=== PATIENT | female | born 1970 | race Caucasian/White ===

== ENCOUNTER → 2019-01-16 09:13 | Outpatient (CLI) | payer OTHER, SELFPAY ==
[2019-01-16 09:54] LABS: Add Manual Diff / Slide Review NO; Basophils Absolute Auto 0 /uL (0-100); Basophils Percent Auto 0.8 % (0-2); Eosinophils Absolute Auto 100 /uL (0-450); Eosinophils Percent Auto 1.8 % (2-4); Hematocrit 38.7 % (36-46); Hemoglobin 13.1 g/dL (12.0-16.0); Lymphocytes Absolute Auto 1200 /uL (1100-4500); Lymphocytes Percent Auto 26.3 % (25-40); Mean Corpuscular HGB Conc 33.8 % (30-36); Mean Corpuscular Hemoglobin 30.9 PG (26-34); Mean Corpuscular Volume 91.3 fL (80-100); Monocytes Absolute Auto 400 /uL (0-900); Monocytes Percent Auto 9.1 % (3-14); Neutrophils Absolute Auto 2800 /uL (1500-7000); Platelet Count 284 X10^3/uL (150-400); Red Blood Cell Count 4.24 X10^6/uL (4.0-5.2); Red Cell Distribution Width 12.2 % (11.6-14.8); White Blood Cell Count 4.5 X10^3/uL (4.5-11.0)
[2019-01-16 10:44] LABS: Alanine Aminotransferase 29 IU/L (9-52); Albumin 4.4 g/dL (3.5-5.0); Albumin Globulin Ratio 1.6 (1.0-2.8); Alkaline Phosphatase 53 U/L (38-126); Aspartate Aminotransferase 21 IU/L (14-36); BUN Creatinine Ratio 21.4 (6-22); Bilirubin Total 0.6 mg/dL (0.2-1.3); Blood Urea Nitrogen 15 mg/dL (7-17); Calcium 9.1 mg/dL (8.4-10.2); Carbon Dioxide 28 mmol/L (22-32); Chloride 101 mmol/L (98-107); Cholesterol 180 mg/dL (140-199); Estimated Glomerular Filt Rate > 60.0 mL/min (>60); Globulin 2.7 g/dL (1.7-4.1); Glucose 85 mg/dL (70-100); HDL Cholesterol 58 mg/dL (40-60); HEMOLYSIS < 15 (0-50); LDL Cholesterol Calculated 110 mg/dL (<100); Potassium 4.1 mmol/L (3.4-5.1); Sodium 136 mmol/L (137-145); Total Protein 7.1 g/dL (6.3-8.2); Triglycerides 59 mg/dL (35-150)
[2019-01-16 10:47] LABS: Vitamin D 25 Hydroxy (D3) 37.4 ng/mL (30.0-100.0)
== END ==
PROVIDERS: PCP Internal Medicine; Visit Provider Student in an Organized Health Care Education/Training Program
DX: Z13.228 Encounter for screening for other metabolic disorders (principal); R53.83 Other fatigue
CPT/HCPCS: 36415; 80053; 80061; 82306; 84443; 85025

== ENCOUNTER → 2019-02-01 11:24 | Outpatient (CLI) | payer OTHER, SELFPAY ==
--- NOTE | 2019-02-01 | DI.MG.S_ITS ---
BILATERAL DIGITAL SCREENING MAMMOGRAM 3D/2D WITH CAD: 02/01/2019 CLINICAL: Routine screening. Comparison is made to exams dated: 12/08/2017 mammogram, 01/12/2017 mammogram, and 01/03/2016 mammogram - [facility]. The tissue of both breasts is extremely dense, which lowers the sensitivity of mammography. Current study was also evaluated with a Computer Aided Detection (CAD) system. There is an asymmetry in the right breast middle depth central to the nipple seen on the mediolateral oblique view only. There is an oval asymmetry in the left breast posterior depth outer region seen on the craniocaudal view only. Finding is best noted on tomographic CC slice 15. There is a mole marker overlying the right breast. There is a biopsy marker in the left breast. IMPRESSION: INCOMPLETE: NEEDS ADDITIONAL IMAGING EVALUATION 1) The asymmetry in the right breast middle depth central to the nipple seen on the mediolateral oblique view only is indeterminate. Additional views with possible ultrasound are recommended. 2) The oval asymmetry in the left breast posterior depth outer region seen on the craniocaudal view only is indeterminate. Additional views with possible ultrasound are recommended. This exam was interpreted at Station ID: [id number]. NOTE: For mammograms, a report in lay terms will be sent to the patient. Approximately 15% of breast malignancies will not be visualized mammographically. In the management of a palpable breast mass, a negative mammogram must not discourage biopsy of a clinically suspicious lesion. Electronically Signed By: Anil Luna M.D. ecl/:02/03/2019 18:32:20 letter sent: Additional Imaging Needed ACR BI-RADS Category 0: Incomplete 3340F
== END ==
PROVIDERS: PCP Internal Medicine; Visit Provider Internal Medicine
DX: Z12.31 Encounter for screening mammogram for malignant neoplasm of breast (principal)
CPT/HCPCS: 77063; 77067

== ENCOUNTER → 2019-03-01 13:12 | Outpatient (CLI) | payer OTHER, SELFPAY ==
--- NOTE | 2019-03-01 | DI.US.S_ITS ---
ULTRASOUND OF RIGHT BREAST: 03/01/2019 CLINICAL: Patient returns today to evaluate a density in the right breast. Comparison is made to exams dated: 03/01/2019 mammogram, 02/01/2019 mammogram, 12/08/2017 mammogram, 01/12/2017 mammogram, 01/03/2016 mammogram, and 01/01/2015 mammogram - [facility]. Color flow and real-time ultrasound of the right breast were performed. Harding scale images of the real-time examination were reviewed. There is a benign 1.2 cm x 1 cm x 1.3 cm oval cyst in the right breast at 10 o'clock middle depth 5 cm from the nipple. This oval cyst is anechoic with a well-defined boundary and posterior acoustic enhancement. Color flow imaging demonstrates that there is no vascularity present. There are also numerous adjacent and scattered simple cysts noted in the right breast. These correlate with the sonographic finidng. No abnormalities were seen sonographically in the right breast. IMPRESSION: BENIGN There is no sonographic evidence of malignancy. The 1.2 cm x 1 cm x 1.3 cm oval cyst in the right breast is consistent with a simple cyst and is benign. A 1 year screening mammogram is recommended. Of note, please see recommendations from left breast ultrasound findings for a 6 month follow up left breast ultrasound. This exam was interpreted at Station ID: [id number]. Electronically Signed By: Elier Farooq M.D. aty/:03/01/2019 16:42:41 letter sent: Normal Exam Ultrasound BI-RADS: 2 Benign
--- NOTE | 2019-03-01 | DI.US.S_ITS ---
ULTRASOUND OF LEFT BREAST: 03/01/2019 CLINICAL: Patient returns today to evaluate a density in the left breast. Comparison is made to exams dated: 03/01/2019 mammogram, 02/01/2019 mammogram, 12/08/2017 mammogram, 01/12/2017 mammogram, 01/03/2016 mammogram, and 01/01/2015 mammogram - [facility]. Color flow and real-time ultrasound of the left breast were performed. Harding scale images of the real-time examination were reviewed. There is 0.9 cm x 0.6 cm x 0.8 cm oval cyst with a septated internal wall in the left breast at 5 o'clock 2 cm from the nipple. This oval cyst is hypoechoic with a well-defined boundary and posterior acoustic enhancement. This correlates with mammography findings. Color flow imaging demonstrates that there is no vascularity present. Additionally, there are numerous simple cysts scattered throughout the left breast. IMPRESSION: PROBABLY BENIGN The 0.9 cm x 0.6 cm x 0.8 cm oval cyst in the left breast at the 5:00 axis, 2cm from the nipple most likely is a complicated cyst and is probably benign. A follow-up left ultrasound in 6 months is recommended to demonstrate stability. This exam was interpreted at Station ID: [id number]. Electronically Signed By: Elier Farooq M.D. aty/:03/01/2019 16:54:15 letter sent: Followup Recommended Ultrasound BI-RADS: 3 Probably benign
--- NOTE | 2019-03-01 | DI.MG.S_ITS ---
BILATERAL DIGITAL DIAGNOSTIC MAMMOGRAM 3D/2D WITH ADDITIONAL VIEWS: 03/01/2019 CLINICAL: Additional evaluation requested from prior study. Comparison is made to exams dated: 02/01/2019 mammogram, 12/08/2017 mammogram, and 01/12/2017 mammogram - [facility]. The tissue of both breasts is extremely dense, which lowers the sensitivity of mammography. There is 0.9 cm oval equal density focal asymmetry in the right breast at 11 o'clock anterior depth which persists on additional views. There is 0.6 cm oval equal density focal asymmetry in the left breast at 5 o'clock posterior depth which persists on additional views. No other significant masses or calcifications are seen in either breast. IMPRESSION: INCOMPLETE: NEEDS ADDITIONAL IMAGING EVALUATION The 0.9 cm oval equal density focal asymmetry in the right breast at 11 o'clock anterior depth is indeterminate. An ultrasound is recommended. The 0.6 cm oval equal density focal asymmetry in the left breast at 5 o'clock posterior depth is indeterminate. An ultrasound is recommended. This exam was interpreted at Station ID: [id number]. NOTE: For mammograms, a report in lay terms will be sent to the patient. Approximately 15% of breast malignancies will not be visualized mammographically. In the management of a palpable breast mass, a negative mammogram must not discourage biopsy of a clinically suspicious lesion. SUMMARY: The recommended ultrasound is scheduled to immediately follow this examination. Electronically Signed By: Elier Farooq M.D. aty/:03/01/2019 14:17:33 ACR BI-RADS Category 0: Incomplete 3340F
== END ==
PROVIDERS: PCP Internal Medicine; Visit Provider Internal Medicine
DX: R92.8 Other abnormal and inconclusive findings on diagnostic imaging of breast (principal); N60.01 Solitary cyst of right breast; N60.02 Solitary cyst of left breast
CPT/HCPCS: 76642; 77066; G0279

== ENCOUNTER → 2019-08-25 08:35 | Outpatient (CLI) | payer OTHER, SELFPAY ==
--- NOTE | 2019-08-25 | DI.US.S_ITS ---
LIMITED ULTRASOUND OF LEFT BREAST: 08/25/2019 CLINICAL: 6 month follow-up of cyst. Comparison is made to exams dated: 03/01/2019 ultrasound, 03/01/2019 mammogram, 02/01/2019 mammogram, 12/08/2017 ultrasound, and 12/08/2017 mammogram - [facility]. Color flow and real-time ultrasound of the left breast 5 o'clock region were performed. Harding scale images of the real-time examination were reviewed. There is a 1.1 cm x 0.9 cm x 0.9 cm (previously 0.9 cm x 0.8 cm x 0.6 cm on comparison ultrasound of 03/01/19) oval cyst with a septated internal wall in the left breast at 5 o'clock 2 cm from the nipple. This oval cyst is hypoechoic with a well-defined boundary and posterior acoustic enhancement. Minimal echogenic debris is stable to prior exam. Color flow imaging demonstrates that there is no vascularity present. IMPRESSION: PROBABLY BENIGN Previously identified probable complicated cyst of the left breast at 5 o'clock position 2 cm from the nipple measures minimally larger than on comparison exam of 03/01/19 but within the limits of measurement error/differences in technique. The probable complicated cyst is not significantly enlarged compared to prior exam of 03/01/19, demonstrates unchanged morphology, and there remains no concerning vascularity to the region. A follow-up ultrasound in 6 months is recommended for futher evaluation/demonstrate stability; bilateral mammography will be due at that time as well. The patient is advised to monitor her breasts and to return sooner for re-evaluation should she feel anything grow or change. This exam was interpreted at Station ID: [id number]. Electronically Signed By: Anil Luna M.D. ecl/:08/25/2019 09:08:56 letter sent: Followup Recommended Ultrasound BI-RADS: 3 Probably benign
== END ==
PROVIDERS: PCP Internal Medicine; Visit Provider Internal Medicine
DX: R92.8 Other abnormal and inconclusive findings on diagnostic imaging of breast (principal); N60.02 Solitary cyst of left breast
CPT/HCPCS: 76642

== ENCOUNTER → 2019-09-20 12:22 | Outpatient (CLI) | payer OTHER, SELFPAY ==
[2019-09-22 17:14] LABS: Urea Breath Test >18YRS NOT DETECTED
== END ==
PROVIDERS: PCP Internal Medicine; Visit Provider Internal Medicine
DX: R10.13 Epigastric pain (principal)
CPT/HCPCS: 83013

== ENCOUNTER → 2019-09-22 12:52 | Outpatient (ROUT) | payer OTHER, SELFPAY ==
[2019-09-22 13:17] LABS: Blood Urea Nitrogen 27 mg/dL (7-17); Calcium 9.4 mg/dL (8.4-10.2); Carbon Dioxide 28 mmol/L (22-32); Chloride 102 mmol/L (98-107); Cholesterol 204 mg/dL (140-199); Estimated Glomerular Filt Rate > 60.0 mL/min (>60); Glucose 81 mg/dL (70-100); HDL Cholesterol 64 mg/dL (40-60); HEMOLYSIS < 15 (0-50); LDL Cholesterol Calculated 128 mg/dL (<100); Potassium 4.2 mmol/L (3.4-5.1); Sodium 139 mmol/L (137-145); Triglycerides 60 mg/dL (35-150)
== END ==
PROVIDERS: PCP Family Medicine; Visit Provider Internal Medicine
DX: Z00.00 Encounter for general adult medical examination without abnormal findings (principal)
CPT/HCPCS: 80048; 80061

== ENCOUNTER → 2020-02-07 13:16 | Outpatient (CLI) | payer OTHER, SELFPAY ==
--- NOTE | 2020-02-07 13:18 | DI.MG.S_ITS ---
BILATERAL DIGITAL DIAGNOSTIC MAMMOGRAM 3D/2D SHORT-TERM FOLLOW-UP: 02/07/2020 CLINICAL: Patient returns for a 6 month follow up of the left breast, due for bilateral imaging. Comparison is made to exams dated: 08/25/2019 ultrasound, 03/01/2019 mammogram, 02/01/2019 mammogram, and 12/08/2017 mammogram - [facility]. The tissue of both breasts is extremely dense, which lowers the sensitivity of mammography. There is an oval equal density focal asymmetry in the left breast at 5 o'clock posterior depth. This is less prominent on additional views. No other significant masses, calcifications, or other findings are seen in either breast. IMPRESSION: INCOMPLETE: NEEDS ADDITIONAL IMAGING EVALUATION The oval equal density focal asymmetry in the left breast is indeterminate. A targeted ultrasound of the left breast is recommended and will be performed immediately following this exam. This exam was interpreted at Station ID: [id number]. NOTE: For mammograms, a report in lay terms will be sent to the patient. Approximately 15% of breast malignancies will not be visualized mammographically. In the management of a palpable breast mass, a negative mammogram must not discourage biopsy of a clinically suspicious lesion. Electronically Signed By: Sally Linton M.D. lk/:02/07/2020 13:58:09 ACR BI-RADS Category 0: Incomplete 3340F
--- NOTE | 2020-02-07 13:19 | DI.US.S_ITS ---
ULTRASOUND OF LEFT BREAST: 02/07/2020 CLINICAL: Followup on left breast cyst. Comparison is made to exams dated: 08/25/2019 ultrasound, 03/01/2019 ultrasound, and 12/08/2017 [facility]. Real-time ultrasound of the left breast was performed on the areas of interest. Harding scale images of the real-time examination were reviewed. There is an oval cyst with a septated internal wall in the left breast at 5 o'clock posterior depth. This oval cyst is hypoechoic with a well-defined boundary and posterior acoustic enhancement. This correlates with mammography findings. Color flow imaging demonstrates that there is no vascularity present. Minimal echogenic debris is stable to prior exam. IMPRESSION: PROBABLY BENIGN The oval cyst in the left breast most likely is a complicated cyst and is probably benign. A follow-up left mammogram and an ultrasound in 6 months is recommended to demonstrate stability. This exam was interpreted at Station ID: [id number]. Electronically Signed By: Sally charles/:02/07/2020 15:20:05 letter sent: Followup Recommended Ultrasound BI-RADS: 3 Probably benign
== END ==
PROVIDERS: PCP Family Medicine; Referring Provider Family Medicine; Visit Provider Family Medicine
DX: R92.8 Other abnormal and inconclusive findings on diagnostic imaging of breast (principal); N60.02 Solitary cyst of left breast
CPT/HCPCS: 76642; 77066; G0279

== ENCOUNTER 2020-08-19 14:30 | Outpatient (RCR) | payer OTHER, SELFPAY ==
--- NOTE | 2020-07-04 17:33 | PT.OIE ---
Current Diagnoses Benign paroxysmal vertigo, unspecified ear (07/04/20) Stiffness of unspecified joint, not elsewhere classified (07/04/20) Cervicalgia (07/04/20) Strain of muscle, fascia and tendon of lower back, initial encounter (07/04/20) Strain of muscle, fascia and tendon of lower back, subsequent encounter (07/04/20) Past Medical History (Last Updated 10/11/19 @ 09:45 by Leatha Pierre MD) Depression (Acute) Past Surgical History History of carpal tunnel repair Status post delivery Status post dilation and curettage Status post endometrial ablation Visit Care Team Role Provider Type Leatha Pierre MD Attending Provider Physician Primary Care Provider Referring Provider Specialty: [facility] Address: [address] [place] [address], [facility] Email: [email or web address] Physical Therapy Initial Evaluation PT-OP-A Visit Information Start: 07/04/20 16:55 Freq: Status: Active Protocol: Document 07/04/20 11:15 DCW (Rec: 07/04/20 17:33 [facility] [id number]) Out-Patient Physical Therapy Visit Information Visit Information Visit Type Initial Evaluation Visit Start Time 11:15 Visit Stop Time 12:00 Total Visit Minutes 45 Visit Number 1 Number of TEST ENGINEER Visits 0 Evaluation Information Evaluation Date 07/04/20 PT-OP-B Current Condition Start: 07/04/20 16:55 Freq: Status: Active Protocol: Document 07/04/20 11:15 DCW (Rec: 07/04/20 17:33 DC [id number]) Current Condition History of Current Condition Onset Date one year Current Complaints Neck pain and stiffness, low back tightness History of Current Condition Pt is a 50 year old female presenting today with multiple complaints. Pt's referral states cervical and low back pain, as well as unspecified BPPV. Pt reports that she has not been having any ongoing issues with vertigo, and would prefer to focus mainly on the neck, as this is her biggest problem area, and then some on the low back as well, time permitting. Pt reports she has had neck pain off and on for the past year. She is unsure when it began, but she thinks it may have happened when she tilted her head back to wash her hair, and heard a popping in her neck. Pt reports the pain is generally more of a tightness or soreness, but can occasionally become worse and begin radiating down her arm. Pt does note her neck doesn't really hurt today, but it seems to come and go. Pt reports she has the most difficulty checking her blind spots while driving, or looking up if she sees a bird or plne overhead. Pt reports that over the winter, she began getting mild low back pain after shoveling snow. Overall, it will feel fine, but then she'll get an occasionally pain randomly with her positioning, but it normally feels better by the end of the day. Treatment Goals Patient/Caregiver Goals I want to move my neck without pain. PT-OP-C Subjective Start: 07/04/20 16:55 Freq: Status: Active Protocol: Document 07/04/20 11:15 DCW (Rec: 07/04/20 17:33 DCW [id number]) OP-PT Subjective Patient Comments Patient Comments Of course it doesn't hurt today, that always happens when you try to get something looked at. Patient Questionnaires Neck Disability Index NDI Score 13/50 = 26% Neck Disability Index Impairment 20 to 39% Impaired (Score 10- 19) Quick Dash- Upper Extremity Quick Dash UE Score 17.5% Quick Dash UE Impairment 1 to 19% Impaired (Score 1-19) OP-PT Pain Assessment Pain Assessment Grid Paper Pain Assessment Grid Completed Yes Location Left Lower Back Intensity 4 Scale Used Numeric (0 - 10) Right Posterior Neck Intensity 6 Scale Used Numeric (0 - 10) PT-OP-F Manual Assessment Start: 07/04/20 16:55 Freq: Status: Active Protocol: Document 07/04/20 11:15 DCW (Rec: 07/04/20 17:33 DCW [id number]) Manual Assessments Soft Tissue Assessment Soft Tissue Mobility Assessment Moderate tone and tenderness to palpation 2/4 - pain with wincing: right upper trap, right scalenes, left QL Joint Mobility Assessment Joint Mobility Assessment Joint mobility in cervical spine WNL PT-OP-K Range of Motion Start: 07/04/20 16:55 Freq: Status: Active Protocol: Document 07/04/20 11:15 DCW (Rec: 07/04/20 17:33 DCW [id number]) Cervical Spine Range of Motion Cervical Spine Active Degrees Testing Position Sitting Flexion 45 Extension 50 Rotation Left 50 Rotation Right 50 Lateral Flexion Left 25 Lateral Flexion Right 30 ROM Limitations Soft Tissue Tightness,Muscle Tone PT-OP-L Special Tests Start: 07/04/20 16:55 Freq: Status: Active Protocol: Document 07/04/20 11:15 DCW (Rec: 07/04/20 17:33 [facility] [id number]) Special Tests Cervical Spine Special Tests Traction Test Results Negative Spurling's Test Test Results Negative Slump Test Results Negative Passive Neck Flexion Test Results Negative Foraminal Compression Test Results Negative Lumbar Spine Special Tests Slump Test Results Negative PT-OP-Q Treatments Start: 07/04/20 16:55 Freq: Status: Active Protocol: Document 07/04/20 11:15 DCW (Rec: 07/04/20 17:33 [facility] [id number]) Therapeutic Exercises Sitting Exercises 3 Sitting Exercise Name Seated trunk flexion 2 Sitting Exercise Name [place] 1 Sitting Exercise Name Upper trap, Scalene stretches Side right PT-OP-T Assessment and Plan Start: 07/04/20 16:55 Freq: Status: Active Protocol: Document 07/04/20 11:15 DCW (Rec: 07/04/20 17:33 [facility] [id number]) Physical Therapy Assessment Rehab Potential Rehabilitation Potential Excellent Evaluation Complexity Number of Personal Factors/Comorbidities 0 Number of Body Systems Impaired 3 Clinical Presentation at Evaluation Stable Impairments Impairments Functional Activities, Functional Mobility,Pain,ROM, Soft Tissue Mobility,Tone Goals Three Impairment Pt has difficulty lifting items due to low back pain Usp Goal (LTG) Pt to demonstrate good body mechanics and ability to lift 20# off the floor without increased low back pain LTG Duration 09/03/20 Two Impairment Pt cervical rotation limited to 50? bilaterally Construction Secretary Goal (LTG) Pt to demonstrate increased cervical ROM to 70? rotation bilaterally to improve ability to look for traffic while driving LTG Duration 09/03/20 One Impairment Pt does not have an appropriate home exercise program Short Term Goal (STG) Pt to be independent and compliant with an appropriate HEP STG Duration 08/04/20 Assessment Summary Assessment Pt presents with signs and symptoms consistent with a soft tissue injury to her right neck. Pt did not show any symptoms of damage or injury to the vertebrae, and there were no positive special tests today. Pt did admit that she was doing better today than what she had been overall, so this may change if her symptoms worsen. Pt's low back was not as fully assessed due to time constraints, but also appears to be mainly soft tissue injury. Both of these injuries appear to be causing mild discomfort and stiffness. Pt should benefit from skilled therapy focusing on STM, flexibility, body mechanics, strengthening, and modalities as indicated. Physical Therapy Plan Frequency and Duration Frequency of Treatment 2x/Week Duration of Treatment 2 months Plan of Care Start Date 07/04/20 Plan of Care End Date 09/03/20 Therapeutic Interventions Therapeutic Interventions Home Exercise Program,Joint Mobilizations,Manual Therapy, Patient/Caregiver Education, Self-Care/Home Management,Soft Tissue Mobilization, Therapeutic Activities, Therapeutic Exercises Modalities Cold Pack/Ice Massage,Electric Stimulation,Hot Packs, Ultrasound Next Visit Focus/Plan Next Note Type Treatment Note Next Visit Plan STM to R upper trap, scalenes, suboccipitals, L QL. Cervical ROM, Flexibility training
--- NOTE | 2020-07-04 17:34 | PT.OPPOC ---
Physical, Occupational & Speech Therapy At [facility] Current Diagnoses Benign paroxysmal vertigo, unspecified ear (07/04/20) Stiffness of unspecified joint, not elsewhere classified (07/04/20) Cervicalgia (07/04/20) Strain of muscle, fascia and tendon of lower back, initial encounter (07/04/20) Strain of muscle, fascia and tendon of lower back, subsequent encounter (07/04/20) Visit Care Team Role Provider Type Leatha Pierre MD Attending Provider Physician Primary Care Provider Referring Provider Specialty: Family Practice Address: [address] [place] [address], [place], [address] Email: [email or web address] Plan Of Care PT-OP-T Assessment and Plan Start: 07/04/20 16:55 Freq: Status: Active Protocol: Document 07/04/20 11:15 DCW (Rec: 07/04/20 17:33 DCW [id number]) Physical Therapy Assessment Rehab Potential Rehabilitation Potential Excellent Evaluation Complexity Number of Personal Factors/Comorbidities 0 Number of Body Systems Impaired 3 Clinical Presentation at Evaluation Stable Impairments Impairments Functional Activities, Functional Mobility,Pain,ROM, Soft Tissue Mobility,Tone Goals Three Impairment Pt has difficulty lifting items due to low back pain Value Engineer Goal (LTG) Pt to demonstrate good body mechanics and ability to lift 20# off the floor without increased low back pain LTG Duration 09/03/20 Two Impairment Pt cervical rotation limited to 50? bilaterally Value Engineer Goal (LTG) Pt to demonstrate increased cervical ROM to 70? rotation bilaterally to improve ability to look for traffic while driving LTG Duration 09/03/20 One Impairment Pt does not have an appropriate home exercise program Short Term Goal (STG) Pt to be independent and compliant with an appropriate HEP STG Duration 08/04/20 Assessment Summary Assessment Pt presents with signs and symptoms consistent with a soft tissue injury to her right neck. Pt did not show any symptoms of damage or injury to the vertebrae, and there were no positive special tests today. Pt did admit that she was doing better today than what she had been overall, so this may change if her symptoms worsen. Pt's low back was not as fully assessed due to time constraints, but also appears to be mainly soft tissue injury. Both of these injuries appear to be causing mild discomfort and stiffness. Pt should benefit from skilled therapy focusing on STM, flexibility, body mechanics, strengthening, and modalities as indicated. Physical Therapy Plan Frequency and Duration Frequency of Treatment 2x/Week Duration of Treatment 2 months Plan of Care Start Date 07/04/20 Plan of Care End Date 09/03/20 Therapeutic Interventions Therapeutic Interventions Home Exercise Program,Joint Mobilizations,Manual Therapy, Patient/Caregiver Education, Self-Care/Home Management,Soft Tissue Mobilization, Therapeutic Activities, Therapeutic Exercises Modalities Cold Pack/Ice Massage,Electric Stimulation,Hot Packs, Ultrasound Next Visit Focus/Plan Next Note Type Treatment Note Next Visit Plan STM to R upper trap, scalenes, suboccipitals, L QL. Cervical ROM, Flexibility training Plan of Care Dates Plan of Care Start Date 07/04/20 Plan of Care End Date 09/03/20 Electronically Signed by: David Blackwood, PT 07/04/20 [id number] Please Sign and Return: I have reviewed this Plan of Care and certify that the skilled therapy services above are required to meet the patient?s needs. Physician Signature Date Printed Name and Credentials Clinical Instructor Signature Printed Name and Credentials
--- NOTE | 2020-07-09 13:05 | PT.OTN ---
Current Diagnoses Benign paroxysmal vertigo, unspecified ear (07/09/20) Stiffness of unspecified joint, not elsewhere classified (07/09/20) Cervicalgia (07/09/20) Strain of muscle, fascia and tendon of lower back, initial encounter (07/09/20) Strain of muscle, fascia and tendon of lower back, subsequent encounter (07/09/20) Physical Therapy Treatment Note PT-OP-A Visit Information Start: 07/04/20 16:55 Freq: Status: Active Protocol: Document 07/09/20 12:16 SP (Rec: 07/09/20 15:07 SP [id number]) Out-Patient Physical Therapy Visit Information Visit Information Visit Type Treatment Note Visit Start Time 12:16 Visit Stop Time 13:05 Total Visit Minutes 49 Visit Number 2 Number of STUCCO PLASTERER Visits 1 PT-OP-B Current Condition Start: 07/04/20 16:55 Freq: Status: Active Protocol: Document 07/04/20 11:15 DCW (Rec: 07/04/20 17:33 DCW [id number]) Current Condition History of Current Condition Onset Date one year Current Complaints Neck pain and stiffness, low back tightness History of Current Condition Pt is a 50 year old female presenting today with multiple complaints. Pt's referral states cervical and low back pain, as well as unspecified BPPV. Pt reports that she has not been having any ongoing issues with vertigo, and would prefer to focus mainly on the neck, as this is her biggest problem area, and then some on the low back as well, time permitting. Pt reports she has had neck pain off and on for the past year. She is unsure when it began, but she thinks it may have happened when she tilted her head back to wash her hair, and heard a popping in her neck. Pt reports the pain is generally more of a tightness or soreness, but can occasionally become worse and begin radiating down her arm. Pt does note her neck doesn't really hurt today, but it seems to come and go. Pt reports she has the most difficulty checking her blind spots while driving, or looking up if she sees a bird or plne overhead. Pt reports that over the winter, she began getting mild low back pain after shoveling snow. Overall, it will feel fine, but then she'll get an occasionally pain randomly with her positioning, but it normally feels better by the end of the day. Treatment Goals Patient/Caregiver Goals I want to move my neck without pain. PT-OP-C Subjective Start: 07/04/20 16:55 Freq: Status: Active Protocol: Document 07/09/20 12:16 SP (Rec: 07/09/20 15:07 SP [id number]) OP-PT Subjective Patient Comments Patient Comments Has pain 3/10 over R lateral side of neck when turns head to R and more when also looks up toward ceiling so avoids motions like this for the past yr. PT-OP-F Manual Assessment Start: 07/04/20 16:55 Freq: Status: Active Protocol: Document 07/04/20 11:15 DCW (Rec: 07/04/20 17:33 DCW [id number]) Manual Assessments Soft Tissue Assessment Soft Tissue Mobility Assessment Moderate tone and tenderness to palpation 2/4 - pain with wincing: right upper trap, right scalenes, left QL Joint Mobility Assessment Joint Mobility Assessment Joint mobility in cervical spine WNL PT-OP-K Range of Motion Start: 07/04/20 16:55 Freq: Status: Active Protocol: Document 07/04/20 11:15 DCW (Rec: 07/04/20 17:33 DCW [id number]) Cervical Spine Range of Motion Cervical Spine Active Degrees Testing Position Sitting Flexion 45 Extension 50 Rotation Left 50 Rotation Right 50 Lateral Flexion Left 25 Lateral Flexion Right 30 ROM Limitations Soft Tissue Tightness,Muscle Tone PT-OP-L Special Tests Start: 07/04/20 16:55 Freq: Status: Active Protocol: Document 07/04/20 11:15 DCW (Rec: 07/04/20 17:33 DCW [id number]) Special Tests Cervical Spine Special Tests Traction Test Results Negative Spurling's Test Test Results Negative Slump Test Results Negative Passive Neck Flexion Test Results Negative Foraminal Compression Test Results Negative Lumbar Spine Special Tests Slump Test Results Negative PT-OP-Q Treatments Start: 07/04/20 16:55 Freq: Status: Active Protocol: Document 07/09/20 12:16 SP (Rec: 07/09/20 15:07 SP [id number]) Therapeutic Exercises Sitting Exercises QL stretch Sitting Exercise Name R side bend Side left Reps/Minutes 30 x2 Comments add HEP 3 Sitting Exercise Name Seated trunk flexion Reps/Minutes 30 Comments HEP 2 Sitting Exercise Name [place] Reps/Minutes 30 Comments HEP 1 Sitting Exercise Name Upper trap, Scalene stretches Side right Comments HEP Manual Therapy Treatment Soft Tissue Mobilization SCM, Scalenes, suboccipitals, UT Mobilization Type Cross-Friction,Myofascial Release,Sustained Pressure Intensity/Depth Moderate Body Position Supine Comments elevated supine on wedge due to dizziness with good feedback manual and Instructed w/ racquetball in sock UT, rhomboids at wall and theracane posterior neck MWM PT-OP-T Assessment and Plan Start: 07/04/20 16:55 Freq: Status: Active Protocol: Document 07/09/20 12:16 SP (Rec: 07/09/20 15:07 SP [id number]) Physical Therapy Assessment Goals Three Impairment Pt has difficulty lifting items due to low back pain Low Pressure Kettle Operator Goal (LTG) Pt to demonstrate good body mechanics and ability to lift 20# off the floor without increased low back pain LTG Duration 09/03/20 Two Impairment Pt cervical rotation limited to 50? bilaterally [facility] Goal (LTG) Pt to demonstrate increased cervical ROM to 70? rotation bilaterally to improve ability to look for traffic while driving LTG Duration 09/03/20 One Impairment Pt does not have an appropriate home exercise program Short Term Goal (STG) Pt to be independent and compliant with an appropriate HEP STG Duration 08/04/20 Assessment Summary Assessment Pt initially did not tolerate supine positioning, improved with black wedge. Pt stated has gotten a couple vertigo instance since last tx but improves with youtube video talking her through self corrections. Pt tolerated manual and instruction on self STMs to posterior and lateral R side of neck and scap area with good response this does help loosen up my neck. See hand outs provided in chart. Physical Therapy Plan Frequency and Duration Frequency of Treatment 2x/Week Duration of Treatment 2 months Plan of Care Start Date 07/04/20 Plan of Care End Date 09/03/20 Therapeutic Interventions Therapeutic Interventions Home Exercise Program,Joint Mobilizations,Manual Therapy, Patient/Caregiver Education, Self-Care/Home Management,Soft Tissue Mobilization, Therapeutic Activities, Therapeutic Exercises Modalities Cold Pack/Ice Massage,Electric Stimulation,Hot Packs, Ultrasound Next Visit Focus/Plan Next Note Type Treatment Note Next Visit Plan Assess response to last tx: manual and self instruction STMs and stretching to R upper trap, scalenes, suboccipitals , L QL. Continue to focus on Cervical ROM, Flexibility training.
--- NOTE | 2020-07-16 11:24 | PT.OTN ---
Current Diagnoses Benign paroxysmal vertigo, unspecified ear (07/16/20) Stiffness of unspecified joint, not elsewhere classified (07/16/20) Cervicalgia (07/16/20) Strain of muscle, fascia and tendon of lower back, initial encounter (07/16/20) Strain of muscle, fascia and tendon of lower back, subsequent encounter (07/16/20) Physical Therapy Treatment Note PT-OP-A Visit Information Start: 07/04/20 16:55 Freq: Status: Active Protocol: Document 07/16/20 10:30 DCW (Rec: 07/16/20 11:23 DCW [id number]) Out-Patient Physical Therapy Visit Information Visit Information Visit Type Treatment Note Visit Start Time 10:30 Visit Stop Time 11:15 Total Visit Minutes 45 Visit Number 3 Number of PATIENT CARE TECHNICIAN INSTRUCTOR Visits 0 Evaluation Information Evaluation Date 07/04/20 PT-OP-B Current Condition Start: 07/04/20 16:55 Freq: Status: Active Protocol: Document 07/04/20 11:15 DCW (Rec: 07/04/20 17:33 DCW [id number]) Current Condition History of Current Condition Onset Date one year Current Complaints Neck pain and stiffness, low back tightness History of Current Condition Pt is a 50 year old female presenting today with multiple complaints. Pt's referral states cervical and low back pain, as well as unspecified BPPV. Pt reports that she has not been having any ongoing issues with vertigo, and would prefer to focus mainly on the neck, as this is her biggest problem area, and then some on the low back as well, time permitting. Pt reports she has had neck pain off and on for the past year. She is unsure when it began, but she thinks it may have happened when she tilted her head back to wash her hair, and heard a popping in her neck. Pt reports the pain is generally more of a tightness or soreness, but can occasionally become worse and begin radiating down her arm. Pt does note her neck doesn't really hurt today, but it seems to come and go. Pt reports she has the most difficulty checking her blind spots while driving, or looking up if she sees a bird or plne overhead. Pt reports that over the winter, she began getting mild low back pain after shoveling snow. Overall, it will feel fine, but then she'll get an occasionally pain randomly with her positioning, but it normally feels better by the end of the day. Treatment Goals Patient/Caregiver Goals I want to move my neck without pain. PT-OP-C Subjective Start: 07/04/20 16:55 Freq: Status: Active Protocol: Document 07/16/20 10:30 DCW (Rec: 07/16/20 11:23 DCW [id number]) OP-PT Subjective Patient Comments Patient Comments Since I was last in here, I' ve had some vertigo problems. Pt notes she has done the half-sommersault maneuver, which seems to have helped. PT-OP-F Manual Assessment Start: 07/04/20 16:55 Freq: Status: Active Protocol: Document 07/04/20 11:15 DCW (Rec: 07/04/20 17:33 DCW [id number]) Manual Assessments Soft Tissue Assessment Soft Tissue Mobility Assessment Moderate tone and tenderness to palpation 2/4 - pain with wincing: right upper trap, right scalenes, left QL Joint Mobility Assessment Joint Mobility Assessment Joint mobility in cervical spine WNL PT-OP-K Range of Motion Start: 07/04/20 16:55 Freq: Status: Active Protocol: Document 07/04/20 11:15 DCW (Rec: 07/04/20 17:33 DCW [id number]) Cervical Spine Range of Motion Cervical Spine Active Degrees Testing Position Sitting Flexion 45 Extension 50 Rotation Left 50 Rotation Right 50 Lateral Flexion Left 25 Lateral Flexion Right 30 ROM Limitations Soft Tissue Tightness,Muscle Tone PT-OP-L Special Tests Start: 07/04/20 16:55 Freq: Status: Active Protocol: Document 07/04/20 11:15 DCW (Rec: 07/04/20 17:33 DCW [id number]) Special Tests Cervical Spine Special Tests Traction Test Results Negative Spurling's Test Test Results Negative Slump Test Results Negative Passive Neck Flexion Test Results Negative Foraminal Compression Test Results Negative Lumbar Spine Special Tests Slump Test Results Negative PT-OP-Q Treatments Start: 07/04/20 16:55 Freq: Status: Active Protocol: Document 07/16/20 10:30 DCW (Rec: 07/16/20 11:23 DCW [id number]) Therapeutic Exercises Supine Exercises 1 Supine Exercise Name Psoas Stretch Sitting Exercises 3 Sitting Exercise Name Seated trunk flexion Standing Exercises 1 Standing Exercise Name / kneel Psoas stretch Side left Manual Therapy Treatment Soft Tissue Mobilization Psoas Body Location L Mobilization Type Cross-Friction,Myofascial Release,Sustained Pressure Intensity/Depth Deep QL, Lumbar Paraspinals Body Location L Mobilization Type Cross-Friction,Myofascial Release,Sustained Pressure, Trigger Point Release Intensity/Depth Moderate SCM, Scalenes, suboccipitals, UT Mobilization Type Cross-Friction,Myofascial Release,Sustained Pressure Intensity/Depth Moderate Body Position Supine Neuro Re-Education Treatment Other Activities Positional Testing Details Sonam-Hallpike, Roll Test PT-OP-T Assessment and Plan Start: 07/04/20 16:55 Freq: Status: Active Protocol: Document 07/16/20 10:30 DCW (Rec: 07/16/20 11:23 DCW [id number]) Physical Therapy Assessment Impairments Impairments Functional Activities, Functional Mobility,Pain,ROM, Soft Tissue Mobility,Tone Goals Three Impairment Pt has difficulty lifting items due to low back pain Care Home Goal (LTG) Pt to demonstrate good body mechanics and ability to lift 20# off the floor without increased low back pain LTG Duration 09/03/20 Two Impairment Pt cervical rotation limited to 50? bilaterally Head Pastry Chef Goal (LTG) Pt to demonstrate increased cervical ROM to 70? rotation bilaterally to improve ability to look for traffic while driving LTG Duration 09/03/20 One Impairment Pt does not have an appropriate home exercise program Short Term Goal (STG) Pt to be independent and compliant with an appropriate HEP STG Duration 08/04/20 Assessment Summary Assessment Pt underwent positional testing due to complaints of vertigo, however pt asymptomatic today. Pt tone much improved today vs last week, HEP going very well. Physical Therapy Plan Frequency and Duration Frequency of Treatment 2x/Week Duration of Treatment 2 months Plan of Care Start Date 07/04/20 Plan of Care End Date 09/03/20 Therapeutic Interventions Therapeutic Interventions Home Exercise Program,Joint Mobilizations,Manual Therapy, Patient/Caregiver Education, Self-Care/Home Management,Soft Tissue Mobilization, Therapeutic Activities, Therapeutic Exercises Modalities Cold Pack/Ice Massage,Electric Stimulation,Hot Packs, Ultrasound Next Visit Focus/Plan Next Note Type Treatment Note Next Visit Plan Assess response to last tx: Psoas stretching and HEP. Continue to focus on Cervical ROM, Flexibility training.
--- NOTE | 2020-08-19 15:15 | PT.OTN ---
Current Diagnoses Benign paroxysmal vertigo, unspecified ear (08/19/20) Stiffness of unspecified joint, not elsewhere classified (08/19/20) Cervicalgia (08/19/20) Strain of muscle, fascia and tendon of lower back, initial encounter (08/19/20) Strain of muscle, fascia and tendon of lower back, subsequent encounter (08/19/20) Physical Therapy Treatment Note PT-OP-A Visit Information Start: 07/04/20 16:55 Freq: Status: Active Protocol: Document 08/19/20 14:30 DCW (Rec: 08/19/20 15:15 DCW [id number]) Out-Patient Physical Therapy Visit Information Visit Information Visit Type Treatment Note Visit Start Time 14:30 Visit Stop Time 15:15 Total Visit Minutes 45 Visit Number 4 Number of BINDER FIXER Visits 0 Evaluation Information Evaluation Date 07/04/20 PT-OP-B Current Condition Start: 07/04/20 16:55 Freq: Status: Active Protocol: Document 07/04/20 11:15 DCW (Rec: 07/04/20 17:33 DCW [id number]) Current Condition History of Current Condition Onset Date one year Current Complaints Neck pain and stiffness, low back tightness History of Current Condition Pt is a 50 year old female presenting today with multiple complaints. Pt's referral states cervical and low back pain, as well as unspecified BPPV. Pt reports that she has not been having any ongoing issues with vertigo, and would prefer to focus mainly on the neck, as this is her biggest problem area, and then some on the low back as well, time permitting. Pt reports she has had neck pain off and on for the past year. She is unsure when it began, but she thinks it may have happened when she tilted her head back to wash her hair, and heard a popping in her neck. Pt reports the pain is generally more of a tightness or soreness, but can occasionally become worse and begin radiating down her arm. Pt does note her neck doesn't really hurt today, but it seems to come and go. Pt reports she has the most difficulty checking her blind spots while driving, or looking up if she sees a bird or plne overhead. Pt reports that over the winter, she began getting mild low back pain after shoveling snow. Overall, it will feel fine, but then she'll get an occasionally pain randomly with her positioning, but it normally feels better by the end of the day. Treatment Goals Patient/Caregiver Goals I want to move my neck without pain. PT-OP-C Subjective Start: 07/04/20 16:55 Freq: Status: Active Protocol: Document 08/19/20 14:30 DCW (Rec: 08/19/20 15:15 DCW [id number]) OP-PT Subjective Patient Comments Patient Comments Pt reports overall she's doing pretty good, her neck comes and goes, but generally feels better, but she's still having some back pain. PT-OP-F Manual Assessment Start: 07/04/20 16:55 Freq: Status: Active Protocol: Document 07/04/20 11:15 DCW (Rec: 07/04/20 17:33 DCW [id number]) Manual Assessments Soft Tissue Assessment Soft Tissue Mobility Assessment Moderate tone and tenderness to palpation 2/4 - pain with wincing: right upper trap, right scalenes, left QL Joint Mobility Assessment Joint Mobility Assessment Joint mobility in cervical spine WNL PT-OP-K Range of Motion Start: 07/04/20 16:55 Freq: Status: Active Protocol: Document 07/04/20 11:15 DCW (Rec: 07/04/20 17:33 DCW [id number]) Cervical Spine Range of Motion Cervical Spine Active Degrees Testing Position Sitting Flexion 45 Extension 50 Rotation Left 50 Rotation Right 50 Lateral Flexion Left 25 Lateral Flexion Right 30 ROM Limitations Soft Tissue Tightness,Muscle Tone PT-OP-L Special Tests Start: 07/04/20 16:55 Freq: Status: Active Protocol: Document 07/04/20 11:15 DCW (Rec: 07/04/20 17:33 DCW [id number]) Special Tests Cervical Spine Special Tests Traction Test Results Negative Spurling's Test Test Results Negative Slump Test Results Negative Passive Neck Flexion Test Results Negative Foraminal Compression Test Results Negative Lumbar Spine Special Tests Slump Test Results Negative PT-OP-Q Treatments Start: 07/04/20 16:55 Freq: Status: Active Protocol: Document 08/19/20 14:30 DCW (Rec: 08/19/20 15:15 DCW [id number]) Therapeutic Exercises Supine Exercises 2 Supine Exercise Name Chin tuck/head lift 1 Supine Exercise Name Psoas Stretch Manual Therapy Treatment Soft Tissue Mobilization Psoas Body Location L Mobilization Type Cross-Friction,Myofascial Release,Sustained Pressure Intensity/Depth Deep QL, Lumbar Paraspinals Body Location L Mobilization Type Cross-Friction,Myofascial Release,Sustained Pressure, Trigger Point Release Intensity/Depth Moderate SCM, Scalenes, suboccipitals, UT Mobilization Type Cross-Friction,Myofascial Release,Sustained Pressure Intensity/Depth Moderate Body Position Supine PT-OP-T Assessment and Plan Start: 07/04/20 16:55 Freq: Status: Active Protocol: Document 08/19/20 14:30 DCW (Rec: 08/19/20 15:15 DCW [id number]) Physical Therapy Assessment Impairments Impairments Functional Activities, Functional Mobility,Pain,ROM, Soft Tissue Mobility,Tone Goals Three Impairment Pt has difficulty lifting items due to low back pain Call Box Wirer Goal (LTG) Pt to demonstrate good body mechanics and ability to lift 20# off the floor without increased low back pain LTG Duration 09/03/20 Two Impairment Pt cervical rotation limited to 50? bilaterally Call Box Wirer Goal (LTG) Pt to demonstrate increased cervical ROM to 70? rotation bilaterally to improve ability to look for traffic while driving LTG Duration 09/03/20 One Impairment Pt does not have an appropriate home exercise program Short Term Goal (STG) Pt to be independent and compliant with an appropriate HEP STG Duration 08/04/20 Assessment Summary Assessment Pt feeling significant improvement, still notes some tightness, mainly in low back. Pt feels comfortable with her current level of function and knowledge of HEP, however not quite ready to discharge, would like to keep chart open for ~1 month in case she has any changes in symptoms. Physical Therapy Plan Frequency and Duration Frequency of Treatment 2x/Week Duration of Treatment 2 months Plan of Care Start Date 07/04/20 Plan of Care End Date 09/03/20 Therapeutic Interventions Therapeutic Interventions Home Exercise Program,Joint Mobilizations,Manual Therapy, Patient/Caregiver Education, Self-Care/Home Management,Soft Tissue Mobilization, Therapeutic Activities, Therapeutic Exercises Modalities Cold Pack/Ice Massage,Electric Stimulation,Hot Packs, Ultrasound Next Visit Focus/Plan Next Note Type Treatment Note Next Visit Plan Assess response to last tx: Psoas stretching and HEP. Continue to focus on Cervical ROM, Flexibility training.
--- NOTE | 2020-12-26 15:02 | PT.OPDS ---
Current Diagnoses Benign paroxysmal vertigo, unspecified ear (08/19/20) Stiffness of unspecified joint, not elsewhere classified (08/19/20) Cervicalgia (08/19/20) Strain of muscle, fascia and tendon of lower back, initial encounter (08/19/20) Strain of muscle, fascia and tendon of lower back, subsequent encounter (08/19/20) Visit Care Team Role Provider Type Leatha Pierre MD Attending Provider Physician Primary Care Provider Referring Provider Specialty: Family Practice Address: [address] [place] [address], [facility] Email: [email or web address] Visit Number Visit Number 4 Discharge Summary PT-OP-B Current Condition Start: 07/04/20 16:55 Freq: Status: Active Protocol: Document 07/04/20 11:15 DCW (Rec: 07/04/20 17:33 DCW [id number]) Current Condition History of Current Condition Onset Date one year Current Complaints Neck pain and stiffness, low back tightness History of Current Condition Pt is a 50 year old female presenting today with multiple complaints. Pt's referral states cervical and low back pain, as well as unspecified BPPV. Pt reports that she has not been having any ongoing issues with vertigo, and would prefer to focus mainly on the neck, as this is her biggest problem area, and then some on the low back as well, time permitting. Pt reports she has had neck pain off and on for the past year. She is unsure when it began, but she thinks it may have happened when she tilted her head back to wash her hair, and heard a popping in her neck. Pt reports the pain is generally more of a tightness or soreness, but can occasionally become worse and begin radiating down her arm. Pt does note her neck doesn't really hurt today, but it seems to come and go. Pt reports she has the most difficulty checking her blind spots while driving, or looking up if she sees a bird or plne overhead. Pt reports that over the winter, she began getting mild low back pain after shoveling snow. Overall, it will feel fine, but then she'll get an occasionally pain randomly with her positioning, but it normally feels better by the end of the day. Treatment Goals Patient/Caregiver Goals I want to move my neck without pain. PT-OP-C Subjective Start: 07/04/20 16:55 Freq: Status: Active Protocol: Document 08/19/20 14:30 DCW (Rec: 08/19/20 15:15 DCW [id number]) OP-PT Subjective Patient Comments Patient Comments Pt reports overall she's doing pretty good, her neck comes and goes, but generally feels better, but she's still having some back pain. PT-OP-F Manual Assessment Start: 07/04/20 16:55 Freq: Status: Active Protocol: Document 07/04/20 11:15 DCW (Rec: 07/04/20 17:33 DCW [id number]) Manual Assessments Soft Tissue Assessment Soft Tissue Mobility Assessment Moderate tone and tenderness to palpation 2/4 - pain with wincing: right upper trap, right scalenes, left QL Joint Mobility Assessment Joint Mobility Assessment Joint mobility in cervical spine WNL PT-OP-K Range of Motion Start: 07/04/20 16:55 Freq: Status: Active Protocol: Document 07/04/20 11:15 DCW (Rec: 07/04/20 17:33 DCW [id number]) Cervical Spine Range of Motion Cervical Spine Active Degrees Testing Position Sitting Flexion 45 Extension 50 Rotation Left 50 Rotation Right 50 Lateral Flexion Left 25 Lateral Flexion Right 30 ROM Limitations Soft Tissue Tightness,Muscle Tone PT-OP-L Special Tests Start: 07/04/20 16:55 Freq: Status: Active Protocol: Document 07/04/20 11:15 DCW (Rec: 07/04/20 17:33 DCW [id number]) Special Tests Cervical Spine Special Tests Traction Test Results Negative Spurling's Test Test Results Negative Slump Test Results Negative Passive Neck Flexion Test Results Negative Foraminal Compression Test Results Negative Lumbar Spine Special Tests Slump Test Results Negative PT-OP-T Assessment and Plan Start: 07/04/20 16:55 Freq: Status: Active Protocol: Document 12/26/20 15:01 DCW (Rec: 12/26/20 15:02 DCW [id number]) Physical Therapy Assessment Assessment Summary Assessment Last visit, pt requested her chart stay open ~1 month just in case she had a decline in function, and required a follow-up visit. Pt has not made any further follow-up appointments, and has now not been seen in more than four months. Pt will be discharged from PT at this time, and will require a new referral in order to return to skilled therapy. Physical Therapy Plan Discharge Physical Therapy Discharge Reasons No Longer Attending PT
== END 2021-01-10 10:02 ==
LOC: PHYS 14:30
PROVIDERS: PCP Family Medicine; Referring Provider Family Medicine; Visit Provider Family Medicine
DX: M54.2 Cervicalgia (principal); S39.012D Strain of muscle, fascia and tendon of lower back, subsequent encounter; H81.10 Benign paroxysmal vertigo, unspecified ear; S39.012A Strain of muscle, fascia and tendon of lower back, initial encounter; M25.60 Stiffness of unspecified joint, not elsewhere classified
CPT/HCPCS: 97110; 97140; 97161

== ENCOUNTER → 2020-09-05 14:14 | Outpatient (CLI) | payer OTHER, SELFPAY ==
--- NOTE | 2020-09-05 14:16 | DI.MG.S_ITS ---
UNILATERAL LEFT DIGITAL DIAGNOSTIC MAMMOGRAM 3D/2D SHORT-TERM FOLLOW-UP: 09/05/2020 CLINICAL: Patient returns for a 6 month follow up of the left breast. Comparison is made to exams dated: 02/07/2020 mammogram, 03/01/2019 mammogram, 02/01/2019 mammogram, and 12/08/2017 mammogram - [facility]. The tissue of left breast is extremely dense, which lowers the sensitivity of mammography. There is an oval focal asymmetry in the left breast at 5 o'clock posterior depth. This is not significantly changed. No other significant masses or calcifications are seen in the breast. IMPRESSION: INCOMPLETE: NEEDS ADDITIONAL IMAGING EVALUATION The oval focal asymmetry in the left breast is indeterminate. An ultrasound is recommended. This exam was interpreted at Station ID: [id number]. NOTE: For mammograms, a report in lay terms will be sent to the patient. Approximately 15% of breast malignancies will not be visualized mammographically. In the management of a palpable breast mass, a negative mammogram must not discourage biopsy of a clinically suspicious lesion. SUMMARY: Targeted ultrasound is recommended for further evaluation and will be scheduled immediately following this exam. Electronically Signed By: Rocco Hi M.D. ar/:09/05/2020 16:14:27 ACR BI-RADS Category 0: Incomplete [id number]
--- NOTE | 2020-09-05 14:16 | DI.US.S_ITS ---
LIMITED ULTRASOUND OF LEFT BREAST AND AXILLA: 09/05/2020 CLINICAL: 6 month follow-up of cyst. Comparison is made to exams dated: 09/05/2020 mammogram, 02/07/2020 ultrasound, 02/07/2020 mammogram, 08/25/2019 ultrasound, 03/01/2019 ultrasound, and 03/01/2019 mammogram - [facility]. Color flow ultrasound of the left breast axilla was performed. Harding scale images of the real-time examination were reviewed. There is an oval cyst with a septated internal wall in the left breast at 5 o'clock posterior depth 2 cm from the nipple. This oval cyst is hypoechoic with a well-defined boundary and posterior acoustic enhancement. This correlates with mammography findings. Color flow imaging demonstrates that there is no vascularity present. No significant abnormalities were seen sonographically in the left axilla. IMPRESSION: PROBABLY BENIGN The oval cyst in the left breast most likely is a complicated cyst and is probably benign. A follow-up mammogram and an ultrasound in 6 months is recommended to demonstrate stability. This exam was interpreted at Station ID: [id number]. Electronically Signed By: Rocco clayton/severino:09/05/2020 16:18:49 letter sent: Followup Recommended Ultrasound BI-RADS: 3 Probably benign
== END ==
PROVIDERS: PCP Family Medicine; Referring Provider Family Medicine; Visit Provider Family Medicine
DX: R92.8 Other abnormal and inconclusive findings on diagnostic imaging of breast (principal); N60.02 Solitary cyst of left breast
CPT/HCPCS: 76642; 77065; G0279

== ENCOUNTER → 2020-12-18 16:18 | Outpatient (CLI) | payer OTHER, SELFPAY ==
[2020-12-18 16:38] LABS: COVID19 -Nasal RAPID Negative (Negative)
== END ==
PROVIDERS: PCP Family Medicine; Visit Provider Family Medicine
DX: Z20.822 Contact with and (suspected) exposure to COVID-19 (principal)
CPT/HCPCS: 87635

== ENCOUNTER → 2021-01-27 13:23 | Outpatient (CLI) | payer OTHER, SELFPAY ==
--- NOTE | 2021-01-27 | DI.US.S_ITS ---
LIMITED ULTRASOUND OF LEFT BREAST: 01/27/2021 CLINICAL: Palpable left breast lump. No prior exams were available for comparison. Color flow and real-time ultrasound of the left breast 2 o'clock and 5 o'clock regions were performed. Harding scale images of the real-time examination were reviewed. There is a 1.7 cm x 1.3 cm x 1.1 cm cyst with a septated internal wall and solid dependent component in the left breast at 5 o'clock anterior depth 2 cm from the nipple. This cyst is mostly hypoechoic but of mixed echogenicity. This abnormality has increased in size, previously measuring 1.2 cm in maximal dimention Color flow imaging demonstrates that there is no vascularity present. There also is a benign 1.2 cm x 1.2 cm x 0.9 cm oval cyst in the left breast at 2 o'clock middle depth 5 cm from the nipple. This oval cyst displays posterior acoustic enhancement. This correlates as palpated. IMPRESSION: SUSPICIOUS OF MALIGNANCY Follow up demonstrates the 1.7 cm x 1.3 cm x 1.1 cm cyst in the left breast at 5 o'clock anterior depth to have increased in size, and resembles a minimally complex cyst. Suspicion for malignancy is low, however a diagnostic aspiration and an ultrasound guided biopsy are recommended. The 1.2 cm x 1.2 cm x 0.9 cm oval cyst in the left breast at 2 o'clock middle depth corresponds to the palpable abnormality is consistent with a simple cyst and is benign. No further follow up needed for this structure. Patient is also due for a right breast ultrasound follow up from today's mammogram. This will be scheduled as soon as possible. Findings and recommendations were discussed with the patient by Dr. Shant Souza at time of exam. This exam was interpreted at Station ID: [id number]. Electronically Signed By: Samina garrett/:01/27/2021 16:19:23 letter sent: Biopsy Required Ultrasound BI-RADS: 4a Low suspicion for malignancy
--- NOTE | 2021-01-27 | DI.MG.S_ITS ---
BILATERAL DIGITAL DIAGNOSTIC MAMMOGRAM 3D/2D SHORT-TERM FOLLOW-UP: 01/27/2021 CLINICAL: Short term follow up of the left breast, due for bilateral imaging. Comparison is made to exams dated: 09/05/2020 mammogram, 02/07/2020 mammogram, and 03/01/2019 mammogram - [facility]. The tissue of both breasts is extremely dense, which lowers the sensitivity of mammography. There are several stable partially obscured oval areas in both breasts. The oval asymmetry in the left breast at 5 o'clock middle depth has not significantly changed. No other significant masses, calcifications, or other findings are seen in either breast. Specifically, no finding to correspond to the patient's palpable abnormalities in the right breast 10:00 or left breast 2:00 regions. IMPRESSION: INCOMPLETE: NEEDS ADDITIONAL IMAGING EVALUATION The oval asymmetry in the left breast is stable but remains indeterminate. An ultrasound is recommended. This was performed immediately following this exam. There is no abnormality seen in the left breast to correspond with the palpable abnormality at 2 o'clock. Ultrasound is recommended for full evaluation of this area. This was performed immediately following this exam. There is no abnormality seen in the right breast to correspond with the palpable abnormality at 10 o'clock. Ultrasound is recommended for full evaluation of this area. This was not able to be performed at the same visit and will be scheduled as soon as possible. This exam was interpreted at Station ID: [id number]. NOTE: For mammograms, a report in lay terms will be sent to the patient. Approximately 15% of breast malignancies will not be visualized mammographically. In the management of a palpable breast mass, a negative mammogram must not discourage biopsy of a clinically suspicious lesion. Electronically Signed By: Samina garrett/:01/27/2021 16:05:17 ACR BI-RADS Category 0: Incomplete [id number]
== END ==
PROVIDERS: PCP Family Medicine; Referring Provider Family Medicine; Visit Provider Family Medicine
DX: R92.8 Other abnormal and inconclusive findings on diagnostic imaging of breast (principal); N60.02 Solitary cyst of left breast
CPT/HCPCS: 76642; 77066; G0279

== ENCOUNTER → 2021-02-13 09:15 | Outpatient (CLI) | payer OTHER, SELFPAY ==
--- NOTE | 2021-02-13 | DI.US.S_ITS ---
FINE NEEDLE ASPIRATION LEFT BREAST: 02/13/2021 CLINICAL: Patient scheduled for core biopsy of left breast mass. 25g needle used to aspirate .5cc brown fluid. Fluid discarded. Correlation is made to exams dated: 01/27/2021 ultrasound, 01/27/2021 mammogram, 09/05/2020 ultrasound, 09/05/2020 mammogram, and 02/07/[address] ultrasound - [facility]. A fine needle aspiration was performed for the circumscribed round complicated cyst located in the left breast at 5 o'clock middle depth. The skin was prepped in the usual manner. The abnormality was approached from the lateral aspect. A 25 gauge needle was percutaneously placed into the abnormality under guidance. Once the needle was documented to be in the correct location, approximately 0.5 cc of brown colored fluid was aspirated resulting in complete collapse of the complicated cyst. IMPRESSION: FINE NEEDLE ASPIRATION Fine needle aspiration of the complicated cyst in the left breast middle depth was performed. Aspiration of 0.5 cc of brown fluid resultanted in complete resolution/collapse of the complicated cyst. Findings consistent with benign lesion. Bi-Rads: 2 This exam was interpreted at Station ID: [id number]. [facility] M[facility]/:02/13/2021 12:03:13
== END ==
PROVIDERS: PCP Family Medicine; Referring Provider Family Medicine; Visit Provider Family Medicine
DX: R92.8 Other abnormal and inconclusive findings on diagnostic imaging of breast (principal); Z98.890 Other specified postprocedural states; N60.02 Solitary cyst of left breast
CPT/HCPCS: 10005

== ENCOUNTER → 2021-02-26 10:43 | Outpatient (CLI) | payer OTHER, SELFPAY ==
--- NOTE | 2021-02-26 10:44 | DI.US.S_ITS ---
LIMITED ULTRASOUND OF RIGHT BREAST: 02/26/2021 CLINICAL: Patient returns today to evaluate a focal asymmetry in the right breast. Comparison is made to exams dated: 01/27/2021 mammogram, 02/07/2020 mammogram, 03/01/2019 ultrasound, 03/01/2019 mammogram, 02/01/2019 mammogram, and 12/08/2017 mammogram - [facility]. Color flow and real-time ultrasound of the right breast 8-10 o'clock region were performed. Harding scale images of the real-time examination were reviewed. There is a benign 1.1 cm x 1 cm x 1 cm simple cyst in the right breast at 8 o'clock middle depth 2 cm from the nipple. Color flow imaging demonstrates that there is no vascularity present. There also is a benign 0.7 cm x 0.7 cm x 0.6 cm cyst in the right breast at 9 o'clock middle depth 3 cm from the nipple. This cyst is anechoic. Color flow imaging demonstrates that there is no vascularity present. Additionally, there is a benign 0.7 cm x 0.7 cm x 0.6 cm round cyst with debris in the right breast at 10 o'clock middle depth 6 cm from the nipple. Color flow imaging demonstrates that there is no vascularity present. This correlates as palpated. IMPRESSION: BENIGN The 1.1 cm simple cyst in the right breast at 8 o'clock middle depth is benign. The 0.7 cm cyst in the right breast at 9 o'clock middle depth is also consistent with a simple cyst and is benign. The 0.7 cm x 0.7 cm x 0.6 cm round cyst with debris in the right breast at 10 o'clock middle depth accounts for the palpable abnormality and is benign. The left breast complicated cyst was recent aspirated, but no pathology or cytology was sent. Therefore a follow-up left ultrasound in 6 months is recommended to demonstrate stability of the area previously aspirated. Findings and recommendations were conveyed to the patient at time of exam. This exam was interpreted at Station ID: [id number]. Electronically Signed By: Samina garrett/:02/26/2021 12:54:41 letter sent: Followup Recommended Ultrasound BI-RADS: 2 Benign
== END ==
PROVIDERS: PCP Family Medicine; Referring Provider Family Medicine; Visit Provider Family Medicine
DX: R92.8 Other abnormal and inconclusive findings on diagnostic imaging of breast (principal); N60.01 Solitary cyst of right breast; N60.02 Solitary cyst of left breast
CPT/HCPCS: 76642

== ENCOUNTER → 2021-05-30 14:33 | Outpatient (CLI) | payer OTHER, SELFPAY ==
--- NOTE | 2021-05-30 | DI.RAD.S_ITS ---
PROCEDURE: XR WRIST RT MIN 3V INDICATIONS: RT WRIST PAIN TECHNIQUE: 5 views of the wrist were acquired. COMPARISON: None. FINDINGS: Bones: No fractures or dislocations. No suspicious bony lesions. Scaphoid view: No fracture Soft tissues: No suspicious soft tissue calcifications. IMPRESSION: Normal right wrist Dictated by: Harshal Daley M.D. on 05/30/2021 at 16:30 Approved by: Harshal Daley M.D. on 05/30/2021 at 16:32
== END ==
PROVIDERS: PCP Family Medicine; Referring Provider Registered Nurse; Visit Provider Registered Nurse
DX: M25.531 Pain in right wrist (principal)
CPT/HCPCS: 73110

== ENCOUNTER → 2021-07-03 11:09 | Outpatient (CLI) | payer OTHER, SELFPAY | PROVIDERS: PCP Family Medicine; Referring Provider Family Medicine; Visit Provider Family Medicine | DX: M25.531 Pain in right wrist (principal); Z98.890 Other specified postprocedural states | CPT/HCPCS: 95886; 95909 ==

== ENCOUNTER → 2021-08-21 09:52 | Outpatient (CLI) | payer OTHER, SELFPAY ==
--- NOTE | 2021-08-21 09:54 | DI.US.S_ITS ---
LIMITED ULTRASOUND OF LEFT BREAST AND AXILLA: 08/21/2021 CLINICAL: 6 month follow-up cyst aspiration. Comparison is made to exams dated: 02/13/2021 fine needle aspiration, 01/27/2021 ultrasound, 09/05/2020 ultrasound, 02/07/2020 ultrasound, 08[facility]25[facility]2019 [facility] flow ultrasound of the left breast 1 o'clock, 5 o'clock, and axilla regions was performed. Harding scale images of the real-time examination were reviewed. There is a 0.8 cm x 1 cm x 0.7 cm cyst with an irregular internal wall in the left breast at 5 o'clock anterior depth 2 cm from the nipple. This cyst is hypoechoic. This abnormality is decreased in size and correlates with the aspiration. Color flow imaging demonstrates that there is no vascularity present. There also is a benign 1.7 cm x 1.6 cm x 0.8 cm oval cyst with a smooth internal wall in the left breast at 1 o'clock middle depth 8 cm from the nipple. This oval cyst is anechoic with posterior acoustic enhancement. This correlates as palpated. Additionally, there is a benign 2.6 cm x 1.6 cm x 1.4 cm oval cyst with a smooth internal wall in the left breast at 1 o'clock posterior depth 1 cm from the nipple. This oval cyst is anechoic with posterior acoustic enhancement. This correlates as palpated. No significant abnormalities were seen sonographically in the left axilla. IMPRESSION: PROBABLY BENIGN The 0.8 cm x 1 cm x 0.7 cm cyst in the left breast at 5 o'clock anterior depth resembles a complicated cyst and is probably benign. This finding most likely represents a recurrent complicated cyst after aspiration, but follow up is recommended to exclude an underlying enlarging solid component. The 1.7 cm x 1.6 cm x 0.8 cm oval cyst in the left breast at 1 o'clock middle depth is consistent with a simple cyst and is benign. The 2.6 cm x 1.6 cm x 1.4 cm oval cyst in the left breast at 1 o'clock posterior depth is consistent with a simple cyst and is benign. A follow-up mammogram and an ultrasound in 6 months is recommended to demonstrate stability. This exam was interpreted at Station ID: [id number]. Electronically Signed By: Rocco clayton/severino:08/21/2021 12:23:04 letter sent: Followup Recommended Ultrasound BI-RADS: 3 Probably benign
== END ==
PROVIDERS: PCP Family Medicine; Referring Provider Family Medicine; Visit Provider Family Medicine
DX: R92.8 Other abnormal and inconclusive findings on diagnostic imaging of breast (principal); N63.20 Unspecified lump in the left breast, unspecified quadrant; Z12.39 Encounter for other screening for malignant neoplasm of breast; N60.02 Solitary cyst of left breast
CPT/HCPCS: 76642

== ENCOUNTER → 2021-09-01 10:33 | Outpatient (CLI) | payer OTHER, SELFPAY ==
[2021-09-01 14:34] LABS: COVID19 -Nasal RAPID Negative (Negative)
== END ==
PROVIDERS: PCP Family Medicine; Visit Provider Physician Assistant
DX: Z20.822 Contact with and (suspected) exposure to COVID-19 (principal); J02.9 Acute pharyngitis, unspecified
CPT/HCPCS: 87635

== ENCOUNTER → 2021-09-29 15:31 | Outpatient (CLI) | payer OTHER, SELFPAY ==
--- NOTE | 2021-09-29 15:32 | DI.RAD.S_ITS ---
PROCEDURE: XR SHOULDER LT MIN 2V INDICATIONS: left shoulder pain TECHNIQUE: 3 views of the shoulder were acquired. COMPARISON: None. FINDINGS: Bones: No fractures or dislocations. No suspicious bony lesions. Visualized ribs appear intact. Soft tissues: No suspicious soft tissue calcifications. IMPRESSION: No significant osseous abnormality. Shoulder MRI could be considered to evaluate the rotator cuff. Dictated by: Steve Shaver M.D. on 09/29/2021 at 16:00 Approved by: Steve Shaver M.D. on 09/29/2021 at 16:01
== END ==
PROVIDERS: PCP Family Medicine; Referring Provider Family Medicine; Visit Provider Family Medicine
DX: M25.512 Pain in left shoulder (principal)
CPT/HCPCS: 73030

== ENCOUNTER → 2021-10-14 16:01 | Outpatient (CLI) | payer OTHER, SELFPAY ==
--- NOTE | 2021-10-14 16:03 | DI.MRI.S_ITS ---
PROCEDURE: MR SHOULDER LT WO CON INDICATIONS: left shoulder pain with decreased range of motion TECHNIQUE: Noncontrast oblique coronal T2 fast spin echo with fat saturation, oblique sagittal T1 spin echo and T2 fast spin echo with fat saturation, axial T1 spin echo and T2 fast spin echo with fat saturation through the shoulder. COMPARISON: [facility], CR, XR SHOULDER LT MIN 2V, 09/29/2021, 15:25. FINDINGS: Image quality: Excellent. Rotator cuff: The supraspinatus, infraspinatus, and subscapularis tendons appear intact throughout. Sagittal images demonstrate no muscle atrophy. Bones and bursae: No bone marrow contusions or fractures. No acromioclavicular joint degeneration. The acromion demonstrates conventional anatomy, without an os acromiale. Fluid noted in the subacromial/subdeltoid bursa compatible with mild bursitis. Capsule and soft tissues: Large glenohumeral joint effusion is noted. Synovial thickening noted in the axillary pouch compatible with synovitis. There is a curvilinear intra-articular loose body and measures 0.7 x 0.2 centimeters (series 8, image 11). Intra-articular loose body likely related to articular cartilage defect identified along the superior-medial margin of the humeral head (series 6, image 9; series 8, image 9). There is a tear of the anterior-superior labrum (series 6, image 8). The long head of the biceps tendon demonstrates normal location and morphology. The rotator interval appears normal, without fibrosis. The coracohumeral ligament is normal in thickness. IMPRESSION: 1. Small tear of the anterior-superior labrum. 2. 0.7 x 0.2 centimeter intra-articular loose body likely related to articular cartilage defect involving the superior-medial humeral head. 3. Glenohumeral joint synovitis. 4. Large glenohumeral joint effusion. 5. Mild subacromial/subdeltoid bursitis. Dictated by: Brea Norris MD, PhD on 10/14/2021 at 16:50 Approved by: Brea Norris MD, PhD on 10/15/2021 at 9:33
== END ==
PROVIDERS: PCP Family Medicine; Referring Provider Family Medicine; Visit Provider Family Medicine
DX: S43.432A Superior glenoid labrum lesion of left shoulder, initial encounter (principal); M65.812 Other synovitis and tenosynovitis, left shoulder; M25.412 Effusion, left shoulder; M75.52 Bursitis of left shoulder; M25.512 Pain in left shoulder
CPT/HCPCS: 73221

== ENCOUNTER 2021-12-09 09:00 | Outpatient (RCR) | payer OTHER, SELFPAY ==
--- NOTE | 2021-11-19 08:13 | PT.OIE ---
Current Diagnoses Effusion, left shoulder (11/19/21) Bursitis of left shoulder (11/19/21) Superior glenoid labrum lesion of left shoulder, initial encounter (11/19/21) Past Medical History (Last Reviewed 05/30/21 @ 18:25 by VIC Porter) Depression Right wrist pain Past Surgical History History of carpal tunnel repair Status post delivery Status post dilation and curettage Status post endometrial ablation Visit Care Team Role Provider Type Nelson Wadsworth MD Primary Care Provider Physician Specialty: Orthopedic Surgery Address: [address] [place] [address], [id number] Email: [email or web address] Provider Physician Family Provider Referring Provider Specialty: Family Practice Address: [address] [place] [address], [id number] Email: [email or web address] Physical Therapy Initial Evaluation PT-OP-A Visit Information Start: 11/19/21 08:13 Freq: Status: Active Protocol: Document 11/19/21 08:13 SAK (Rec: 11/19/21 09:01 [facility] [id number]) Out-Patient Physical Therapy Visit Information Visit Information Visit Type Initial Evaluation Visit Start Time 08:15 Visit Stop Time 09:13 Total Visit Minutes 58 Visit Number 1 Evaluation Information Evaluation Date 11/19/21 PT-OP-B Current Condition Start: 11/19/21 08:13 Freq: Status: Active Protocol: Document 11/19/21 08:13 SAK (Rec: 11/19/21 09:01 [facility] [id number]) Current Condition History of Current Condition Onset Date september 2021 Current Complaints left shoulder pain History of Current Condition a few days after playing [place] the beach ( extensive pulling) had onset of left shoulder pain which has persisted and limits the use of her left UE. Pain 6-7/ 10 constant. States she can't wash hair, put on bra or coat , or reach overhead. x-ray negative. Had MRI showed anterior labral tear. Injection from Dr. Wadsworth imroved pain some but it persists. Has a lot of clicking, popping; tolerance for activity variable. Can't sleep on left side. Takes Ibuprofen and Tylenol; doesn't do much. Using heat more than ice. Wants to try PT prior to any more invasive treatment. Occasional numbness or tingling. Prior Treatments and Tests MRI 10/04/21: Small tear of the anterior-superior labrum. 2. 0.7 x 0.2 centimeter intra- articular loose body likely related to articular cartilage defect involving the superior- medial humeral head. 3. Glenohumeral joint synovitis. 4. Large glenohumeral joint effusion. 5. Mild subacromial/subdeltoid bursitis. Treatment Goals Patient/Caregiver Goals regain full active use of left UE Prior Functional Status Baseline Function- ADL's Independent Baseline Function- Mobility Independent Baseline Function- Work/School no limitations Baseline Function- Recreation/Hobbies no limitations Current Functional Impairments (Reported) Functional Limitations- ADL's moderate to severe limitations , can't reach overhead or behind her back. Functional Limitations- Recreation/ moderate to severe Hobbies limitations PT-OP-C Subjective Start: 11/19/21 08:13 Freq: Status: Active Protocol: Document 11/19/21 08:13 [facility] (Rec: 11/19/21 17:36 [facility] [id number]) Patient Questionnaires Quick Dash- Upper Extremity Quick Dash UE Score 56 OP-PT Pain Assessment Pain Assessment Grid Paper Pain Assessment Grid Completed Yes Location left shoulder Pain Location Details entire shoulder girdle Intensity 7 Scale Used Numeric (0 - 10) Description Aching,Burning,Sharp,Tender Frequency Frequent Pain Aggravating Factors Position,ADL's,Activity, Walking Pain Alleviating Factors None PT-OP-E Functional Tests Start: 11/19/21 08:13 Freq: Status: Active Protocol: Document 11/19/21 08:13 [facility] (Rec: 11/23/21 10:36 [facility] [id number]) Functional Tests Apley's Scratch Test Action 1- Left front of chest Action 1- Right behind shoulder Action 2- Left lateral neck Action 2- Right T3 Action 3- Left lateral hip Action 3- Right T4 PT-OP-J Posture/Palpation/Skin Start: 11/19/21 08:13 Freq: Status: Active Protocol: Document 11/19/21 08:13 [facility] (Rec: 11/23/21 10:36 [facility] [id number]) Posture Evaluation Position Sitting Head/C-Spine Posture Forward Head Shoulder Posture (L) Rounded Scapula Posture (R) Neutral,(L) Protracted Arm Posture (R) Neutral,(L) Internally Rotated Palpation Assessment Location Two Palpation Location ant GH joint line Palpation Findings Tenderness One Palpation Location left UT Palpation Findings Soft Tissue Tightness,Muscle Guarding PT-OP-K Range of Motion Start: 11/19/21 08:13 Freq: Status: Active Protocol: Document 11/19/21 08:13 [facility] (Rec: 11/23/21 10:36 [facility] [id number]) Cervical Spine Range of Motion Cervical Spine Active Testing Position Sitting Flexion 60 Extension 20 Rotation Left 60 Rotation Right 60 Lateral Flexion Left 45 Lateral Flexion Right 30 ROM Limitations Soft Tissue Tightness,Pain Shoulder Goniometric Range of Motion Shoulder Left Shoulder ROM WFL No Testing Position Sitting Flexion 85 Extension 5 Abduction 60 External Rotation at 0 degrees Abduction 35 Right Shoulder ROM WFL Yes Shoulder ROM Limitations Shoulder ROM Limitations Pain PT-OP-M Strength Start: 11/19/21 08:13 Freq: Status: Active Protocol: Document 11/19/21 08:13 [facility] (Rec: 11/23/21 10:36 [facility] [id number]) Shoulder Strength Shoulder Manual Muscle Testing Left Flexion 3- Fair- Extension 3- Fair- Abduction (C5) 3- Fair- External Rotation 4- Good- Internal Rotation 3+ Fair+ Comments no resistance to elevation due to pain, mod pain with resisted shoulder IR, min with ER Right Flexion 5 Normal Extension 5 Normal Abduction (C5) 5 Normal External Rotation 4+ Good+ Internal Rotation 4+ Good+ PT-OP-Q Treatments Start: 11/19/21 08:13 Freq: Status: Active Protocol: Document 11/19/21 08:13 [facility] (Rec: 11/23/21 10:36 [facility] [id number]) Manual Therapy Treatment Taping 1 Body Location left shoulder Treatment Focus pain relief Type of Tape Kinesio Tape Skin Inspection intact Comments 1 Y strip base at deltoid insertion, 50% tension ant and post shoulder 1 I strip post to ant over GH joint line 50% tension Self-Care/Home Management Treatment Education Patient Education Body Mechanics,Home Exercise Program,Joint Protection,Pain Management,Posture Other Education written HEP instruction, education regarding using mirror for checking overactivation of UT. Deep breathing to break into overactivation of sympathetic nervous system. Patient demonstrated good understanding PT-OP-R Modalities Start: 11/19/21 08:13 Freq: Status: Active Protocol: Document 11/19/21 08:13 [facility] (Rec: 11/23/21 10:36 [facility] [id number]) Electric Stimulation Electric Stimulation left shoulder Body Location left shoulder Duration (Minutes) 15 Intensity 8 Target/Sweep Sweep Patient Position Hooklying Combined With Heat/Cold Hot Pack Comments left shoulder supported by pillow PT-OP-T Assessment and Plan Start: 11/19/21 08:13 Freq: Status: Active Protocol: Document 11/19/21 08:13 [facility] (Rec: 11/23/21 10:36 [facility] [id number]) Physical Therapy Assessment Rehab Potential Rehabilitation Potential Good Evaluation Complexity Number of Personal Factors/Comorbidities 1-2 Number of Body Systems Impaired 3 Clinical Presentation at Evaluation Evolving Impairments Impairments Activity Tolerance,Functional Activities,Pain,ROM,Strength Goals Three Impairment constant pain left shoulder 7/ 10, increases with UE use Short Term Goal (STG) Decrease pain level to no greater than 4/10 STG Duration 12/20/21 Agricultural Education Professor Goal (LTG) Decrease pain to no greater than 2/10 with all usual activities Two Impairment ROM and strength impairment left UE Short Term Goal (STG) Patient will be able to tolerate HEP for purposes of improving ROM and strength left UE STG Duration 12/20/21 Agricultural Education Professor Goal (LTG) Patient will be independent and compliant with HEP and demonstrate left UE ROM WNL and strength at least 4+/5 to allow her to easily reach overhead, behind her back, and resume other usual activities and ADL's without difficulty. LTG Duration 01/17/22 One Impairment Quickdash UE disability questionnaire 59% left UE Impairment decreased functional use of left UE Short Term Goal (STG) Improve Quickdash score to no greater than 40% as measure of functional improvement and activity tolerance left UE STG Duration 12/20/21 Longterm Goal (LTG) Improve Quickdash score to no greater than 15% as mreasure of functional improvement and activity tolerance left UE LTG Duration 01/17/22 Assessment Summary Assessment Patient presents to PT with function-limiting pain left UE with signs and symptoms consistent with labral tear and impingment as shown on MRI . At this time she is able to tolerate minimal use of her left UE, demonstrating moderate guarding of her left UE with resulting postural compensation, and overactivation of UT musculature. She is unable to reach overhead or behind her back for purposes of ADL's and other usual actities and would benefit highly from skilled physical therapy to help her decrease her pain, improve her ROM and strength and ability to perform her usual activities and ADL's. PT today consisted of evaluation, instruction in HEP , kinesiotape left shoulder, and IFES with MH to left shoulder. Patient demonstrated good understanding of HEP and agreed with POC. Physical Therapy Plan Frequency and Duration Frequency of Treatment 2x/Week Duration of Treatment 8 weeks Plan of Care Start Date 11/19/21 Plan of Care End Date 01/17/22 Therapeutic Interventions Therapeutic Interventions Aquatic Therapy,Home Exercise Program,Joint Mobilizations, Manual Therapy,Neuromuscular Re-education,Patient/Caregiver Education,Self-Care/Home Management,Soft Tissue Mobilization,Taping, Therapeutic Activities, Therapeutic Exercises Modalities Cold Pack/Ice Massage,Electric Stimulation,Hot Packs, Iontophoresis,Ultrasound Next Visit Focus/Plan Next Note Type Treatment Note Next Visit Plan REview HEP, gentle ther ex for ROM left shoulder, postural correction and deep breathing exercises. Progress ex as able. Modalities and manual therapy as needed for pain.
--- NOTE | 2021-11-19 08:13 | PT.OPPOC ---
Physical, Occupational & Speech Therapy At [facility] Current Diagnoses Effusion, left shoulder (11/19/21) Bursitis of left shoulder (11/19/21) Superior glenoid labrum lesion of left shoulder, initial encounter (11/19/21) Visit Care Team Role Provider Type Nelson Wadsworth MD Primary Care Provider Physician Specialty: Orthopedic Surgery Address: [address] [place] [address], [place], [address] Email: [email or web address] Attending Provider Physician Family Provider Referring Provider Specialty: Family Practice Address: [facility], [facility] [place], [address] Email: [email or web address] Plan Of Care PT-OP-T Assessment and Plan Start: 11/19/21 08:13 Freq: Status: Active Protocol: Document 11/19/21 08:13 [facility] (Rec: 11/23/21 10:36 [facility] [id number]) Physical Therapy Assessment Rehab Potential Rehabilitation Potential Good Evaluation Complexity Number of Personal Factors/Comorbidities 1-2 Number of Body Systems Impaired 3 Clinical Presentation at Evaluation Evolving Impairments Impairments Activity Tolerance,Functional Activities,Pain,ROM,Strength Goals Three Impairment constant pain left shoulder 7/ 10, increases with UE use Short Term Goal (STG) Decrease pain level to no greater than 4/10 STG Duration 12/20/21 Skiver Counter Goal (LTG) Decrease pain to no greater than 2/10 with all usual activities Two Impairment ROM and strength impairment left UE Short Term Goal (STG) Patient will be able to tolerate HEP for purposes of improving ROM and strength left UE STG Duration 12/20/21 Shelter Goal (LTG) Patient will be independent and compliant with HEP and demonstrate left UE ROM WNL and strength at least 4+/5 to allow her to easily reach overhead, behind her back, and resume other usual activities and ADL's without difficulty. LTG Duration 01/17/22 One Impairment Quickdash UE disability questionnaire 59% left UE Impairment decreased functional use of left UE Short Term Goal (STG) Improve Quickdash score to no greater than 40% as measure of functional improvement and activity tolerance left UE STG Duration 12/20/21 Shelter Goal (LTG) Improve Quickdash score to no greater than 15% as mreasure of functional improvement and activity tolerance left UE LTG Duration 01/17/22 Assessment Summary Assessment Patient presents to PT with function-limiting pain left UE with signs and symptoms consistent with labral tear and impingment as shown on MRI . At this time she is able to tolerate minimal use of her left UE, demonstrating moderate guarding of her left UE with resulting postural compensation, and overactivation of UT musculature. She is unable to reach overhead or behind her back for purposes of ADL's and other usual actities and would benefit highly from skilled physical therapy to help her decrease her pain, improve her ROM and strength and ability to perform her usual activities and ADL's. PT today consisted of evaluation, instruction in HEP , kinesiotape left shoulder, and IFES with MH to left shoulder. Patient demonstrated good understanding of HEP and agreed with POC. Physical Therapy Plan Frequency and Duration Frequency of Treatment 2x/Week Duration of Treatment 8 weeks Plan of Care Start Date 11/19/21 Plan of Care End Date 01/17/22 Therapeutic Interventions Therapeutic Interventions Aquatic Therapy,Home Exercise Program,Joint Mobilizations, Manual Therapy,Neuromuscular Re-education,Patient/Caregiver Education,Self-Care/Home Management,Soft Tissue Mobilization,Taping, Therapeutic Activities, Therapeutic Exercises Modalities Cold Pack/Ice Massage,Electric Stimulation,Hot Packs, Iontophoresis,Ultrasound Next Visit Focus/Plan Next Note Type Treatment Note Next Visit Plan REview HEP, gentle ther ex for ROM left shoulder, postural correction and deep breathing exercises. Progress ex as able. Modalities and manual therapy as needed for pain. Plan of Care Dates Plan of Care Start Date 11/19/21 Plan of Care End Date 01/17/22 Electronically Signed by: Abbi Zhang, PT 11/23/21 [id number] Please Sign and Return: I have reviewed this Plan of Care and certify that the skilled therapy services above are required to meet the patient?s needs. Physician Signature Date Printed Name and Credentials Clinical Instructor Signature Printed Name and Credentials
--- NOTE | 2021-11-25 10:33 | PT.OTN ---
Current Diagnoses Effusion, left shoulder (11/25/21) Bursitis of left shoulder (11/25/21) Superior glenoid labrum lesion of left shoulder, initial encounter (11/25/21) Physical Therapy Treatment Note PT-OP-A Visit Information Start: 11/19/21 08:13 Freq: Status: Active Protocol: Document 11/25/21 09:49 SP (Rec: 11/25/21 11:57 SP [id number]) Out-Patient Physical Therapy Visit Information Visit Information Visit Type Treatment Note Visit Start Time 09:49 Visit Stop Time 10:33 Total Visit Minutes 44 Visit Number 2 Number of OPEN END SPINNING OPERATOR Visits 1 Evaluation Information Evaluation Date 11/19/21 PT-OP-B Current Condition Start: 11/19/21 08:13 Freq: Status: Active Protocol: Document 11/19/21 08:13 SAK (Rec: 11/19/21 09:01 SAK [id number]) Current Condition History of Current Condition Onset Date september 2021 Current Complaints left shoulder pain History of Current Condition a few days after playing with bull kelp [place] the beach ( extensive pulling) had onset of left shoulder pain which has persisted and limits the use of her left UE. Pain 6-7/ 10 constant. States she can't wash hair, put on bra or coat , or reach overhead. x-ray negative. Had MRI showed anterior labral tear. Injection from Dr. Wadsworth imroved pain some but it persists. Has a lot of clicking, popping; tolerance for activity variable. Can't sleep on left side. Takes Ibuprofen and Tylenol; doesn't do much. Using heat more than ice. Wants to try PT prior to any more invasive treatment. Occasional numbness or tingling. Prior Treatments and Tests MRI 10/04/21: Small tear of the anterior-superior labrum. 2. 0.7 x 0.2 centimeter intra- articular loose body likely related to articular cartilage defect involving the superior- medial humeral head. 3. Glenohumeral joint synovitis. 4. Large glenohumeral joint effusion. 5. Mild subacromial/subdeltoid bursitis. Treatment Goals Patient/Caregiver Goals regain full active use of left UE Prior Functional Status Baseline Function- ADL's Independent Baseline Function- Mobility Independent Baseline Function- Work/School no limitations Baseline Function- Recreation/Hobbies no limitations Current Functional Impairments (Reported) Functional Limitations- ADL's moderate to severe limitations , can't reach overhead or behind her back. Functional Limitations- Recreation/ moderate to severe Hobbies limitations PT-OP-C Subjective Start: 11/19/21 08:13 Freq: Status: Active Protocol: Document 11/25/21 09:49 SP (Rec: 11/25/21 11:57 SP [id number]) OP-PT Subjective Patient Comments Patient Comments Pt reports usually dull ache L UE, pain with any activity. Pt reports pain alot with out front activities, carrying laundry, etc. She stated the K taping was helpful, held pretty good, had little itching but no redness, took off on Nov 20, next day skin was normal. PT-OP-E Functional Tests Start: 11/19/21 08:13 Freq: Status: Active Protocol: Document 11/19/21 08:13 SAK (Rec: 11/23/21 10:36 [facility] [id number]) Functional Tests Apley's Scratch Test Action 1- Left front of chest Action 1- Right behind shoulder Action 2- Left lateral neck Action 2- Right T3 Action 3- Left lateral hip Action 3- Right T4 PT-OP-J Posture/Palpation/Skin Start: 11/19/21 08:13 Freq: Status: Active Protocol: Document 11/19/21 08:13 SAK (Rec: 11/23/21 10:36 [facility] [id number]) Posture Evaluation Position Sitting Head/C-Spine Posture Forward Head Shoulder Posture (L) Rounded Scapula Posture (R) Neutral,(L) Protracted Arm Posture (R) Neutral,(L) Internally Rotated Palpation Assessment Location Two Palpation Location ant GH joint line Palpation Findings Tenderness One Palpation Location left UT Palpation Findings Soft Tissue Tightness,Muscle Guarding PT-OP-K Range of Motion Start: 11/19/21 08:13 Freq: Status: Active Protocol: Document 11/19/21 08:13 SAK (Rec: 11/23/21 10:36 [facility] [id number]) Cervical Spine Range of Motion Cervical Spine Active Testing Position Sitting Flexion 60 Extension 20 Rotation Left 60 Rotation Right 60 Lateral Flexion Left 45 Lateral Flexion Right 30 ROM Limitations Soft Tissue Tightness,Pain Shoulder Goniometric Range of Motion Shoulder Left Shoulder ROM WFL No Testing Position Sitting Flexion 85 Extension 5 Abduction 60 External Rotation at 0 degrees Abduction 35 Right Shoulder ROM WFL Yes Shoulder ROM Limitations Shoulder ROM Limitations Pain PT-OP-M Strength Start: 11/19/21 08:13 Freq: Status: Active Protocol: Document 11/19/21 08:13 SAK (Rec: 11/23/21 10:36 SAK [id number]) Shoulder Strength Shoulder Manual Muscle Testing Left Flexion 3- Fair- Extension 3- Fair- Abduction (C5) 3- Fair- External Rotation 4- Good- Internal Rotation 3+ Fair+ Comments no resistance to elevation due to pain, mod pain with resisted shoulder IR, min with ER Right Flexion 5 Normal Extension 5 Normal Abduction (C5) 5 Normal External Rotation 4+ Good+ Internal Rotation 4+ Good+ PT-OP-Q Treatments Start: 11/19/21 08:13 Freq: Status: Active Protocol: Document 11/25/21 09:49 SP (Rec: 11/25/21 11:57 SP [id number]) Therapeutic Exercises Sidelying Exercises shld ER Sidelying Exercise Name added to HEP Side left Resistance AROM Equipment Used towel under arm Reps/Minutes 2x5 reps Comments painfree, AROM to neutral Sitting Exercises scap retraction Sitting Exercise Name added to HEP Side bilateral Equipment Used pillow under L UE prox support Reps/Minutes 3 sec hold x5 Comments cued slow engagement, pain free range UT, lev scap stretch Sitting Exercise Name reviewed HEP Side left Reps/Minutes 30 x2 Standing Exercises self STMs Standing Exercise Name L UT, interscap, infrasp w/ rac.ball, theracane post neck mus head nod/turn Side left Resistance reviewed add as HEP for muscle relaxation relief Equipment Used racquetball on wall, theracane for post scap vs neck musculature Comments MWM decrease muscle tension- little less tension in neck Manual Therapy Treatment Soft Tissue Mobilization scap Body Location L rhomboid, infrasp, suprasp Mobilization Type Myofascial Release,Strumming, Sustained Pressure Intensity/Depth Moderate Body Position Sidelying SCM, Scalenes, suboccipitals, UT Body Location suboccipitals, UT, lev scap Mobilization Type Cross-Friction,Myofascial Release,Sustained Pressure Intensity/Depth Moderate Body Position Supine Joint Mobilizations scapulothoracic Joint L Direction inf/ retraction Grade II Body Position Sidelying Reps/Duration 2x5 Comments manual then instruction on self scap retract/ inf glide prep seated HEP Taping 1 Body Location left shoulder Treatment Focus pain relief Type of Tape Kinesio Tape Skin Inspection intact Comments 1 Y strip base at deltoid insertion, 50% tension ant and post shoulder 1 I strip post to ant over GH joint line 50% tension PT-OP-R Modalities Start: 11/19/21 08:13 Freq: Status: Active Protocol: Document 11/19/21 08:13 SAK (Rec: 11/23/21 10:36 SAK [id number]) Electric Stimulation Electric Stimulation left shoulder Body Location left shoulder Duration (Minutes) 15 Intensity 8 Target/Sweep Sweep Patient Position Hooklying Combined With Heat/Cold Hot Pack Comments left shoulder supported by pillow PT-OP-T Assessment and Plan Start: 11/19/21 08:13 Freq: Status: Active Protocol: Document 11/25/21 09:49 SP (Rec: 11/25/21 11:57 SP [id number]) Physical Therapy Assessment Goals Three Impairment constant pain left shoulder 7/ 10, increases with UE use Short Term Goal (STG) Decrease pain level to no greater than 4/10 STG Duration 12/20/21 Hand Tacker Goal (LTG) Decrease pain to no greater than 2/10 with all usual activities Two Impairment ROM and strength impairment left UE Short Term Goal (STG) Patient will be able to tolerate HEP for purposes of improving ROM and strength left UE STG Duration 12/20/21 Hand Tacker Goal (LTG) Patient will be independent and compliant with HEP and demonstrate left UE ROM WNL and strength at least 4+/5 to allow her to easily reach overhead, behind her back, and resume other usual activities and ADL's without difficulty. LTG Duration 01/17/22 One Impairment Quickdash UE disability questionnaire 59% left UE Impairment decreased functional use of left UE Short Term Goal (STG) Improve Quickdash score to no greater than 40% as measure of functional improvement and activity tolerance left UE STG Duration 12/20/21 Hand Tacker Goal (LTG) Improve Quickdash score to no greater than 15% as mreasure of functional improvement and activity tolerance left UE LTG Duration 01/17/22 Assessment Summary Assessment Pt LUE guarded in close chain arm at side/front no pain rest supported, pain increases away from body. She states uses her vest to support arm when needed during day. Pt tolerated manual, issued self STMs. Reviewed HEP: UT/ Lev scap stretching, Initiated seated scap retraction w/ LUE supported on pillow, self STMs as needed, sidelying L shld ER neutral Pain free successful range. OPEN END SPINNING OPERATOR reapplied K taping for proximal support with pt understanding remove if adverse affects. Pt reported still L shld pain but HEP today helpful to continue at home with HOs. She stated will use HP modality at home later if needed due to ran out of time. Physical Therapy Plan Frequency and Duration Frequency of Treatment 2x/Week Duration of Treatment 8 weeks Plan of Care Start Date 11/19/21 Plan of Care End Date 01/17/22 Therapeutic Interventions Therapeutic Interventions Aquatic Therapy,Home Exercise Program,Joint Mobilizations, Manual Therapy,Neuromuscular Re-education,Patient/Caregiver Education,Self-Care/Home Management,Soft Tissue Mobilization,Taping, Therapeutic Activities, Therapeutic Exercises Modalities Cold Pack/Ice Massage,Electric Stimulation,Hot Packs, Iontophoresis,Ultrasound Next Visit Focus/Plan Next Note Type Treatment Note Next Visit Plan REview HEP, gentle ther ex for ROM left shoulder, postural correction and deep breathing exercises. Progress ex as able. Modalities and manual therapy as needed for pain.
--- NOTE | 2021-12-02 14:59 | PT.OTN ---
Current Diagnoses Effusion, left shoulder (12/02/21) Bursitis of left shoulder (12/02/21) Superior glenoid labrum lesion of left shoulder, initial encounter (12/02/21) Physical Therapy Treatment Note PT-OP-A Visit Information Start: 11/19/21 08:13 Freq: Status: Active Protocol: Document 12/02/21 09:00 SAK (Rec: 12/02/21 09:51 [facility] [id number]) Out-Patient Physical Therapy Visit Information Visit Information Visit Type Treatment Note Visit Start Time 09:00 Visit Stop Time 09:45 Total Visit Minutes 45 Visit Number 3 Number of CLOSING MANAGER Visits 0 Evaluation Information Evaluation Date 11/19/21 PT-OP-B Current Condition Start: 11/19/21 08:13 Freq: Status: Active Protocol: Document 11/19/21 08:13 SAK (Rec: 11/19/21 09:01 [facility] [id number]) Current Condition History of Current Condition Onset Date september 2021 Current Complaints left shoulder pain History of Current Condition a few days after playing with bull kelp on the beach ( extensive pulling) had onset of left shoulder pain which has persisted and limits the use of her left UE. Pain 6-7/ 10 constant. States she can't wash hair, put on bra or coat , or reach overhead. x-ray negative. Had MRI showed anterior labral tear. Injection from Dr. Wadsworth imroved pain some but it persists. Has a lot of clicking, popping; tolerance for activity variable. Can't sleep on left side. Takes Ibuprofen and Tylenol; doesn't do much. Using heat more than ice. Wants to try PT prior to any more invasive treatment. Occasional numbness or tingling. Prior Treatments and Tests MRI 10/04/21: Small tear of the anterior-superior labrum. 2. 0.7 x 0.2 centimeter intra- articular loose body likely related to articular cartilage defect involving the superior- medial humeral head. 3. Glenohumeral joint synovitis. 4. Large glenohumeral joint effusion. 5. Mild subacromial/subdeltoid bursitis. Treatment Goals Patient/Caregiver Goals regain full active use of left UE Prior Functional Status Baseline Function- ADL's Independent Baseline Function- Mobility Independent Baseline Function- Work/School no limitations Baseline Function- Recreation/Hobbies no limitations Current Functional Impairments (Reported) Functional Limitations- ADL's moderate to severe limitations , can't reach overhead or behind her back. Functional Limitations- Recreation/ moderate to severe Hobbies limitations PT-OP-C Subjective Start: 11/19/21 08:13 Freq: Status: Active Protocol: Document 12/02/21 09:00 SAK (Rec: 12/02/21 09:51 [facility] [id number]) OP-PT Subjective Patient Comments Patient Comments Pain persists, hard time relaxing muscles and not supporting her arm in pocket, has to fasten her bra. Painful to drive; can't lift arm high enough to be on the steering wheel. PT-OP-E Functional Tests Start: 11/19/21 08:13 Freq: Status: Active Protocol: Document 11/19/21 08:13 [facility] (Rec: 11/23/21 10:36 [facility] [id number]) Functional Tests Apley's Scratch Test Action 1- Left front of chest Action 1- Right behind shoulder Action 2- Left lateral neck Action 2- Right T3 Action 3- Left lateral hip Action 3- Right T4 PT-OP-J Posture/Palpation/Skin Start: 11/19/21 08:13 Freq: Status: Active Protocol: Document 11/19/21 08:13 [facility] (Rec: 11/23/21 10:36 [facility] [id number]) Posture Evaluation Position Sitting Head/C-Spine Posture Forward Head Shoulder Posture (L) Rounded Scapula Posture (R) Neutral,(L) Protracted Arm Posture (R) Neutral,(L) Internally Rotated Palpation Assessment Location Two Palpation Location ant GH joint line Palpation Findings Tenderness One Palpation Location left UT Palpation Findings Soft Tissue Tightness,Muscle Guarding PT-OP-K Range of Motion Start: 11/19/21 08:13 Freq: Status: Active Protocol: Document 11/19/21 08:13 [facility] (Rec: 11/23/21 10:36 [facility] [id number]) Cervical Spine Range of Motion Cervical Spine Active Testing Position Sitting Flexion 60 Extension 20 Rotation Left 60 Rotation Right 60 Lateral Flexion Left 45 Lateral Flexion Right 30 ROM Limitations Soft Tissue Tightness,Pain Shoulder Goniometric Range of Motion Shoulder Left Shoulder ROM WFL No Testing Position Sitting Flexion 85 Extension 5 Abduction 60 External Rotation at 0 degrees Abduction 35 Right Shoulder ROM WFL Yes Shoulder ROM Limitations Shoulder ROM Limitations Pain PT-OP-M Strength Start: 11/19/21 08:13 Freq: Status: Active Protocol: Document 11/19/21 08:13 [facility] (Rec: 11/23/21 10:36 [facility] [id number]) Shoulder Strength Shoulder Manual Muscle Testing Left Flexion 3- Fair- Extension 3- Fair- Abduction (C5) 3- Fair- External Rotation 4- Good- Internal Rotation 3+ Fair+ Comments no resistance to elevation due to pain, mod pain with resisted shoulder IR, min with ER Right Flexion 5 Normal Extension 5 Normal Abduction (C5) 5 Normal External Rotation 4+ Good+ Internal Rotation 4+ Good+ PT-OP-Q Treatments Start: 11/19/21 08:13 Freq: Status: Active Protocol: Document 12/02/21 09:00 [facility] (Rec: 12/03/21 14:57 [facility] [id number]) Therapeutic Exercises Supine Exercises shoulder ext nora Reps/Minutes 10x shoulder ER/IR Supine Exercise Name at 0 deg abd Reps/Minutes 10x Comments pain-free ROM, UE supported on towel roll Sidelying Exercises scapular retraction Sidelying Exercise Name straight and diagonal Reps/Minutes 10x Comments verbal and manual cues shld ER Side left Resistance AROM Equipment Used towel under arm Reps/Minutes 2x5 reps Comments painfree, AROM to neutral Sitting Exercises pulleys Sitting Exercise Name elevation, bent elbow Reps/Minutes 10x Comments small movement, mirror for visual feedback scap retraction Side bilateral Equipment Used pillow under L UE prox support Reps/Minutes 3 sec hold x5 Comments cued slow engagement, pain free range Standing Exercises table ball roll Standing Exercise Name 90 deg elbow bend Equipment Used 55 cm ball Comments cues for pain-free ROM, relax UT Manual Therapy Treatment Soft Tissue Mobilization scap Body Location L rhomboid, infrasp, suprasp, Mobilization Type Myofascial Release,Strumming, Sustained Pressure Intensity/Depth Moderate Body Position Sidelying Comments supine PT-OP-R Modalities Start: 11/19/21 08:13 Freq: Status: Active Protocol: Document 12/02/21 09:00 [facility] (Rec: 12/03/21 14:58 [facility] [id number]) Ultrasound Therapy Treatment Left Shoulder Patient Position Supine Coupling Medium Ultrasound Gel Frequency Setting (mHz) 1 Mode Setting Pulsed Duty Cycle 50% Intensity Setting (w/cm2) 1.2 PT-OP-T Assessment and Plan Start: 11/19/21 08:13 Freq: Status: Active Protocol: Document 12/02/21 09:00 [facility] (Rec: 12/02/21 09:51 [facility] [id number]) Physical Therapy Assessment Goals Three Impairment constant pain left shoulder 7/ 10, increases with UE use Short Term Goal (STG) Decrease pain level to no greater than 4/10 STG Duration 12/20/21 Mcc Goal (LTG) Decrease pain to no greater than 2/10 with all usual activities Two Impairment ROM and strength impairment left UE Short Term Goal (STG) Patient will be able to tolerate HEP for purposes of improving ROM and strength left UE STG Duration 12/20/21 Cotton Opener Goal (LTG) Patient will be independent and compliant with HEP and demonstrate left UE ROM WNL and strength at least 4+/5 to allow her to easily reach overhead, behind her back, and resume other usual activities and ADL's without difficulty. LTG Duration 01/17/22 One Impairment Quickdash UE disability questionnaire 59% left UE Impairment decreased functional use of left UE Short Term Goal (STG) Improve Quickdash score to no greater than 40% as measure of functional improvement and activity tolerance left UE STG Duration 12/20/21 Mcc Goal (LTG) Improve Quickdash score to no greater than 15% as mreasure of functional improvement and activity tolerance left UE LTG Duration 01/17/22 Assessment Summary Assessment Patient reports no benefit from PT yet, minimal tolerance for any exercise or activity with her arm and is very guarded with movement. Needs moderate verbal and visual cues to inhibit excess shoulder shrug at rest and with movement left UE; demonstrates good understanding but difficulty following through. Kinesiotape helpful, able to tolerate supine bent elbow shoulder ext isometric and sidelying shoulder ER. Improved scapular control with verbal and manual cues sidelying. Trial ultrasound for pain management and promotion of healing. Physical Therapy Plan Frequency and Duration Frequency of Treatment 2x/Week Duration of Treatment 8 weeks Plan of Care Start Date 11/19/21 Plan of Care End Date 01/17/22 Therapeutic Interventions Therapeutic Interventions Aquatic Therapy,Home Exercise Program,Joint Mobilizations, Manual Therapy,Neuromuscular Re-education,Patient/Caregiver Education,Self-Care/Home Management,Soft Tissue Mobilization,Taping, Therapeutic Activities, Therapeutic Exercises Modalities Cold Pack/Ice Massage,Electric Stimulation,Hot Packs, Iontophoresis,Ultrasound Next Visit Focus/Plan Next Note Type Treatment Note Next Visit Plan Continue gentle ther ex for ROM left shoulder, postural correction and deep breathing exercises. Manual therapy for soft tissue mobilization UT and periscapular.
--- NOTE | 2021-12-04 14:35 | PT.OTN ---
Current Diagnoses Effusion, left shoulder (12/04/21) Bursitis of left shoulder (12/04/21) Superior glenoid labrum lesion of left shoulder, initial encounter (12/04/21) Physical Therapy Treatment Note PT-OP-A Visit Information Start: 11/19/21 08:13 Freq: Status: Active Protocol: Document 12/04/21 13:50 SP (Rec: 12/04/21 14:36 SP [id number]) Out-Patient Physical Therapy Visit Information Visit Information Visit Type Treatment Note Visit Start Time 13:50 Visit Stop Time 14:35 Total Visit Minutes 45 Visit Number 4 Number of EYEGLASS LENS GRINDER Visits 1 Evaluation Information Evaluation Date 11/19/21 PT-OP-B Current Condition Start: 11/19/21 08:13 Freq: Status: Active Protocol: Document 11/19/21 08:13 SAK (Rec: 11/19/21 09:01 SAK [id number]) Current Condition History of Current Condition Onset Date september 2021 Current Complaints left shoulder pain History of Current Condition a few days after playing with bull kelp on the beach ( extensive pulling) had onset of left shoulder pain which has persisted and limits the use of her left UE. Pain 6-7/ 10 constant. States she can't wash hair, put on bra or coat , or reach overhead. x-ray negative. Had MRI showed anterior labral tear. Injection from Dr. Wadsworth imroved pain some but it persists. Has a lot of clicking, popping; tolerance for activity variable. Can't sleep on left side. Takes Ibuprofen and Tylenol; doesn't do much. Using heat more than ice. Wants to try PT prior to any more invasive treatment. Occasional numbness or tingling. Prior Treatments and Tests MRI 10/04/21: Small tear of the anterior-superior labrum. 2. 0.7 x 0.2 centimeter intra- articular loose body likely related to articular cartilage defect involving the superior- medial humeral head. 3. Glenohumeral joint synovitis. 4. Large glenohumeral joint effusion. 5. Mild subacromial/subdeltoid bursitis. Treatment Goals Patient/Caregiver Goals regain full active use of left UE Prior Functional Status Baseline Function- ADL's Independent Baseline Function- Mobility Independent Baseline Function- Work/School no limitations Baseline Function- Recreation/Hobbies no limitations Current Functional Impairments (Reported) Functional Limitations- ADL's moderate to severe limitations , can't reach overhead or behind her back. Functional Limitations- Recreation/ moderate to severe Hobbies limitations PT-OP-C Subjective Start: 11/19/21 08:13 Freq: Status: Active Protocol: Document 12/04/21 13:50 SP (Rec: 12/04/21 14:36 SP [id number]) OP-PT Subjective Patient Comments Patient Comments Pt reports is able to lift L UE little higher and shave some under arm. L shld feels best doing ex in shower and hot tub after leave PT when warm applied to shld. PT-OP-E Functional Tests Start: 11/19/21 08:13 Freq: Status: Active Protocol: Document 11/19/21 08:13 SAK (Rec: 11/23/21 10:36 SAK [id number]) Functional Tests Apley's Scratch Test Action 1- Left front of chest Action 1- Right behind shoulder Action 2- Left lateral neck Action 2- Right T3 Action 3- Left lateral hip Action 3- Right T4 PT-OP-J Posture/Palpation/Skin Start: 11/19/21 08:13 Freq: Status: Active Protocol: Document 11/19/21 08:13 SAK (Rec: 11/23/21 10:36 SAK [id number]) Posture Evaluation Position Sitting Head/C-Spine Posture Forward Head Shoulder Posture (L) Rounded Scapula Posture (R) Neutral,(L) Protracted Arm Posture (R) Neutral,(L) Internally Rotated Palpation Assessment Location Two Palpation Location ant GH joint line Palpation Findings Tenderness One Palpation Location left UT Palpation Findings Soft Tissue Tightness,Muscle Guarding PT-OP-K Range of Motion Start: 11/19/21 08:13 Freq: Status: Active Protocol: Document 11/19/21 08:13 SAK (Rec: 11/23/21 10:36 SAK [id number]) Cervical Spine Range of Motion Cervical Spine Active Testing Position Sitting Flexion 60 Extension 20 Rotation Left 60 Rotation Right 60 Lateral Flexion Left 45 Lateral Flexion Right 30 ROM Limitations Soft Tissue Tightness,Pain Shoulder Goniometric Range of Motion Shoulder Left Shoulder ROM WFL No Testing Position Sitting Flexion 85 Extension 5 Abduction 60 External Rotation at 0 degrees Abduction 35 Right Shoulder ROM WFL Yes Shoulder ROM Limitations Shoulder ROM Limitations Pain PT-OP-M Strength Start: 11/19/21 08:13 Freq: Status: Active Protocol: Document 11/19/21 08:13 SAK (Rec: 11/23/21 10:36 SAK [id number]) Shoulder Strength Shoulder Manual Muscle Testing Left Flexion 3- Fair- Extension 3- Fair- Abduction (C5) 3- Fair- External Rotation 4- Good- Internal Rotation 3+ Fair+ Comments no resistance to elevation due to pain, mod pain with resisted shoulder IR, min with ER Right Flexion 5 Normal Extension 5 Normal Abduction (C5) 5 Normal External Rotation 4+ Good+ Internal Rotation 4+ Good+ PT-OP-Q Treatments Start: 11/19/21 08:13 Freq: Status: Active Protocol: Document 12/04/21 13:50 SP (Rec: 12/04/21 14:36 SP [id number]) Therapeutic Exercises Supine Exercises forward press Supine Exercise Name (recheck tolerance for HEP and give hand out next tx) Resistance AAROM Equipment Used dowel Reps/Minutes x8 Comments first couple discomfort anterior L shld then able get to 80 deg flex, press shoulder ext nora Supine Exercise Name arms straight at side Reps/Minutes 5s hold x5 Comments tension stretch over distal subclavicle, good stretch feel shoulder ER/IR Supine Exercise Name at 0 deg abd Equipment Used pillow under L shld Reps/Minutes 10x Comments pain-free ROM Sidelying Exercises shld ER Side left Resistance AROM Equipment Used towel under arm Reps/Minutes 2x8 reps Comments painfree range, AROM slight beyond neutral Sitting Exercises ER w/ wand Side left Resistance AAROM Equipment Used towel under arm, wand, mirror Reps/Minutes x5 Comments cued alignment scap retraction Side bilateral Equipment Used towel roll under L UE prox support Reps/Minutes 3 sec hold (1 breath)x5 Comments cued slow engagement, pain free range UT, lev scap stretch Sitting Exercise Name reviewed HEP Side left Reps/Minutes 30 x2 Standing Exercises self STMs Standing Exercise Name L UT, interscap, infrasp w/ rac.ball Side left Resistance reviewed for HEP tightness needed Equipment Used racquetball on wall Comments MWM decrease muscle tension- less tension in neck PT-OP-R Modalities Start: 11/19/21 08:13 Freq: Status: Active Protocol: Document 12/02/21 09:00 SAK (Rec: 12/03/21 14:58 SAK [id number]) Ultrasound Therapy Treatment Left Shoulder Patient Position Supine Coupling Medium Ultrasound Gel Frequency Setting (mHz) 1 Mode Setting Pulsed Duty Cycle 50% Intensity Setting (w/cm2) 1.2 PT-OP-T Assessment and Plan Start: 11/19/21 08:13 Freq: Status: Active Protocol: Document 12/04/21 13:50 SP (Rec: 12/04/21 14:36 SP [id number]) Physical Therapy Assessment Goals Three Impairment constant pain left shoulder 7/ 10, increases with UE use Short Term Goal (STG) Decrease pain level to no greater than 4/10 STG Duration 12/20/21 Nursing Home Goal (LTG) Decrease pain to no greater than 2/10 with all usual activities Two Impairment ROM and strength impairment left UE Short Term Goal (STG) Patient will be able to tolerate HEP for purposes of improving ROM and strength left UE STG Duration 12/20/21 Synthetic Plasterer Goal (LTG) Patient will be independent and compliant with HEP and demonstrate left UE ROM WNL and strength at least 4+/5 to allow her to easily reach overhead, behind her back, and resume other usual activities and ADL's without difficulty. LTG Duration 01/17/22 One Impairment Quickdash UE disability questionnaire 59% left UE Impairment decreased functional use of left UE Short Term Goal (STG) Improve Quickdash score to no greater than 40% as measure of functional improvement and activity tolerance left UE STG Duration 12/20/21 Nursing Home Goal (LTG) Improve Quickdash score to no greater than 15% as mreasure of functional improvement and activity tolerance left UE LTG Duration 01/17/22 Assessment Summary Assessment Pt responded well to focus on positional scap retraction stabilization and IR/ER with improvement and least amout pain supine shld ext isometric and side ER with better understanding of alignment. Able to progress supine forward press up to 8 reps before irritation. Pt states uses hot tub and shower modalities at home when needed and finds ROM benefits able move UE away from body more. Improved postural corrections during ther ex seated w/ mirror. Physical Therapy Plan Frequency and Duration Frequency of Treatment 2x/Week Duration of Treatment 8 weeks Plan of Care Start Date 11/19/21 Plan of Care End Date 01/17/22 Therapeutic Interventions Therapeutic Interventions Aquatic Therapy,Home Exercise Program,Joint Mobilizations, Manual Therapy,Neuromuscular Re-education,Patient/Caregiver Education,Self-Care/Home Management,Soft Tissue Mobilization,Taping, Therapeutic Activities, Therapeutic Exercises Modalities Cold Pack/Ice Massage,Electric Stimulation,Hot Packs, Iontophoresis,Ultrasound Next Visit Focus/Plan Next Note Type Treatment Note Next Visit Plan Review/ check deep breathing ex. Check forward press supine . POC: Continue gentle ther ex for ROM left shoulder, postural correction and deep breathing exercises. Manual therapy for soft tissue mobilization UT and periscapular.
--- NOTE | 2021-12-09 15:51 | PT.OTN ---
Current Diagnoses Effusion, left shoulder (12/09/21) Bursitis of left shoulder (12/09/21) Superior glenoid labrum lesion of left shoulder, initial encounter (12/09/21) Physical Therapy Treatment Note PT-OP-A Visit Information Start: 11/19/21 08:13 Freq: Status: Active Protocol: Document 12/09/21 08:58 SAK (Rec: 12/09/21 09:39 [facility] [id number]) Out-Patient Physical Therapy Visit Information Visit Information Visit Type Treatment Note Visit Start Time 09:00 Visit Stop Time 09:45 Total Visit Minutes 45 Visit Number 5 Number of GLOBAL COMPENSATION ANALYST Visits 0 Evaluation Information Evaluation Date 11/19/21 PT-OP-B Current Condition Start: 11/19/21 08:13 Freq: Status: Active Protocol: Document 11/19/21 08:13 SAK (Rec: 11/19/21 09:01 [facility] [id number]) Current Condition History of Current Condition Onset Date september 2021 Current Complaints left shoulder pain History of Current Condition a few days after playing with bull kelp on the beach ( extensive pulling) had onset of left shoulder pain which has persisted and limits the use of her left UE. Pain 6-7/ 10 constant. States she can't wash hair, put on bra or coat , or reach overhead. x-ray negative. Had MRI showed anterior labral tear. Injection from Dr. Wadsworth imroved pain some but it persists. Has a lot of clicking, popping; tolerance for activity variable. Can't sleep on left side. Takes Ibuprofen and Tylenol; doesn't do much. Using heat more than ice. Wants to try PT prior to any more invasive treatment. Occasional numbness or tingling. Prior Treatments and Tests MRI 10/04/21: Small tear of the anterior-superior labrum. 2. 0.7 x 0.2 centimeter intra- articular loose body likely related to articular cartilage defect involving the superior- medial humeral head. 3. Glenohumeral joint synovitis. 4. Large glenohumeral joint effusion. 5. Mild subacromial/subdeltoid bursitis. Treatment Goals Patient/Caregiver Goals regain full active use of left UE Prior Functional Status Baseline Function- ADL's Independent Baseline Function- Mobility Independent Baseline Function- Work/School no limitations Baseline Function- Recreation/Hobbies no limitations Current Functional Impairments (Reported) Functional Limitations- ADL's moderate to severe limitations , can't reach overhead or behind her back. Functional Limitations- Recreation/ moderate to severe Hobbies limitations PT-OP-C Subjective Start: 11/19/21 08:13 Freq: Status: Active Protocol: Document 12/09/21 08:58 SAK (Rec: 12/09/21 09:39 [facility] [id number]) OP-PT Subjective Patient Comments Patient Comments Met with surgeon, going ahead with surgery to clean it up a bit. REcommendation for PT 2x/wk x 6 weeks after surgery. Patient advised to call to get on schedule as soon as finds out surgery date. Needs updated HEP to do until surgery. PT-OP-E Functional Tests Start: 11/19/21 08:13 Freq: Status: Active Protocol: Document 11/19/21 08:13 [facility] (Rec: 11/23/21 10:36 [facility] [id number]) Functional Tests Apley's Scratch Test Action 1- Left front of chest Action 1- Right behind shoulder Action 2- Left lateral neck Action 2- Right T3 Action 3- Left lateral hip Action 3- Right T4 PT-OP-J Posture/Palpation/Skin Start: 11/19/21 08:13 Freq: Status: Active Protocol: Document 11/19/21 08:13 [facility] (Rec: 11/23/21 10:36 [facility] [id number]) Posture Evaluation Position Sitting Head/C-Spine Posture Forward Head Shoulder Posture (L) Rounded Scapula Posture (R) Neutral,(L) Protracted Arm Posture (R) Neutral,(L) Internally Rotated Palpation Assessment Location Two Palpation Location ant GH joint line Palpation Findings Tenderness One Palpation Location left UT Palpation Findings Soft Tissue Tightness,Muscle Guarding PT-OP-K Range of Motion Start: 11/19/21 08:13 Freq: Status: Active Protocol: Document 11/19/21 08:13 [facility] (Rec: 11/23/21 10:36 [facility] [id number]) Cervical Spine Range of Motion Cervical Spine Active Testing Position Sitting Flexion 60 Extension 20 Rotation Left 60 Rotation Right 60 Lateral Flexion Left 45 Lateral Flexion Right 30 ROM Limitations Soft Tissue Tightness,Pain Shoulder Goniometric Range of Motion Shoulder Left Shoulder ROM WFL No Testing Position Sitting Flexion 85 Extension 5 Abduction 60 External Rotation at 0 degrees Abduction 35 Right Shoulder ROM WFL Yes Shoulder ROM Limitations Shoulder ROM Limitations Pain PT-OP-M Strength Start: 11/19/21 08:13 Freq: Status: Active Protocol: Document 11/19/21 08:13 [facility] (Rec: 11/23/21 10:36 [facility] [id number]) Shoulder Strength Shoulder Manual Muscle Testing Left Flexion 3- Fair- Extension 3- Fair- Abduction (C5) 3- Fair- External Rotation 4- Good- Internal Rotation 3+ Fair+ Comments no resistance to elevation due to pain, mod pain with resisted shoulder IR, min with ER Right Flexion 5 Normal Extension 5 Normal Abduction (C5) 5 Normal External Rotation 4+ Good+ Internal Rotation 4+ Good+ PT-OP-Q Treatments Start: 11/19/21 08:13 Freq: Status: Active Protocol: Document 12/09/21 08:58 [facility] (Rec: 12/09/21 09:39 [facility] [id number]) Therapeutic Exercises Supine Exercises forward press Supine Exercise Name (recheck tolerance for HEP and give hand out next tx) Resistance AAROM Equipment Used dowel Reps/Minutes x8 Comments first couple discomfort anterior L shld then able get to 80 deg flex, press shoulder ext nora Supine Exercise Name arms straight at side Reps/Minutes 5s hold x5 Comments tension stretch over distal subclavicle, good stretch feel shoulder ER/IR Supine Exercise Name at 0 deg abd Equipment Used pillow under L shld Reps/Minutes 10x Comments pain-free ROM Sidelying Exercises shld ER Side left Resistance AROM Equipment Used towel under arm Reps/Minutes 2x8 reps Comments painfree range, AROM slight beyond neutral Sitting Exercises ER w/ wand Side left Resistance AAROM Equipment Used towel under arm, wand, mirror Reps/Minutes x5 Comments cued alignment scap retraction Side bilateral Equipment Used towel roll under L UE prox support Reps/Minutes 3 sec hold (1 breath)x5 Comments cued slow engagement, pain free range UT, lev scap stretch Sitting Exercise Name reviewed HEP Side left Reps/Minutes 30 x2 Comments mirror for visual feedback Standing Exercises self STMs Standing Exercise Name verbal review; patient doing at [facility] independently PT-OP-R Modalities Start: 11/19/21 08:13 Freq: Status: Active Protocol: Document 12/02/21 09:00 [facility] (Rec: 12/03/21 14:58 [facility] [id number]) Ultrasound Therapy Treatment Left Shoulder Patient Position Supine Coupling Medium Ultrasound Gel Frequency Setting (mHz) 1 Mode Setting Pulsed Duty Cycle 50% Intensity Setting (w/cm2) 1.2 PT-OP-T Assessment and Plan Start: 11/19/21 08:13 Freq: Status: Active Protocol: Document 12/09/21 08:58 [facility] (Rec: 12/09/21 09:39 [facility] [id number]) Physical Therapy Assessment Goals Three Impairment constant pain left shoulder 7/ 10, increases with UE use Short Term Goal (STG) Decrease pain level to no greater than 4/10 STG Duration 12/20/21 Java Software Engineer Goal (LTG) Decrease pain to no greater than 2/10 with all usual activities Two Impairment ROM and strength impairment left UE Short Term Goal (STG) Patient will be able to tolerate HEP for purposes of improving ROM and strength left UE STG Duration 12/20/21 Longterm Goal (LTG) Patient will be independent and compliant with HEP and demonstrate left UE ROM WNL and strength at least 4+/5 to allow her to easily reach overhead, behind her back, and resume other usual activities and ADL's without difficulty. LTG Duration 01/17/22 One Impairment Quickdash UE disability questionnaire 59% left UE Impairment decreased functional use of left UE Short Term Goal (STG) Improve Quickdash score to no greater than 40% as measure of functional improvement and activity tolerance left UE STG Duration 12/20/21 Java Software Engineer Goal (LTG) Improve Quickdash score to no greater than 15% as mreasure of functional improvement and activity tolerance left UE LTG Duration 01/17/22 Assessment Summary Assessment goals not achieved due to persistant pain and dysfunction. Surgery being scheduled. Patient plans to return after surgery for further PT. Physical Therapy Plan Discharge Physical Therapy Discharge Comments Patient to have shoulder surgery
== END 2021-12-09 17:00 ==
LOC: PHYS 09:00
PROVIDERS: Family Provider Family Medicine; PCP Orthopaedic Surgery; Referring Provider Family Medicine; Visit Provider Family Medicine
DX: M25.412 Effusion, left shoulder (principal); M75.52 Bursitis of left shoulder; S43.432A Superior glenoid labrum lesion of left shoulder, initial encounter
CPT/HCPCS: 97032; 97110; 97140; 97162; 97535

== ENCOUNTER → 2021-12-22 09:35 | Outpatient (CLI) | payer OTHER, SELFPAY ==
--- NOTE | 2021-12-22 | DI.MG.S_ITS ---
BILATERAL DIGITAL DIAGNOSTIC MAMMOGRAM 3D/2D SHORT-TERM FOLLOW-UP: 12/22/2021 CLINICAL: Short term follow up of the left breast, due for bilateral imaging. Left nipple discharge and pain. Comparison is made to exams dated: 01/27/2021 mammogram, 02/07/2020 mammogram, and 03/01/2019 mammogram - [facility]. The tissue of both breasts is extremely dense, which lowers the sensitivity of mammography. There is a benign oval asymmetry in the left breast at 5 o'clock middle depth. This is not significantly changed. No other significant masses, calcifications, or other findings are seen in either breast. IMPRESSION: INCOMPLETE: NEEDS ADDITIONAL IMAGING EVALUATION No suspicious mammographic finding. An ultrasound of the left breast has neem previously recommended to follow-up a probable complicated cyst at the 5:00 position, and that ultrasound will be performed after this exam. This exam was interpreted at Station ID: [id number]. NOTE: For mammograms, a report in lay terms will be sent to the patient. Approximately 15% of breast malignancies will not be visualized mammographically. In the management of a palpable breast mass, a negative mammogram must not discourage biopsy of a clinically suspicious lesion. Electronically Signed By: Geoff Sarabia M.D. jr/:12/22/2021 10:59:38 ACR BI-RADS Category 0: Incomplete [id number]
--- NOTE | 2021-12-22 | DI.US.S_ITS ---
LIMITED ULTRASOUND OF LEFT BREAST: 12/22/2021 CLINICAL: 6 month follow-up of cysts. Comparison is made to exams dated: 12/22/2021 mammogram, 08/21/2021 ultrasound, 01/27/2021 ultrasound, 01/27/2021 mammogram, and 09/05/2020 ultrasound - [facility]. Color flow and real-time ultrasound of the left breast 5 o'clock region were performed. Harding scale images of the real-time examination were reviewed. There is a stable benign 0.8 cm x 1 cm x 0.7 cm cyst with an irregular internal wall in the left breast at 5 o'clock anterior depth 2 cm from the nipple. This cyst is hypoechoic. This correlates with the aspiration. Color flow imaging demonstrates that there is no vascularity present. IMPRESSION: BENIGN There is no sonographic evidence of malignancy. Stable complicated cyst in the left breast at the 5:00 position. A 1 year screening mammogram is recommended. This exam was interpreted at Station ID: [id number]. Electronically Signed By: Geoff Sarabia M.D. jr/:12/22/2021 11:00:43 letter sent: Normal Exam Ultrasound BI-RADS: 2 Benign
== END ==
PROVIDERS: Family Provider Family Medicine; PCP Family Medicine; Referring Provider Family Medicine; Visit Provider Family Medicine
DX: N64.52 Nipple discharge; R92.8 Other abnormal and inconclusive findings on diagnostic imaging of breast; N60.02 Solitary cyst of left breast
CPT/HCPCS: 76642; 77066; G0279

== ENCOUNTER → 2021-12-24 16:05 | Outpatient (CLI) | payer OTHER, SELFPAY ==
[2021-12-24 17:10] LABS: Alanine Aminotransferase 15 IU/L (<35); Albumin 4.8 g/dL (3.5-5.0); Albumin Globulin Ratio 1.7 (1.0-2.8); Alkaline Phosphatase 65 U/L (38-126); Aspartate Aminotransferase 25 IU/L (14-36); BUN Creatinine Ratio 26.1 (6-22); Bilirubin Total 0.4 mg/dL (0.2-1.3); Blood Urea Nitrogen 18 mg/dL (7-17); Calcium 9.8 mg/dL (8.4-10.2); Carbon Dioxide 32 mmol/L (22-32); Chloride 100 mmol/L (98-107); Estimated Glomerular Filt Rate > 60.0 mL/min (>60); Globulin 2.8 g/dL (1.7-4.1); Glucose 91 mg/dL (70-100); HEMOLYSIS < 15 (0-50); Sodium 137 mmol/L (137-145); Total Protein 7.6 g/dL (6.3-8.2)
[2021-12-24 17:27] LABS: Prolactin 12.6 ng/mL (3.0-18.6)
== END ==
PROVIDERS: Family Provider Family Medicine; PCP Family Medicine; Referring Provider Family Medicine; Visit Provider Family Medicine
DX: N64.52 Nipple discharge (principal)
CPT/HCPCS: 36415; 80053; 84146

== ENCOUNTER 2022-02-24 10:30 | Outpatient (RCR) | payer OTHER, SELFPAY ==
--- NOTE | 2022-01-01 13:44 | PT.OPPOC ---
Physical, Occupational & Speech Therapy At [facility] Current Diagnoses Adhesive capsulitis of left shoulder (01/01/22) Bursitis of left shoulder (01/01/22) Superior glenoid labrum lesion of left shoulder, initial encounter (01/01/22) Visit Care Team Role Provider Type Leatha Pierre MD Family Provider Physician Primary Care Provider Specialty: Family Practice Address: [address] [place] [address], [facility] [place], [address] Email: [email or web address] Nelson Wadsworth MD Attending Provider Physician Referring Provider Specialty: Orthopedic Surgery Address: [address] [place] [address], [address] Email: [email or web address] Plan Of Care PT-OP-T Assessment and Plan Start: 01/01/22 09:06 Freq: Status: Active Protocol: Document 01/01/22 16:20 [facility] (Rec: 01/04/22 13:43 [facility] [id number]) Physical Therapy Assessment Rehab Potential Rehabilitation Potential Good Evaluation Complexity Number of Personal Factors/Comorbidities 1-2 Number of Body Systems Impaired 3 Clinical Presentation at Evaluation Evolving Impairments Impairments Functional Activities,Pain,ROM ,Strength Goals Three Impairment Decreased ROM and strength left shoulder Short Term Goal (STG) Patient to achieve full active ROM of her left shoudler STG Duration 01/29/22 Group Home Goal (LTG) Patient to demonstrate at least 4+/5 muscle strength all motions left shoulder to allow her to return to all prior activities. Two Impairment pain left shoulder at 8/10 scale Short Term Goal (STG) Decrease pain to no greater than 4/10 STG Duration 01/29/22 Group Home Goal (LTG) Decrease pain to no greater than 2/10 with all usual activities LTG Duration 03/31/22 One Impairment Quickdash UE disability index score 64% Impairment decreased functional use of left UE Short Term Goal (STG) Decrease Quickdash score as measure of improved left UE function to no greater than 40 % STG Duration 01/29/22 Group Home Goal (LTG) Decrease Quickdash score to no greater than 15% as measure of improved function left UE LTG Duration 03/31/22 Assessment Summary Assessment Patient presents to PT post-op day 1 extensive GH debridement, lysis of adhesions, and subacaromial decompression with reports of vomiting all day yesterday, high pain level at 8/10. Patient reports only taking 1/ 2 tablet of pain pill but is allowed to take up to 2. She plans to increase her dose due to the high pain level and limited tolerance for any movement of her shoulder at this time. She is wearing her post-op sling for comfort. She was instructed in HEP with emphasis on early shoulder ROM and issued written instructions. She demonstrated good understanding of plan of care, and need for her to get her pain under control to allow her to regain her shoulder ROM . Relaxation techniques including deep breathing emphasized. Ice applied to patient's left shoulder after treatment, and was encouraged at home especially after performance of HEP. Physical Therapy Plan Frequency and Duration Frequency of Treatment 2x/Week Duration of Treatment 12 weeks Plan of Care Start Date 01/01/22 Plan of Care End Date 04/04/22 Therapeutic Interventions Therapeutic Interventions Aquatic Therapy,Home Exercise Program,Joint Mobilizations, Manual Therapy,Neuromuscular Re-education,Patient/Caregiver Education,Self-Care/Home Management,Soft Tissue Mobilization,Taping, Therapeutic Activities, Therapeutic Exercises Modalities Electric Stimulation,Hot Packs Next Visit Focus/Plan Next Note Type Treatment Note Next Visit Plan review HEP, continue ROM exercises per post-op protocol . Plan of Care Dates Plan of Care Start Date 01/01/22 Plan of Care End Date 04/04/22 Electronically Signed by: Abbi Zhang, PT 01/04/22 7920 Please Sign and Return: I have reviewed this Plan of Care and certify that the skilled therapy services above are required to meet the patient?s needs. Physician Signature Date Printed Name and Credentials Clinical Instructor Signature Printed Name and Credentials
--- NOTE | 2022-01-01 16:00 | PT.OIE ---
Current Diagnoses Adhesive capsulitis of left shoulder (01/01/22) Bursitis of left shoulder (01/01/22) Superior glenoid labrum lesion of left shoulder, initial encounter (01/01/22) Past Medical History (Last Reviewed 05/30/21 @ 18:25 by VIC Porter) Depression Right wrist pain Past Surgical History History of carpal tunnel repair Status post delivery Status post dilation and curettage Status post endometrial ablation Visit Care Team Role Provider Type Leatha Pierre MD Family Provider Physician Primary Care Provider Specialty: Family Practice Address: [address] [place] [address], [address] Email: [email or web address] Nelson Wadsworth MD Attending Provider Physician Referring Provider Specialty: Orthopedic Surgery Address: [address] [place] [address], [address] Email: Physical Therapy Initial Evaluation PT-OP-A Visit Information Start: 01/01/22 09:06 Freq: Status: Active Protocol: Document 01/01/22 16:20 [facility] (Rec: 01/01/22 16:27 [facility] [id number]) Out-Patient Physical Therapy Visit Information Visit Information Visit Type Initial Evaluation Visit Note post-op day one Visit Start Time 14:30 Visit Stop Time 15:17 Total Visit Minutes 47 Visit Number 1 Evaluation Information Evaluation Date 01/01/22 Precautions Precautions wear sling for comfort, PT evaluate and treat, aggressive ROM, no strengthening PT-OP-B Current Condition Start: 01/01/22 09:06 Freq: Status: Active Protocol: Document 01/01/22 16:20 [facility] (Rec: 01/01/22 16:27 [facility] [id number]) Current Condition History of Current Condition Onset Date 12/31/21 Current Complaints left shoulder pain History of Current Condition left shoulder arthroscopic surgery: extensive debridement GH joint, lysis of adhesions, subacromial decompression. Patient reports she was vomiting all day yesterday, pain level high, has only taken 1/2 Oxycodone at a time, feels may need to take more. 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 Baseline Function- Recreation/Hobbies crafting, hiking, art Current Functional Impairments (Reported) Functional Limitations- ADL's unable to use left shoulder, in post-op sling held at side Functional Limitations- Recreation/ unable Hobbies PT-OP-C Subjective Start: 01/01/22 09:06 Freq: Status: Active Protocol: Document 01/01/22 16:20 [facility] (Rec: 01/04/22 13:43 [facility] [id number]) Patient Questionnaires Quick Dash- Upper Extremity Quick Dash UE Score 36 OP-PT Pain Assessment Location left shoulder Intensity 8 Scale Used Numeric (0 - 10) Description Acute,Burning,Sharp,Stabbing, Tender,Tightness Frequency Frequent Home Pain Medication Use Pain Medications Used Yes Home Pain Medication Frequency taking 1/2 tab q 4 hours, will increase to 1 tab due to high level of pain Pain Behaviors Pain Behaviors Facial Grimacing,Guarding, Holding Area,Wincing PT-OP-F Manual Assessment Start: 01/01/22 09:06 Freq: Status: Active Protocol: Document 01/01/22 16:20 [facility] (Rec: 01/04/22 13:43 [facility] [id number]) Manual Assessments Soft Tissue Assessment Soft Tissue Mobility Assessment post-op dressing in place, no signs or symptoms of infection PT-OP-H Neuro Start: 01/01/22 09:06 Freq: Status: Active Protocol: Document 01/01/22 16:20 [facility] (Rec: 01/04/22 13:43 [facility] [id number]) Sensation Evaluation Gross Sensation Gross Sensation WNL PT-OP-J Posture/Palpation/Skin Start: 01/01/22 09:06 Freq: Status: Active Protocol: Document 01/01/22 16:20 [facility] (Rec: 01/04/22 13:43 [facility] [id number]) Skin Assessment Incisional Assessment Incision Appearance/Comments post-op dressing in place PT-OP-K Range of Motion Start: 01/01/22 09:06 Freq: Status: Active Protocol: Document 01/01/22 16:20 [facility] (Rec: 01/04/22 13:43 [facility] [id number]) Cervical Spine Range of Motion Cervical Spine Active Testing Position Sitting ROM Limitations Soft Tissue Tightness,Pain Comments guarding Shoulder Goniometric Range of Motion Shoulder Left Shoulder ROM WFL No Flexion 60 Extension 0 Abduction 55 External Rotation at 0 degrees Abduction 5 Internal Rotation 10 Comments Very high pain level, was vomiting all day yesterday, not feeling well today, low tolerance for any ROM PT-OP-Q Treatments Start: 01/01/22 09:06 Freq: Status: Active Protocol: Document 01/01/22 16:20 [facility] (Rec: 01/04/22 13:43 [facility] [id number]) Self-Care/Home Management Treatment Education Patient Education Home Exercise Program,Pain Management,Posture Other Education issued written HEP; shld shrugs, shld blade squeeze, neck ROM, hand, elbow, wrist AROM, pendulums, AAROM with therapy ball on table for flex and abduction PT-OP-R Modalities Start: 01/01/22 09:06 Freq: Status: Active Protocol: Document 01/01/22 16:20 [facility] (Rec: 01/04/22 13:43 [facility] [id number]) Hot Pack/Cold Pack Treatment Cold Pack Location left shoulder Patient Position Sitting Treatment Duration (minutes) 10 Patient Tolerance Good PT-OP-T Assessment and Plan Start: 01/01/22 09:06 Freq: Status: Active Protocol: Document 01/01/22 16:20 [facility] (Rec: 01/04/22 13:43 [facility] [id number]) Physical Therapy Assessment Rehab Potential Rehabilitation Potential Good Evaluation Complexity Number of Personal Factors/Comorbidities 1-2 Number of Body Systems Impaired 3 Clinical Presentation at Evaluation Evolving Impairments Impairments Functional Activities,Pain,ROM ,Strength Goals Three Impairment Decreased ROM and strength left shoulder Short Term Goal (STG) Patient to achieve full active ROM of her left shoudler STG Duration 01/29/22 Nursing Home Goal (LTG) Patient to demonstrate at least 4+/5 muscle strength all motions left shoulder to allow her to return to all prior activities. Two Impairment pain left shoulder at 8/10 scale Short Term Goal (STG) Decrease pain to no greater than 4/10 STG Duration 01/29/22 Electronic Assembler Goal (LTG) Decrease pain to no greater than 2/10 with all usual activities LTG Duration 03/31/22 One Impairment Quickdash UE disability index score 64% Impairment decreased functional use of left UE Short Term Goal (STG) Decrease Quickdash score as measure of improved left UE function to no greater than 40 % STG Duration 01/29/22 Electronic Assembler Goal (LTG) Decrease Quickdash score to no greater than 15% as measure of improved function left UE LTG Duration 03/31/22 Assessment Summary Assessment Patient presents to PT post-op day 1 extensive GH debridement, lysis of adhesions, and subacaromial decompression with reports of vomiting all day yesterday, high pain level at 8/10. Patient reports only taking 1/ 2 tablet of pain pill but is allowed to take up to 2. She plans to increase her dose due to the high pain level and limited tolerance for any movement of her shoulder at this time. She is wearing her post-op sling for comfort. She was instructed in HEP with emphasis on early shoulder ROM and issued written instructions. She demonstrated good understanding of plan of care, and need for her to get her pain under control to allow her to regain her shoulder ROM . Relaxation techniques including deep breathing emphasized. Ice applied to patient's left shoulder after treatment, and was encouraged at home especially after performance of HEP. Physical Therapy Plan Frequency and Duration Frequency of Treatment 2x/Week Duration of Treatment 12 weeks Plan of Care Start Date 01/01/22 Plan of Care End Date 04/04/22 Therapeutic Interventions Therapeutic Interventions Aquatic Therapy,Home Exercise Program,Joint Mobilizations, Manual Therapy,Neuromuscular Re-education,Patient/Caregiver Education,Self-Care/Home Management,Soft Tissue Mobilization,Taping, Therapeutic Activities, Therapeutic Exercises Modalities Electric Stimulation,Hot Packs Next Visit Focus/Plan Next Note Type Treatment Note Next Visit Plan review HEP, continue ROM exercises per post-op protocol .
--- NOTE | 2022-01-05 13:43 | PT.OTN ---
Current Diagnoses Adhesive capsulitis of left shoulder (01/05/22) Bursitis of left shoulder (01/05/22) Superior glenoid labrum lesion of left shoulder, initial encounter (01/05/22) Physical Therapy Treatment Note PT-OP-A Visit Information Start: 01/01/22 09:06 Freq: Status: Active Protocol: Document 01/05/22 09:14 [facility] (Rec: 01/05/22 09:54 [facility] [id number]) Out-Patient Physical Therapy Visit Information Visit Information Visit Type Treatment Note Visit Note sleeping propped up still, now taking 1 Hydrocodone at a time. Feels a lot of catching and pain in her shoulder. Hasn't tried wand exercise overhead (flexion) yet. Trying to do more movement of her arm. Visit Start Time 09:00 Visit Stop Time 09:55 Total Visit Minutes 55 Visit Number 2 Evaluation Information Evaluation Date 01/01/22 Precautions Precautions wear sling for comfort, PT evaluate and treat, aggressive ROM, no strengthening PT-OP-B Current Condition Start: 01/01/22 09:06 Freq: Status: Active Protocol: Document 01/05/22 09:14 [facility] (Rec: 01/05/22 09:54 [facility] [id number]) Current Condition History of Current Condition Onset Date 12/31/21 Current Complaints left shoulder pain History of Current Condition left shoulder arthroscopic surgery: extensive debridement GH joint, lysis of adhesions, subacromial decompression. Patient reports she was vomiting all day yesterday, pain level high, has only taken 1/2 Oxycodone at a time, feels may need to take more. 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 Feels a lot of catching and pain in her shoulder. Hasn't tried wand exercise overhead (flexion) yet. Trying to do more movement of her arm. PT-OP-F Manual Assessment Start: 01/01/22 09:06 Freq: Status: Active Protocol: Document 01/01/22 16:20 [facility] (Rec: 01/04/22 13:43 [facility] [id number]) Manual Assessments Soft Tissue Assessment Soft Tissue Mobility Assessment post-op dressing in place, no signs or symptoms of infection PT-OP-H Neuro Start: 01/01/22 09:06 Freq: Status: Active Protocol: Document 01/01/22 16:20 [facility] (Rec: 01/04/22 13:43 [facility] [id number]) Sensation Evaluation Gross Sensation Gross Sensation WNL PT-OP-J Posture/Palpation/Skin Start: 01/01/22 09:06 Freq: Status: Active Protocol: Document 01/01/22 16:20 [facility] (Rec: 01/04/22 13:43 [facility] [id number]) Skin Assessment Incisional Assessment Incision Appearance/Comments post-op dressing in place PT-OP-K Range of Motion Start: 01/01/22 09:06 Freq: Status: Active Protocol: Document 01/01/22 16:20 [facility] (Rec: 01/04/22 13:43 [facility] [id number]) Cervical Spine Range of Motion Cervical Spine Active Testing Position Sitting ROM Limitations Soft Tissue Tightness,Pain Comments guarding Shoulder Goniometric Range of Motion Shoulder Left Shoulder ROM WFL No Flexion 60 Extension 0 Abduction 55 External Rotation at 0 degrees Abduction 5 Internal Rotation 10 Comments Very high pain level, was vomiting all day yesterday, not feeling well today, low tolerance for any ROM PT-OP-Q Treatments Start: 01/01/22 09:06 Freq: Status: Active Protocol: Document 01/05/22 09:14 [facility] (Rec: 01/05/22 09:54 [facility] [id number]) Therapeutic Exercises Supine Exercises PROM all planes Reps/Minutes 5-10x ea Comments cues for breathing, pain-free ROM Sitting Exercises pulleys Sitting Exercise Name shoulder flex Equipment Used mirror for visual feedback Reps/Minutes 5x Comments elbow bent, manual scapular facil Standing Exercises wall slide Reps/Minutes 3x shoulder abduction Standing Exercise Name scaption Reps/Minutes 55 cm ball Comments tactile and verbal cues shoulder flex Equipment Used 55 cm ball Reps/Minutes 10x Comments tactile and verbal cues pendulum Reps/Minutes 5x ea scapular squeeze Standing Exercise Name horizontal, diag Equipment Used mirror Reps/Minutes 5x ea Comments tactile and verbal cues should shrugs Equipment Used mirror Reps/Minutes 5x Comments tactile and verbal cues Manual Therapy Treatment Joint Mobilizations GH Direction inf glide, long axis distraction Comments add distraction, post glide next session Taping 1 Body Location left UT Treatment Focus inhibition Type of Tape Kinesio Tape Skin Inspection intact Self-Care/Home Management Treatment Education Patient Education Home Exercise Program,Pain Management,Posture Other Education encouraged beginning with small amplitude movements before moving into stretch, continue deep breathing for muscle relaxation PT-OP-R Modalities Start: 01/01/22 09:06 Freq: Status: Active Protocol: Document 01/05/22 09:00 [facility] (Rec: 01/05/22 13:43 [facility] [id number]) Electric Stimulation Electric Stimulation left shoulder Body Location left shoulder Duration (Minutes) 15 Intensity 13 Target/Sweep Sweep Patient Position Hooklying Combined With Heat/Cold Hot Pack Comments left shoulder supported by pillow PT-OP-T Assessment and Plan Start: 01/01/22 09:06 Freq: Status: Active Protocol: Document 01/05/22 09:14 [facility] (Rec: 01/05/22 09:54 [facility] [id number]) Physical Therapy Assessment Goals Three Impairment Decreased ROM and strength left shoulder Short Term Goal (STG) Patient to achieve full active ROM of her left shoudler STG Duration 01/29/22 Label Printer Goal (LTG) Patient to demonstrate at least 4+/5 muscle strength all motions left shoulder to allow her to return to all prior activities. Two Impairment pain left shoulder at 8/10 scale Short Term Goal (STG) Decrease pain to no greater than 4/10 STG Duration 01/29/22 [facility] Goal (LTG) Decrease pain to no greater than 2/10 with all usual activities LTG Duration 03/31/22 One Impairment Quickdash UE disability index score 64% Impairment decreased functional use of left UE Short Term Goal (STG) Decrease Quickdash score as measure of improved left UE function to no greater than 40 % STG Duration 01/29/22 [facility] Goal (LTG) Decrease Quickdash score to no greater than 15% as measure of improved function left UE LTG Duration 03/31/22 Assessment Summary Assessment Some improvement in pain management, though pain level still quite high with patient having difficulty not overactivating UT with movement. Feeling some catching in her shoulder. Feel next session should begin with soft tissue mobilization UT, samuel-scapular as well as joint mobilization. Physical Therapy Plan Frequency and Duration Frequency of Treatment 2x/Week Duration of Treatment 12 weeks Plan of Care Start Date 01/01/22 Plan of Care End Date 04/04/22 Therapeutic Interventions Therapeutic Interventions Aquatic Therapy,Home Exercise Program,Joint Mobilizations, Manual Therapy,Neuromuscular Re-education,Patient/Caregiver Education,Self-Care/Home Management,Soft Tissue Mobilization,Taping, Therapeutic Activities, Therapeutic Exercises Modalities Electric Stimulation,Hot Packs Next Visit Focus/Plan Next Note Type Treatment Note Next Visit Plan begin with soft tissue mobilization UT, samuel-scapular as well as joint mobilization to facilitate muscle relaxation and improved joint arthrokinematics for increased ROM
--- NOTE | 2022-01-08 14:05 | PT.OTN ---
Current Diagnoses Adhesive capsulitis of left shoulder (01/08/22) Bursitis of left shoulder (01/08/22) Superior glenoid labrum lesion of left shoulder, initial encounter (01/08/22) Physical Therapy Treatment Note PT-OP-A Visit Information Start: 01/01/22 09:06 Freq: Status: Active Protocol: Document 01/08/22 13:00 SAK (Rec: 01/08/22 14:04 [facility] [id number]) Out-Patient Physical Therapy Visit Information Visit Information Visit Type Treatment Note Visit Start Time 13:00 Visit Number 3 Evaluation Information Evaluation Date 01/01/22 Precautions Precautions wear sling for comfort, PT evaluate and treat, aggressive ROM, no strengthening PT-OP-B Current Condition Start: 01/01/22 09:06 Freq: Status: Active Protocol: Document 01/08/22 13:00 SAK (Rec: 01/08/22 14:04 SAK [id number]) Current Condition History of Current Condition Onset Date 12/31/21 Current Complaints left shoulder pain History of Current Condition left shoulder arthroscopic surgery: extensive debridement GH joint, lysis of adhesions, subacromial decompression. Patient reports she was vomiting all day yesterday, pain level high, has only taken 1/2 Oxycodone at a time, feels may need to take more. Has iced 1 or 2 times Prior Treatments and Tests prior injection, PT without improvement of shoulder pain Future Testing and Treatments Planned follow-up with physician , then 02/09/22 PT-OP-C Subjective Start: 01/01/22 09:06 Freq: Status: Active Protocol: Document 01/08/22 13:00 SAK (Rec: 01/08/22 14:04 SAK [id number]) OP-PT Subjective Patient Comments Patient Comments Only taking Tylenol or Ibuprofen now, though not sleeping. Paying more attention to alignment, feels shoulder swollen, very limited in motion. Hasn't done any walking or ex bike either. Doing HEP. Got approval to get in hot tub with water proof cover over incisions PT-OP-F Manual Assessment Start: 01/01/22 09:06 Freq: Status: Active Protocol: Document 01/01/22 16:20 SAK (Rec: 01/04/22 13:43 SAK [id number]) Manual Assessments Soft Tissue Assessment Soft Tissue Mobility Assessment post-op dressing in place, no signs or symptoms of infection PT-OP-H Neuro Start: 01/01/22 09:06 Freq: Status: Active Protocol: Document 01/01/22 16:20 [facility] (Rec: 01/04/22 13:43 [facility] [id number]) Sensation Evaluation Gross Sensation Gross Sensation WNL PT-OP-J Posture/Palpation/Skin Start: 01/01/22 09:06 Freq: Status: Active Protocol: Document 01/08/22 13:00 [facility] (Rec: 01/08/22 14:04 [facility] [id number]) Skin Assessment Incisional Assessment Incision Appearance/Comments incisions healing well Other Assessments Skin Assessment Comments increased swelling noted today PT-OP-K Range of Motion Start: 01/01/22 09:06 Freq: Status: Active Protocol: Document 01/01/22 16:20 [facility] (Rec: 01/04/22 13:43 [facility] [id number]) Cervical Spine Range of Motion Cervical Spine Active Testing Position Sitting ROM Limitations Soft Tissue Tightness,Pain Comments guarding Shoulder Goniometric Range of Motion Shoulder Left Shoulder ROM WFL No Flexion 60 Extension 0 Abduction 55 External Rotation at 0 degrees Abduction 5 Internal Rotation 10 Comments Very high pain level, was vomiting all day yesterday, not feeling well today, low tolerance for any ROM PT-OP-Q Treatments Start: 01/01/22 09:06 Freq: Status: Active Protocol: Document 01/08/22 13:00 [facility] (Rec: 01/08/22 14:04 [facility] [id number]) Cardio Equipment Recumbent Bicycle Duration (Minutes) 6 Resistance 4 Seat Position 6 Therapeutic Exercises Supine Exercises posterior capsul stretch Reps/Minutes 5x5 shoulder abduction Supine Exercise Name PROM Equipment Used wand Reps/Minutes 10x shoulder flex Equipment Used wand Reps/Minutes 10x shoulder ER Equipment Used wand Reps/Minutes 10x5 PROM all planes Reps/Minutes 5-10x ea Comments cues for breathing, pain-free ROM Sitting Exercises pulleys Sitting Exercise Name shoulder flex, scaption Equipment Used mirror for visual feedback Reps/Minutes 10x Comments elbow bent, manual scapular facil Standing Exercises shoulder ext Equipment Used wand Reps/Minutes 10x5 shoulder abduction Comments HEP shoulder flex Standing Exercise Name AAROM, PROM walk away Equipment Used pillow case, stair railing, table pendulum Reps/Minutes 5x ea scapular squeeze Standing Exercise Name horizontal, diag Equipment Used mirror Reps/Minutes 5x ea Comments tactile and verbal cues Manual Therapy Treatment Joint Mobilizations GH Direction inf glide, long axis distraction, post gl Self-Care/Home Management Treatment Education Patient Education Home Exercise Program,Pain Management,Posture Other Education need for increased icing, recommended shoulder ice pack with strap, resume aerobic exercises to promote healing and sleep PT-OP-R Modalities Start: 01/01/22 09:06 Freq: Status: Active Protocol: Document 01/08/22 13:00 [facility] (Rec: 01/08/22 14:04 [facility] [id number]) Electric Stimulation Electric Stimulation left shoulder Body Location left shoulder Duration (Minutes) 15 Intensity 13 Target/Sweep Sweep Patient Position Hooklying Combined With Heat/Cold Hot Pack Comments left shoulder supported by pillow PT-OP-T Assessment and Plan Start: 01/01/22 09:06 Freq: Status: Active Protocol: Document 01/08/22 13:00 [facility] (Rec: 01/08/22 14:04 [facility] [id number]) Physical Therapy Assessment Goals Three Impairment Decreased ROM and strength left shoulder Short Term Goal (STG) Patient to achieve full active ROM of her left shoudler STG Duration 01/29/22 Drilling Assistant Goal (LTG) Patient to demonstrate at least 4+/5 muscle strength all motions left shoulder to allow her to return to all prior activities. Two Impairment pain left shoulder at 8/10 scale Short Term Goal (STG) Decrease pain to no greater than 4/10 STG Duration 01/29/22 Drilling Assistant Goal (LTG) Decrease pain to no greater than 2/10 with all usual activities LTG Duration 03/31/22 One Impairment Quickdash UE disability index score 64% Impairment decreased functional use of left UE Short Term Goal (STG) Decrease Quickdash score as measure of improved left UE function to no greater than 40 % STG Duration 01/29/22 Drilling Assistant Goal (LTG) Decrease Quickdash score to no greater than 15% as measure of improved function left UE LTG Duration 03/31/22 Assessment Summary Assessment improved shoulder flex to 132 deg, abduction 89, ER 19, horizontal add to 22. Demonstrated improved understanding of angle for shoulder ER. Plans to obtain pulleys and shoulder ice pack for home use. Physical Therapy Plan Frequency and Duration Frequency of Treatment 2x/Week Duration of Treatment 12 weeks Plan of Care Start Date 01/01/22 Plan of Care End Date 04/04/22 Therapeutic Interventions Therapeutic Interventions Aquatic Therapy,Home Exercise Program,Joint Mobilizations, Manual Therapy,Neuromuscular Re-education,Patient/Caregiver Education,Self-Care/Home Management,Soft Tissue Mobilization,Taping, Therapeutic Activities, Therapeutic Exercises Modalities Electric Stimulation,Hot Packs Next Visit Focus/Plan Next Note Type Treatment Note Next Visit Plan Continue post-op shoulder rehab with emphasis on ROM per protocol.
--- NOTE | 2022-01-13 17:30 | PT.OTN ---
Current Diagnoses Adhesive capsulitis of left shoulder (01/13/22) Bursitis of left shoulder (01/13/22) Superior glenoid labrum lesion of left shoulder, initial encounter (01/13/22) Physical Therapy Treatment Note PT-OP-A Visit Information Start: 01/01/22 09:06 Freq: Status: Active Protocol: Document 01/13/22 09:02 [facility] (Rec: 01/13/22 09:47 [facility] [id number]) Out-Patient Physical Therapy Visit Information Visit Information Visit Type Treatment Note Visit Start Time 09:00 Visit Stop Time 09:55 Total Visit Minutes 55 Visit Number 4 Evaluation Information Evaluation Date 01/01/22 Precautions Precautions wear sling for comfort, PT evaluate and treat, aggressive ROM, no strengthening PT-OP-B Current Condition Start: 01/01/22 09:06 Freq: Status: Active Protocol: Document 01/13/22 09:02 [facility] (Rec: 01/13/22 09:47 [facility] [id number]) Current Condition History of Current Condition Onset Date 12/31/21 Current Complaints left shoulder pain History of Current Condition left shoulder arthroscopic surgery: extensive debridement GH joint, lysis of adhesions, subacromial decompression. Patient reports she was vomiting all day yesterday, pain level high, has only taken 1/2 Oxycodone at a time, feels may need to take more. 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 (Rec: 01/13/22 09:47 [facility] [id number]) OP-PT Subjective Patient Comments Patient Comments ROM improving, doing HEP, has ordered ice pack. Does best with shoulder movement when relaxed at home, plays music and moves more naturally. Saw Dr. Wadsworth, continue ROM, no strengthening for another month. Continue with Tylenol and Ibuprofen. PT-OP-F Manual Assessment Start: 01/01/22 09:06 Freq: Status: Active Protocol: Document 01/01/22 16:20 [facility] (Rec: 01/04/22 13:43 [facility] [id number]) Manual Assessments Soft Tissue Assessment Soft Tissue Mobility Assessment post-op dressing in place, no signs or symptoms of infection PT-OP-H Neuro Start: 01/01/22 09:06 Freq: Status: Active Protocol: Document 01/01/22 16:20 [facility] (Rec: 01/04/22 13:43 [facility] [id number]) Sensation Evaluation Gross Sensation Gross Sensation WNL PT-OP-J Posture/Palpation/Skin Start: 01/01/22 09:06 Freq: Status: Active Protocol: Document 01/08/22 13:00 [facility] (Rec: 01/08/22 14:04 [facility] [id number]) Skin Assessment Incisional Assessment Incision Appearance/Comments incisions healing well Other Assessments Skin Assessment Comments increased swelling noted today PT-OP-K Range of Motion Start: 01/01/22 09:06 Freq: Status: Active Protocol: Document 01/01/22 16:20 [facility] (Rec: 01/04/22 13:43 [facility] [id number]) Cervical Spine Range of Motion Cervical Spine Active Testing Position Sitting ROM Limitations Soft Tissue Tightness,Pain Comments guarding Shoulder Goniometric Range of Motion Shoulder Left Shoulder ROM WFL No Flexion 60 Extension 0 Abduction 55 External Rotation at 0 degrees Abduction 5 Internal Rotation 10 Comments Very high pain level, was vomiting all day yesterday, not feeling well today, low tolerance for any ROM PT-OP-Q Treatments Start: 01/01/22 09:06 Freq: Status: Active Protocol: Document 01/13/22 09:02 [facility] (Rec: 01/13/22 17:30 [facility] [id number]) Therapeutic Exercises Supine Exercises posterior capsul stretch Reps/Minutes 2x5 shoulder abduction Supine Exercise Name PROM Equipment Used wand Reps/Minutes 10x shoulder flex Equipment Used wand Reps/Minutes 10x shoulder ER Equipment Used wand Reps/Minutes 10x5 PROM all planes Reps/Minutes 5-10x ea Comments cues for breathing, pain-free ROM Sidelying Exercises shoulder flex Equipment Used beside table, pillow case Comments manual facilitation of scapular upward roation. Sitting Exercises pulleys Sitting Exercise Name shoulder flex, scaption Equipment Used mirror for visual feedback Reps/Minutes 10x Comments elbow bent, manual scapular facil Standing Exercises shoulder ext Equipment Used wand Reps/Minutes 10x5 scapular squeeze Standing Exercise Name horizontal, diag Equipment Used mirror Reps/Minutes 5x ea Comments tactile and verbal cues Manual Therapy Treatment Soft Tissue Mobilization rhomboids Mobilization Type Myofascial Release,Strumming, Sustained Pressure upper traps Mobilization Type Myofascial Release,Sustained Pressure Joint Mobilizations GH Direction inf glide, long axis distraction, post gl Self-Care/Home Management Treatment Education Patient Education Home Exercise Program,Pain Management,Posture Other Education deep breathing, use of music for relaxation and to allow more normal shoulder movement. PT-OP-R Modalities Start: 01/01/22 09:06 Freq: Status: Active Protocol: Document 01/13/22 09:02 [facility] (Rec: 01/13/22 17:30 [facility] [id number]) Electric Stimulation Electric Stimulation left shoulder Body Location left shoulder Duration (Minutes) 15 Intensity 13 Target/Sweep Sweep Patient Position Hooklying Combined With Heat/Cold Hot Pack Comments left shoulder supported by pillow PT-OP-T Assessment and Plan Start: 01/01/22 09:06 Freq: Status: Active Protocol: Document 01/13/22 09:02 [facility] (Rec: 01/13/22 09:47 [facility] [id number]) Physical Therapy Assessment Goals Three Impairment Decreased ROM and strength left shoulder Short Term Goal (STG) Patient to achieve full active ROM of her left shoudler STG Duration 01/29/22 Paper Novelty Maker Goal (LTG) Patient to demonstrate at least 4+/5 muscle strength all motions left shoulder to allow her to return to all prior activities. Two Impairment pain left shoulder at 8/10 scale Short Term Goal (STG) Decrease pain to no greater than 4/10 STG Duration 01/29/22 Paper Novelty Maker Goal (LTG) Decrease pain to no greater than 2/10 with all usual activities LTG Duration 03/31/22 One Impairment Quickdash UE disability index score 64% Impairment decreased functional use of left UE Short Term Goal (STG) Decrease Quickdash score as measure of improved left UE function to no greater than 40 % STG Duration 01/29/22 Paper Novelty Maker Goal (LTG) Decrease Quickdash score to no greater than 15% as measure of improved function left UE LTG Duration 03/31/22 Assessment Summary Assessment Shoulder flex increased to 137 , abduction remains 90, ER 24, hor add, IR 45. High level of guarding persists with patient c/o impingement symptoms. Walking with more relaxed arm and getting aerobic exercise as recommended. Not sleeping well, worked on positioning recommendations today. Encouraged use of music for relaxation and more natural movement at home as best tolerated for movement of shoulder and muscle guarding is limiting movement. Patient has ordered strap on ice pack and pulleys for home use. Physical Therapy Plan Frequency and Duration Frequency of Treatment 2x/Week Duration of Treatment 12 weeks Plan of Care Start Date 01/01/22 Plan of Care End Date 04/04/22 Therapeutic Interventions Therapeutic Interventions Aquatic Therapy,Home Exercise Program,Joint Mobilizations, Manual Therapy,Neuromuscular Re-education,Patient/Caregiver Education,Self-Care/Home Management,Soft Tissue Mobilization,Taping, Therapeutic Activities, Therapeutic Exercises Modalities Electric Stimulation,Hot Packs Next Visit Focus/Plan Next Note Type Treatment Note Next Visit Plan Continue post-op shoulder rehab with emphasis on ROM per protocol. [place] eliminated ROM as able especially for elevation.
--- NOTE | 2022-01-15 16:28 | PT.OTN ---
Current Diagnoses Adhesive capsulitis of left shoulder (01/15/22) Bursitis of left shoulder (01/15/22) Superior glenoid labrum lesion of left shoulder, initial encounter (01/15/22) Physical Therapy Treatment Note PT-OP-A Visit Information Start: 01/01/22 09:06 Freq: Status: Active Protocol: Document 01/15/22 09:02 [facility] (Rec: 01/15/22 09:50 [facility] [id number]) Out-Patient Physical Therapy Visit Information Visit Information Visit Type Treatment Note Visit Start Time 09:00 Visit Stop Time 09:55 Total Visit Minutes 55 Visit Number 5 Evaluation Information Evaluation Date 01/01/22 Precautions Precautions wear sling for comfort, PT evaluate and treat, aggressive ROM, no strengthening PT-OP-B Current Condition Start: 01/01/22 09:06 Freq: Status: Active Protocol: Document 01/15/22 09:02 [facility] (Rec: 01/15/22 09:50 [facility] [id number]) Current Condition History of Current Condition Onset Date 12/31/21 Current Complaints left shoulder pain History of Current Condition left shoulder arthroscopic surgery: extensive debridement GH joint, lysis of adhesions, subacromial decompression. Patient reports she was vomiting all day yesterday, pain level high, has only taken 1/2 Oxycodone at a time, feels may need to take more. 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 Does report she finds herself guarding her shoulder a lot, tries to let it down as recommended by PT due to overactivation of upper trap muscles contributing to impingement symptoms PT-OP-F Manual Assessment Start: 01/01/22 09:06 Freq: Status: Active Protocol: Document 01/01/22 16:20 [facility] (Rec: 01/04/22 13:43 [facility] [id number]) Manual Assessments Soft Tissue Assessment Soft Tissue Mobility Assessment post-op dressing in place, no signs or symptoms of infection PT-OP-H Neuro Start: 01/01/22 09:06 Freq: Status: Active Protocol: Document 01/01/22 16:20 [facility] (Rec: 01/04/22 13:43 [facility] [id number]) Sensation Evaluation Gross Sensation Gross Sensation WNL PT-OP-J Posture/Palpation/Skin Start: 01/01/22 09:06 Freq: Status: Active Protocol: Document 01/08/22 13:00 [facility] (Rec: 01/08/22 14:04 [facility] [id number]) Skin Assessment Incisional Assessment Incision Appearance/Comments incisions healing well Other Assessments Skin Assessment Comments increased swelling noted today PT-OP-K Range of Motion Start: 01/01/22 09:06 Freq: Status: Active Protocol: Document 01/01/22 16:20 [facility] (Rec: 01/04/22 13:43 [facility] [id number]) Cervical Spine Range of Motion Cervical Spine Active Testing Position Sitting ROM Limitations Soft Tissue Tightness,Pain Comments guarding Shoulder Goniometric Range of Motion Shoulder Left Shoulder ROM WFL No Flexion 60 Extension 0 Abduction 55 External Rotation at 0 degrees Abduction 5 Internal Rotation 10 Comments Very high pain level, was vomiting all day yesterday, not feeling well today, low tolerance for any ROM PT-OP-Q Treatments Start: 01/01/22 09:06 Freq: Status: Active Protocol: Document 01/15/22 09:02 [facility] (Rec: 01/15/22 16:27 [facility] [id number]) Therapeutic Exercises Supine Exercises shoulder ER Equipment Used passive by PT Reps/Minutes 10x5 PROM all planes Reps/Minutes 5-10x ea Comments cues for breathing, pain-free ROM Prone Exercises child's pose Reps/Minutes 20 sec shoulder flex Comments UE hanging over table edge, manual facil upward scapular rotation scapular retraction Reps/Minutes 10x Comments UE hanging over table edge with manual facilitation Sidelying Exercises shoulder abduction Sidelying Exercise Name AAROM Reps/Minutes 5x Comments with manual upward scapular rotation shoulder flex Sidelying Exercise Name AROM gravity elim, PROM Equipment Used beside table, pillow case Comments gentle inf gllide joint mob Sitting Exercises pulleys Sitting Exercise Name shoulder flex, scaption Equipment Used mirror for visual feedback Reps/Minutes 10x Comments elbow bent, manual scapular facil Standing Exercises shoulder ext Equipment Used wand Reps/Minutes 10x5 Self-Care/Home Management Treatment Education Patient Education Home Exercise Program,Pain Management,Posture PT-OP-R Modalities Start: 01/01/22 09:06 Freq: Status: Active Protocol: Document 01/15/22 09:02 [facility] (Rec: 01/15/22 16:27 [facility] [id number]) Electric Stimulation Electric Stimulation left shoulder Body Location left shoulder Duration (Minutes) 15 Intensity 13 Target/Sweep Sweep Patient Position Hooklying Combined With Heat/Cold Hot Pack Comments left shoulder supported by pillow PT-OP-T Assessment and Plan Start: 01/01/22 09:06 Freq: Status: Active Protocol: Document 01/15/22 09:02 [facility] (Rec: 01/15/22 09:50 [facility] [id number]) Physical Therapy Assessment Goals Three Impairment Decreased ROM and strength left shoulder Short Term Goal (STG) Patient to achieve full active ROM of her left shoudler STG Duration 01/29/22 Snf Goal (LTG) Patient to demonstrate at least 4+/5 muscle strength all motions left shoulder to allow her to return to all prior activities. Two Impairment pain left shoulder at 8/10 scale Short Term Goal (STG) Decrease pain to no greater than 4/10 STG Duration 01/29/22 Snf Goal (LTG) Decrease pain to no greater than 2/10 with all usual activities LTG Duration 03/31/22 One Impairment Quickdash UE disability index score 64% Impairment decreased functional use of left UE Short Term Goal (STG) Decrease Quickdash score as measure of improved left UE function to no greater than 40 % STG Duration 01/29/22 Snf Goal (LTG) Decrease Quickdash score to no greater than 15% as measure of improved function left UE LTG Duration 03/31/22 Assessment Summary Assessment Shoulder flex 140 deg in sidelying with PROM, ER 28 deg PROM supine. Encouraged to continue with emphasis on inhibiting UT muscles and was loaned Why I hurt book for patient pain neuroscience education. Slight elevation of first rib but after mobilization inf no change in symptoms. Inferior and posterior glides performed with PROM and AAROM elevation left shoulder with some improvement in sidelying position with flex but not abduction. Patient strongly encouraged to try gentle prone swim, receptive to consider aquatic therapy. Physical Therapy Plan Frequency and Duration Frequency of Treatment 2x/Week Duration of Treatment 12 weeks Plan of Care Start Date 01/01/22 Plan of Care End Date 04/04/22 Therapeutic Interventions Therapeutic Interventions Aquatic Therapy,Home Exercise Program,Joint Mobilizations, Manual Therapy,Neuromuscular Re-education,Patient/Caregiver Education,Self-Care/Home Management,Soft Tissue Mobilization,Taping, Therapeutic Activities, Therapeutic Exercises Modalities Electric Stimulation,Hot Packs Next Visit Focus/Plan Next Note Type Treatment Note Next Visit Plan Discuss Why I Hurt book, continue with relaxation techniques, PROM, AAROM and AROM left shoulder as tolerated with joint mobilization.
--- NOTE | 2022-01-19 14:36 | PT.OTN ---
Current Diagnoses Adhesive capsulitis of left shoulder (01/19/22) Bursitis of left shoulder (01/19/22) Superior glenoid labrum lesion of left shoulder, initial encounter (01/19/22) Physical Therapy Treatment Note PT-OP-A Visit Information Start: 01/01/22 09:06 Freq: Status: Active Protocol: Document 01/19/22 14:09 SAK (Rec: 01/19/22 14:23 [facility] [id number]) Out-Patient Physical Therapy Visit Information Visit Information Visit Type Treatment Note Visit Start Time 12:30 Visit Stop Time 13:10 Total Visit Minutes 40 Visit Number 6 Evaluation Information Evaluation Date 01/01/22 Precautions Precautions wear sling for comfort, PT evaluate and treat, aggressive ROM, no strengthening PT-OP-B Current Condition Start: 01/01/22 09:06 Freq: Status: Active Protocol: Document 01/19/22 14:09 SAK (Rec: 01/19/22 14:23 [facility] [id number]) Current Condition History of Current Condition Onset Date 12/31/21 Current Complaints left shoulder pain History of Current Condition left shoulder arthroscopic surgery: extensive debridement GH joint, lysis of adhesions, subacromial decompression. Patient reports she was vomiting all day yesterday, pain level high, has only taken 1/2 Oxycodone at a time, feels may need to take more. 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 PT-OP-F Manual Assessment Start: 01/01/22 09:06 Freq: Status: Active Protocol: Document 01/01/22 16:20 SAK (Rec: 01/04/22 13:43 [facility] [id number]) Manual Assessments Soft Tissue Assessment Soft Tissue Mobility Assessment post-op dressing in place, no signs or symptoms of infection PT-OP-H Neuro Start: 01/01/22 09:06 Freq: Status: Active Protocol: Document 01/01/22 16:20 [facility] (Rec: 01/04/22 13:43 [facility] [id number]) Sensation Evaluation Gross Sensation Gross Sensation WNL PT-OP-J Posture/Palpation/Skin Start: 01/01/22 09:06 Freq: Status: Active Protocol: Document 01/08/22 13:00 [facility] (Rec: 01/08/22 14:04 [facility] [id number]) Skin Assessment Incisional Assessment Incision Appearance/Comments incisions healing well Other Assessments Skin Assessment Comments increased swelling noted today PT-OP-K Range of Motion Start: 01/01/22 09:06 Freq: Status: Active Protocol: Document 01/01/22 16:20 [facility] (Rec: 01/04/22 13:43 [facility] [id number]) Cervical Spine Range of Motion Cervical Spine Active Testing Position Sitting ROM Limitations Soft Tissue Tightness,Pain Comments guarding Shoulder Goniometric Range of Motion Shoulder Left Shoulder ROM WFL No Flexion 60 Extension 0 Abduction 55 External Rotation at 0 degrees Abduction 5 Internal Rotation 10 Comments Very high pain level, was vomiting all day yesterday, not feeling well today, low tolerance for any ROM PT-OP-Q Treatments Start: 01/01/22 09:06 Freq: Status: Active Protocol: Document 01/15/22 09:02 [facility] (Rec: 01/15/22 16:27 [facility] [id number]) Therapeutic Exercises Supine Exercises shoulder ER Equipment Used passive by PT Reps/Minutes 10x5 PROM all planes Reps/Minutes 5-10x ea Comments cues for breathing, pain-free ROM Prone Exercises child's pose Reps/Minutes 20 sec shoulder flex Comments UE hanging over table edge, manual facil upward scapular rotation scapular retraction Reps/Minutes 10x Comments UE hanging over table edge with manual facilitation Sidelying Exercises shoulder abduction Sidelying Exercise Name AAROM Reps/Minutes 5x Comments with manual upward scapular rotation shoulder flex Sidelying Exercise Name AROM gravity elim, PROM Equipment Used beside table, pillow case Comments gentle inf gllide joint mob Sitting Exercises pulleys Sitting Exercise Name shoulder flex, scaption Equipment Used mirror for visual feedback Reps/Minutes 10x Comments elbow bent, manual scapular facil Standing Exercises shoulder ext Equipment Used wand Reps/Minutes 10x5 Manual Therapy Treatment Soft Tissue Mobilization scar Body Location left shoulder incision scars Mobilization Type Myofascial Release Intensity/Depth Moderate Body Position Hooklying Self-Care/Home Management Treatment Education Patient Education Home Exercise Program,Pain Management,Posture PT-OP-R Modalities Start: 01/01/22 09:06 Freq: Status: Active Protocol: Document 01/15/22 09:02 [facility] (Rec: 01/15/22 16:27 [facility] [id number]) Electric Stimulation Electric Stimulation left shoulder Body Location left shoulder Duration (Minutes) 15 Intensity 13 Target/Sweep Sweep Patient Position Hooklying Combined With Heat/Cold Hot Pack Comments left shoulder supported by pillow PT-OP-S Aquatic Treatment Start: 01/01/22 09:06 Freq: Status: Active Protocol: Document 01/19/22 14:09 [facility] (Rec: 01/19/22 14:32 [facility] [id number]) Aquatics Treatment Pool Entry/Exit Pool Entry/Exit Method Stairs Assistance Independent Water Walking sideways with shoulder ab/ad Level of Assistance Verbal Cues backward with reverse breastroke UE's Water Level Neck Level Level of Assistance Verbal Cues forward with breastroke UE's Water Level Neck Level Level of Assistance Verbal Cues Upper Extremity Exercises pendulum Body Position Sidelying Water Level Neck Level Reps/Duration 10x ea direction Comments holding onto pool edge punching Body Position Standing Water Level Neck Level shoulder rolls Body Position Sitting Reps/Duration 10x IR/ER Body Position Standing Water Level Neck Level Reps/Duration 10x scaption Details bouyancy assisted Body Position Sitting Water Level Neck Level Reps/Duration 10x Comments passive, cues for relaxation shoulder flex/ext Details bouyancy assisted Body Position Sitting Water Level Neck Level Reps/Duration 10x Comments passive, cues for relaxation hor ab/ad Body Position Standing Water Level Neck Level Reps/Duration 10x palms forward, 10x with ER and IR Swim Strokes sidestroke Laps/Duration 1 min Comments gentle, slow prone crawl Other Equipment Used goggles Laps/Duration 5 min Comments gentle, slow Manual Techniques Bad Ragaz supine passive for thoracic mobility and shoulder ROM; neck float, LE floats Aquatic Joint Mobilizations mid thoracic spine PA's Aquatic Massage rhomboids PT-OP-T Assessment and Plan Start: 01/01/22 09:06 Freq: Status: Active Protocol: Document 01/19/22 14:09 MARTHA (Rec: 01/19/22 14:23 [facility] [id number]) Physical Therapy Assessment Goals Three Impairment Decreased ROM and strength left shoulder Short Term Goal (STG) Patient to achieve full active ROM of her left shoudler STG Duration 01/29/22 [employer] Goal (LTG) Patient to demonstrate at least 4+/5 muscle strength all motions left shoulder to allow her to return to all prior activities. Two Impairment pain left shoulder at 8/10 scale Short Term Goal (STG) Decrease pain to no greater than 4/10 STG Duration 01/29/22 [facility] Goal (LTG) Decrease pain to no greater than 2/10 with all usual activities LTG Duration 03/31/22 One Impairment Quickdash UE disability index score 64% Impairment decreased functional use of left UE Short Term Goal (STG) Decrease Quickdash score as measure of improved left UE function to no greater than 40 % STG Duration 01/29/22 [employer] Goal (LTG) Decrease Quickdash score to no greater than 15% as measure of improved function left UE LTG Duration 03/31/22 Physical Therapy Plan Frequency and Duration Frequency of Treatment 2x/Week Duration of Treatment 12 weeks Plan of Care Start Date 01/01/22 Plan of Care End Date 04/04/22 Therapeutic Interventions Therapeutic Interventions Aquatic Therapy,Home Exercise Program,Joint Mobilizations, Manual Therapy,Neuromuscular Re-education,Patient/Caregiver Education,Self-Care/Home Management,Soft Tissue Mobilization,Taping, Therapeutic Activities, Therapeutic Exercises Modalities Electric Stimulation,Hot Packs Next Visit Focus/Plan Next Note Type Treatment Note Next Visit Plan Discuss Why I Hurt book, continue with relaxation techniques, PROM, AAROM and AROM left shoulder as tolerated with joint mobilization.
--- NOTE | 2022-01-26 17:01 | PT.OTN ---
Current Diagnoses Adhesive capsulitis of left shoulder (01/26/22) Bursitis of left shoulder (01/26/22) Superior glenoid labrum lesion of left shoulder, initial encounter (01/26/22) Physical Therapy Treatment Note PT-OP-A Visit Information Start: 01/01/22 09:06 Freq: Status: Active Protocol: Document 01/26/22 09:06 SAK (Rec: 01/26/22 09:58 SAK [id number]) Out-Patient Physical Therapy Visit Information Visit Information Visit Type Treatment Note Visit Start Time 09:00 Visit Stop Time 09:55 Total Visit Minutes 55 Visit Number 7 Precautions Precautions wear sling for comfort, PT evaluate and treat, aggressive ROM, no strengthening PT-OP-B Current Condition Start: 01/01/22 09:06 Freq: Status: Active Protocol: Document 01/19/22 14:09 SAK (Rec: 01/19/22 14:23 [facility] [id number]) Current Condition History of Current Condition Onset Date 12/31/21 Current Complaints left shoulder pain History of Current Condition left shoulder arthroscopic surgery: extensive debridement GH joint, lysis of adhesions, subacromial decompression. Patient reports she was vomiting all day yesterday, pain level high, has only taken 1/2 Oxycodone at a time, feels may need to take more. 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 Has been very nauseous, not much tolerance for PT exercises. Has requested an order for PT to address the vertigo. PT-OP-F Manual Assessment Start: 01/01/22 09:06 Freq: Status: Active Protocol: Document 01/01/22 16:20 [facility] (Rec: 01/04/22 13:43 [facility] [id number]) Manual Assessments Soft Tissue Assessment Soft Tissue Mobility Assessment post-op dressing in place, no signs or symptoms of infection PT-OP-H Neuro Start: 01/01/22 09:06 Freq: Status: Active Protocol: Document 01/01/22 16:20 [facility] (Rec: 01/04/22 13:43 [facility] [id number]) Sensation Evaluation Gross Sensation Gross Sensation WNL PT-OP-J Posture/Palpation/Skin Start: 01/01/22 09:06 Freq: Status: Active Protocol: Document 01/08/22 13:00 [facility] (Rec: 01/08/22 14:04 [facility] [id number]) Skin Assessment Incisional Assessment Incision Appearance/Comments incisions healing well Other Assessments Skin Assessment Comments increased swelling noted today PT-OP-K Range of Motion Start: 01/01/22 09:06 Freq: Status: Active Protocol: Document 01/01/22 16:20 [facility] (Rec: 01/04/22 13:43 [facility] [id number]) Cervical Spine Range of Motion Cervical Spine Active Testing Position Sitting ROM Limitations Soft Tissue Tightness,Pain Comments guarding Shoulder Goniometric Range of Motion Shoulder Left Shoulder ROM WFL No Flexion 60 Extension 0 Abduction 55 External Rotation at 0 degrees Abduction 5 Internal Rotation 10 Comments Very high pain level, was vomiting all day yesterday, not feeling well today, low tolerance for any ROM PT-OP-Q Treatments Start: 01/01/22 09:06 Freq: Status: Active Protocol: Document 01/26/22 09:06 [facility] (Rec: 01/26/22 17:01 [facility] [id number]) Therapeutic Exercises Sitting Exercises shoulder blade squeeze Reps/Minutes 5x5 trunk rotation Reps/Minutes 3x cat/cow Reps/Minutes 10x shoulder ER Equipment Used wand Reps/Minutes 10x shoulder extension Equipment Used wand Reps/Minutes 10x Comments paddle shoulder flexion Equipment Used wand Reps/Minutes 10x Comments forward lean posterior capsule stretch Reps/Minutes 2x30 Manual Therapy Treatment Soft Tissue Mobilization scar Body Location left shoulder incision scars Mobilization Type Cross-Friction,Instrument Assisted,Myofascial Release Intensity/Depth Moderate Body Position Hooklying Comments suction Self-Care/Home Management Treatment Education Patient Education Home Exercise Program,Pain Management,Posture Other Education updated written HEP PT-OP-R Modalities Start: 01/01/22 09:06 Freq: Status: Active Protocol: Document 01/26/22 09:06 [facility] (Rec: 01/26/22 17:01 [facility] [id number]) Electric Stimulation Electric Stimulation left shoulder Body Location left shoulder Duration (Minutes) 15 Intensity 13 Target/Sweep Sweep Patient Position Hooklying Combined With Heat/Cold Hot Pack Comments left shoulder supported by pillow Ultrasound Therapy Treatment Left Shoulder Treatment Duration (minutes) 8 Patient Position Sitting Mode Setting Continuous Duty Cycle 100% Intensity Setting (w/cm2) 1.2 PT-OP-S Aquatic Treatment Start: 01/01/22 09:06 Freq: Status: Active Protocol: Document 01/19/22 14:09 [facility] (Rec: 01/19/22 14:32 [facility] [id number]) Aquatics Treatment Pool Entry/Exit Pool Entry/Exit Method Stairs Assistance Independent Water Walking sideways with shoulder ab/ad Level of Assistance Verbal Cues backward with reverse breastroke UE's Water Level Neck Level Level of Assistance Verbal Cues forward with breastroke UE's Water Level Neck Level Level of Assistance Verbal Cues Upper Extremity Exercises pendulum Body Position Sidelying Water Level Neck Level Reps/Duration 10x ea direction Comments holding onto pool edge punching Body Position Standing Water Level Neck Level shoulder rolls Body Position Sitting Reps/Duration 10x IR/ER Body Position Standing Water Level Neck Level Reps/Duration 10x scaption Details bouyancy assisted Body Position Sitting Water Level Neck Level Reps/Duration 10x Comments passive, cues for relaxation shoulder flex/ext Details bouyancy assisted Body Position Sitting Water Level Neck Level Reps/Duration 10x Comments passive, cues for relaxation hor ab/ad Body Position Standing Water Level Neck Level Reps/Duration 10x palms forward, 10x with ER and IR Swim Strokes sidestroke Laps/Duration 1 min Comments gentle, slow prone crawl Other Equipment Used goggles Laps/Duration 5 min Comments gentle, slow Manual Techniques Bad Ragaz supine passive for thoracic mobility and shoulder ROM; neck float, LE floats Aquatic Joint Mobilizations mid thoracic spine PA's Aquatic Massage rhomboids PT-OP-T Assessment and Plan Start: 01/01/22 09:06 Freq: Status: Active Protocol: Document 01/26/22 09:06 [facility] (Rec: 01/26/22 09:58 [facility]AK [id number]) Physical Therapy Assessment Goals Three Impairment Decreased ROM and strength left shoulder Short Term Goal (STG) Patient to achieve full active ROM of her left shoulder STG Duration 01/29/22 [employer] Goal (LTG) Patient to demonstrate at least 4+/5 muscle strength all motions left shoulder to allow her to return to all prior activities. Two Impairment pain left shoulder at 8/10 scale Short Term Goal (STG) Decrease pain to no greater than 4/10 STG Duration 01/29/22 Correction Goal (LTG) Decrease pain to no greater than 2/10 with all usual activities LTG Duration 03/31/22 One Impairment Quickdash UE disability index score 64% Impairment decreased functional use of left UE Short Term Goal (STG) Decrease Quickdash score as measure of improved left UE function to no greater than 40 % STG Duration 01/29/22 Correction Goal (LTG) Decrease Quickdash score to no greater than 15% as measure of improved function left UE LTG Duration 03/31/22 Assessment Summary Assessment Patient flexion improved with seated forward lean with wand, good tolerance for shoulder extensiont with paddle using wand. Vertigo has highly impacted her tolerance for doing any HEP as she has continued to have some nausea, has requested order for PT to address her vertigo as well as shoulder; vertigo impacting her shoulder recovery. Trial ultrasound left shoulder. Physical Therapy Plan Frequency and Duration Frequency of Treatment 2x/Week Duration of Treatment 12 weeks Plan of Care Start Date 01/01/22 Plan of Care End Date 04/04/22 Therapeutic Interventions Therapeutic Interventions Aquatic Therapy,Home Exercise Program,Joint Mobilizations, Manual Therapy,Neuromuscular Re-education,Patient/Caregiver Education,Self-Care/Home Management,Soft Tissue Mobilization,Taping, Therapeutic Activities, Therapeutic Exercises Modalities Electric Stimulation,Hot Packs Next Visit Focus/Plan Next Note Type Treatment Note Next Visit Plan Continue left shoulder ROM progressing PROM to AROM all motions per protocol. Encourage self-massage with tennis ball all around GH joint. Facilitate improved scapulohumeral rhythm. Evaluate response to ultrasound left shoulder
--- NOTE | 2022-01-29 15:52 | PT.OTN ---
Current Diagnoses Adhesive capsulitis of left shoulder (01/29/22) Bursitis of left shoulder (01/29/22) Superior glenoid labrum lesion of left shoulder, initial encounter (01/29/22) Physical Therapy Treatment Note PT-OP-A Visit Information Start: 01/01/22 09:06 Freq: Status: Active Protocol: Document 01/29/22 09:08 [facility]AK (Rec: 01/29/22 10:31 [facility] [id number]) Out-Patient Physical Therapy Visit Information Visit Information Visit Type Treatment Note Visit Start Time 09:00 Visit Stop Time 09:55 Total Visit Minutes 58 Visit Number 8 Precautions Precautions wear sling for comfort, PT evaluate and treat, aggressive ROM, no strengthening PT-OP-B Current Condition Start: 01/01/22 09:06 Freq: Status: Active Protocol: Document 01/19/22 14:09 SAK (Rec: 01/19/22 14:23 [facility] [id number]) Current Condition History of Current Condition Onset Date 12/31/21 Current Complaints left shoulder pain History of Current Condition left shoulder arthroscopic surgery: extensive debridement GH joint, lysis of adhesions, subacromial decompression. Patient reports she was vomiting all day yesterday, pain level high, has only taken 1/2 Oxycodone at a time, feels may need to take more. 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 NOt able to do too much exercise yesterday due to daughter in ER PT-OP-F Manual Assessment Start: 01/01/22 09:06 Freq: Status: Active Protocol: Document 01/01/22 16:20 SAK (Rec: 01/04/22 13:43 [facility] [id number]) Manual Assessments Soft Tissue Assessment Soft Tissue Mobility Assessment post-op dressing in place, no signs or symptoms of infection PT-OP-H Neuro Start: 01/01/22 09:06 Freq: Status: Active Protocol: Document 01/01/22 16:20 [facility] (Rec: 01/04/22 13:43 [facility] [id number]) Sensation Evaluation Gross Sensation Gross Sensation WNL PT-OP-J Posture/Palpation/Skin Start: 01/01/22 09:06 Freq: Status: Active Protocol: Document 01/08/22 13:00 [facility] (Rec: 01/08/22 14:04 [facility] [id number]) Skin Assessment Incisional Assessment Incision Appearance/Comments incisions healing well Other Assessments Skin Assessment Comments increased swelling noted today PT-OP-K Range of Motion Start: 01/01/22 09:06 Freq: Status: Active Protocol: Document 01/01/22 16:20 [facility] (Rec: 01/04/22 13:43 [facility] [id number]) Cervical Spine Range of Motion Cervical Spine Active Testing Position Sitting ROM Limitations Soft Tissue Tightness,Pain Comments guarding Shoulder Goniometric Range of Motion Shoulder Left Shoulder ROM WFL No Flexion 60 Extension 0 Abduction 55 External Rotation at 0 degrees Abduction 5 Internal Rotation 10 Comments Very high pain level, was vomiting all day yesterday, not feeling well today, low tolerance for any ROM PT-OP-Q Treatments Start: 01/01/22 09:06 Freq: Status: Active Protocol: Document 01/29/22 09:08 [facility] (Rec: 01/29/22 15:52 [facility] [id number]) Therapeutic Exercises Sitting Exercises table slide flex Reps/Minutes 10x Comments with manual scapular facil shoulder blade squeeze Reps/Minutes 10x5 Comments verbal and manual cues cat/cow Reps/Minutes 10x shoulder ER Equipment Used wand Reps/Minutes 10x shoulder extension Equipment Used wand Reps/Minutes 10x Comments paddle (standing today) shoulder flexion Equipment Used wand Reps/Minutes 10x Comments forward lean posterior capsule stretch Reps/Minutes 2x30 pulleys Sitting Exercise Name shoulder flex, scaption Equipment Used mirror for visual feedback Reps/Minutes 10x Comments elbow bent, manual scapular facil Standing Exercises trunk rotation Reps/Minutes 10x wall slide Reps/Minutes 6x Manual Therapy Treatment Soft Tissue Mobilization scar Body Location left shoulder incision scars Mobilization Type Cross-Friction,Instrument Assisted,Myofascial Release Intensity/Depth Moderate Body Position Hooklying PT-OP-R Modalities Start: 01/01/22 09:06 Freq: Status: Active Protocol: Document 01/29/22 09:08 [facility] (Rec: 01/29/22 15:52 [facility] [id number]) Electric Stimulation Electric Stimulation left shoulder Body Location left shoulder Duration (Minutes) 15 Intensity 13 Target/Sweep Sweep Patient Position Sitting Combined With Heat/Cold Cold Pack Comments left shoulder supported by pillow Ultrasound Therapy Treatment Left Shoulder Treatment Duration (minutes) 8 Patient Position Sitting Mode Setting Continuous Duty Cycle 100% Intensity Setting (w/cm2) 1.2 PT-OP-S Aquatic Treatment Start: 01/01/22 09:06 Freq: Status: Active Protocol: Document 01/19/22 14:09 [facility] (Rec: 01/19/22 14:32 [facility] [id number]) Aquatics Treatment Pool Entry/Exit Pool Entry/Exit Method Stairs Assistance Independent Water Walking sideways with shoulder ab/ad Level of Assistance Verbal Cues backward with reverse breastroke UE's Water Level Neck Level Level of Assistance Verbal Cues forward with breastroke UE's Water Level Neck Level Level of Assistance Verbal Cues Upper Extremity Exercises pendulum Body Position Sidelying Water Level Neck Level Reps/Duration 10x ea direction Comments holding onto pool edge punching Body Position Standing Water Level Neck Level shoulder rolls Body Position Sitting Reps/Duration 10x IR/ER Body Position Standing Water Level Neck Level Reps/Duration 10x scaption Details bouyancy assisted Body Position Sitting Water Level Neck Level Reps/Duration 10x Comments passive, cues for relaxation shoulder flex/ext Details bouyancy assisted Body Position Sitting Water Level Neck Level Reps/Duration 10x Comments passive, cues for relaxation hor ab/ad Body Position Standing Water Level Neck Level Reps/Duration 10x palms forward, 10x with ER and IR Swim Strokes sidestroke Laps/Duration 1 min Comments gentle, slow prone crawl Other Equipment Used goggles Laps/Duration 5 min Comments gentle, slow Manual Techniques Bad Ragaz supine passive for thoracic mobility and shoulder ROM; neck float, LE floats Aquatic Joint Mobilizations mid thoracic spine PA's Aquatic Massage rhomboids PT-OP-T Assessment and Plan Start: 01/01/22 09:06 Freq: Status: Active Protocol: Document 01/29/22 09:08 [facility] (Rec: 01/29/22 15:52 [facility] [id number]) Physical Therapy Assessment Goals Three Impairment Decreased ROM and strength left shoulder Short Term Goal (STG) Patient to achieve full active ROM of her left shoulder STG Duration 01/29/22 Long-Term Goal (LTG) Patient to demonstrate at least 4+/5 muscle strength all motions left shoulder to allow her to return to all prior activities. Two Impairment pain left shoulder at 8/10 scale Short Term Goal (STG) Decrease pain to no greater than 4/10 STG Duration 01/29/22 Marine Electrician Goal (LTG) Decrease pain to no greater than 2/10 with all usual activities LTG Duration 03/31/22 One Impairment Quickdash UE disability index score 64% Impairment decreased functional use of left UE Short Term Goal (STG) Decrease Quickdash score as measure of improved left UE function to no greater than 40 % STG Duration 01/29/22 Marine Electrician Goal (LTG) Decrease Quickdash score to no greater than 15% as measure of improved function left UE LTG Duration 03/31/22 Assessment Summary Assessment Patient noting some improvements though vertigo and daughter being ill have interfred with ability to perform HEP. Patient educated in low load long duration concept and given options for doing this for shoulder ER. Physical Therapy Plan Frequency and Duration Frequency of Treatment 2x/Week Duration of Treatment 12 weeks Plan of Care Start Date 01/01/22 Plan of Care End Date 04/04/22 Therapeutic Interventions Therapeutic Interventions Aquatic Therapy,Home Exercise Program,Joint Mobilizations, Manual Therapy,Neuromuscular Re-education,Patient/Caregiver Education,Self-Care/Home Management,Soft Tissue Mobilization,Taping, Therapeutic Activities, Therapeutic Exercises Modalities Electric Stimulation,Hot Packs Next Visit Focus/Plan Next Note Type Treatment Note Next Visit Plan Continue PT per protocol for left shoulder rehab to increase ROM, strength and function.
--- NOTE | 2022-02-02 14:27 | PT.OTN ---
Current Diagnoses Adhesive capsulitis of left shoulder (02/02/22) Bursitis of left shoulder (02/02/22) Superior glenoid labrum lesion of left shoulder, initial encounter (02/02/22) Physical Therapy Treatment Note PT-OP-A Visit Information Start: 01/01/22 09:06 Freq: Status: Active Protocol: Document 02/02/22 09:01 [facility]AK (Rec: 02/02/22 09:55 [facility] [id number]) Out-Patient Physical Therapy Visit Information Visit Information Visit Type Treatment Note Visit Start Time 09:00 Visit Stop Time 09:55 Total Visit Minutes 55 Visit Number 9 Precautions Precautions wear sling for comfort, PT evaluate and treat, aggressive ROM, no strengthening PT-OP-B Current Condition Start: 01/01/22 09:06 Freq: Status: Active Protocol: Document 01/19/22 14:09 [facility]AK (Rec: 01/19/22 14:23 [facility] [id number]) Current Condition History of Current Condition Onset Date 12/31/21 Current Complaints left shoulder pain History of Current Condition left shoulder arthroscopic surgery: extensive debridement GH joint, lysis of adhesions, subacromial decompression. Patient reports she was vomiting all day yesterday, pain level high, has only taken 1/2 Oxycodone at a time, feels may need to take more. 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 Baseline Function- Recreation/Hobbies crafting, hiking, art PT-OP-C Subjective Start: 01/01/22 09:06 Freq: Status: Active Protocol: Document 02/02/22 09:01 [facility]AK (Rec: 02/02/22 09:55 [facility] [id number]) OP-PT Subjective Patient Comments Patient Comments Able to wash hair, noting some gradual improvement left shoulder PT-OP-F Manual Assessment Start: 01/01/22 09:06 Freq: Status: Active Protocol: Document 01/01/22 16:20 [facility] (Rec: 01/04/22 13:43 [facility] [id number]) Manual Assessments Soft Tissue Assessment Soft Tissue Mobility Assessment post-op dressing in place, no signs or symptoms of infection PT-OP-H Neuro Start: 01/01/22 09:06 Freq: Status: Active Protocol: Document 01/01/22 16:20 [facility] (Rec: 01/04/22 13:43 [facility] [id number]) Sensation Evaluation Gross Sensation Gross Sensation WNL PT-OP-J Posture/Palpation/Skin Start: 01/01/22 09:06 Freq: Status: Active Protocol: Document 01/08/22 13:00 [facility] (Rec: 01/08/22 14:04 [facility] [id number]) Skin Assessment Incisional Assessment Incision Appearance/Comments incisions healing well Other Assessments Skin Assessment Comments increased swelling noted today PT-OP-K Range of Motion Start: 01/01/22 09:06 Freq: Status: Active Protocol: Document 01/01/22 16:20 [facility] (Rec: 01/04/22 13:43 [facility] [id number]) Cervical Spine Range of Motion Cervical Spine Active Testing Position Sitting ROM Limitations Soft Tissue Tightness,Pain Comments guarding Shoulder Goniometric Range of Motion Shoulder Left Shoulder ROM WFL No Flexion 60 Extension 0 Abduction 55 External Rotation at 0 degrees Abduction 5 Internal Rotation 10 Comments Very high pain level, was vomiting all day yesterday, not feeling well today, low tolerance for any ROM PT-OP-Q Treatments Start: 01/01/22 09:06 Freq: Status: Active Protocol: Document 02/02/22 09:01 [facility] (Rec: 02/02/22 09:55 [facility] [id number]) Therapeutic Exercises Supine Exercises shoulder abduction Supine Exercise Name PROM Reps/Minutes 10x Comments with gentle inf glide shoulder flex Reps/Minutes 10x Comments passive, with gentle inf glide shoulder ER Equipment Used passive by PT Reps/Minutes 10x5 Sidelying Exercises shoulder flex Sidelying Exercise Name AROM gravity elim, AAROM Comments gentle inf gllide joint mob Sitting Exercises lat pull Sitting Exercise Name scapular shrug Reps/Minutes 10x2 Comments manual facil trunk rotation Reps/Minutes 3x shoulder ER Comments HEP shoulder extension Comments HEP shoulder flexion Comments HEP Standing Exercises wall slide Reps/Minutes 10x Comments verbal and manual cues shoulder abduction Standing Exercise Name scaption Equipment Used wall Reps/Minutes 10x Comments verbal and tactile cues shoulder flex Standing Exercise Name flex/ext arm swing, wall with foam roll, slider Reps/Minutes 10x Comments tacile and verbal cues scapular squeeze Standing Exercise Name horizontal, diag Equipment Used mirror Reps/Minutes 10x ea Comments tactile and verbal cues PT-OP-R Modalities Start: 01/01/22 09:06 Freq: Status: Active Protocol: Document 02/02/22 09:01 [facility] (Rec: 02/02/22 09:55 [facility] [id number]) Electric Stimulation Electric Stimulation left shoulder Body Location left shoulder Duration (Minutes) 15 Intensity 13 Target/Sweep Sweep Patient Position Sitting Combined With Heat/Cold Cold Pack Comments left shoulder supported by pillow PT-OP-S Aquatic Treatment Start: 01/01/22 09:06 Freq: Status: Active Protocol: Document 01/19/22 14:09 [facility] (Rec: 01/19/22 14:32 [facility] [id number]) Aquatics Treatment Pool Entry/Exit Pool Entry/Exit Method Stairs Assistance Independent Water Walking sideways with shoulder ab/ad Level of Assistance Verbal Cues backward with reverse breastroke UE's Water Level Neck Level Level of Assistance Verbal Cues forward with breastroke UE's Water Level Neck Level Level of Assistance Verbal Cues Upper Extremity Exercises pendulum Body Position Sidelying Water Level Neck Level Reps/Duration 10x ea direction Comments holding onto pool edge punching Body Position Standing Water Level Neck Level shoulder rolls Body Position Sitting Reps/Duration 10x IR/ER Body Position Standing Water Level Neck Level Reps/Duration 10x scaption Details bouyancy assisted Body Position Sitting Water Level Neck Level Reps/Duration 10x Comments passive, cues for relaxation shoulder flex/ext Details bouyancy assisted Body Position Sitting Water Level Neck Level Reps/Duration 10x Comments passive, cues for relaxation hor ab/ad Body Position Standing Water Level Neck Level Reps/Duration 10x palms forward, 10x with ER and IR Swim Strokes sidestroke Laps/Duration 1 min Comments gentle, slow prone crawl Other Equipment Used goggles Laps/Duration 5 min Comments gentle, slow Manual Techniques Bad Ragaz supine passive for thoracic mobility and shoulder ROM; neck float, LE floats Aquatic Joint Mobilizations mid thoracic spine PA's Aquatic Massage rhomboids PT-OP-T Assessment and Plan Start: 01/01/22 09:06 Freq: Status: Active Protocol: Document 02/02/22 09:01 [facility] (Rec: 02/02/22 09:55 [facility] [id number]) Physical Therapy Assessment Goals Three Impairment Decreased ROM and strength left shoulder Short Term Goal (STG) Patient to achieve full active ROM of her left shoulder STG Duration 01/29/22 Dog License Officer Supervisor Goal (LTG) Patient to demonstrate at least 4+/5 muscle strength all motions left shoulder to allow her to return to all prior activities. Two Impairment pain left shoulder at 8/10 scale Short Term Goal (STG) Decrease pain to no greater than 4/10 STG Duration 01/29/22 Senior Living Goal (LTG) Decrease pain to no greater than 2/10 with all usual activities LTG Duration 03/31/22 One Impairment Quickdash UE disability index score 64% Impairment decreased functional use of left UE Short Term Goal (STG) Decrease Quickdash score as measure of improved left UE function to no greater than 40 % STG Duration 01/29/22 Dog License Officer Supervisor Goal (LTG) Decrease Quickdash score to no greater than 15% as measure of improved function left UE LTG Duration 03/31/22 Assessment Summary Assessment Steady improvement with shoulder ROM, ER most difficult. Patient now able to use left UE to wash her hair. Physical Therapy Plan Frequency and Duration Frequency of Treatment 2x/Week Duration of Treatment 12 weeks Plan of Care Start Date 01/01/22 Plan of Care End Date 04/04/22 Therapeutic Interventions Therapeutic Interventions Aquatic Therapy,Home Exercise Program,Joint Mobilizations, Manual Therapy,Neuromuscular Re-education,Patient/Caregiver Education,Self-Care/Home Management,Soft Tissue Mobilization,Taping, Therapeutic Activities, Therapeutic Exercises Modalities Electric Stimulation,Hot Packs Next Visit Focus/Plan Next Note Type Treatment Note Next Visit Plan ROM measurements. Continue PT per protocol for left shoulder rehab to increase ROM, strength and function.
--- NOTE | 2022-02-05 10:57 | PT.OTN ---
Current Diagnoses Adhesive capsulitis of left shoulder (02/05/22) Bursitis of left shoulder (02/05/22) Superior glenoid labrum lesion of left shoulder, initial encounter (02/05/22) Physical Therapy Treatment Note PT-OP-A Visit Information Start: 01/01/22 09:06 Freq: Status: Active Protocol: Document 02/05/22 09:00 SAK (Rec: 02/05/22 10:57 [facility] [id number]) Out-Patient Physical Therapy Visit Information Visit Information Visit Type Treatment Note Visit Start Time 09:00 Visit Stop Time 09:55 Total Visit Minutes 55 Visit Number 9 Precautions Precautions wear sling for comfort, PT evaluate and treat, aggressive ROM, no strengthening PT-OP-B Current Condition Start: 01/01/22 09:06 Freq: Status: Active Protocol: Document 01/19/22 14:09 SAK (Rec: 01/19/22 14:23 [facility] [id number]) Current Condition History of Current Condition Onset Date 12/31/21 Current Complaints left shoulder pain History of Current Condition left shoulder arthroscopic surgery: extensive debridement GH joint, lysis of adhesions, subacromial decompression. Patient reports she was vomiting all day yesterday, pain level high, has only taken 1/2 Oxycodone at a time, feels may need to take more. 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 PT-OP-F Manual Assessment Start: 01/01/22 09:06 Freq: Status: Active Protocol: Document 01/01/22 16:20 SAK (Rec: 01/04/22 13:43 [facility] [id number]) Manual Assessments Soft Tissue Assessment Soft Tissue Mobility Assessment post-op dressing in place, no signs or symptoms of infection PT-OP-H Neuro Start: 01/01/22 09:06 Freq: Status: Active Protocol: Document 01/01/22 16:20 [facility] (Rec: 01/04/22 13:43 [facility] [id number]) Sensation Evaluation Gross Sensation Gross Sensation WNL PT-OP-J Posture/Palpation/Skin Start: 01/01/22 09:06 Freq: Status: Active Protocol: Document 01/08/22 13:00 [facility] (Rec: 01/08/22 14:04 [facility] [id number]) Skin Assessment Incisional Assessment Incision Appearance/Comments incisions healing well Other Assessments Skin Assessment Comments increased swelling noted today PT-OP-K Range of Motion Start: 01/01/22 09:06 Freq: Status: Active Protocol: Document 01/01/22 16:20 [facility] (Rec: 01/04/22 13:43 [facility] [id number]) Cervical Spine Range of Motion Cervical Spine Active Testing Position Sitting ROM Limitations Soft Tissue Tightness,Pain Comments guarding Shoulder Goniometric Range of Motion Shoulder Left Shoulder ROM WFL No Flexion 60 Extension 0 Abduction 55 External Rotation at 0 degrees Abduction 5 Internal Rotation 10 Comments Very high pain level, was vomiting all day yesterday, not feeling well today, low tolerance for any ROM PT-OP-Q Treatments Start: 01/01/22 09:06 Freq: Status: Active Protocol: Document 02/05/22 09:00 [facility] (Rec: 02/05/22 10:57 [facility] [id number]) Therapeutic Exercises Supine Exercises posterior capsul stretch Reps/Minutes 2x5 shoulder abduction Supine Exercise Name PROM Reps/Minutes 10x Comments with gentle inf glide shoulder flex Reps/Minutes 10x Comments passive, with gentle inf glide , with subscapular release shoulder ER Equipment Used passive by PT Reps/Minutes 10x5 Prone Exercises cat/cow Reps/Minutes 10x child's pose Reps/Minutes 20 sec Sidelying Exercises reach and roll Reps/Minutes 10x Sitting Exercises shoulder extension Comments HEP shoulder flexion Comments HEP Standing Exercises IR Equipment Used wand Reps/Minutes 10x shoulder flex Standing Exercise Name flex/ext arm swing, wall with foam roll, slider Reps/Minutes 10x Comments tacile and verbal cues should shrugs Reps/Minutes 5x Comments elbows extended, emphasis on square moving into end ROM Manual Therapy Treatment Soft Tissue Mobilization subscapular release Comments with passive shoulder elevation Joint Mobilizations GH Direction inf glide, long axis distraction, post gl, lateral dist Manual Techniques contract relax Comments supine to increase shoulder ER ; first with PT resistance and assist, then with patient doing independently. Self-Care/Home Management Treatment Education Patient Education Home Exercise Program,Pain Management,Posture PT-OP-R Modalities Start: 01/01/22 09:06 Freq: Status: Active Protocol: Document 02/05/22 09:00 [facility] (Rec: 02/05/22 10:57 [facility] [id number]) Electric Stimulation Electric Stimulation left shoulder Body Location left shoulder Duration (Minutes) 15 Intensity 13 Target/Sweep Sweep Patient Position Sitting Combined With Heat/Cold Cold Pack Comments left shoulder supported by pillow PT-OP-S Aquatic Treatment Start: 01/01/22 09:06 Freq: Status: Active Protocol: Document 01/19/22 14:09 [facility] (Rec: 01/19/22 14:32 [facility] [id number]) Aquatics Treatment Pool Entry/Exit Pool Entry/Exit Method Stairs Assistance Independent Water Walking sideways with shoulder ab/ad Level of Assistance Verbal Cues backward with reverse breastroke UE's Water Level Neck Level Level of Assistance Verbal Cues forward with breastroke UE's Water Level Neck Level Level of Assistance Verbal Cues Upper Extremity Exercises pendulum Body Position Sidelying Water Level Neck Level Reps/Duration 10x ea direction Comments holding onto pool edge punching Body Position Standing Water Level Neck Level shoulder rolls Body Position Sitting Reps/Duration 10x IR/ER Body Position Standing Water Level Neck Level Reps/Duration 10x scaption Details bouyancy assisted Body Position Sitting Water Level Neck Level Reps/Duration 10x Comments passive, cues for relaxation shoulder flex/ext Details bouyancy assisted Body Position Sitting Water Level Neck Level Reps/Duration 10x Comments passive, cues for relaxation hor ab/ad Body Position Standing Water Level Neck Level Reps/Duration 10x palms forward, 10x with ER and IR Swim Strokes sidestroke Laps/Duration 1 min Comments gentle, slow prone crawl Other Equipment Used goggles Laps/Duration 5 min Comments gentle, slow Manual Techniques Bad Ragaz supine passive for thoracic mobility and shoulder ROM; neck float, LE floats Aquatic Joint Mobilizations mid thoracic spine PA's Aquatic Massage rhomboids PT-OP-T Assessment and Plan Start: 01/01/22 09:06 Freq: Status: Active Protocol: Document 02/05/22 09:00 MARTHA (Rec: 02/05/22 10:57 [facility] [id number]) Physical Therapy Assessment Goals Three Impairment Decreased ROM and strength left shoulder Short Term Goal (STG) Patient to achieve full active ROM of her left shoulder STG Duration 01/29/22 Telegraph Lineman Goal (LTG) Patient to demonstrate at least 4+/5 muscle strength all motions left shoulder to allow her to return to all prior activities. Two Impairment pain left shoulder at 8/10 scale Short Term Goal (STG) Decrease pain to no greater than 4/10 STG Duration 01/29/22 [employer] Lineman Goal (LTG) Decrease pain to no greater than 2/10 with all usual activities LTG Duration 03/31/22 One Impairment Quickdash UE disability index score 64% Impairment decreased functional use of left UE Short Term Goal (STG) Decrease Quickdash score as measure of improved left UE function to no greater than 40 % STG Duration 01/29/22 [employer] Lineman Goal (LTG) Decrease Quickdash score to no greater than 15% as measure of improved function left UE LTG Duration 03/31/22 Assessment Summary Assessment Shoulder flexion active 135, abduction 134, ER 48, IR to L5 Physical Therapy Plan Frequency and Duration Frequency of Treatment 2x/Week Duration of Treatment 12 weeks Plan of Care Start Date 01/01/22 Plan of Care End Date 04/04/22 Therapeutic Interventions Therapeutic Interventions Aquatic Therapy,Home Exercise Program,Joint Mobilizations, Manual Therapy,Neuromuscular Re-education,Patient/Caregiver Education,Self-Care/Home Management,Soft Tissue Mobilization,Taping, Therapeutic Activities, Therapeutic Exercises Modalities Electric Stimulation,Hot Packs Next Visit Focus/Plan Next Note Type Treatment Note Next Visit Plan Increase subscapular release with elevation, GH and scapular mobs, active ROM with manual scapular mobilization. MWM for shoulder IR.
--- NOTE | 2022-02-09 17:23 | PT.OTN ---
Current Diagnoses Adhesive capsulitis of left shoulder (02/09/22) Bursitis of left shoulder (02/09/22) Superior glenoid labrum lesion of left shoulder, initial encounter (02/09/22) Physical Therapy Treatment Note PT-OP-A Visit Information Start: 01/01/22 09:06 Freq: Status: Active Protocol: Document 02/09/22 17:09 SAK (Rec: 02/09/22 17:23 [facility] [id number]) Out-Patient Physical Therapy Visit Information Visit Information Visit Type Treatment Note Visit Start Time 09:01 Visit Stop Time 09:56 Total Visit Minutes 54 Visit Number 11 Precautions Precautions wear sling for comfort, PT evaluate and treat, aggressive ROM, no strengthening PT-OP-B Current Condition Start: 01/01/22 09:06 Freq: Status: Active Protocol: Document 01/19/22 14:09 [facility] (Rec: 01/19/22 14:23 [facility] [id number]) Current Condition History of Current Condition Onset Date 12/31/21 Current Complaints left shoulder pain History of Current Condition left shoulder arthroscopic surgery: extensive debridement GH joint, lysis of adhesions, subacromial decompression. Patient reports she was vomiting all day yesterday, pain level high, has only taken 1/2 Oxycodone at a time, feels may need to take more. 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 Seeing Dr. Wadsworth after PT today. PT-OP-F Manual Assessment Start: 01/01/22 09:06 Freq: Status: Active Protocol: Document 01/01/22 16:20 SAK (Rec: 01/04/22 13:43 [facility] [id number]) Manual Assessments Soft Tissue Assessment Soft Tissue Mobility Assessment post-op dressing in place, no signs or symptoms of infection PT-OP-H Neuro Start: 01/01/22 09:06 Freq: Status: Active Protocol: Document 01/01/22 16:20 [facility] (Rec: 01/04/22 13:43 [facility] [id number]) Sensation Evaluation Gross Sensation Gross Sensation WNL PT-OP-J Posture/Palpation/Skin Start: 01/01/22 09:06 Freq: Status: Active Protocol: Document 01/08/22 13:00 [facility] (Rec: 01/08/22 14:04 [facility] [id number]) Skin Assessment Incisional Assessment Incision Appearance/Comments incisions healing well Other Assessments Skin Assessment Comments increased swelling noted today PT-OP-K Range of Motion Start: 01/01/22 09:06 Freq: Status: Active Protocol: Document 01/01/22 16:20 [facility] (Rec: 01/04/22 13:43 [facility] [id number]) Cervical Spine Range of Motion Cervical Spine Active Testing Position Sitting ROM Limitations Soft Tissue Tightness,Pain Comments guarding Shoulder Goniometric Range of Motion Shoulder Left Shoulder ROM WFL No Flexion 60 Extension 0 Abduction 55 External Rotation at 0 degrees Abduction 5 Internal Rotation 10 Comments Very high pain level, was vomiting all day yesterday, not feeling well today, low tolerance for any ROM PT-OP-Q Treatments Start: 01/01/22 09:06 Freq: Status: Active Protocol: Document 02/09/22 17:09 [facility] (Rec: 02/09/22 17:23 [facility] [id number]) Therapeutic Exercises Supine Exercises posterior capsul stretch Reps/Minutes 2x5 shoulder abduction Supine Exercise Name PROM Reps/Minutes 10x Comments with inf glide shoulder flex Reps/Minutes 10x Comments passive, with gentle inf glide , with subscapular release shoulder ER Equipment Used passive by PT, contract/relax Reps/Minutes 10x5 Comments with posterior glide Sidelying Exercises shoulder flex Sidelying Exercise Name AROM gravity elim, AAROM Comments inf glide joint mob, and upward scapular rotation Standing Exercises wall slide Reps/Minutes 10x Comments with manual upward scapular rotation pendulum Reps/Minutes 5x ea Comments added 1# weight for distraction Manual Therapy Treatment Joint Mobilizations GH Direction inf glide, long axis distraction, post gl, lateral dist Manual Techniques contract relax Comments supine to increase shoulder ER ; first with PT resistance and assist, then with patient doing independently. Self-Care/Home Management Treatment Education Patient Education Home Exercise Program,Pain Management,Posture Other Education don't jam shoulder into impingement, want stretch not pain Activities Self-Care/Home Management Activities heat before exercise PT-OP-R Modalities Start: 01/01/22 09:06 Freq: Status: Active Protocol: Document 02/09/22 17:09 [facility] (Rec: 02/09/22 17:23 [facility] [id number]) Electric Stimulation Electric Stimulation left shoulder Body Location left shoulder Duration (Minutes) 15 Intensity 13 Target/Sweep Sweep Patient Position Sitting Combined With Heat/Cold Cold Pack Comments left shoulder supported by pillow PT-OP-S Aquatic Treatment Start: 01/01/22 09:06 Freq: Status: Active Protocol: Document 01/19/22 14:09 [facility] (Rec: 01/19/22 14:32 [facility] [id number]) Aquatics Treatment Pool Entry/Exit Pool Entry/Exit Method Stairs Assistance Independent Water Walking sideways with shoulder ab/ad Level of Assistance Verbal Cues backward with reverse breastroke UE's Water Level Neck Level Level of Assistance Verbal Cues forward with breastroke UE's Water Level Neck Level Level of Assistance Verbal Cues Upper Extremity Exercises pendulum Body Position Sidelying Water Level Neck Level Reps/Duration 10x ea direction Comments holding onto pool edge punching Body Position Standing Water Level Neck Level shoulder rolls Body Position Sitting Reps/Duration 10x IR/ER Body Position Standing Water Level Neck Level Reps/Duration 10x scaption Details bouyancy assisted Body Position Sitting Water Level Neck Level Reps/Duration 10x Comments passive, cues for relaxation shoulder flex/ext Details bouyancy assisted Body Position Sitting Water Level Neck Level Reps/Duration 10x Comments passive, cues for relaxation hor ab/ad Body Position Standing Water Level Neck Level Reps/Duration 10x palms forward, 10x with ER and IR Swim Strokes sidestroke Laps/Duration 1 min Comments gentle, slow prone crawl Other Equipment Used goggles Laps/Duration 5 min Comments gentle, slow Manual Techniques Bad Ragaz supine passive for thoracic mobility and shoulder ROM; neck float, LE floats Aquatic Joint Mobilizations mid thoracic spine PA's Aquatic Massage rhomboids PT-OP-T Assessment and Plan Start: 01/01/22 09:06 Freq: Status: Active Protocol: Document 02/09/22 17:09 [facility] (Rec: 02/09/22 17:23 [facility] [id number]) Physical Therapy Assessment Goals Three Impairment Decreased ROM and strength left shoulder Short Term Goal (STG) Patient to achieve full active ROM of her left shoulder 02/09/22: AROM flex 132, abd 117, IR to L3, ER 17 deg STG Duration 01/29/22 Alf Goal (LTG) Patient to demonstrate at least 4+/5 muscle strength all motions left shoulder to allow her to return to all prior activities. Two Impairment pain left shoulder at 8/10 scale Short Term Goal (STG) Decrease pain to no greater than 4/10 02/09/22: pain variable, interrupts sleep frequently, goal progress STG Duration 01/29/22 [employer] Aide Goal (LTG) Decrease pain to no greater than 2/10 with all usual activities LTG Duration 03/31/22 One Impairment Quickdash UE disability index score 64% Impairment decreased functional use of left UE Short Term Goal (STG) Decrease Quickdash score as measure of improved left UE function to no greater than 40 % 02/09/22: some goal progress STG Duration 01/29/22 School Health Aide Goal (LTG) Decrease Quickdash score to no greater than 15% as measure of improved function left UE LTG Duration 03/31/22 Assessment Summary Assessment AROM: flex 132, abduction 117 , IR L3, ER 22. Slow progress . Discussed frozen shoulder/ adhesive capsulitis possibility, need to not jam shoulder into impingement position or ROM. Instructed further in shoulder biomechanics and need to achieve shoulder ER prior to being able to fully elevate. Patient has difficulty with upward rotation of scapula. Patient to see Dr. Wadsworth after PT. Physical Therapy Plan Frequency and Duration Frequency of Treatment 2x/Week Duration of Treatment 12 weeks Plan of Care Start Date 01/01/22 Plan of Care End Date 04/04/22 Therapeutic Interventions Therapeutic Interventions Aquatic Therapy,Home Exercise Program,Joint Mobilizations, Manual Therapy,Neuromuscular Re-education,Patient/Caregiver Education,Self-Care/Home Management,Soft Tissue Mobilization,Taping, Therapeutic Activities, Therapeutic Exercises Modalities Electric Stimulation,Hot Packs Next Visit Focus/Plan Next Note Type Treatment Note Next Visit Plan Increase subscapular release with elevation, GH and scapular mobs, active ROM with manual scapular mobilization. MWM for shoulder IR and ER
--- NOTE | 2022-02-12 16:54 | PT.OTN ---
Current Diagnoses Adhesive capsulitis of left shoulder (02/12/22) Bursitis of left shoulder (02/12/22) Superior glenoid labrum lesion of left shoulder, initial encounter (02/12/22) Physical Therapy Treatment Note PT-OP-A Visit Information Start: 01/01/22 09:06 Freq: Status: Active Protocol: Document 02/12/22 09:02 [facility] (Rec: 02/12/22 09:52 [facility] [id number]) Out-Patient Physical Therapy Visit Information Visit Information Visit Type Treatment Note Visit Start Time 09:01 Visit Stop Time 09:56 Total Visit Minutes 55 Visit Number 12 Precautions Precautions wear sling for comfort, PT evaluate and treat, aggressive ROM, no strengthening PT-OP-B Current Condition Start: 01/01/22 09:06 Freq: Status: Active Protocol: Document 01/19/22 14:09 [facility] (Rec: 01/19/22 14:23 [facility] [id number]) Current Condition History of Current Condition Onset Date 12/31/21 Current Complaints left shoulder pain History of Current Condition left shoulder arthroscopic surgery: extensive debridement GH joint, lysis of adhesions, subacromial decompression. Patient reports she was vomiting all day yesterday, pain level high, has only taken 1/2 Oxycodone at a time, feels may need to take more. 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 Saw Dr Bernarda Franco who was pleased with her progress. Patient reports can now sleep in bed, sit with min pain. Is trying to use left UE for more functional activities around the house, noting improvement. PT-OP-F Manual Assessment Start: 01/01/22 09:06 Freq: Status: Active Protocol: Document 01/01/22 16:20 [facility] (Rec: 01/04/22 13:43 [facility] [id number]) Manual Assessments Soft Tissue Assessment Soft Tissue Mobility Assessment post-op dressing in place, no signs or symptoms of infection PT-OP-H Neuro Start: 01/01/22 09:06 Freq: Status: Active Protocol: Document 01/01/22 16:20 [facility] (Rec: 01/04/22 13:43 [facility] [id number]) Sensation Evaluation Gross Sensation Gross Sensation WNL PT-OP-J Posture/Palpation/Skin Start: 01/01/22 09:06 Freq: Status: Active Protocol: Document 01/08/22 13:00 [facility] (Rec: 01/08/22 14:04 [facility] [id number]) Skin Assessment Incisional Assessment Incision Appearance/Comments incisions healing well Other Assessments Skin Assessment Comments increased swelling noted today PT-OP-K Range of Motion Start: 01/01/22 09:06 Freq: Status: Active Protocol: Document 01/01/22 16:20 [facility] (Rec: 01/04/22 13:43 [facility] [id number]) Cervical Spine Range of Motion Cervical Spine Active Testing Position Sitting ROM Limitations Soft Tissue Tightness,Pain Comments guarding Shoulder Goniometric Range of Motion Shoulder Left Shoulder ROM WFL No Flexion 60 Extension 0 Abduction 55 External Rotation at 0 degrees Abduction 5 Internal Rotation 10 Comments Very high pain level, was vomiting all day yesterday, not feeling well today, low tolerance for any ROM PT-OP-Q Treatments Start: 01/01/22 09:06 Freq: Status: Active Protocol: Document 02/12/22 09:02 [facility] (Rec: 02/12/22 16:53 [facility] [id number]) Therapeutic Exercises Sidelying Exercises reach and roll Reps/Minutes 10x Comments verbal and tactile cues for segmental movement, shoulder flex Sidelying Exercise Name AROM gravity elim, AAROM Comments inf glide joint mob, and upward scapular rotation Sitting Exercises shoulder flexion Sitting Exercise Name with upward rotation of scap by PT Reps/Minutes 10x pulleys Sitting Exercise Name shoulder flex, scaption Equipment Used mirror for visual feedback Reps/Minutes 10x Comments elbow bent, manual scapular facil Standing Exercises row Equipment Used L1 TB Reps/Minutes 10x Comments tactile cues contract/relax for shld ER Resistance L1 TB Reps/Minutes 10x Comments allow TB to pull into ER sink stretch with isometric ex Reps/Minutes 10x scapular squeeze Standing Exercise Name horizontal, diag Equipment Used mirror Reps/Minutes 10x ea Therapeutic Activity Therapeutic Activity Self GH mob and MWM instruction Reps/Minutes 8 Comments strap assisted in shoulder mob at 90/90 plus IR?ER MWM theraband providing post glide during sh elevation GH inf self mob shoulder IR self mob Manual Therapy Treatment Joint Mobilizations GH Direction inf glide, long axis distraction, post gl, lateral dist Self-Care/Home Management Treatment Education Patient Education Home Exercise Program,Pain Management,Posture Other Education issued written handout for joint mob and MWM Activities Self-Care/Home Management Activities heat before exercise PT-OP-R Modalities Start: 01/01/22 09:06 Freq: Status: Active Protocol: Document 02/12/22 09:02 [facility] (Rec: 02/12/22 16:53 [facility] [id number]) Electric Stimulation Electric Stimulation left shoulder Body Location left shoulder Duration (Minutes) 15 Intensity 13 Target/Sweep Sweep Patient Position Sitting Combined With Heat/Cold Cold Pack Comments left shoulder supported by pillow PT-OP-S Aquatic Treatment Start: 01/01/22 09:06 Freq: Status: Active Protocol: Document 01/19/22 14:09 [facility] (Rec: 01/19/22 14:32 [facility] [id number]) Aquatics Treatment Pool Entry/Exit Pool Entry/Exit Method Stairs Assistance Independent Water Walking sideways with shoulder ab/ad Level of Assistance Verbal Cues backward with reverse breastroke UE's Water Level Neck Level Level of Assistance Verbal Cues forward with breastroke UE's Water Level Neck Level Level of Assistance Verbal Cues Upper Extremity Exercises pendulum Body Position Sidelying Water Level Neck Level Reps/Duration 10x ea direction Comments holding onto pool edge punching Body Position Standing Water Level Neck Level shoulder rolls Body Position Sitting Reps/Duration 10x IR/ER Body Position Standing Water Level Neck Level Reps/Duration 10x scaption Details bouyancy assisted Body Position Sitting Water Level Neck Level Reps/Duration 10x Comments passive, cues for relaxation shoulder flex/ext Details bouyancy assisted Body Position Sitting Water Level Neck Level Reps/Duration 10x Comments passive, cues for relaxation hor ab/ad Body Position Standing Water Level Neck Level Reps/Duration 10x palms forward, 10x with ER and IR Swim Strokes sidestroke Laps/Duration 1 min Comments gentle, slow prone crawl Other Equipment Used goggles Laps/Duration 5 min Comments gentle, slow Manual Techniques Bad Ragaz supine passive for thoracic mobility and shoulder ROM; neck float, LE floats Aquatic Joint Mobilizations mid thoracic spine PA's Aquatic Massage rhomboids PT-OP-T Assessment and Plan Start: 01/01/22 09:06 Freq: Status: Active Protocol: Document 02/12/22 09:02 [facility] (Rec: 02/12/22 09:52 [facility] [id number]) Physical Therapy Assessment Goals Three Impairment Decreased ROM and strength left shoulder Short Term Goal (STG) Patient to achieve full active ROM of her left shoulder 02/09/22: AROM flex 132, abd 117, IR to L3, ER 17 deg STG Duration 01/29/22 Orthotic And Prosthetic Technician Goal (LTG) Patient to demonstrate at least 4+/5 muscle strength all motions left shoulder to allow her to return to all prior activities. Two Impairment pain left shoulder at 8/10 scale Short Term Goal (STG) Decrease pain to no greater than 4/10 02/09/22: pain variable, interrupts sleep frequently, goal progress STG Duration 01/29/22 Correction Goal (LTG) Decrease pain to no greater than 2/10 with all usual activities LTG Duration 03/31/22 One Impairment Quickdash UE disability index score 64% Impairment decreased functional use of left UE Short Term Goal (STG) Decrease Quickdash score as measure of improved left UE function to no greater than 40 % 02/09/22: some goal progress STG Duration 01/29/22 Orthotic And Prosthetic Technician Goal (LTG) Decrease Quickdash score to no greater than 15% as measure of improved function left UE LTG Duration 03/31/22 Progress Towards Goals Progress Towards Goals Progressing Toward Goals Assessment Summary Assessment PROM: flex 146, abduction 140 , IR L3, ER 22. Improved with manual joint mobilization and MWM techniques. Patient to be gone for spring break with kids next week, instructed in multiple self mob or self MWM techniques with good understanding Physical Therapy Plan Frequency and Duration Frequency of Treatment 2x/Week Duration of Treatment 12 weeks Plan of Care Start Date 01/01/22 Plan of Care End Date 04/04/22 Therapeutic Interventions Therapeutic Interventions Aquatic Therapy,Home Exercise Program,Joint Mobilizations, Manual Therapy,Neuromuscular Re-education,Patient/Caregiver Education,Self-Care/Home Management,Soft Tissue Mobilization,Taping, Therapeutic Activities, Therapeutic Exercises Modalities Electric Stimulation,Hot Packs Next Visit Focus/Plan Next Note Type Treatment Note Next Visit Plan Increase subscapular release with elevation, GH and scapular mobs, active ROM with manual scapular mobilization. MWM for shoulder IR and ER
--- NOTE | 2022-02-24 16:38 | PT.OTN ---
Current Diagnoses Adhesive capsulitis of left shoulder (02/24/22) Bursitis of left shoulder (02/24/22) Superior glenoid labrum lesion of left shoulder, initial encounter (02/24/22) Physical Therapy Treatment Note PT-OP-A Visit Information Start: 01/01/22 09:06 Freq: Status: Active Protocol: Document 02/24/22 10:29 [facility] (Rec: 02/24/22 11:19 [facility] [id number]) Out-Patient Physical Therapy Visit Information Visit Information Visit Type Treatment Note Visit Start Time 10:30 Visit Stop Time 11:27 Total Visit Minutes 57 Visit Number 13 PT-OP-B Current Condition Start: 01/01/22 09:06 Freq: Status: Active Protocol: Document 01/19/22 14:09 [facility] (Rec: 01/19/22 14:23 [facility] [id number]) Current Condition History of Current Condition Onset Date 12/31/21 Current Complaints left shoulder pain History of Current Condition left shoulder arthroscopic surgery: extensive debridement GH joint, lysis of adhesions, subacromial decompression. Patient reports she was vomiting all day yesterday, pain level high, has only taken 1/2 Oxycodone at a time, feels may need to take more. 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 Still can't reach her bra, reach fully overhead, or out to side, notices her compensation. Daughter having some medical issues so as today is last scheduled appointment, feels need to take a break from PT for now, will continue with HEP. PT-OP-F Manual Assessment Start: 01/01/22 09:06 Freq: Status: Active Protocol: Document 01/01/22 16:20 [facility] (Rec: 01/04/22 13:43 [facility] [id number]) Manual Assessments Soft Tissue Assessment Soft Tissue Mobility Assessment post-op dressing in place, no signs or symptoms of infection PT-OP-H Neuro Start: 01/01/22 09:06 Freq: Status: Active Protocol: Document 01/01/22 16:20 [facility] (Rec: 01/04/22 13:43 [facility] [id number]) Sensation Evaluation Gross Sensation Gross Sensation WNL PT-OP-J Posture/Palpation/Skin Start: 01/01/22 09:06 Freq: Status: Active Protocol: Document 01/08/22 13:00 [facility] (Rec: 01/08/22 14:04 [facility] [id number]) Skin Assessment Incisional Assessment Incision Appearance/Comments incisions healing well Other Assessments Skin Assessment Comments increased swelling noted today PT-OP-K Range of Motion Start: 01/01/22 09:06 Freq: Status: Active Protocol: Document 01/01/22 16:20 [facility] (Rec: 01/04/22 13:43 [facility] [id number]) Cervical Spine Range of Motion Cervical Spine Active Testing Position Sitting ROM Limitations Soft Tissue Tightness,Pain Comments guarding Shoulder Goniometric Range of Motion Shoulder Left Shoulder ROM WFL No Flexion 60 Extension 0 Abduction 55 External Rotation at 0 degrees Abduction 5 Internal Rotation 10 Comments Very high pain level, was vomiting all day yesterday, not feeling well today, low tolerance for any ROM PT-OP-Q Treatments Start: 01/01/22 09:06 Freq: Status: Active Protocol: Document 02/24/22 10:29 [facility] (Rec: 02/24/22 11:19 [facility] [id number]) Therapeutic Exercises Prone Exercises hor ab Reps/Minutes 10x Comments with verbal and tactile cues for rectraction shoulder ext Reps/Minutes 10x cat/cow Reps/Minutes 10x child's pose Reps/Minutes 20 sec shoulder flex Prone Exercise Name pain-free ROM Comments UE hanging over table edge, manual facil upward scapular rotation scapular retraction Reps/Minutes 10x Comments UE hanging over table edge with manual facilitation Sidelying Exercises shoulder flex Sidelying Exercise Name AROM gravity elim, AAROM Comments inf glide joint mob, and upward scapular rotation Sitting Exercises posterior capsule stretch Reps/Minutes 2x30 pulleys Sitting Exercise Name shoulder flex, scaption Equipment Used mirror for visual feedback Reps/Minutes 10x Comments elbow bent, manual scapular facil Standing Exercises contract/relax for shld ER Resistance L1 TB Reps/Minutes 10x Comments allow TB to pull into ER sink stretch with isometric ex Reps/Minutes 10x Manual Therapy Treatment Soft Tissue Mobilization subscapular release Comments with passive shoulder elevation scap Body Location L rhomboid, infrasp, suprasp, Mobilization Type Myofascial Release,Strumming, Sustained Pressure Intensity/Depth Moderate Body Position Sidelying Comments supine Joint Mobilizations GH Direction inf glide, long axis distraction, post gl, lateral dist Grade III scapulothoracic Joint L Direction inf/ retraction Grade III Body Position Sidelying Self-Care/Home Management Treatment Education Patient Education Home Exercise Program Other Education continue HEP, let PT know if feels need for further PT if doesn't continue to progress, and if daughter's health allows her to return to PT. PT-OP-R Modalities Start: 01/01/22 09:06 Freq: Status: Active Protocol: Document 02/24/22 10:29 [facility] (Rec: 02/24/22 16:38 [facility] [id number]) Electric Stimulation Electric Stimulation left shoulder Body Location left shoulder Duration (Minutes) 15 Intensity 13 Target/Sweep Sweep Patient Position Sitting Combined With Heat/Cold Cold Pack Comments left shoulder supported by pillow PT-OP-S Aquatic Treatment Start: 01/01/22 09:06 Freq: Status: Active Protocol: Document 01/19/22 14:09 [facility] (Rec: 01/19/22 14:32 [facility] [id number]) Aquatics Treatment Pool Entry/Exit Pool Entry/Exit Method Stairs Assistance Independent Water Walking sideways with shoulder ab/ad Level of Assistance Verbal Cues backward with reverse breastroke UE's Water Level Neck Level Level of Assistance Verbal Cues forward with breastroke UE's Water Level Neck Level Level of Assistance Verbal Cues Upper Extremity Exercises pendulum Body Position Sidelying Water Level Neck Level Reps/Duration 10x ea direction Comments holding onto pool edge punching Body Position Standing Water Level Neck Level shoulder rolls Body Position Sitting Reps/Duration 10x IR/ER Body Position Standing Water Level Neck Level Reps/Duration 10x scaption Details bouyancy assisted Body Position Sitting Water Level Neck Level Reps/Duration 10x Comments passive, cues for relaxation shoulder flex/ext Details bouyancy assisted Body Position Sitting Water Level Neck Level Reps/Duration 10x Comments passive, cues for relaxation hor ab/ad Body Position Standing Water Level Neck Level Reps/Duration 10x palms forward, 10x with ER and IR Swim Strokes sidestroke Laps/Duration 1 min Comments gentle, slow prone crawl Other Equipment Used goggles Laps/Duration 5 min Comments gentle, slow Manual Techniques Bad Ragaz supine passive for thoracic mobility and shoulder ROM; neck float, LE floats Aquatic Joint Mobilizations mid thoracic spine PA's Aquatic Massage rhomboids PT-OP-T Assessment and Plan Start: 01/01/22 09:06 Freq: Status: Active Protocol: Document 02/24/22 10:29 [facility] (Rec: 02/24/22 11:19 [facility] [id number]) Physical Therapy Assessment Goals Three Impairment Decreased ROM and strength left shoulder Short Term Goal (STG) Patient to achieve full active ROM of her left shoulder 02/09/22: AROM flex 132, abd 117, IR to L3, ER 17 deg STG Duration 01/29/22 Prison Goal (LTG) Patient to demonstrate at least 4+/5 muscle strength all motions left shoulder to allow her to return to all prior activities. Two Impairment pain left shoulder at 8/10 scale Short Term Goal (STG) Decrease pain to no greater than 4/10 02/09/22: pain variable, interrupts sleep frequently, goal progress STG Duration 01/29/22 Prison Goal (LTG) Decrease pain to no greater than 2/10 with all usual activities LTG Duration 03/31/22 One Impairment Quickdash UE disability index score 64% Impairment decreased functional use of left UE Short Term Goal (STG) Decrease Quickdash score as measure of improved left UE function to no greater than 40 % 02/09/22: some goal progress STG Duration 01/29/22 Transitional Care Liaison Goal (LTG) Decrease Quickdash score to no greater than 15% as measure of improved function left UE LTG Duration 03/31/22 Assessment Summary Assessment PROM: flex 164, abduction 140, IR L3, ER 35. AROM: flex 140, abduction 115, IR to L3, ER 30. Continues to have some impingement of shoulder with elevation, hasn't been able to be as compliant with exercises due to daughter's health issues. Feels she most needs manual treatment at GH and scapulothoracic joint. Will issue handout for further self-mobilization techniques as not able to attend PT right now. Physical Therapy Plan Frequency and Duration Frequency of Treatment 2x/Week Duration of Treatment 12 weeks Plan of Care Start Date 01/01/22 Plan of Care End Date 04/04/22 Therapeutic Interventions Therapeutic Interventions Aquatic Therapy,Home Exercise Program,Joint Mobilizations, Manual Therapy,Neuromuscular Re-education,Patient/Caregiver Education,Self-Care/Home Management,Soft Tissue Mobilization,Taping, Therapeutic Activities, Therapeutic Exercises Modalities Electric Stimulation,Hot Packs Next Visit Focus/Plan Next Note Type Treatment Note Next Visit Plan Further manual treatment and issue handouts for further self-mobilization. Progress ther ex as tolerated for strengthening and ROM left shoulder.
--- NOTE | 2022-06-30 18:07 | PT.OPDS ---
Current Diagnoses Adhesive capsulitis of left shoulder (02/24/22) Bursitis of left shoulder (02/24/22) Superior glenoid labrum lesion of left shoulder, initial encounter (02/24/22) Visit Care Team Role Provider Type Leatha Pierre MD Family Provider Physician Primary Care Provider Specialty: Family Practice Address: [address] [place] [address], [place], [address] Email: [email or web address] Nelson Wadsworth MD Attending Provider Physician Referring Provider Specialty: Orthopedics Orthopedic Surgery Address: [address] [place] [address], [id number] Email: [email or web address] Visit Number Visit Number 13 Discharge Summary PT-OP-B Current Condition Start: 01/01/22 09:06 Freq: Status: Active Protocol: Document 01/19/22 14:09 SAK (Rec: 01/19/22 14:23 [facility] [id number]) Current Condition History of Current Condition Onset Date 12/31/21 Current Complaints left shoulder pain History of Current Condition left shoulder arthroscopic surgery: extensive debridement GH joint, lysis of adhesions, subacromial decompression. Patient reports she was vomiting all day yesterday, pain level high, has only taken 1/2 Oxycodone at a time, feels may need to take more. 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 Still can't reach her bra, reach fully overhead, or out to side, notices her compensation. Daughter having some medical issues so as today is last scheduled appointment, feels need to take a break from PT for now, will continue with HEP. PT-OP-F Manual Assessment Start: 01/01/22 09:06 Freq: Status: Active Protocol: Document 01/01/22 16:20 [facility] (Rec: 01/04/22 13:43 [facility] [id number]) Manual Assessments Soft Tissue Assessment Soft Tissue Mobility Assessment post-op dressing in place, no signs or symptoms of infection PT-OP-H Neuro Start: 01/01/22 09:06 Freq: Status: Active Protocol: Document 01/01/22 16:20 [facility] (Rec: 01/04/22 13:43 [facility] [id number]) Sensation Evaluation Gross Sensation Gross Sensation WNL PT-OP-J Posture/Palpation/Skin Start: 01/01/22 09:06 Freq: Status: Active Protocol: Document 01/08/22 13:00 [facility] (Rec: 01/08/22 14:04 [facility] [id number]) Skin Assessment Incisional Assessment Incision Appearance/Comments incisions healing well Other Assessments Skin Assessment Comments increased swelling noted today PT-OP-K Range of Motion Start: 01/01/22 09:06 Freq: Status: Active Protocol: Document 01/01/22 16:20 [facility] (Rec: 01/04/22 13:43 [facility] [id number]) Cervical Spine Range of Motion Cervical Spine Active Testing Position Sitting ROM Limitations Soft Tissue Tightness,Pain Comments guarding Shoulder Goniometric Range of Motion Shoulder Left Shoulder ROM WFL No Flexion 60 Extension 0 Abduction 55 External Rotation at 0 degrees Abduction 5 Internal Rotation 10 Comments Very high pain level, was vomiting all day yesterday, not feeling well today, low tolerance for any ROM PT-OP-T Assessment and Plan Start: 01/01/22 09:06 Freq: Status: Active Protocol: Document 06/30/22 18:07 [facility] (Rec: 06/30/22 18:07 [facility] [id number]) Physical Therapy Plan Discharge Physical Therapy Discharge Reasons No Longer Attending PT
== END 2022-07-06 09:39 ==
LOC: PHYS 10:30
PROVIDERS: Family Provider Family Medicine; PCP Family Medicine; Referring Provider Orthopaedic Surgery; Visit Provider Orthopaedic Surgery
DX: M75.52 Bursitis of left shoulder (principal); S43.432A Superior glenoid labrum lesion of left shoulder, initial encounter; M75.02 Adhesive capsulitis of left shoulder
CPT/HCPCS: 97014; 97035; 97110; 97113; 97140; 97162; G0283

== ENCOUNTER → 2022-10-05 09:14 | Outpatient (CLI) | payer OTHER, SELFPAY ==
[2022-10-05 09:59] LABS: Add Manual Diff / Slide Review NO; Basophils Absolute Auto 0 /uL (0-100); Basophils Percent Auto 0.8 % (0-2); Eosinophils Absolute Auto 200 /uL (0-450); Eosinophils Percent Auto 3.4 % (2-4); Hematocrit 37.4 % (36-46); Lymphocytes Absolute Auto 1400 /uL (1100-4500); Lymphocytes Percent Auto 23.9 % (25-40); Mean Corpuscular HGB Conc 34.8 % (30-36); Mean Corpuscular Hemoglobin 31.4 PG (26-34); Mean Corpuscular Volume 90.2 fL (80-100); Monocytes Absolute Auto 500 /uL (0-900); Monocytes Percent Auto 8.7 % (3-14); Neutrophils Absolute Auto 3700 /uL (1500-7000); Neutrophils Percent Auto 63.2 % (50-75); Platelet Count 326 X10^3/uL (150-400); Red Blood Cell Count 4.15 X10^6/uL (4.0-5.2); Red Cell Distribution Width 12.4 % (11.6-14.8); White Blood Cell Count 5.9 X10^3/uL (4.5-11.0)
[2022-10-05 10:10] LABS: C-Reactive Protein Quant < 0.5 mg/dL (<1.0); Cholesterol 212 mg/dL (140-199); HDL Cholesterol 66 mg/dL (40-60); LDL Cholesterol Calculated 126 mg/dL (<100); Rheumatoid Factor < 8.6 IU/mL (<12.0); Triglycerides 100 mg/dL (35-150)
[2022-10-05 10:11] LABS: Erythrocyte Sedimentation Rate 6 MM/HR (0-20)
[2022-10-11 03:52] LABS: CCP Antibodies IgG/IgA 4 units (0-19)
== END ==
PROVIDERS: Family Provider Family Medicine; PCP Family Medicine; Referring Provider Family Medicine; Visit Provider Family Medicine
DX: Z13.220 Encounter for screening for lipoid disorders (principal); M25.50 Pain in unspecified joint; F32.9 Major depressive disorder, single episode, unspecified
CPT/HCPCS: 36415; 80061; 85025; 85651; 86140; 86200; 86430

== ENCOUNTER → 2022-11-25 11:06 | Outpatient (CLI) | payer OTHER, SELFPAY ==
[2022-11-26 16:08] LABS: Fecal Immunochemical Test Negative (Negative)
== END ==
PROVIDERS: Family Provider Family Medicine; PCP Family Medicine; Referring Provider Family Medicine; Visit Provider Family Medicine
DX: Z12.11 Encounter for screening for malignant neoplasm of colon (principal)
CPT/HCPCS: 82274

== ENCOUNTER → 2022-12-03 08:02 | Outpatient (CLI) | payer OTHER, SELFPAY ==
[2022-12-03 09:41] LABS: Add Manual Diff / Slide Review NO; Basophils Absolute Auto 100 /uL (0-100); Eosinophils Absolute Auto 200 /uL (0-450); Eosinophils Percent Auto 2.9 % (2-4); Hemoglobin 13.3 g/dL (12.0-16.0); Lymphocytes Absolute Auto 1300 /uL (1100-4500); Lymphocytes Percent Auto 23.3 % (25-40); Mean Corpuscular HGB Conc 33.2 % (30-36); Mean Corpuscular Hemoglobin 30.4 PG (26-34); Mean Corpuscular Volume 91.4 fL (80-100); Monocytes Absolute Auto 400 /uL (0-900); Neutrophils Absolute Auto 3700 /uL (1500-7000); Neutrophils Percent Auto 64.8 % (50-75); Platelet Count 290 X10^3/uL (150-400); Red Blood Cell Count 4.37 X10^6/uL (4.0-5.2); Red Cell Distribution Width 12.3 % (11.6-14.8); White Blood Cell Count 5.6 X10^3/uL (4.5-11.0)
[2022-12-03 09:44] LABS: Hemoglobin A1C% w Est Avg Glu 4.8 % (4.0-6.0)
[2022-12-03 09:51] LABS: Prothrombin Time 11.4 SECONDS (10.1-12.7)
[2022-12-03 09:53] LABS: PTT Partial Thromboplastin Tim 29 SECONDS (26-36)
[2022-12-03 09:58] LABS: Alanine Aminotransferase 15 IU/L (<35); Alkaline Phosphatase 62 U/L (38-126); Aspartate Aminotransferase 21 IU/L (14-36); BUN Creatinine Ratio 25.8 (6-22); Bilirubin Total 0.5 mg/dL (0.2-1.3); Blood Urea Nitrogen 16 mg/dL (7-17); Carbon Dioxide 26 mmol/L (22-32); Chloride 101 mmol/L (98-107); Cholesterol 212 mg/dL (140-199); Creatinine, Serum (CRCL) 0.64 mg/dL (0.52-1.04); Estimated Glomerular Filt Rate > 60 mL/min (>60); Glucose 85 mg/dL (70-100); HDL Cholesterol 63 mg/dL (40-60); HEMOLYSIS < 15 (0-50); LDL Cholesterol Calculated 134 mg/dL (<100); Phosphorous 3.8 mg/dL (2.5-4.5); Potassium 4.2 mmol/L (3.4-5.1); Sodium 135 mmol/L (137-145); Triglycerides 73 mg/dL (35-150)
[2022-12-03 09:59] LABS: Glucose Fasting 85 mg/dL (70-100)
[2022-12-03 10:11] LABS: LDL Cholesterol Direct 116 mg/dL (<100)
[2022-12-03 10:17] LABS: HCG Quantitative /Beta subunit < 2.4 mIU/mL
[2022-12-03 10:30] LABS: Collection Time Urine 24 Hours; Creat Clearance, Corrected 122.9 mL/MIN; Creatinine 24 Hour Urine 1101 mg/day (800-1800); Creatinine Clearance Urine 119.4 mL/MIN; Creatinine Urine Random 62.9 mg/dL; Patient Height Urine 63 inches; Patient Weight Urine 145 lbs; Protein (Total) Urine Random 10 mg/dL (0-12); Total Protein 24 Hour Urine 175 mg/day (42-225); Total Volume Urine 1750 mL
[2022-12-03 12:29] LABS: Glucose 1 Hour 115 mg/dL (70-170)
[2022-12-03 12:30] LABS: Creatinine Urine Random 52.9 mg/dL
[2022-12-03 13:32] LABS: Appearance Urine UA CLEAR; Bilirubin Urine UA NEGATIVE (NEGATIVE); Color Urine UA YELLOW; Glucose Urine UA NEGATIVE (Negative); Ketones Urine UA NEGATIVE (NEGATIVE); Leukocyte Esterase Urine UA NEGATIVE (NEGATIVE); Nitrite Urine UA NEGATIVE (Negative); Occult Blood Urine UA TRACE-LYSED (Negative); Protein Urine UA NEGATIVE (Negative); Urobilinogen Urine UA 0.2 E.U./dL (0.2)
[2022-12-03 13:53] LABS: Bacteria Urine Moderate (10-30); Culture Indicated Urine Specimen Cultured; RBC Urine 0-1/HPF (0-5/HPF); WBC Urine 0-1/HPF (0-5/HPF)
[2022-12-03 13:58] LABS: Microalbumin Urine Random < 0.6 mg/dL (0-1.6)
[2022-12-04 17:04] LABS: Albumin 4.3 g/dL (3.5-5.0); Globulin 2.7 g/dL (1.7-4.1)
[2022-12-04 17:05] LABS: Albumin Globulin Ratio 1.6 (1.0-2.8)
[2022-12-04 20:30] LABS: Glucose Tol Interpretation INTERPRETATION
[2022-12-04 20:36] LABS: Glucose 2 Hour 108 mg/dL (70-140)
== END ==
PROVIDERS: Family Provider Family Medicine; PCP Family Medicine; Referring Provider Student in an Organized Health Care Education/Training Program; Visit Provider Student in an Organized Health Care Education/Training Program
DX: Z00.5 Encounter for examination of potential donor of organ and tissue (principal)
CPT/HCPCS: 36415; 80053; 80061; 81001; 82043; 82570; 82575; 82951; 82952; 83036; 83721; 84100; 84156; 84702; 85025; 85610; 85730; 86900; 86901; 87086

== ENCOUNTER → 2022-12-11 08:52 | Outpatient (CLI) | payer OTHER, SELFPAY ==
--- NOTE | 2022-12-11 | DI.US.S_ITS ---
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 COMPARISON: None. FINDINGS: Kidneys: Kidneys are normal in size. Right kidney measures 10 cm long; left kidney measures 11.2 cm long. Right renal cortical thickness is 1.4 cm; left renal cortical thickness is 1.6 cm. Renal cortical echotexture is normal. No hydronephrosis or nephrolithiasis. No suspicious solid mass lesions. Bladder: Pre-void bladder volume is 34 mL. Post-void residual is 0 mL. Pre-void images demonstrate no intraluminal masses or stones. On pre-void images, no ureteral jets are noted with color Doppler interrogation. (Of note, ureteral jets may not be detectable in up to 25% of cases due to insufficient differences in specific gravity between ureteral and bladder urine). Miscellaneous: No free pelvic fluid. IMPRESSION: Unremarkable ultrasound examination of bilateral kidneys and urinary bladder. Dictated by: Danyel Fontana M.D. on 12/11/2022 at 11:45 Approved by: Danyel Fontana M.D. on 12/11/2022 at 11:46
== END ==
PROVIDERS: Family Provider Family Medicine; PCP Family Medicine; Referring Provider Student in an Organized Health Care Education/Training Program; Visit Provider Student in an Organized Health Care Education/Training Program
DX: Z00.5 Encounter for examination of potential donor of organ and tissue (principal)
CPT/HCPCS: 76770

== ENCOUNTER → 2023-01-07 08:58 | Outpatient (CLI) | payer OTHER, SELFPAY ==
--- NOTE | 2023-01-07 08:59 | DI.US.S_ITS ---
ULTRASOUND OF LEFT BREAST: 01/07/2023 CLINICAL: Occasional left breast pain. Nipple discharge. Comparison is made to exams dated: 01/07/2023 mammogram, 12/22/2021 ultrasound, 12/22/2021 mammogram, and 08/21/2021 ultrasound - [facility]. Color flow and real-time ultrasound of the left breast were performed. Harding scale images of the real-time examination were reviewed. There is a 0.8 cm x 1 cm x 0.7 cm cyst with an irregular internal wall in the left breast at 5 o'clock anterior depth 2 cm from the nipple. This cyst is hypoechoic. This abnormality is decreased in size and correlates with the aspiration. Color flow imaging demonstrates that there is no vascularity present. There also is a benign 1.7 cm x 1.6 cm x 0.8 cm oval cyst with a smooth internal wall in the left breast at 1 o'clock middle depth 8 cm from the nipple. This oval cyst is anechoic with posterior acoustic enhancement. Additionally, there is a benign 2.6 cm x 1.6 cm x 1.4 cm oval cyst with a smooth internal wall in the left breast at 1 o'clock posterior depth 1 cm from the nipple. This oval cyst is anechoic with posterior acoustic enhancement. IMPRESSION: PROBABLY BENIGN Complicated cysts in the left breast have not significantly changed since August 2021 exam. A follow-up ultrasound in 6 months is recommended to demonstrate stability. This exam was interpreted at Station ID: [id number]. Electronically Signed By: Geoff Sarabia M.D., jr/:01/07/2023 10:02:10 Entry: - 01/08/2023 11:26:40 letter sent: Followup Recommended Ultrasound BI-RADS: 3 Probably benign
--- NOTE | 2023-01-07 08:59 | DI.MG.S_ITS ---
BILATERAL DIGITAL DIAGNOSTIC MAMMOGRAM 3D/2D SHORT-TERM FOLLOW-UP: 01/07/2023 CLINICAL: Left nipple discharge. Comparison is made to exams dated: 12/22/2021 mammogram, 01/27/2021 mammogram, 09/05/2020 mammogram, and 02/07/2020 mammogram - [facility]. Both breasts are extremely dense, which lowers the sensitivity of mammography (category d />75% glandular tissue). There is an oval asymmetry in the left breast at 5 o'clock middle depth. This is not significantly changed. No other significant masses, calcifications, or other findings are seen in either breast. IMPRESSION: INCOMPLETE: NEEDS ADDITIONAL IMAGING EVALUATION The oval asymmetry in the left breast most likely is clustered cysts and is indeterminate. An ultrasound is recommended. There is no abnormality seen in the right breast to correspond with the palpable abnormality at 10 o'clock. There is no abnormality seen in the left breast to correspond with the palpable abnormality at 2 o'clock. Based on Tyrer-Cuzick model (a risk assessment model), the patient's lifetime risk is 24.8% and her 10 year risk is 6.2%. If a patient has an elevated risk, a more comprehensive evaluation should be considered and/or a referral to a genetic counselor. The [place] [employer], [employer], and NCCN Guidelines advise the consideration of Breast MRI as an adjunct to screening mammography in patients whose Lifetime risk to develop breast cancer is 20% or higher. This exam was interpreted at Station ID: [id number]. NOTE: For mammograms, a report in lay terms will be sent to the patient. Approximately 15% of breast malignancies will not be visualized mammographically. In the management of a palpable breast mass, a negative mammogram must not discourage biopsy of a clinically suspicious lesion. Electronically Signed By: Geoff Sarabia M.D., jr/severino:01/07/2023 10:00:45 ACR BI-RADS Category 0: Incomplete [id number]
== END ==
PROVIDERS: Family Provider Family Medicine; PCP Family Medicine; Referring Provider Surgery; Visit Provider Surgery
DX: N64.52 Nipple discharge (principal); R92.8 Other abnormal and inconclusive findings on diagnostic imaging of breast; N60.02 Solitary cyst of left breast
CPT/HCPCS: 76642; 77066; G0279

== ENCOUNTER → 2023-01-28 14:09 | Outpatient (CLI) | payer OTHER, SELFPAY ==
[2023-01-28 15:54] LABS: Appearance Urine UA CLEAR; Bilirubin Urine UA NEGATIVE (NEGATIVE); Color Urine UA YELLOW; Glucose Urine UA NEGATIVE (Negative); Ketones Urine UA NEGATIVE (NEGATIVE); Leukocyte Esterase Urine UA NEGATIVE (NEGATIVE); Nitrite Urine UA NEGATIVE (Negative); Occult Blood Urine UA NEGATIVE (Negative); Protein Urine UA NEGATIVE (Negative); Specific Gravity Urine UA <=1.005 (1.000-1.035); Urobilinogen Urine UA 0.2 E.U./dL (0.2)
[2023-01-28 16:18] LABS: Bacteria Urine None Seen; Culture Indicated Urine Cult Not Indicated; RBC Urine None Seen (0-5/HPF); Squamous Epithelial Cell Urine 0-1 /HPF (0-5/HPF); WBC Urine None Seen (0-5/HPF)
== END ==
PROVIDERS: Family Provider Family Medicine; PCP Family Medicine; Referring Provider Student in an Organized Health Care Education/Training Program; Visit Provider Student in an Organized Health Care Education/Training Program
DX: Z00.5 Encounter for examination of potential donor of organ and tissue (principal)
CPT/HCPCS: 81001

== ENCOUNTER → 2023-02-09 | Outpatient (CLI) | payer OTHER, SELFPAY ==
--- NOTE | 2023-02-09 | PATH_ITS ---
[facility] Accession Number: [id number] No. of containers..01 Tissue . 01 Material submitted: . breast - LEFT BREAST MASS 5:00 2 CM FN . 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 Negative for significant atypia or malignancy. MRV 02/12/2023 1219 Local . 01 Comment: An *immunostain to broad spectrum cytokeratins ROXY is obtained, with the control stained appropriately, and is negative for invasive carcinoma cells. . * This test was developed and its performance characteristics determined by [facility]. It has not been cleared or approved by the U.S. Food and Drug Administration. The FDA has determined that such clearance or approval is not necessary. This test is used for clinical purposes. It should not be regarded as investigational or for research. . . . . 01 Electronically signed: . Maria Del Carmen Steinberg MD, Pathologist NPI- [id number] . 01 Gross description: . The specimen is received in formalin labeled with the patient's name, , and USBX breast, and consists of multiple yellow to red-brown soft tissue fragments aggregating to 2.3 x 1.4 x 0.2 cm. The specimen is filtered into a biopsy bag and submitted entirely in cassette A1. The specimen was removed on 02/09/2023, time not provided, cold ischemic time cannot be calculated, total fixation time is approximately 32 hours. ([id number]) /MIKAYLA 02/10/2023 1053 Local . 01 Pathologist provided ICD-10: N60. CPT . 611000, X71169 Specimen Comment: A courtesy copy of this report has been sent to [phone] Performed at: 01 [facility] [address] [place] [address], [place], [place] [id number] MD Jose E Luke MD Phone: [phone]
--- NOTE | 2023-02-09 14:29 | DI.US.S_ITS ---
Patient Name: TRICIA CAMPA date: 1970 Sex: F Attending Physician: Sherry Indications: Date: 02/18/2023 10:34 At the request of: CARL BECKER Procedure: US bx breast perc w vac device ULTRASOUND GUIDED BIOPSY LEFT BREAST USING VACUUM DEVICE WITH MARKING DEVICE INSERTED AND POST DIGITAL MAMMOGRAPHIC IMAGIN02/09/2023 CLINICAL: Left breast mass. PATIENT CONSENT: Risks (minor bleeding, infection, vasovagal reaction and repeat procedure), benefits and alternatives were explained to the patient and written informed consent was obtained. Correlation is made to exams dated: 01/07/2023 ultrasound, 01/07/2023 mammogram, and 12/22/2021 ultrasound - [facility]. An ultrasound guided biopsy using real-time ultrasound was performed for the 0.7 cm x 0.7 cm x 0.6 cm cystic mass located in the left breast at 5 o'clock anterior depth 2 cm from the nipple. This was described on the previous ultrasound report. The skin was prepped in the usual manner. Local anesthetic was administered to the access site. A skin milagros was made in the breast. The abnormality was approached from the lateral aspect. A 13 gauge biopsy needle was placed adjacent to the abnormality under ultrasound guidance. Once the needle was documented to be in the correct location, four specimens were obtained using the Mammotome biopsy system. The patient received additional local anesthetic during the procedure. A clip was inserted into the biopsy cavity. A skin adhesive and a sterile dressing were applied to the access site. Post procedure digital mammographic imaging was obtained. The specimens were sent to the laboratory for pathological analysis. IMPRESSION: ULTRASOUND GUIDED BIOPSY BENIGN Ultrasound guided biopsy of the 0.7 cm x 0.7 cm x 0.6 cm cystic mass in the left breast at 5 o'clock anterior depth 2 cm from the nipple was successful. 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 Pathology results are concordant with imaging findings. Continued Report - Page 2 of 2 Patient Name: TRICIA CAMPA date: 1970 Sex: F Attending Physician: Sherry Indications: Date: 02/18/2023 10:34 At the request of: CARL BECKER Procedure: US bx breast perc w vac device A follow-up left mammogram and an ultrasound in 6 months is recommended to demonstrate stability. This exam was interpreted at Station ID: [id number]. Papo Farooq M.D. ,at/:02/18/2023 10:34:10
--- NOTE | 2023-02-09 15:37 | DI.MG.S_ITS ---
Procedure: MM diagnostic mammo [id number] UNILATERAL LEFT DIGITAL DIAGNOSTIC MAMMOGRAM 3D/2D POST-EXCISIONAL BIOPSY: 02/09/2023 CLINICAL: Post clip. Comparison is made to exams dated: 12/22/2021 mammogram, 01/27/2021 mammogram, 02/09/2023 ultrasound biopsy, 01/07/2023 ultrasound, and 01/07/2023 mammogram - [facility]. The left breast is extremely dense, which lowers the sensitivity of mammography (category d />75% glandular tissue). There is a marker clip in the appropriate position in the left breast at 5 o'clock anterior depth at the biopsy site. IMPRESSION: POST PROCEDURE MAMMOGRAM FOR MARKER PLACEMENT There was a successful marker clip placement in the left breast anterior depth. Future imaging is recommended as follows: 07/07/2023 follow-up left ultrasound. This exam was interpreted at Station ID: [id number]. NOTE: For mammograms, a report in lay terms will be sent to the patient. Approximately 15% of breast malignancies will not be visualized mammographically. In the management of a palpable breast mass, a negative mammogram must not discourage biopsy of a clinically suspicious lesion. Continued Report - Page 2 of 2 Patient Name: TRICIA CAMPA date: 1970 Sex: F Attending Physician: Sherry Indications: Date: 02/10/2023 11:02 At the request of: CARL BECKER Procedure: MM diagnostic mammo [id number] Electronically Signed By: Papo Shaver M.D. ,slc/:02/10/2023 11:02:34 ACR BI-RADS Category Post-procedure mammogram for marker placement
== END ==
LOC: US 14:23
PROVIDERS: Family Provider Family Medicine; PCP Family Medicine; Referring Provider Surgery; Visit Provider Surgery
DX: N60.42 Mammary duct ectasia of left breast (principal); N60.32 Fibrosclerosis of left breast; N60.02 Solitary cyst of left breast
CPT/HCPCS: 19083; 77065

== ENCOUNTER → 2023-03-25 16:26 | Outpatient (CLI) | payer OTHER, SELFPAY ==
--- NOTE | 2023-03-25 16:27 | DI.RAD.S_ITS ---
PROCEDURE: XR WRIST RT MIN 3V INDICATIONS: pain without injury TECHNIQUE: 3 views of the wrist were acquired. COMPARISON: [facility], , XR WRIST RT MIN 3V, 05/30/2021, 14:34. FINDINGS: Bones: No fractures or dislocations. No suspicious bony lesions. Soft tissues: No suspicious soft tissue calcifications. IMPRESSION: Normal right wrist Dictated by: Harshal Daley M.D. on 03/25/2023 at 17:23 Approved by: Harshal Daley M.D. on 03/25/2023 at 17:25
--- NOTE | 2023-03-25 16:27 | DI.RAD.S_ITS ---
PROCEDURE: XR ELBOW RT MIN 3V INDICATIONS: pain without injury TECHNIQUE: 3 views of the elbow were acquired. COMPARISON: None. FINDINGS: Bones: No fractures or dislocations. No suspicious bony lesions. Soft tissues: No elbow joint effusion. No suspicious soft tissue calcifications. IMPRESSION: Normal right elbow Dictated by: Harshal Daley M.D. on 03/25/2023 at 17:22 Approved by: Harshal Daley M.D. on 03/25/2023 at 17:23
== END ==
PROVIDERS: Family Provider Family Medicine; PCP Family Medicine; Referring Provider Nurse Practitioner Family; Visit Provider Nurse Practitioner Family
DX: M25.531 Pain in right wrist (principal); M25.521 Pain in right elbow
CPT/HCPCS: 73080; 73110

== ENCOUNTER → 2024-02-07 12:17 | Outpatient (CLI) | payer OTHER, SELFPAY ==
[2024-02-07 13:28] LABS: Appearance Urine UA CLEAR; Bilirubin Urine UA NEGATIVE (NEGATIVE); Color Urine UA YELLOW; Glucose Urine UA NEGATIVE (Negative); Ketones Urine UA NEGATIVE (NEGATIVE); Leukocyte Esterase Urine UA NEGATIVE (NEGATIVE); Nitrite Urine UA NEGATIVE (Negative); Occult Blood Urine UA 1+ (Negative); Protein Urine UA NEGATIVE (Negative); Specific Gravity Urine UA <=1.005 (1.000-1.035); Urobilinogen Urine UA 0.2 E.U./dL (0.2)
[2024-02-07 13:44] LABS: Urine Volume 10mL (spun)
[2024-02-07 13:45] LABS: Bacteria Urine Moderate (10-30)
[2024-02-07 13:46] LABS: Culture Indicated Urine Cult Not Indicated; RBC Urine 0-1/HPF (0-5/HPF); Squamous Epithelial Cell Urine 1-5 /HPF (0-5/HPF); WBC Urine 0-1/HPF (0-5/HPF)
[2024-02-07 15:05] LABS: Estimated Glomerular Filt Rate > 60 mL/min (>60)
== END ==
PROVIDERS: Family Provider Family Medicine; PCP Family Medicine; Referring Provider Student in an Organized Health Care Education/Training Program; Visit Provider Student in an Organized Health Care Education/Training Program
DX: Z00.00 Encounter for general adult medical examination without abnormal findings (principal); Z90.5 Acquired absence of kidney
CPT/HCPCS: 36415; 81001; 82565

== ENCOUNTER → 2024-02-08 17:10 | Outpatient (CLI) | payer OTHER, SELFPAY ==
[2024-02-08 17:33] LABS: Appearance Urine UA CLEAR; Bilirubin Urine UA NEGATIVE (NEGATIVE); Color Urine UA YELLOW; Glucose Urine UA NEGATIVE (Negative); Ketones Urine UA NEGATIVE (NEGATIVE); Leukocyte Esterase Urine UA NEGATIVE (NEGATIVE); Nitrite Urine UA NEGATIVE (Negative); Occult Blood Urine UA TRACE-INTACT (Negative); Protein Urine UA NEGATIVE (Negative); Specific Gravity Urine UA <=1.005 (1.000-1.035); Urobilinogen Urine UA 0.2 E.U./dL (0.2); pH Urine UA 5.5 (4.5-8.0)
[2024-02-08 17:39] LABS: Bacteria Urine Occasional (0-1); RBC Urine 0-1/HPF (0-5/HPF); Squamous Epithelial Cell Urine 0-1 /HPF (0-5/HPF); Urine Volume 10mL (spun); WBC Urine 0-1/HPF (0-5/HPF)
[2024-02-08 17:40] LABS: Culture Indicated Urine Cult Not Indicated
== END ==
PROVIDERS: Family Provider Family Medicine; PCP Family Medicine; Referring Provider Student in an Organized Health Care Education/Training Program; Visit Provider Student in an Organized Health Care Education/Training Program
DX: Z00.00 Encounter for general adult medical examination without abnormal findings (principal); Z90.5 Acquired absence of kidney
CPT/HCPCS: 81001

== ENCOUNTER → 2024-03-08 16:54 | Outpatient (CLI) | payer OTHER, SELFPAY ==
--- NOTE | 2024-03-08 16:56 | DI.MG.S_ITS ---
BILATERAL DIGITAL SCREENING MAMMOGRAM 3D/2D WITH CAD: 03/08/2024 CLINICAL: Routine screening. Comparison is made to exams dated: 01/07/2023 mammogram, 12/22/2021 mammogram, and 01/27/2021 mammogram - [facility]. Both breasts are extremely dense, which lowers the sensitivity of mammography (category d />75% glandular tissue). Current study was also evaluated with a Computer Aided Detection (CAD) system. There is a biopsy clip in the left breast. No significant masses, calcifications, or other findings are seen in either breast. There has been no significant interval change. IMPRESSION: BENIGN There is no mammographic evidence of malignancy. A 1 year screening mammogram is recommended. Based on Tyrer-Cuzick model (a risk assessment model), the patient's lifetime risk is 24.8% and her 10 year risk is 6.5%. If a patient has an elevated risk, a more comprehensive evaluation should be considered and/or a referral to a genetic counselor. The [place] [employer], [employer], and NCCN Guidelines advise the consideration of Breast MRI as an adjunct to screening mammography in patients whose Lifetime risk to develop breast cancer is 20% or higher. This exam was interpreted at Station ID: [id number]. NOTE: For mammograms, a report in lay terms will be sent to the patient. Approximately 15% of breast malignancies will not be visualized mammographically. In the management of a palpable breast mass, a negative mammogram must not discourage biopsy of a clinically suspicious lesion. Electronically Signed By: Will vallecillo/severino:03/09/2024 13:17:28 letter sent: Normal Exam ACR BI-RADS Category 2: Benign Finding(s) [id number]
== END ==
PROVIDERS: Family Provider Family Medicine; PCP Family Medicine; Referring Provider Family Medicine; Visit Provider Family Medicine
DX: Z12.31 Encounter for screening mammogram for malignant neoplasm of breast (principal); R92.343 Mammographic extreme density, bilateral breasts
CPT/HCPCS: 77063; 77067

== ENCOUNTER → 2024-03-30 17:42 | Outpatient (CLI) | payer OTHER, SELFPAY | PROVIDERS: Family Provider Family Medicine; PCP Family Medicine; Visit Provider Nurse Practitioner Family | DX: J02.9 Acute pharyngitis, unspecified (principal) | CPT/HCPCS: 87070 ==

== ENCOUNTER → 2024-03-30 17:47 | Outpatient (CLI) | payer OTHER, SELFPAY ==
--- NOTE | 2024-03-30 17:49 | DI.RAD.S_ITS ---
PROCEDURE: XR CHEST 2V INDICATIONS: Cough TECHNIQUE: 2 views of the chest were acquired. COMPARISON: None. FINDINGS: Surgical changes and devices: Surgical clips project over the midline mid abdomen. Lungs and pleura: Lungs are clear. No pleural effusions or pneumothorax. Mediastinum: Mediastinal contours are normal. Heart size is normal. Bones and chest wall: No suspicious bony abnormalities. Soft tissues appear unremarkable. IMPRESSION: No acute cardiopulmonary abnormality is seen. Dictated by: Elier Farooq M.D. on 03/31/2024 at 10:45 Approved by: Elier Farooq M.D. on 03/31/2024 at 10:46
== END ==
PROVIDERS: Family Provider Family Medicine; PCP Family Medicine; Referring Provider Nurse Practitioner Family; Visit Provider Nurse Practitioner Family
DX: J02.9 Acute pharyngitis, unspecified (principal); R05.9 Cough, unspecified
CPT/HCPCS: 71046; 87070

== ENCOUNTER → 2024-04-26 09:12 | Outpatient (CLI) | payer OTHER, SELFPAY ==
--- NOTE | 2024-04-26 09:14 | DI.RAD.S_ITS ---
PROCEDURE: XR SHOULDER RT MIN 2V INDICATIONS: Right shoulder pain TECHNIQUE: 3 views of the shoulder were acquired. COMPARISON: [facility], CR, XR SHOULDER LT MIN 2V, 09/29/2021, 15:25. FINDINGS: Bones: No fractures or dislocations. No suspicious bony lesions. Visualized ribs appear intact. Soft tissues: No suspicious soft tissue calcifications. IMPRESSION: Unremarkable radiographic examination of right shoulder. Dictated by: Danyel Fontana M.D. on 04/26/2024 at 13:17 Approved by: Danyel Fontana M.D. on 04/26/2024 at 13:17
== END ==
LOC: RAD 09:13
PROVIDERS: Family Provider Family Medicine; PCP Family Medicine; Referring Provider Nurse Practitioner Family; Visit Provider Nurse Practitioner Family
DX: M25.511 Pain in right shoulder (principal)
CPT/HCPCS: 73030

== ENCOUNTER → 2024-07-05 16:30 | Outpatient (CLI) | payer OTHER, SELFPAY ==
[2024-07-05 18:01] LABS: Appearance Urine UA CLEAR; Bilirubin Urine UA NEGATIVE (NEGATIVE); Color Urine UA YELLOW; Glucose Urine UA NEGATIVE (Negative); Ketones Urine UA NEGATIVE (NEGATIVE); Leukocyte Esterase Urine UA NEGATIVE (NEGATIVE); Nitrite Urine UA NEGATIVE (Negative); Occult Blood Urine UA TRACE-INTACT (Negative); Protein Urine UA NEGATIVE (Negative); Specific Gravity Urine UA <=1.005 (1.000-1.035); Urobilinogen Urine UA 0.2 E.U./dL (0.2)
[2024-07-05 18:02] LABS: Estimated Glomerular Filt Rate > 60 mL/min (>60)
[2024-07-05 19:10] LABS: Bacteria Urine Few (2-10); Culture Indicated Urine Cult Not Indicated; RBC Urine 0-1/HPF (0-5/HPF); Squamous Epithelial Cell Urine 0-1 /HPF (0-5/HPF); Urine Volume 10mL (spun); WBC Urine 0-1/HPF (0-5/HPF)
== END ==
PROVIDERS: Family Provider Family Medicine; PCP Family Medicine; Referring Provider Student in an Organized Health Care Education/Training Program; Visit Provider Student in an Organized Health Care Education/Training Program
DX: Z00.00 Encounter for general adult medical examination without abnormal findings (principal); Z52.4 Kidney donor; Z90.5 Acquired absence of kidney
CPT/HCPCS: 36415; 81001; 82565

== ENCOUNTER → 2024-09-06 12:36 | Outpatient (CLI) | payer OTHER, SELFPAY ==
--- NOTE | 2024-09-06 12:38 | DI.MRI.S_ITS ---
PROCEDURE: MR SHOULDER RT WO CON INDICATIONS: R shoulder pain TECHNIQUE: Noncontrast oblique coronal T2 fast spin echo with fat saturation, oblique sagittal T1 spin echo and T2 fast spin echo with fat saturation, axial T1 spin echo and T2 fast spin echo with fat saturation through the shoulder. COMPARISON: [facility], MR, MR SHOULDER LT WO CON, 10/14/2021, 16:13. FINDINGS: Image quality: Excellent. Rotator cuff: Low-grade articular and bursal surface partial thickness tear involving distal supraspinatus at its insertion on the humeral head extending to musculotendinous junction. Low-grade articular surface partial-thickness tear involving distal infraspinatus at its insertion on the humeral head is also noted. Low-grade intrasubstance partial-thickness tear involving superior to mid fibers of distal subscapularis. No full-thickness rotator cuff tendon rupture.. Sagittal images demonstrate no significant rotator cuff muscle atrophy. Bones and bursae: No bone marrow contusions or fractures. There is [id number] acromioclavicular joint osteoarthritis with joint space narrowing and downward osteophyte formation depressing the musculotendinous junction of supraspinatus. Type 2 acromion, no os acromiale. Small to moderate joint effusion and subacromial subdeltoid bursal fluid is seen, no loose bodies. Capsule and soft tissues: There is fraying of superior anterior labrum with T2 hyperintense signal suggestive of superior anterior glenoid labral tear. The long head of the biceps tendon demonstrates normal location and morphology. The rotator interval appears normal, without fibrosis. The coracohumeral ligament is normal in thickness. IMPRESSION: 1. Low-grade articular and bursal surface partial thickness tear involving distal supraspinatus extending to musculotendinous junction. Distal infraspinatus tendinosis. Low-grade intrasubstance partial-thickness tear involving superior to mid fibers of distal subscapularis. No full-thickness rotator cuff tendon rupture. 2. [id number] acromioclavicular joint osteoarthritis. No fracture or dislocation. No suspicious bony lesions. Small to moderate amount of joint fluid and subacromial subdeltoid bursal fluid, no loose bodies. 3. Suggestion of superior anterior glenoid labral tear. Dictated by: Danyel Fontana M.D. on 09/06/2024 at 14:05 Approved by: Danyel Fontana M.D. on 09/06/2024 at 14:09
== END ==
LOC: MRI 12:37
PROVIDERS: Family Provider Family Medicine; PCP Family Medicine; Referring Provider Orthopaedic Surgery; Visit Provider Orthopaedic Surgery
DX: M75.111 Incomplete rotator cuff tear or rupture of right shoulder, not specified as traumatic (principal); M19.011 Primary osteoarthritis, right shoulder; M75.00 Adhesive capsulitis of unspecified shoulder; M25.511 Pain in right shoulder
CPT/HCPCS: 73221

== ENCOUNTER 2024-10-24 08:15 | Outpatient (RCR) | payer OTHER, SELFPAY ==
--- NOTE | 2024-08-02 15:55 | PT.OIE ---
Current Diagnoses Pain in right shoulder (08/02/24) Stiffness of right shoulder, not elsewhere classified (08/02/24) Weakness (08/02/24) Strain of unspecified muscle, fascia and tendon at shoulder and upper arm level, right arm, initial encounter (08/02/24) Past Medical History (Last Reviewed 07/27/23 @ 09:07 by Alma Garcia RN) Depression Past Surgical History (Last Reviewed 07/27/23 @ 09:07 by Alma Garcia RN) History of carpal tunnel repair History of kidney donation Status post delivery Status post dilation and curettage Status post endometrial ablation Visit Care Team Role Provider Type Leatha Pierre MD Family Provider Physician Primary Care Provider Specialty: 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 Address: [address] [place] [address] [place], [address] Phone: Fax: Email: [email or web address] Physical Therapy Initial Evaluation PT-OP-A Visit Information Start: 08/01/24 16:06 Freq: Status: Active Protocol: Document 08/02/24 09:45 NM (Rec: 08/02/24 11:12 NM [id number]) Out-Patient Physical Therapy Visit Information Visit Information Visit Type Initial Evaluation Visit Start Time 09:48 Visit Stop Time 10:30 Visit Number 60 Evaluation Information Evaluation Date 08/02/24 PT-OP-B Current Condition Start: 08/01/24 16:06 Freq: Status: Active Protocol: Document 08/02/24 09:45 NM (Rec: 08/02/24 11:12 NM [id number]) Current Condition History of Current Condition Onset Date April 2024 Current Complaints weakness, pain, decreased mobility History of Current Condition Pt presents with R shoulder pain in April 2024. She was chopping firewood with a small axe, then slept in a tent. She reports that the next morning her shoulder started to bother her. She reports difficulty with raising her arm above her head, constant pain to arm, weakness/tingling in fingers 3-4-5 sometimes, waking/going to bed, sleeping . PMH of L shoulder surgery ( tear and arthritis) several years ago. She has a job that requires lifting. 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 She does not lift pt alone, transfers. Pt also reports neck pain on her R side; has a hx of neck pain but not on R side. Pt reports that she fell yesterday and caught herself with her R arm. Pt tends to sleep on her back or L side ( hugs a pillow). Unsure of what positions or tasks make pt's fingers feel worse, but states feels more when cutting, doing dishes; she shakes her hands in the hands to feel better, worse with sitting, feels more during day. Pt has had an injection in in last few months, but reports did not help Prior Treatments and Tests Pt has an upcoming MRI depending on insurance She had an x-ray PT-OP-C Subjective Start: 08/01/24 16:06 Freq: Status: Active Protocol: Document 08/02/24 09:45 NM (Rec: 08/02/24 11:12 NM [id number]) OP-PT Subjective Patient Comments Patient Comments Pt consents to participate in evaluation OP-PT Pain Assessment Location R shoulder Pain Location Details anterior shoulder, post shoulder, paraspinals Intensity 5 Scale Used Numeric (0 - 10) Description Aching,Dull,Tightness,Tingling Description- Other active: 7 Frequency Constant Variations/Patterns worse in am and pm Pain Aggravating Factors Position,Changing Position,ADL 's,Activity,Exercise,Sitting Other Pain Aggravating Factors reaching, extension Pain Alleviating Factors Cold,Medication,Massage Other Pain Alleviating Factors wine Home Pain Medication Use Pain Medications Used Yes: tylenol PT-OP-E Functional Tests Start: 08/01/24 16:06 Freq: Status: Active Protocol: Document 08/02/24 09:45 NM (Rec: 08/02/24 11:12 NM [id number]) Functional Tests Apley's Scratch Test Action 1- Left post cuff Action 1- Right ACJ; painful Action 2- Left T6 Action 2- Right not to ear; painful Action 3- Left T6 Action 3- Right sacrum; painful PT-OP-F Manual Assessment Start: 08/01/24 16:06 Freq: Status: Active Protocol: Document 08/02/24 09:45 NM (Rec: 08/02/24 11:12 NM [id number]) Manual Assessments Soft Tissue Assessment Soft Tissue Mobility Assessment Increased restriction of cervical paraspinals; tightness and trigger points along levator scapulae, upper trapezius, rhomboids, posterior cuff. Increased lat tightnesss Joint Mobility Assessment Joint Mobility Assessment R scapula elevated and restricted. Limited R GHJ posterior and inferior glide. No restrictions of cervical spine mobility except soft tissue tightness. Empty end feels for all, more PROM than AROM PT-OP-G Mobility & Gait Start: 08/01/24 16:06 Freq: Status: Active Protocol: Document 08/02/24 09:45 NM (Rec: 08/02/24 11:12 NM [id number]) OP Gait Assessment Gait Gait Assistance Required: Independent Distance (Feet) 150 Comments Gait Comments Demos decreased trunk rotation , stiffness on RUE PT-OP-H Neuro Start: 08/01/24 16:06 Freq: Status: Active Protocol: Document 08/02/24 09:45 NM (Rec: 08/02/24 11:12 NM [id number]) Sensation Evaluation Comments Summary Comments Will assess next session PT-OP-J Posture/Palpation/Skin Start: 08/01/24 16:06 Freq: Status: Active Protocol: Document 08/02/24 09:45 NM (Rec: 08/02/24 11:12 NM [id number]) Posture Evaluation Position Standing Head/C-Spine Posture Forward Head Shoulder Posture (L) Forward,(R) Forward,(R) Elevated Scapula Posture (R) Elevated,(L) Winged,(R) Winged Arm Posture (L) Internally Rotated,(R) Internally Rotated Pelvis Posture Anteriorly Tilted Knee Posture (L) Genu Valgus,(R) Genu Valgus Palpation Assessment Location R shoulder Palpation Details Tenderness at long head biceps tendon, AC joint, GH joint Tightness along lat, posterior cuff, cervical paraspinals and periscapulars PT-OP-K Range of Motion Start: 08/01/24 16:06 Freq: Status: Active Protocol: Document 08/02/24 09:45 NM (Rec: 08/02/24 11:12 NM [id number]) Cervical Spine Range of Motion Cervical Spine Active Degrees Flexion 60 Extension 55 Rotation Left 80 Rotation Right 70 Lateral Flexion Left 45 Lateral Flexion Right 40 ROM Limitations Soft Tissue Tightness Shoulder Goniometric Range of Motion Shoulder Right Flexion 90 Extension 40 Abduction 80 External Rotation at 0 degrees Abduction 10 Internal Rotation 70 Comments PROM: 120 deg flex, 100 deg abd, 10 deg ER Left Flexion 170 Extension 65 Abduction 175 External Rotation at 45 degrees 90 Abduction External Rotation at 0 degrees Abduction 60 Internal Rotation 70 PT-OP-L Special Tests Start: 08/01/24 16:06 Freq: Status: Active Protocol: Document 08/02/24 09:45 NM (Rec: 08/02/24 11:12 NM [id number]) Special Tests Cervical Spine Special Tests Upper Limb Tension Test Test Results + Comments median n.; unable to test ulnar d/t shldr ROM/pain Spurling's Test Test Results - Shoulder Special Tests Empty Can Test Results + Comments limited ROM Belly Press Test Results + Yergason's Biceps Test Results - Elbow Special Tests Tinel Test Results + Comments cubital tunnel Wrist/Hand Special Tests Tinel Test Results + Comments over carpal tunnel PT-OP-M Strength Start: 08/01/24 16:06 Freq: Status: Active Protocol: Document 08/02/24 09:45 NM (Rec: 08/02/24 11:12 NM [id number]) Shoulder Strength Shoulder Manual Muscle Testing Right Flexion 3+ Fair+ Extension 3+ Fair+ External Rotation 4- Good- Internal Rotation 3+ Fair+ Comments pain with flex, abd, IR at cuff and biceps Left Flexion 4+ Good+ Extension 4+ Good+ Abduction (C5) 4+ Good+ Adduction 4+ Good+ External Rotation 4+ Good+ Internal Rotation 4+ Good+ Horizontal Abduction 4+ Good+ Horizontal Adduction 4+ Good+ Comments bicep Elbow/Forearm Strength Elbow and Forearm Manual Muscle Testing Right Flexion (C6) 4 Good Extension (C7) 4 Good Comments No pain over biceps long head Left Flexion (C6) 4+ Good+ Extension (C7) 4+ Good+ PT-OP-Q Treatments Start: 08/01/24 16:06 Freq: Status: Active Protocol: Document 08/02/24 09:45 NM (Rec: 08/02/24 11:12 NM [id number]) Therapeutic Exercises Supine Exercises AAROM Supine Exercise Name 1. flexion w/ dowel, 2. hand over hand assist Side right Equipment Used L assist R Reps/Minutes 1. 5, 1. 5 Comments decreased GHJ mob; cued resist R lowering w/ R to dec pain Other Exercises Nerve glides Other Exercise Name 1. median n./tendon glides, 2. median n. wrist flex/ext Side right Reps/Minutes 15 ea Self-Care/Home Management Treatment Education Patient Education Body Mechanics,Joint Protection,Pain Management Other Education Educated on adhesive capsulitis pathology and progression. Recommended cryotherapy for pain management and activity modification as able, especially with lifting PT-OP-T Assessment and Plan Start: 08/01/24 16:06 Freq: Status: Active Protocol: Document 08/02/24 09:45 NM (Rec: 08/02/24 11:12 NM [id number]) Physical Therapy Assessment Rehab Potential Rehabilitation Potential Good Evaluation Complexity Clinical Presentation at Evaluation Stable Impairments Impairments Activity Tolerance,Functional Activities,Functional Mobility ,Gait,Integument,Pain,Posture, ROM,Sensation,Soft Tissue Mobility,Strength,Transfers Other Concerns Barriers to Rehabilitation Pt has a job that requires 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 PMH of B carpal tunnel, L shoulder surgery (rotator cuff repair), kidney donation Goals Five Impairment strength impaired R shoulder globally Technical Publications Manager Goal (LTG) Pt will improve R shoulder strength to at least 4+/5 globally in order to demonstrate improvements needed for lifting and carrying LTG Duration 12 weeks Four Impairment IR apley AROM limited Short Term Goal (STG) Pt will be able to reach L5 with her R hand in order to demonstrate improved AROM for dressing and to put her hand on her hip STG Duration 8 weeks Fdc Goal (LTG) Pt will be able to reach L1 with her R hand in order to demonstrate improved AROM for dressing and to put her hand on her hip LTG Duration 12 weeks Three Impairment ER apley AROM limited Short Term Goal (STG) Pt will be able to reach her R ear to demonstrate improved ER AROM for grooming STG Duration 8 weeks Technical Publications Manager Goal (LTG) Pt will be able to reach the base of her occiput using her R hand to demonstrate improved ER AROM for grooming LTG Duration 12 weeks Two Impairment flexion and abduction AROM limited Short Term Goal (STG) Pt will improve R shoulder flexion and abduction to at least 125 deg in order to demonstrate improvements in ability to reach overhead for dressing/grooming STG Duration 8 weeks Technical Publications Manager Goal (LTG) Pt will improve R shoulder flexion and abduction to at least 150 deg in order to demonstrate improvements in ability to reach overhead and write on board at work LTG Duration 12 weeks One Impairment quickdash score 70% impairment Short Term Goal (STG) Pt will improve quickdash score by at least 10% in order to demonstrate improvements in QOL, symptom management, and activity tolerance STG Duration 6 weeks Fdc Goal (LTG) Pt will improve quickdash score <30% in order to demonstrate improvements in QOL, symptom management, and activity tolerance LTG Duration 12 weeks Assessment Summary Assessment Pt is a 54 y.o. female presenting with R shoulder pain beginning in April 2024 after chopping wood. Pt's R shoulder mobility and strength has gradually decreased. Pt has impairments in ROM, strength, ADL tolerance, pain management, sleeping, and sensation. She has increased restrictions of the muscles along her R shoulder and cervical spine. Her symptoms are most consistent with adhesive capsulitis with possible pathology to the rotator cuff and long head biceps, as well. She has a PMH of shoulder injury on her L side, in addition to her age and gender. She has limitations in R shoulder flexion, abduction, ER, and IR ; pt also has limited R shoulder strength globally. Pt has no symptom changes with traction or compression of cervical spine; her symptoms are reproduced with median nerve ULTT, Tinel testing at carpal and cubital tunnels. Due to variation in neural testing and increased trigger points/muscular restrictions, pt's neural symptoms will continue to be addressed after pt's shoulder. PT educated pt on exam findings and plan of care. Pt verbalizes agreement. Pt would benefit from skilled PT for R shoulder mobility and strengthening in order to improve lifting, reaching, dressing, grooming, work requirements, and ability to perform ADLs. Physical Therapy Plan Frequency and Duration Frequency of Treatment 1-2x/wk Duration of treatment (weeks) 12 Plan of Care Start Date 08/02/24 Plan of Care End Date 10/27/24 Therapeutic Interventions Therapeutic Interventions Balance Training,Gait Training ,Home Exercise Program,Joint Mobilizations,Manual Therapy, Neuromuscular Re-education, Orthotic/Prosthetic Management ,Patient/Caregiver Education, Self-Care/Home Management, Sensory Integration,Soft Tissue Mobilization,Taping, Therapeutic Activities, Therapeutic Exercises Modalities Cold Pack/Ice Massage,Electric Stimulation,Hot Packs, Ultrasound Other Therapeutic Interventions Trigger point therapy Next Visit Focus/Plan Next Note Type Treatment Note Next Visit Plan Ask if scheduled/had MRI Joint mobilizations and soft tissue mobilization AAROm>AROM w/ dowel, pulleys, isometrics; trial table slides , table walkout stretch, self STM, pec stretch. Assess tolerance to HEP w/ nerve glides
--- NOTE | 2024-08-11 16:34 | PT.OTN ---
Current Diagnoses Pain in right shoulder (08/11/24) Stiffness of right shoulder, not elsewhere classified (08/11/24) Weakness (08/11/24) Strain of unspecified muscle, fascia and tendon at shoulder and upper arm level, right arm, initial encounter (08/11/24) Physical Therapy Treatment Note PT-OP-A Visit Information Start: 08/01/24 16:06 Freq: Status: Active Protocol: Document 08/11/24 15:17 TS (Rec: 08/11/24 16:33 TS [id number]) Out-Patient Physical Therapy Visit Information Visit Information Visit Type Treatment Note Visit Note [facility]: [id number] Visit Start Time 15:17 Visit Stop Time 16:17 Visit Number Number of ORNAMENTAL PAINTER Visits 1 PT-OP-B Current Condition Start: 08/01/24 16:06 Freq: Status: Active Protocol: Document 08/02/24 09:45 NM (Rec: 08/02/24 11:12 NM [id number]) Current Condition History of Current Condition Onset Date April 2024 Current Complaints weakness, pain, decreased mobility History of Current Condition Pt presents with R shoulder pain in April 2024. She was chopping firewood with a small axe, then slept in a tent. She reports that the next morning her shoulder started to bother her. She reports difficulty with raising her arm above her head, constant pain to arm, weakness/tingling in fingers 3-4-5 sometimes, waking/going to bed, sleeping . PMH of L shoulder surgery ( tear and arthritis) several years ago. She has a job that requires lifting. 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 She does not lift pt alone, transfers. Pt also reports neck pain on her R side; has a hx of neck pain but not on R side. Pt reports that she fell yesterday and caught herself with her R arm. Pt tends to sleep on her back or L side ( hugs a pillow). Unsure of what positions or tasks make pt's fingers feel worse, but states feels more when cutting, doing dishes; she shakes her hands in the hands to feel better, worse with sitting, feels more during day. Pt has had an injection in in last few months, but reports did not help Prior Treatments and Tests Pt has an upcoming MRI depending on insurance She had an x-ray PT-OP-C Subjective Start: 08/01/24 16:06 Freq: Status: Active Protocol: Document 08/11/24 15:17 TS (Rec: 08/11/24 16:33 TS [id number]) OP-PT Subjective Patient Comments Patient Comments Pt reports pain 5/10 without mobility, increases more when moving. She has been doing her HEP and some exercises she remembers from her previous shoulder surgery. She alos performs some self-STM with tennis ball in scapula and pec . PT-OP-E Functional Tests Start: 08/01/24 16:06 Freq: Status: Active Protocol: Document 08/02/24 09:45 NM (Rec: 08/02/24 11:12 NM [id number]) Functional Tests Apley's Scratch Test Action 1- Left post cuff Action 1- Right ACJ; painful Action 2- Left T6 Action 2- Right not to ear; painful Action 3- Left T6 Action 3- Right sacrum; painful PT-OP-F Manual Assessment Start: 08/01/24 16:06 Freq: Status: Active Protocol: Document 08/02/24 09:45 NM (Rec: 08/02/24 11:12 NM [id number]) Manual Assessments Soft Tissue Assessment Soft Tissue Mobility Assessment Increased restriction of cervical paraspinals; tightness and trigger points along levator scapulae, upper trapezius, rhomboids, posterior cuff. Increased lat tightnesss Joint Mobility Assessment Joint Mobility Assessment R scapula elevated and restricted. Limited R GHJ posterior and inferior glide. No restrictions of cervical spine mobility except soft tissue tightness. Empty end feels for all, more PROM than AROM PT-OP-G Mobility & Gait Start: 08/01/24 16:06 Freq: Status: Active Protocol: Document 08/02/24 09:45 NM (Rec: 08/02/24 11:12 NM [id number]) OP Gait Assessment Gait Gait Assistance Required: Independent Distance (Feet) 150 Comments Gait Comments Kristelos decreased trunk rotation , stiffness on RUE PT-OP-H Neuro Start: 08/01/24 16:06 Freq: Status: Active Protocol: Document 08/02/24 09:45 NM (Rec: 08/02/24 11:12 NM [id number]) Sensation Evaluation Comments Summary Comments Will assess next session PT-OP-J Posture/Palpation/Skin Start: 08/01/24 16:06 Freq: Status: Active Protocol: Document 08/02/24 09:45 NM (Rec: 08/02/24 11:12 NM [id number]) Posture Evaluation Position Standing Head/C-Spine Posture Forward Head Shoulder Posture (L) Forward,(R) Forward,(R) Elevated Scapula Posture (R) Elevated,(L) Winged,(R) Winged Arm Posture (L) Internally Rotated,(R) Internally Rotated Pelvis Posture Anteriorly Tilted Knee Posture (L) Genu Valgus,(R) Genu Valgus Palpation Assessment Location R shoulder Palpation Details Tenderness at long head biceps tendon, AC joint, GH joint Tightness along lat, posterior cuff, cervical paraspinals and periscapulars PT-OP-K Range of Motion Start: 08/01/24 16:06 Freq: Status: Active Protocol: Document 08/02/24 09:45 NM (Rec: 08/02/24 11:12 NM [id number]) Cervical Spine Range of Motion Cervical Spine Active Degrees Flexion 60 Extension 55 Rotation Left 80 Rotation Right 70 Lateral Flexion Left 45 Lateral Flexion Right 40 ROM Limitations Soft Tissue Tightness Shoulder Goniometric Range of Motion Shoulder Right Flexion 90 Extension 40 Abduction 80 External Rotation at 0 degrees Abduction 10 Internal Rotation 70 Comments PROM: 120 deg flex, 100 deg abd, 10 deg ER Left Flexion 170 Extension 65 Abduction 175 External Rotation at 45 degrees 90 Abduction External Rotation at 0 degrees Abduction 60 Internal Rotation 70 PT-OP-L Special Tests Start: 08/01/24 16:06 Freq: Status: Active Protocol: Document 08/02/24 09:45 NM (Rec: 08/02/24 11:12 NM [id number]) Special Tests Cervical Spine Special Tests Upper Limb Tension Test Test Results + Comments median n.; unable to test ulnar d/t shldr ROM/pain Spurling's Test Test Results - Shoulder Special Tests Empty Can Test Results + Comments limited ROM Belly Press Test Results + Yergason's Biceps Test Results - Elbow Special Tests Tinel Test Results + Comments cubital tunnel Wrist/Hand Special Tests Tinel Test Results + Comments over carpal tunnel PT-OP-M Strength Start: 08/01/24 16:06 Freq: Status: Active Protocol: Document 08/02/24 09:45 NM (Rec: 08/02/24 11:12 NM [id number]) Shoulder Strength Shoulder Manual Muscle Testing Right Flexion 3+ Fair+ Extension 3+ Fair+ External Rotation 4- Good- Internal Rotation 3+ Fair+ Comments pain with flex, abd, IR at cuff and biceps Left Flexion 4+ Good+ Extension 4+ Good+ Abduction (C5) 4+ Good+ Adduction 4+ Good+ External Rotation 4+ Good+ Internal Rotation 4+ Good+ Horizontal Abduction 4+ Good+ Horizontal Adduction 4+ Good+ Comments bicep Elbow/Forearm Strength Elbow and Forearm Manual Muscle Testing Right Flexion (C6) 4 Good Extension (C7) 4 Good Comments No pain over biceps long head Left Flexion (C6) 4+ Good+ Extension (C7) 4+ Good+ PT-OP-Q Treatments Start: 08/01/24 16:06 Freq: Status: Active Protocol: Document 08/11/24 15:17 TS (Rec: 08/11/24 16:33 TS [id number]) Therapeutic Exercises Supine Exercises AAROM Supine Exercise Name 1. flexion w/ dowel Side right Equipment Used L assist R Reps/Minutes 1. 5, 1. 5 Comments decreased GHJ mob; cued resist R lowering w/ R to dec pain Sitting Exercises AAROM Sitting Exercise Name Dowel with ABD/Flex Reps/Minutes x8 Comments Discomfort lowering shuolder back down Table slide Side right Equipment Used towel on table Reps/Minutes x5 Comments coming back out of table slide is painful Lindsey's Sitting Exercise Name ABD/Flex Comments cued for L hand doing the work , comes up to about 90D Standing Exercises isomertrics Standing Exercise Name Int/Ext rotation, flex, Ext Side right Equipment Used Towel Reps/Minutes x5 Comments Pt's shoulder fatigues quickly Manual Therapy Treatment Soft Tissue Mobilization R shoulder Body Location Pec, scap Mobilization Type Rolling Intensity/Depth Superficial Body Position Supine Comments Restrictions in R rhomboids/ scap. Pt reports some pain with manual but does not provide relief. Joint Mobilizations R shoulder Joint Posterior glide GH, Scap retraction, protraction, elevation, depression. Grade I Reps/Duration x10 Comments Attempted inferior glide of gh joint but too painful for pt. Nerve Glides Median Comments Slasher Tender Helper putting tray down on table. PT-OP-T Assessment and Plan Start: 08/01/24 16:06 Freq: Status: Active Protocol: Document 08/11/24 15:17 TS (Rec: 08/11/24 16:33 TS [id number]) Physical Therapy Assessment Goals Five Impairment strength impaired R shoulder globally Shingle Weaver Goal (LTG) Pt will improve R shoulder strength to at least 4+/5 globally in order to demonstrate improvements needed for lifting and carrying LTG Duration 12 weeks Four Impairment IR apley AROM limited Short Term Goal (STG) Pt will be able to reach L5 with her R hand in order to demonstrate improved AROM for dressing and to put her hand on her hip STG Duration 8 weeks Shingle Weaver Goal (LTG) Pt will be able to reach L1 with her R hand in order to demonstrate improved AROM for dressing and to put her hand on her hip LTG Duration 12 weeks Three Impairment ER apley AROM limited Short Term Goal (STG) Pt will be able to reach her R ear to demonstrate improved ER AROM for grooming STG Duration 8 weeks Shingle Weaver Goal (LTG) Pt will be able to reach the base of her occiput using her R hand to demonstrate improved ER AROM for grooming LTG Duration 12 weeks Two Impairment flexion and abduction AROM limited Short Term Goal (STG) Pt will improve R shoulder flexion and abduction to at least 125 deg in order to demonstrate improvements in ability to reach overhead for dressing/grooming STG Duration 8 weeks Alf Goal (LTG) Pt will improve R shoulder flexion and abduction to at least 150 deg in order to demonstrate improvements in ability to reach overhead and write on board at work LTG Duration 12 weeks One Impairment quickdash score 70% impairment Impairment decreased functional use of left UE Short Term Goal (STG) Pt will improve quickdash score by at least 10% in order to demonstrate improvements in QOL, symptom management, and activity tolerance STG Duration 6 weeks Alf Goal (LTG) Pt will improve quickdash score <30% in order to demonstrate improvements in QOL, symptom management, and activity tolerance LTG Duration 12 weeks Assessment Summary Assessment Pt has a lot of discomfort and aches in her R shoulder throughout session today. Cued pt to stay in pain free range with ther-ex. Her R shoulder fatigues quickly with isometric exercise. Pt is very guarded with manual therapy and has some discomfort. She has some restricitons in her R shoulder in rhomboids/scap. Educated pt on self-STM with ball pressing into rhomboids and scapula. Pt would benefit from skilled PT for R shoulder mobility and strengthening in order to improve lifting, reaching, dressing, grooming, work requirements, and ability to perform ADLs. Physical Therapy Plan Next Visit Focus/Plan Next Note Type Treatment Note Next Visit Plan Ask if scheduled/had MRI AAROm>AROM w/ dowel table walkout stretch, self STM, pec stretch. Assess tolerance to HEP w/ nerve glides. Assess carryover/reponse to table slides, isometrics. Continue STM and joint mobs.
--- NOTE | 2024-08-16 09:00 | PT.OTN ---
Current Diagnoses Pain in right shoulder (08/16/24) Stiffness of right shoulder, not elsewhere classified (08/16/24) Weakness (08/16/24) Strain of unspecified muscle, fascia and tendon at shoulder and upper arm level, right arm, initial encounter (08/16/24) Physical Therapy Treatment Note PT-OP-A Visit Information Start: 08/01/24 16:06 Freq: Status: Active Protocol: Document 08/16/24 08:19 SP (Rec: 08/16/24 09:03 SP [id number]) Out-Patient Physical Therapy Visit Information Visit Information Visit Type Treatment Note Visit Start Time 08:19 Visit Stop Time 09:00 Visit Number 3/60 Number of STRAP CUTTER Visits 2 Evaluation Information Evaluation Date 08/02/24 PT-OP-B Current Condition Start: 08/01/24 16:06 Freq: Status: Active Protocol: Document 08/02/24 09:45 NM (Rec: 08/02/24 11:12 NM [id number]) Current Condition History of Current Condition Onset Date April 2024 Current Complaints weakness, pain, decreased mobility History of Current Condition Pt presents with R shoulder pain in April 2024. She was chopping firewood with a small axe, then slept in a tent. She reports that the next morning her shoulder started to bother her. She reports difficulty with raising her arm above her head, constant pain to arm, weakness/tingling in fingers 3-4-5 sometimes, waking/going to bed, sleeping . PMH of L shoulder surgery ( tear and arthritis) several years ago. She has a job that requires lifting. 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 She does not lift pt alone, transfers. Pt also reports neck pain on her R side; has a hx of neck pain but not on R side. Pt reports that she fell yesterday and caught herself with her R arm. Pt tends to sleep on her back or L side ( hugs a pillow). Unsure of what positions or tasks make pt's fingers feel worse, but states feels more when cutting, doing dishes; she shakes her hands in the hands to feel better, worse with sitting, feels more during day. Pt has had an injection in in last few months, but reports did not help Prior Treatments and Tests Pt has an upcoming MRI depending on insurance She had an x-ray PT-OP-C Subjective Start: 08/01/24 16:06 Freq: Status: Active Protocol: Document 08/16/24 08:19 SP (Rec: 08/16/24 09:03 SP [id number]) OP-PT Subjective Patient Comments Patient Comments Pt reports her R shoulder hurts all the time and now into the right side of her neck and now is limiting look up. She has noticed isn't able to look up as well now. Pain R shld 4/10 at rest, normal achy and takes Tylenol when wakes up to help but not sure does anything. She is awaiting an orthopedic referral approval to go and hope get an MRI. 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 PT-OP-E Functional Tests Start: 08/01/24 16:06 Freq: Status: Active Protocol: Document 08/02/24 09:45 NM (Rec: 08/02/24 11:12 NM [id number]) Functional Tests Apley's Scratch Test Action 1- Left post cuff Action 1- Right ACJ; painful Action 2- Left T6 Action 2- Right not to ear; painful Action 3- Left T6 Action 3- Right sacrum; painful PT-OP-F Manual Assessment Start: 08/01/24 16:06 Freq: Status: Active Protocol: Document 08/02/24 09:45 NM (Rec: 08/02/24 11:12 NM [id number]) Manual Assessments Soft Tissue Assessment Soft Tissue Mobility Assessment Increased restriction of cervical paraspinals; tightness and trigger points along levator scapulae, upper trapezius, rhomboids, posterior cuff. Increased lat tightnesss Joint Mobility Assessment Joint Mobility Assessment R scapula elevated and restricted. Limited R GHJ posterior and inferior glide. No restrictions of cervical spine mobility except soft tissue tightness. Empty end feels for all, more PROM than AROM PT-OP-G Mobility & Gait Start: 08/01/24 16:06 Freq: Status: Active Protocol: Document 08/02/24 09:45 NM (Rec: 08/02/24 11:12 NM [id number]) OP Gait Assessment Gait Gait Assistance Required: Independent Distance (Feet) 150 Comments Gait Comments Demos decreased trunk rotation , stiffness on RUE PT-OP-H Neuro Start: 08/01/24 16:06 Freq: Status: Active Protocol: Document 08/02/24 09:45 NM (Rec: 08/02/24 11:12 NM [id number]) Sensation Evaluation Comments Summary Comments Will assess next session PT-OP-J Posture/Palpation/Skin Start: 08/01/24 16:06 Freq: Status: Active Protocol: Document 08/02/24 09:45 NM (Rec: 08/02/24 11:12 NM [id number]) Posture Evaluation Position Standing Head/C-Spine Posture Forward Head Shoulder Posture (L) Forward,(R) Forward,(R) Elevated Scapula Posture (R) Elevated,(L) Winged,(R) Winged Arm Posture (L) Internally Rotated,(R) Internally Rotated Pelvis Posture Anteriorly Tilted Knee Posture (L) Genu Valgus,(R) Genu Valgus Palpation Assessment Location R shoulder Palpation Details Tenderness at long head biceps tendon, AC joint, GH joint Tightness along lat, posterior cuff, cervical paraspinals and periscapulars PT-OP-K Range of Motion Start: 08/01/24 16:06 Freq: Status: Active Protocol: Document 08/02/24 09:45 NM (Rec: 08/02/24 11:12 NM [id number]) Cervical Spine Range of Motion Cervical Spine Active Degrees Flexion 60 Extension 55 Rotation Left 80 Rotation Right 70 Lateral Flexion Left 45 Lateral Flexion Right 40 ROM Limitations Soft Tissue Tightness Shoulder Goniometric Range of Motion Shoulder Right Flexion 90 Extension 40 Abduction 80 External Rotation at 0 degrees Abduction 10 Internal Rotation 70 Comments PROM: 120 deg flex, 100 deg abd, 10 deg ER Left Flexion 170 Extension 65 Abduction 175 External Rotation at 45 degrees 90 Abduction External Rotation at 0 degrees Abduction 60 Internal Rotation 70 PT-OP-L Special Tests Start: 08/01/24 16:06 Freq: Status: Active Protocol: Document 08/02/24 09:45 NM (Rec: 08/02/24 11:12 NM [id number]) Special Tests Cervical Spine Special Tests Upper Limb Tension Test Test Results + Comments median n.; unable to test ulnar d/t shldr ROM/pain Spurling's Test Test Results - Shoulder Special Tests Empty Can Test Results + Comments limited ROM Belly Press Test Results + Yergason's Biceps Test Results - Elbow Special Tests Tinel Test Results + Comments cubital tunnel Wrist/Hand Special Tests Tinel Test Results + Comments over carpal tunnel PT-OP-M Strength Start: 08/01/24 16:06 Freq: Status: Active Protocol: Document 08/02/24 09:45 NM (Rec: 08/02/24 11:12 NM [id number]) Shoulder Strength Shoulder Manual Muscle Testing Right Flexion 3+ Fair+ Extension 3+ Fair+ External Rotation 4- Good- Internal Rotation 3+ Fair+ Comments pain with flex, abd, IR at cuff and biceps Left Flexion 4+ Good+ Extension 4+ Good+ Abduction (C5) 4+ Good+ Adduction 4+ Good+ External Rotation 4+ Good+ Internal Rotation 4+ Good+ Horizontal Abduction 4+ Good+ Horizontal Adduction 4+ Good+ Comments bicep Elbow/Forearm Strength Elbow and Forearm Manual Muscle Testing Right Flexion (C6) 4 Good Extension (C7) 4 Good Comments No pain over biceps long head Left Flexion (C6) 4+ Good+ Extension (C7) 4+ Good+ PT-OP-Q Treatments Start: 08/01/24 16:06 Freq: Status: Active Protocol: Document 08/16/24 08:19 SP (Rec: 08/16/24 09:03 SP [id number]) Therapeutic Exercises Sidelying Exercises r shld Sidelying Exercise Name trialed in PT: ABD Side right Resistance elbow bent AROM Reps/Minutes 3 reps before UT compensations Comments cued scapular glide UR, decreased UT compensations- improved post manual Sitting Exercises neck stretches Sitting Exercise Name UT, LS- added to HEP- declined HO Side right Reps/Minutes 30 SH x2 each Comments good tolerance cued can use gentle over pressure with LUE for light stretch Other Exercises self STMs Other Exercise Name ball wall in pillowcase, initiated theracane. Comments MWM head nods/turns- improved head neck ROM to look up Manual Therapy Treatment Consent Patient gave verbal consent for manual Yes treatment Soft Tissue Mobilization neck Body Location R>L UT, LS, CS paraspinals, SOR, SCM Mobilization Type Myofascial Release,Rolling, Sustained Pressure,Other Intensity/Depth Moderate Body Position Hooklying Comments gentle massage and MWM head turns/nods and education self application use theracane. R shoulder Body Location Pec more distal, rhomboid, infraspinatus, supraspinatus, Mobilization Type Rolling Intensity/Depth Moderate Body Position L Sidelying Comments Restrictions in R rhomboids and pec. Pt reports some pain with manual but does not provide relief. Therapist support STMs and MWM scapulothoracic. MWM pec LUE into muscle smallrange RUE- good feedback lessening tension. Joint Mobilizations R shoulder Joint Posterior glide GH, Scap retraction, protraction, elevation, depression. Grade I Reps/Duration x10 Comments posterior and inferior with reports little discomfort but ok. Manual Techniques PROM Type R shld Comments FF, ABD, IR, ER PT-OP-T Assessment and Plan Start: 08/01/24 16:06 Freq: Status: Active Protocol: Document 08/16/24 08:19 SP (Rec: 08/16/24 09:03 SP [id number]) Physical Therapy Assessment Goals Five Impairment strength impaired R shoulder globally Candy Packer Goal (LTG) Pt will improve R shoulder strength to at least 4+/5 globally in order to demonstrate improvements needed for lifting and carrying LTG Duration 12 weeks Four Impairment IR apley AROM limited Short Term Goal (STG) Pt will be able to reach L5 with her R hand in order to demonstrate improved AROM for dressing and to put her hand on her hip STG Duration 8 weeks Assisted Goal (LTG) Pt will be able to reach L1 with her R hand in order to demonstrate improved AROM for dressing and to put her hand on her hip LTG Duration 12 weeks Three Impairment ER apley AROM limited Short Term Goal (STG) Pt will be able to reach her R ear to demonstrate improved ER AROM for grooming STG Duration 8 weeks Assisted Goal (LTG) Pt will be able to reach the base of her occiput using her R hand to demonstrate improved ER AROM for grooming LTG Duration 12 weeks Two Impairment flexion and abduction AROM limited Short Term Goal (STG) Pt will improve R shoulder flexion and abduction to at least 125 deg in order to demonstrate improvements in ability to reach overhead for dressing/grooming STG Duration 8 weeks Assisted Goal (LTG) Pt will improve R shoulder flexion and abduction to at least 150 deg in order to demonstrate improvements in ability to reach overhead and write on board at work LTG Duration 12 weeks One Impairment quickdash score 70% impairment Impairment decreased functional use of left UE Short Term Goal (STG) Pt will improve quickdash score by at least 10% in order to demonstrate improvements in QOL, symptom management, and activity tolerance STG Duration 6 weeks Candy Packer Goal (LTG) Pt will improve quickdash score <30% in order to demonstrate improvements in QOL, symptom management, and activity tolerance LTG Duration 12 weeks Assessment Summary Assessment Pt tolerated manual, little discomfort R shld reports. Decreased neck tension post manual and able to look up better. Good response and performance initiated UT and LS stretches and MWM using theracane CS paraspinals and discussion use ball on wall in pillowcase for better control . Ed self MWM pec small R UE ROM vs massage both good forms self support lessen R shld tightness and achiness understood. Discussed continue HEP later today, did get to performance today. Physical Therapy Plan Frequency and Duration Frequency of Treatment 1-2x/wk Duration of treatment (weeks) 12 Plan of Care Start Date 08/02/24 Plan of Care End Date 10/27/24 Therapeutic Interventions Therapeutic Interventions Balance Training,Gait Training ,Home Exercise Program,Joint Mobilizations,Manual Therapy, Neuromuscular Re-education, Orthotic/Prosthetic Management ,Patient/Caregiver Education, Self-Care/Home Management, Sensory Integration,Soft Tissue Mobilization,Taping, Therapeutic Activities, Therapeutic Exercises Modalities Cold Pack/Ice Massage,Electric Stimulation,Hot Packs, Ultrasound Other Therapeutic Interventions Trigger point therapy Next Visit Focus/Plan Next Note Type Treatment Note Next Visit Plan Check response to added stretches and MWM ball/ theracane. Check if have ortho appt to support order for MRI . Recheck HEPP: AAROm>AROM w/ dowel table walkout stretch, self STM, pec stretch. Assess tolerance to HEP w/ nerve glides. Assess carryover/ reponse to table slides, isometrics. Continue STM and joint mobs.
--- NOTE | 2024-08-23 13:24 | PT.OTN ---
Current Diagnoses Pain in right shoulder (08/23/24) Stiffness of right shoulder, not elsewhere classified (08/23/24) Weakness (08/23/24) Strain of unspecified muscle, fascia and tendon at shoulder and upper arm level, right arm, initial encounter (08/23/24) Physical Therapy Treatment Note PT-OP-A Visit Information Start: 08/01/24 16:06 Freq: Status: Active Protocol: Document 08/23/24 09:04 NM (Rec: 08/23/24 09:47 NM [id number]) Out-Patient Physical Therapy Visit Information Visit Information Visit Type Treatment Note Visit Start Time 09:05 Visit Stop Time 09:45 Visit Number [id number] Evaluation Information Evaluation Date 08/02/24 PT-OP-B Current Condition Start: 08/01/24 16:06 Freq: Status: Active Protocol: Document 08/02/24 09:45 NM (Rec: 08/02/24 11:12 NM [id number]) Current Condition History of Current Condition Onset Date April 2024 Current Complaints weakness, pain, decreased mobility History of Current Condition Pt presents with R shoulder pain in April 2024. She was chopping firewood with a small axe, then slept in a tent. She reports that the next morning her shoulder started to bother her. She reports difficulty with raising her arm above her head, constant pain to arm, weakness/tingling in fingers 3-4-5 sometimes, waking/going to bed, sleeping . PMH of L shoulder surgery ( tear and arthritis) several years ago. She has a job that requires lifting. 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 She does not lift pt alone, transfers. Pt also reports neck pain on her R side; has a hx of neck pain but not on R side. Pt reports that she fell yesterday and caught herself with her R arm. Pt tends to sleep on her back or L side ( hugs a pillow). Unsure of what positions or tasks make pt's fingers feel worse, but states feels more when cutting, doing dishes; she shakes her hands in the hands to feel better, worse with sitting, feels more during day. Pt has had an injection in in last few months, but reports did not help Prior Treatments and Tests Pt has an upcoming MRI depending on insurance She had an x-ray PT-OP-C Subjective Start: 08/01/24 16:06 Freq: Status: Active Protocol: Document 08/23/24 09:04 NM (Rec: 08/23/24 09:47 NM [id number]) OP-PT Subjective Patient Comments Patient Comments Pt reports that her neck is sore, no changes in her R shoulder. Reports 4-5/10 pain in R shoulder. Has difficulty looking up. Still taking tylenol. Has appt with orthopedic surgeon next week ( Wednesday). Hestand good after last session but still limited . Reports pulleys and AAROM bother her neck because she knows she tips, counter top slide. Reports able to lift her R arm more to write on board but still has to support with L arm due to pain and weakness. PT-OP-E Functional Tests Start: 08/01/24 16:06 Freq: Status: Active Protocol: Document 08/02/24 09:45 NM (Rec: 08/02/24 11:12 NM [id number]) Functional Tests Apley's Scratch Test Action 1- Left post cuff Action 1- Right ACJ; painful Action 2- Left T6 Action 2- Right not to ear; painful Action 3- Left T6 Action 3- Right sacrum; painful PT-OP-F Manual Assessment Start: 08/01/24 16:06 Freq: Status: Active Protocol: Document 08/02/24 09:45 NM (Rec: 08/02/24 11:12 NM [id number]) Manual Assessments Soft Tissue Assessment Soft Tissue Mobility Assessment Increased restriction of cervical paraspinals; tightness and trigger points along levator scapulae, upper trapezius, rhomboids, posterior cuff. Increased lat tightnesss Joint Mobility Assessment Joint Mobility Assessment R scapula elevated and restricted. Limited R GHJ posterior and inferior glide. No restrictions of cervical spine mobility except soft tissue tightness. Empty end feels for all, more PROM than AROM PT-OP-G Mobility & Gait Start: 08/01/24 16:06 Freq: Status: Active Protocol: Document 08/02/24 09:45 NM (Rec: 08/02/24 11:12 NM [id number]) OP Gait Assessment Gait Gait Assistance Required: Independent Distance (Feet) 150 Comments Gait Comments Demos decreased trunk rotation , stiffness on RUE PT-OP-H Neuro Start: 08/01/24 16:06 Freq: Status: Active Protocol: Document 08/02/24 09:45 NM (Rec: 08/02/24 11:12 NM [id number]) Sensation Evaluation Comments Summary Comments Will assess next session PT-OP-J Posture/Palpation/Skin Start: 08/01/24 16:06 Freq: Status: Active Protocol: Document 08/02/24 09:45 NM (Rec: 08/02/24 11:12 NM [id number]) Posture Evaluation Position Standing Head/C-Spine Posture Forward Head Shoulder Posture (L) Forward,(R) Forward,(R) Elevated Scapula Posture (R) Elevated,(L) Winged,(R) Winged Arm Posture (L) Internally Rotated,(R) Internally Rotated Pelvis Posture Anteriorly Tilted Knee Posture (L) Genu Valgus,(R) Genu Valgus Palpation Assessment Location R shoulder Palpation Details Tenderness at long head biceps tendon, AC joint, GH joint Tightness along lat, posterior cuff, cervical paraspinals and periscapulars PT-OP-K Range of Motion Start: 08/01/24 16:06 Freq: Status: Active Protocol: Document 08/02/24 09:45 NM (Rec: 08/02/24 11:12 NM [id number]) Cervical Spine Range of Motion Cervical Spine Active Degrees Flexion 60 Extension 55 Rotation Left 80 Rotation Right 70 Lateral Flexion Left 45 Lateral Flexion Right 40 ROM Limitations Soft Tissue Tightness Shoulder Goniometric Range of Motion Shoulder Right Flexion 90 Extension 40 Abduction 80 External Rotation at 0 degrees Abduction 10 Internal Rotation 70 Comments PROM: 120 deg flex, 100 deg abd, 10 deg ER Left Flexion 170 Extension 65 Abduction 175 External Rotation at 45 degrees 90 Abduction External Rotation at 0 degrees Abduction 60 Internal Rotation 70 PT-OP-L Special Tests Start: 08/01/24 16:06 Freq: Status: Active Protocol: Document 08/02/24 09:45 NM (Rec: 08/02/24 11:12 NM [id number]) Special Tests Cervical Spine Special Tests Upper Limb Tension Test Test Results + Comments median n.; unable to test ulnar d/t shldr ROM/pain Spurling's Test Test Results - Shoulder Special Tests Empty Can Test Results + Comments limited ROM Belly Press Test Results + Yergason's Biceps Test Results - Elbow Special Tests Tinel Test Results + Comments cubital tunnel Wrist/Hand Special Tests Tinel Test Results + Comments over carpal tunnel PT-OP-M Strength Start: 08/01/24 16:06 Freq: Status: Active Protocol: Document 08/02/24 09:45 NM (Rec: 08/02/24 11:12 NM [id number]) Shoulder Strength Shoulder Manual Muscle Testing Right Flexion 3+ Fair+ Extension 3+ Fair+ External Rotation 4- Good- Internal Rotation 3+ Fair+ Comments pain with flex, abd, IR at cuff and biceps Left Flexion 4+ Good+ Extension 4+ Good+ Abduction (C5) 4+ Good+ Adduction 4+ Good+ External Rotation 4+ Good+ Internal Rotation 4+ Good+ Horizontal Abduction 4+ Good+ Horizontal Adduction 4+ Good+ Comments bicep Elbow/Forearm Strength Elbow and Forearm Manual Muscle Testing Right Flexion (C6) 4 Good Extension (C7) 4 Good Comments No pain over biceps long head Left Flexion (C6) 4+ Good+ Extension (C7) 4+ Good+ PT-OP-Q Treatments Start: 08/01/24 16:06 Freq: Status: Active Protocol: Document 08/23/24 09:04 NM (Rec: 08/23/24 09:47 NM [id number]) Therapeutic Exercises Supine Exercises thoracic extension Supine Exercise Name 1. arms crossed, 2. shoulder flex Side bilateral Equipment Used pool noodle Reps/Minutes 10 ea pec stretch Side bilateral Equipment Used pool noodle under back, mat on floor Reps/Minutes 60 ea Sidelying Exercises open book Sidelying Exercise Name modified with arm bent for comfort Side right Reps/Minutes 10 Comments cued for form Sitting Exercises thoracic rotation Side bilateral Equipment Used seated w/ forward flexion and CS rotation Reps/Minutes 10 scapular isometrics Sitting Exercise Name adduction, depression Side bilateral Reps/Minutes 20 ea neck stretches Sitting Exercise Name UT, LS HEP review Side right Reps/Minutes 30 SH x2 each Comments good tolerance cued can use gentle over pressure with LUE for light stretch Manual Therapy Treatment Consent Patient gave verbal consent for manual Yes treatment Soft Tissue Mobilization neck Body Location R>L UT, LS, CS paraspinals, SOR, SCM Mobilization Type Myofascial Release,Rolling, Sustained Pressure,Other Intensity/Depth Superficial Body Position Hooklying Comments Gentle STM to B cervical spine , yang R sided paraspinals R shoulder Body Location Pec more distal, rhomboid, infraspinatus, supraspinatus, Mobilization Type Rolling Intensity/Depth Superficial Body Position L Sidelying Comments Global restrictions and tenderness along R shoulder and periscapulars. Pec, rhomboids, post cuff, lat very restricted. Palpable relaxation with mobilization but still limited Joint Mobilizations scapulothoracic Direction elev/dep, prot/retract, rotation Grade III Body Position Sidelying Reps/Duration 3x10 Comments Elevated scapula. Less depression and adduction, improved mobility compared to evaluation R shoulder Joint GHJ, 1st rib Direction post, inf, caudal Grade II Reps/Duration 6x30 ea Comments Less discomfort with post glide today, improved mobility compared to evaluation. Still decreased inferior glide PT-OP-T Assessment and Plan Start: 08/01/24 16:06 Freq: Status: Active Protocol: Document 08/23/24 09:04 NM (Rec: 08/23/24 09:47 NM [id number]) Physical Therapy Assessment Goals Five Impairment strength impaired R shoulder globally Usp Goal (LTG) Pt will improve R shoulder strength to at least 4+/5 globally in order to demonstrate improvements needed for lifting and carrying LTG Duration 12 weeks Four Impairment IR apley AROM limited Short Term Goal (STG) Pt will be able to reach L5 with her R hand in order to demonstrate improved AROM for dressing and to put her hand on her hip STG Duration 8 weeks Manufacturer'S Representative Goal (LTG) Pt will be able to reach L1 with her R hand in order to demonstrate improved AROM for dressing and to put her hand on her hip LTG Duration 12 weeks Three Impairment ER apley AROM limited Short Term Goal (STG) Pt will be able to reach her R ear to demonstrate improved ER AROM for grooming STG Duration 8 weeks Usp Goal (LTG) Pt will be able to reach the base of her occiput using her R hand to demonstrate improved ER AROM for grooming LTG Duration 12 weeks Two Impairment flexion and abduction AROM limited Short Term Goal (STG) Pt will improve R shoulder flexion and abduction to at least 125 deg in order to demonstrate improvements in ability to reach overhead for dressing/grooming STG Duration 8 weeks Usp Goal (LTG) Pt will improve R shoulder flexion and abduction to at least 150 deg in order to demonstrate improvements in ability to reach overhead and write on board at work LTG Duration 12 weeks One Impairment quickdash score 70% impairment Impairment decreased functional use of left UE Short Term Goal (STG) Pt will improve quickdash score by at least 10% in order to demonstrate improvements in QOL, symptom management, and activity tolerance STG Duration 6 weeks Manufacturer'S Representative Goal (LTG) Pt will improve quickdash score <30% in order to demonstrate improvements in QOL, symptom management, and activity tolerance LTG Duration 12 weeks Assessment Summary Assessment Pt tolerated session well with only mild discomfort in R shoulder with sidelying open book, less when R shoulder ROM modified. Emphasis on cervicothoracic mobility to assist with overall shoulder mobility. Good tolerance for pool noodle over foam roller to promote gentle thoracic mobility. Pt has increased resistrictions of R paraspinals, pec, periscapulars. Reduced with gentle soft tissue mobilization and better tolerance for R GHJ mobilizations today. She has R shoulder flexion AROM 105 deg and 85 deg R shoulder abduction at end of session; demos shoulder elevation compensation with increased elevation. Both are improvements since initial evaluation. She reports 5/10 pain in R shoulder at end of session. Pt would benefit from 2x/wk with PT but unable to achieve due to work schedule. Aleta would benefit from skilled PT for R shoulder mobility and strengthening in order to improve symptom management and ability to perform reaching/lifting ADLs and work-related functions. Physical Therapy Plan Frequency and Duration Frequency of Treatment 1-2x/wk Duration of treatment (weeks) 12 Plan of Care Start Date 08/02/24 Plan of Care End Date 10/27/24 Therapeutic Interventions Therapeutic Interventions Balance Training,Gait Training ,Home Exercise Program,Joint Mobilizations,Manual Therapy, Neuromuscular Re-education, Orthotic/Prosthetic Management ,Patient/Caregiver Education, Self-Care/Home Management, Sensory Integration,Soft Tissue Mobilization,Taping, Therapeutic Activities, Therapeutic Exercises Modalities Cold Pack/Ice Massage,Electric Stimulation,Hot Packs, Ultrasound Other Therapeutic Interventions Trigger point therapy Next Visit Focus/Plan Next Note Type Treatment Note Next Visit Plan Ask about ortho appt. Cont with STM to neck/shoulder and GHJ joint mob. Assess tolerance to TS mobility. Add eccentric shoulder flexion and sidelying AROM/AAROM. Recheck HEPP: AAROm>AROM w/ dowel table walkout stretch, self STM, pec stretch. Continue with R shoulder mobilizations and manual work, STM
--- NOTE | 2024-09-01 14:02 | PT.OTN ---
Current Diagnoses Pain in right shoulder (09/01/24) Stiffness of right shoulder, not elsewhere classified (09/01/24) Weakness (09/01/24) Strain of unspecified muscle, fascia and tendon at shoulder and upper arm level, right arm, initial encounter (09/01/24) Physical Therapy Treatment Note PT-OP-A Visit Information Start: 08/01/24 16:06 Freq: Status: Active Protocol: Document 09/01/24 13:08 NBM (Rec: 09/01/24 14:01 NBM [id number]) Out-Patient Physical Therapy Visit Information Visit Information Visit Type Treatment Note Visit Start Time 13:05 Visit Stop Time 13:52 Visit Number PT-OP-B Current Condition Start: 08/01/24 16:06 Freq: Status: Active Protocol: Document 08/02/24 09:45 NM (Rec: 08/02/24 11:12 NM [id number]) Current Condition History of Current Condition Onset Date April 2024 Current Complaints weakness, pain, decreased mobility History of Current Condition Pt presents with R shoulder pain in April 2024. She was chopping firewood with a small axe, then slept in a tent. She reports that the next morning her shoulder started to bother her. She reports difficulty with raising her arm above her head, constant pain to arm, weakness/tingling in fingers 3-4-5 sometimes, waking/going to bed, sleeping . PMH of L shoulder surgery ( tear and arthritis) several years ago. She has a job that requires lifting. 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 She does not lift pt alone, transfers. Pt also reports neck pain on her R side; has a hx of neck pain but not on R side. Pt reports that she fell yesterday and caught herself with her R arm. Pt tends to sleep on her back or L side ( hugs a pillow). Unsure of what positions or tasks make pt's fingers feel worse, but states feels more when cutting, doing dishes; she shakes her hands in the hands to feel better, worse with sitting, feels more during day. 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 It hurts less on the days she doesn't lift student. She saw orthopedic surgeon Dr. Tamayo who advised her R shoulder is frozen who ordered an MRI and she is waiting to get that scheduled, and they will likely schedule manipulation under anesthesia for Sep or Oct. She hasn't done pool noodle ex's because she can't find her pool noodle.R shahid pain 10. PT-OP-E Functional Tests Start: 08/01/24 16:06 Freq: Status: Active Protocol: Document 08/02/24 09:45 NM (Rec: 08/02/24 11:12 NM [id number]) Functional Tests Apley's Scratch Test Action 1- Left post cuff Action 1- Right ACJ; painful Action 2- Left T6 Action 2- Right not to ear; painful Action 3- Left T6 Action 3- Right sacrum; painful PT-OP-F Manual Assessment Start: 08/01/24 16:06 Freq: Status: Active Protocol: Document 08/02/24 09:45 NM (Rec: 08/02/24 11:12 NM [id number]) Manual Assessments Soft Tissue Assessment Soft Tissue Mobility Assessment Increased restriction of cervical paraspinals; tightness and trigger points along levator scapulae, upper trapezius, rhomboids, posterior cuff. Increased lat tightnesss Joint Mobility Assessment Joint Mobility Assessment R scapula elevated and restricted. Limited R GHJ posterior and inferior glide. No restrictions of cervical spine mobility except soft tissue tightness. Empty end feels for all, more PROM than AROM PT-OP-G Mobility & Gait Start: 08/01/24 16:06 Freq: Status: Active Protocol: Document 08/02/24 09:45 NM (Rec: 08/02/24 11:12 NM [id number]) OP Gait Assessment Gait Gait Assistance Required: Independent Distance (Feet) 150 Comments Gait Comments Demos decreased trunk rotation , stiffness on RUE PT-OP-H Neuro Start: 08/01/24 16:06 Freq: Status: Active Protocol: Document 08/02/24 09:45 NM (Rec: 08/02/24 11:12 NM [id number]) Sensation Evaluation Comments Summary Comments Will assess next session PT-OP-J Posture/Palpation/Skin Start: 08/01/24 16:06 Freq: Status: Active Protocol: Document 08/02/24 09:45 NM (Rec: 08/02/24 11:12 NM [id number]) Posture Evaluation Position Standing Head/C-Spine Posture Forward Head Shoulder Posture (L) Forward,(R) Forward,(R) Elevated Scapula Posture (R) Elevated,(L) Winged,(R) Winged Arm Posture (L) Internally Rotated,(R) Internally Rotated Pelvis Posture Anteriorly Tilted Knee Posture (L) Genu Valgus,(R) Genu Valgus Palpation Assessment Location R shoulder Palpation Details Tenderness at long head biceps tendon, AC joint, GH joint Tightness along lat, posterior cuff, cervical paraspinals and periscapulars PT-OP-K Range of Motion Start: 08/01/24 16:06 Freq: Status: Active Protocol: Document 08/02/24 09:45 NM (Rec: 08/02/24 11:12 NM [id number]) Cervical Spine Range of Motion Cervical Spine Active Degrees Flexion 60 Extension 55 Rotation Left 80 Rotation Right 70 Lateral Flexion Left 45 Lateral Flexion Right 40 ROM Limitations Soft Tissue Tightness Shoulder Goniometric Range of Motion Shoulder Right Flexion 90 Extension 40 Abduction 80 External Rotation at 0 degrees Abduction 10 Internal Rotation 70 Comments PROM: 120 deg flex, 100 deg abd, 10 deg ER Left Flexion 170 Extension 65 Abduction 175 External Rotation at 45 degrees 90 Abduction External Rotation at 0 degrees Abduction 60 Internal Rotation 70 PT-OP-L Special Tests Start: 08/01/24 16:06 Freq: Status: Active Protocol: Document 08/02/24 09:45 NM (Rec: 08/02/24 11:12 NM [id number]) Special Tests Cervical Spine Special Tests Upper Limb Tension Test Test Results + Comments median n.; unable to test ulnar d/t shldr ROM/pain Spurling's Test Test Results - Shoulder Special Tests Empty Can Test Results + Comments limited ROM Belly Press Test Results + Yergason's Biceps Test Results - Elbow Special Tests Tinel Test Results + Comments cubital tunnel Wrist/Hand Special Tests Tinel Test Results + Comments over carpal tunnel PT-OP-M Strength Start: 08/01/24 16:06 Freq: Status: Active Protocol: Document 08/02/24 09:45 NM (Rec: 08/02/24 11:12 NM [id number]) Shoulder Strength Shoulder Manual Muscle Testing Right Flexion 3+ Fair+ Extension 3+ Fair+ External Rotation 4- Good- Internal Rotation 3+ Fair+ Comments pain with flex, abd, IR at cuff and biceps Left Flexion 4+ Good+ Extension 4+ Good+ Abduction (C5) 4+ Good+ Adduction 4+ Good+ External Rotation 4+ Good+ Internal Rotation 4+ Good+ Horizontal Abduction 4+ Good+ Horizontal Adduction 4+ Good+ Comments bicep Elbow/Forearm Strength Elbow and Forearm Manual Muscle Testing Right Flexion (C6) 4 Good Extension (C7) 4 Good Comments No pain over biceps long head Left Flexion (C6) 4+ Good+ Extension (C7) 4+ Good+ PT-OP-Q Treatments Start: 08/01/24 16:06 Freq: Status: Active Protocol: Document 09/01/24 13:08 NBM (Rec: 09/01/24 14:01 NB [id number]) Therapeutic Exercises Supine Exercises thoracic extension Supine Exercise Name 1. arms crossed, 2. shoulder flex Side bilateral Equipment Used pool noodle Reps/Minutes 10 ea pec stretch Side bilateral Equipment Used pool noodle under back, mat on floor Reps/Minutes 60 ea Sidelying Exercises open book Sidelying Exercise Name modified with arm bent for comfort Side right Reps/Minutes 10 Comments cued for form, scap setting, head follows hand r shld Sidelying Exercise Name trialed in PT: ABD Side right Resistance elbow bent AROM Comments cued scapular setting to control UT compensation, Manual Therapy Treatment Consent Patient gave verbal consent for manual Yes treatment Soft Tissue Mobilization neck Body Location R>L UT, LS, CS paraspinals, SOR, SCM Mobilization Type Myofascial Release,Rolling, Sustained Pressure,Other Intensity/Depth Superficial Body Position Hooklying Comments Gentle STM to B cervical spine , yang R sided paraspinals Joint Mobilizations R shoulder Joint GHJ, Direction post, inf Grade II Reps/Duration 4x30 ea PT-OP-T Assessment and Plan Start: 08/01/24 16:06 Freq: Status: Active Protocol: Document 09/01/24 13:08 [facility] (Rec: 09/01/24 14:01 [facility] [id number]) Physical Therapy Assessment Goals Five Impairment strength impaired R shoulder globally Shelter Goal (LTG) Pt will improve R shoulder strength to at least 4+/5 globally in order to demonstrate improvements needed for lifting and carrying LTG Duration 12 weeks Assessment Summary Assessment Treatment focus on manual therapy and HEP review. PT's complaint of R shoulder pain increaseswith thoracic spine extension exercises. Aleta demonstrates observably and palpably decreased tension in R Upper Trapezius m. after manual therapy. Edu to pt re: breathwork for activating parasympathetic nervous system for pain management, and importance of scapular setting with reaching as patient demonstrates UT overactivation R>L with reaching. Pt requires cues for scapular setting and UT overactivation but demonstrates improved self -awareness and performance with cueing, slower pacing, and repetition. Physical Therapy Plan Frequency and Duration Frequency of Treatment 1-2x/wk Duration of treatment (weeks) 12 Plan of Care Start Date 08/02/24 Plan of Care End Date 10/27/24 Therapeutic Interventions Therapeutic Interventions Balance Training,Gait Training ,Home Exercise Program,Joint Mobilizations,Manual Therapy, Neuromuscular Re-education, Orthotic/Prosthetic Management ,Patient/Caregiver Education, Self-Care/Home Management, Sensory Integration,Soft Tissue Mobilization,Taping, Therapeutic Activities, Therapeutic Exercises Modalities Cold Pack/Ice Massage,Electric Stimulation,Hot Packs, Ultrasound Other Therapeutic Interventions Trigger point therapy Next Visit Focus/Plan Next Note Type Treatment Note Next Visit Plan Ask about MRI scheduling. Cont with STM to neck/shoulder and GHJ joint mob. Add eccentric shoulder flexion and sidelying AROM/AAROM. Recheck HEPP: AAROm>AROM w/ dowel table walkout stretch, self STM, pec stretch. Continue with R shoulder mobilizations and manual work, STM
--- NOTE | 2024-09-05 11:21 | PT.OTN ---
Current Diagnoses Pain in right shoulder (09/05/24) Stiffness of right shoulder, not elsewhere classified (09/05/24) Weakness (09/05/24) Strain of unspecified muscle, fascia and tendon at shoulder and upper arm level, right arm, initial encounter (09/05/24) Physical Therapy Treatment Note PT-OP-A Visit Information Start: 08/01/24 16:06 Freq: Status: Active Protocol: Document 09/05/24 08:15 NM (Rec: 09/05/24 09:02 NM [id number]) Out-Patient Physical Therapy Visit Information Visit Information Visit Type Progress Note Visit Start Time 08:17 Visit Stop Time 09:00 Visit Number 5/60 Evaluation Information Evaluation Date 08/02/24 PT-OP-B Current Condition Start: 08/01/24 16:06 Freq: Status: Active Protocol: Document 08/02/24 09:45 NM (Rec: 08/02/24 11:12 NM [id number]) Current Condition History of Current Condition Onset Date April 2024 Current Complaints weakness, pain, decreased mobility History of Current Condition Pt presents with R shoulder pain in April 2024. She was chopping firewood with a small axe, then slept in a tent. She reports that the next morning her shoulder started to bother her. She reports difficulty with raising her arm above her head, constant pain to arm, weakness/tingling in fingers 3-4-5 sometimes, waking/going to bed, sleeping . PMH of L shoulder surgery ( tear and arthritis) several years ago. She has a job that requires lifting. 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 She does not lift pt alone, transfers. Pt also reports neck pain on her R side; has a hx of neck pain but not on R side. Pt reports that she fell yesterday and caught herself with her R arm. Pt tends to sleep on her back or L side ( hugs a pillow). Unsure of what positions or tasks make pt's fingers feel worse, but states feels more when cutting, doing dishes; she shakes her hands in the hands to feel better, worse with sitting, feels more during day. Pt has had an injection in in last few months, but reports did not help Prior Treatments and Tests Pt has an upcoming MRI depending on insurance She had an x-ray PT-OP-C Subjective Start: 08/01/24 16:06 Freq: Status: Active Protocol: Document 09/05/24 08:15 NM (Rec: 09/05/24 09:02 NM [id number]) OP-PT Subjective Patient Comments Patient Comments Pt reports that she has less pain at rest, but still has pain with movement. She reports that she has still had to do a lot of lifting og her student at work, 6x in a half day (full day 10-12x/day). She has seen ortho specialist, possibly planning for RODNEY; she is planning to get an MRI first. She state exercises are going ok if they're the ones lying in bed, does not have a pool noodle; has been doing open book. Stopped doing pulleys because hitching shoulder upward to help PT-OP-E Functional Tests Start: 08/01/24 16:06 Freq: Status: Active Protocol: Document 08/02/24 09:45 NM (Rec: 08/02/24 11:12 NM [id number]) Functional Tests Apley's Scratch Test Action 1- Left post cuff Action 1- Right ACJ; painful Action 2- Left T6 Action 2- Right not to ear; painful Action 3- Left T6 Action 3- Right sacrum; painful PT-OP-F Manual Assessment Start: 08/01/24 16:06 Freq: Status: Active Protocol: Document 08/02/24 09:45 NM (Rec: 08/02/24 11:12 NM [id number]) Manual Assessments Soft Tissue Assessment Soft Tissue Mobility Assessment Increased restriction of cervical paraspinals; tightness and trigger points along levator scapulae, upper trapezius, rhomboids, posterior cuff. Increased lat tightnesss Joint Mobility Assessment Joint Mobility Assessment R scapula elevated and restricted. Limited R GHJ posterior and inferior glide. No restrictions of cervical spine mobility except soft tissue tightness. Empty end feels for all, more PROM than AROM PT-OP-G Mobility & Gait Start: 08/01/24 16:06 Freq: Status: Active Protocol: Document 08/02/24 09:45 NM (Rec: 08/02/24 11:12 NM [id number]) OP Gait Assessment Gait Gait Assistance Required: Independent Distance (Feet) 150 Comments Gait Comments Demos decreased trunk rotation , stiffness on RUE PT-OP-H Neuro Start: 08/01/24 16:06 Freq: Status: Active Protocol: Document 08/02/24 09:45 NM (Rec: 08/02/24 11:12 NM [id number]) Sensation Evaluation Comments Summary Comments Will assess next session PT-OP-J Posture/Palpation/Skin Start: 08/01/24 16:06 Freq: Status: Active Protocol: Document 08/02/24 09:45 NM (Rec: 08/02/24 11:12 NM [id number]) Posture Evaluation Position Standing Head/C-Spine Posture Forward Head Shoulder Posture (L) Forward,(R) Forward,(R) Elevated Scapula Posture (R) Elevated,(L) Winged,(R) Winged Arm Posture (L) Internally Rotated,(R) Internally Rotated Pelvis Posture Anteriorly Tilted Knee Posture (L) Genu Valgus,(R) Genu Valgus Palpation Assessment Location R shoulder Palpation Details Tenderness at long head biceps tendon, AC joint, GH joint Tightness along lat, posterior cuff, cervical paraspinals and periscapulars PT-OP-K Range of Motion Start: 08/01/24 16:06 Freq: Status: Active Protocol: Document 09/05/24 08:15 NM (Rec: 09/05/24 09:02 NM [id number]) Shoulder Goniometric Range of Motion Shoulder Right Flexion 105 Extension 40 Abduction 75 External Rotation at 0 degrees Abduction 10 Internal Rotation 70 Comments IE: 90 deg flex, 40 deg ext, 80 deg abd into scaption, 10 deg ER, 70 deg IR; PROM: 120 deg flex, 100 deg abd, 10 deg ER 09/05/24: 105 deg flex, 75 deg abd in scaption, 10 deg ER at 0 deg abd; PROM: 120 deg flex , 75 deg abd, 20 deg ER Left Flexion 170 Extension 65 Abduction 175 External Rotation at 45 degrees 90 Abduction External Rotation at 0 degrees Abduction 60 Internal Rotation 70 PT-OP-L Special Tests Start: 08/01/24 16:06 Freq: Status: Active Protocol: Document 08/02/24 09:45 NM (Rec: 08/02/24 11:12 NM [id number]) Special Tests Cervical Spine Special Tests Upper Limb Tension Test Test Results + Comments median n.; unable to test ulnar d/t shldr ROM/pain Spurling's Test Test Results - Shoulder Special Tests Empty Can Test Results + Comments limited ROM Belly Press Test Results + Yergason's Biceps Test Results - Elbow Special Tests Tinel Test Results + Comments cubital tunnel Wrist/Hand Special Tests Tinel Test Results + Comments over carpal tunnel PT-OP-M Strength Start: 08/01/24 16:06 Freq: Status: Active Protocol: Document 09/05/24 08:15 NM (Rec: 09/05/24 09:02 NM [id number]) Shoulder Strength Shoulder Manual Muscle Testing Right Flexion 3 Fair Extension 3 Fair External Rotation 3 Fair Internal Rotation 3 Fair Comments pain with flex, abd, IR at cuff and biceps 09/05/24: 3/5 for all; painful Left Flexion 4+ Good+ Extension 4+ Good+ Abduction (C5) 4+ Good+ Adduction 4+ Good+ External Rotation 4+ Good+ Internal Rotation 4+ Good+ Horizontal Abduction 4+ Good+ Horizontal Adduction 4+ Good+ Comments bicep PT-OP-Q Treatments Start: 08/01/24 16:06 Freq: Status: Active Protocol: Document 09/05/24 08:15 NM (Rec: 09/05/24 09:02 NM [id number]) Therapeutic Exercises Sidelying Exercises r shld Sidelying Exercise Name flexion Side right Resistance AROM Reps/Minutes 10 Comments limit 90 deg; PT cue at scap, shoulder to prevent ant translation Standing Exercises eccentrics Standing Exercise Name 1. flexion, 2. abduction Side right Resistance level 1 band (1) Equipment Used L assist R Reps/Minutes 1. 10, 2. 2x5 Comments mirror for visual cue to limit shoulder elevation; less painful, inc ROM pec stretch Standing Exercise Name low pec stretch Side left Equipment Used staggered stance Reps/Minutes 5x10 breaths Manual Therapy Treatment Consent Patient gave verbal consent for manual Yes treatment Soft Tissue Mobilization neck Body Location R>L UT, LS, CS paraspinals, SOR, SCM Mobilization Type Myofascial Release,Rolling, Sustained Pressure,Other Intensity/Depth Superficial Body Position Hooklying Comments Gentle STM to B cervical spine , yang R sided paraspinals. Less tenderness and tightness today R shoulder Body Location Pec more distal, rhomboid, infraspinatus, supraspinatus, post cuff, lats Mobilization Type Rolling Intensity/Depth Superficial Body Position L Sidelying Comments Global restrictions and tenderness along R shoulder and periscapulars. Pec, rhomboids, post cuff, lat very restricted. Palpable relaxation with mobilization but still limited Joint Mobilizations ribs Joint 1st rib Direction caudal Grade III Body Position Sidelying Reps/Duration 10 Comments 1. sidelying 2. mobilization with movement with flexion in sidelying scapulothoracic Direction elev/dep, prot/retract, rotation Grade III Body Position Sidelying Reps/Duration 3x10 Comments Scapula still elevated. Improved mobility to adduction /depression but still limited R shoulder Joint GHJ Direction post, inf Grade II Reps/Duration 6x30 ea Comments Less discomfort with mobilizations. Monitored for pain and hand position adjusted for pt comfort. Post glide at 0 to 45 deg abd, very restricted posterior capsule. Still most limited with inferior glide, painful and guarding occurs so positioned in less abd during mobilization Self-Care/Home Management Treatment Education Patient Education Joint Protection,Pain Management Other Education PT educated pt at her request about post-op requirements if pt elects to have RODNEY PT-OP-T Assessment and Plan Start: 08/01/24 16:06 Freq: Status: Active Protocol: Document 09/05/24 08:15 NM (Rec: 09/05/24 09:02 NM [id number]) Physical Therapy Assessment Goals Five Impairment strength impaired R shoulder globally Care Home Goal (LTG) Pt will improve R shoulder strength to at least 4+/5 globally in order to demonstrate improvements needed for lifting and carrying 09/05/24: 3/5 w/ pain LTG Duration 12 weeks Four Impairment IR apley AROM limited Short Term Goal (STG) Pt will be able to reach L5 with her R hand in order to demonstrate improved AROM for dressing and to put her hand on her hip 09/05/24: back pocket of pants w/ pain STG Duration 8 weeks PROGRESSING 09/05/24 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) Pt will be able to reach L1 with her R hand in order to demonstrate improved AROM for dressing and to put her hand on her hip LTG Duration 12 weeks Three Impairment ER apley AROM limited Short Term Goal (STG) Pt will be able to reach her R ear to demonstrate improved ER AROM for grooming 09/05/24: R ear lobe w/ pain STG Duration 8 weeks MET Care Home Goal (LTG) Pt will be able to reach the base of her occiput using her R hand to demonstrate improved ER AROM for grooming LTG Duration 12 weeks Two Impairment flexion and abduction AROM limited Short Term Goal (STG) Pt will improve R shoulder flexion and abduction to at least 125 deg in order to demonstrate improvements in ability to reach overhead for dressing/grooming 09/05/24: 105 deg AROM flexion , 120 deg PROM flexion; 75 deg abd AROM and PROM STG Duration 8 weeks PROGRESSING 09/05/24 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) Pt will improve R shoulder flexion and abduction to at least 150 deg in order to demonstrate improvements in ability to reach overhead and write on board at work LTG Duration 12 weeks One Impairment quickdash score 70% impairment Impairment decreased functional use of left UE Short Term Goal (STG) Pt will improve quickdash score by at least 10% in order to demonstrate improvements in QOL, symptom management, and activity tolerance 09/05/24: 63.6% impairment STG Duration 6 weeks PROGRESSING; NOT MET 09/05/24 Care Home Goal (LTG) Pt will improve quickdash score <30% in order to demonstrate improvements in QOL, symptom management, and activity tolerance LTG Duration 12 weeks Progress Towards Goals Progress Towards Goals Progressing Toward Goals,Slow Progress due to Activity Tolerance,Slow Progress due to Medical Issues Assessment Summary Assessment Pt continues to demonstrate limitations in R shoulder mobility. Emphasis on manual treatment to address impairments. L shoulder inferior glide most limited and painful for pt, unable to glide for pt to abduct >75 deg today; demos movement into scaption plane. Trialed 1st rib mobilizations to limit elevation and assist with shoulder mobility; minimal changes post mobilizations, but will address along with 2- 3rd ribs in future sessions. Trialed eccentric flexion and abduction with band. Pt able to maintain shoulder position in neutral with flexion while achieving >100 deg using band but more limited with abduction; good response to visual feedback from mirror. Pt would benefit from skilled PT for progressive R shoulder ROM to improve ability to perform reaching/lifting ADLs and work-related tasks. Physical Therapy Plan Frequency and Duration Frequency of Treatment 1-2x/wk Duration of treatment (weeks) 12 Plan of Care Start Date 08/02/24 Plan of Care End Date 10/27/24 Therapeutic Interventions Therapeutic Interventions Balance Training,Gait Training ,Home Exercise Program,Joint Mobilizations,Manual Therapy, Neuromuscular Re-education, Orthotic/Prosthetic Management ,Patient/Caregiver Education, Self-Care/Home Management, Sensory Integration,Soft Tissue Mobilization,Taping, Therapeutic Activities, Therapeutic Exercises Modalities Cold Pack/Ice Massage,Electric Stimulation,Hot Packs, Ultrasound Other Therapeutic Interventions Trigger point therapy Next Visit Focus/Plan Next Note Type Treatment Note Next Visit Plan Ask about MRI scheduling. Cont with GHJ joint mob (focus on flex and abd; trial PA with ER and IR behind table mob), STM to neck/shoulder as needed . Assess rachelle for eccentric flex/ abd on HEP. Promote sidelying flex/abd, and thoracic mobility
--- NOTE | 2024-09-19 09:28 | PT.OTN ---
Current Diagnoses Pain in right shoulder (09/19/24) Stiffness of right shoulder, not elsewhere classified (09/19/24) Weakness (09/19/24) Strain of unspecified muscle, fascia and tendon at shoulder and upper arm level, right arm, initial encounter (09/19/24) Physical Therapy Treatment Note PT-OP-A Visit Information Start: 08/01/24 16:06 Freq: Status: Active Protocol: Document 09/19/24 08:16 NM (Rec: 09/19/24 09:01 NM [id number]) Out-Patient Physical Therapy Visit Information Visit Information Visit Type Treatment Note Visit Start Time 08:18 Visit Stop Time 09:00 Visit Number 6/60 Evaluation Information Evaluation Date 08/02/24 PT-OP-B Current Condition Start: 08/01/24 16:06 Freq: Status: Active Protocol: Document 08/02/24 09:45 NM (Rec: 08/02/24 11:12 NM [id number]) Current Condition History of Current Condition Onset Date April 2024 Current Complaints weakness, pain, decreased mobility History of Current Condition Pt presents with R shoulder pain in April 2024. She was chopping firewood with a small axe, then slept in a tent. She reports that the next morning her shoulder started to bother her. She reports difficulty with raising her arm above her head, constant pain to arm, weakness/tingling in fingers 3-4-5 sometimes, waking/going to bed, sleeping . PMH of L shoulder surgery ( tear and arthritis) several years ago. She has a job that requires lifting. 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 She does not lift pt alone, transfers. Pt also reports neck pain on her R side; has a hx of neck pain but not on R side. Pt reports that she fell yesterday and caught herself with her R arm. Pt tends to sleep on her back or L side ( hugs a pillow). Unsure of what positions or tasks make pt's fingers feel worse, but states feels more when cutting, doing dishes; she shakes her hands in the hands to feel better, worse with sitting, feels more during day. Pt has had an injection in in last few months, but reports did not help Prior Treatments and Tests Pt has an upcoming MRI depending on insurance She had an x-ray PT-OP-C Subjective Start: 08/01/24 16:06 Freq: Status: Active Protocol: Document 09/19/24 08:16 NM (Rec: 09/19/24 09:01 NM [id number]) OP-PT Subjective Patient Comments Patient Comments Pt reports increased soreness at R side, and R shoulder still hurts; States more anterior shoulder pain. States that previously had not been hurting as much for several weeks, so did yard work and now feels likes it. Recently had MRI, states that saw Dr. Wadsworth who is recommending manipulation over any repair based on their discussion about tear size, pt states that MD said not much to repair, states still focus on PT. If pt has manipulation, will likely be near thanksgiving. States felt better after last session, states banded exercises (ecc flex/abd) bother her. Has not been doing all exercises, only does cervical spine stretches , pec stretch, eccentric flex/ abd, open book. PT-OP-E Functional Tests Start: 08/01/24 16:06 Freq: Status: Active Protocol: Document 08/02/24 09:45 NM (Rec: 08/02/24 11:12 NM [id number]) Functional Tests Apley's Scratch Test Action 1- Left post cuff Action 1- Right ACJ; painful Action 2- Left T6 Action 2- Right not to ear; painful Action 3- Left T6 Action 3- Right sacrum; painful PT-OP-F Manual Assessment Start: 08/01/24 16:06 Freq: Status: Active Protocol: Document 08/02/24 09:45 NM (Rec: 08/02/24 11:12 NM [id number]) Manual Assessments Soft Tissue Assessment Soft Tissue Mobility Assessment Increased restriction of cervical paraspinals; tightness and trigger points along levator scapulae, upper trapezius, rhomboids, posterior cuff. Increased lat tightnesss Joint Mobility Assessment Joint Mobility Assessment R scapula elevated and restricted. Limited R GHJ posterior and inferior glide. No restrictions of cervical spine mobility except soft tissue tightness. Empty end feels for all, more PROM than AROM PT-OP-G Mobility & Gait Start: 08/01/24 16:06 Freq: Status: Active Protocol: Document 08/02/24 09:45 NM (Rec: 08/02/24 11:12 NM [id number]) OP Gait Assessment Gait Gait Assistance Required: Independent Distance (Feet) 150 Comments Gait Comments Demos decreased trunk rotation , stiffness on RUE PT-OP-H Neuro Start: 08/01/24 16:06 Freq: Status: Active Protocol: Document 08/02/24 09:45 NM (Rec: 08/02/24 11:12 NM [id number]) Sensation Evaluation Comments Summary Comments Will assess next session PT-OP-J Posture/Palpation/Skin Start: 08/01/24 16:06 Freq: Status: Active Protocol: Document 08/02/24 09:45 NM (Rec: 08/02/24 11:12 NM [id number]) Posture Evaluation Position Standing Head/C-Spine Posture Forward Head Shoulder Posture (L) Forward,(R) Forward,(R) Elevated Scapula Posture (R) Elevated,(L) Winged,(R) Winged Arm Posture (L) Internally Rotated,(R) Internally Rotated Pelvis Posture Anteriorly Tilted Knee Posture (L) Genu Valgus,(R) Genu Valgus Palpation Assessment Location R shoulder Palpation Details Tenderness at long head biceps tendon, AC joint, GH joint Tightness along lat, posterior cuff, cervical paraspinals and periscapulars PT-OP-K Range of Motion Start: 08/01/24 16:06 Freq: Status: Active Protocol: Document 09/05/24 08:15 NM (Rec: 09/05/24 09:02 NM [id number]) Shoulder Goniometric Range of Motion Shoulder Right Flexion 105 Extension 40 Abduction 75 External Rotation at 0 degrees Abduction 10 Internal Rotation 70 Comments IE: 90 deg flex, 40 deg ext, 80 deg abd into scaption, 10 deg ER, 70 deg IR; PROM: 120 deg flex, 100 deg abd, 10 deg ER 09/05/24: 105 deg flex, 75 deg abd in scaption, 10 deg ER at 0 deg abd; PROM: 120 deg flex , 75 deg abd, 20 deg ER Left Flexion 170 Extension 65 Abduction 175 External Rotation at 45 degrees 90 Abduction External Rotation at 0 degrees Abduction 60 Internal Rotation 70 PT-OP-L Special Tests Start: 08/01/24 16:06 Freq: Status: Active Protocol: Document 08/02/24 09:45 NM (Rec: 08/02/24 11:12 NM [id number]) Special Tests Cervical Spine Special Tests Upper Limb Tension Test Test Results + Comments median n.; unable to test ulnar d/t shldr ROM/pain Spurling's Test Test Results - Shoulder Special Tests Empty Can Test Results + Comments limited ROM Belly Press Test Results + Yergason's Biceps Test Results - Elbow Special Tests Tinel Test Results + Comments cubital tunnel Wrist/Hand Special Tests Tinel Test Results + Comments over carpal tunnel PT-OP-M Strength Start: 08/01/24 16:06 Freq: Status: Active Protocol: Document 09/05/24 08:15 NM (Rec: 09/05/24 09:02 NM [id number]) Shoulder Strength Shoulder Manual Muscle Testing Right Flexion 3 Fair Extension 3 Fair External Rotation 3 Fair Internal Rotation 3 Fair Comments pain with flex, abd, IR at cuff and biceps 09/05/24: 3/5 for all; painful Left Flexion 4+ Good+ Extension 4+ Good+ Abduction (C5) 4+ Good+ Adduction 4+ Good+ External Rotation 4+ Good+ Internal Rotation 4+ Good+ Horizontal Abduction 4+ Good+ Horizontal Adduction 4+ Good+ Comments bicep PT-OP-Q Treatments Start: 08/01/24 16:06 Freq: Status: Active Protocol: Document 09/19/24 08:16 NM (Rec: 09/19/24 09:01 NM [id number]) Therapeutic Exercises Sitting Exercises neck stretches Sitting Exercise Name UT, LS HEP review Side right Equipment Used with gentle tension Reps/Minutes 30 SH x2 each Comments good tolerance cued can use gentle over pressure with LUE for light stretch Standing Exercises Wall slides Standing Exercise Name B slides into flex (contact at ulnar surface hands) > lift off and lower Side bilateral Reps/Minutes 10 w/ increased time Comments ~90 deg, no inc pain but limited flexion eccentrics Standing Exercise Name edu to d/c at home if increased pain (not performed in session) isomertrics Standing Exercise Name 1. flex, 2. ext, 3. abd, 4. IR , 5. ER Side right Resistance into PT hand then pt into wall Equipment Used submaximal- issued as HEP Reps/Minutes 5x3 into PT hand w/ feedback, 5x3 into wall - inc time for all exercises Comments no inc pain; set up at wall w/ towel roll Manual Therapy Treatment Consent Patient gave verbal consent for manual Yes treatment Soft Tissue Mobilization neck Body Location R>L UT, LS, CS paraspinals, SOR, SCM Mobilization Type Myofascial Release,Rolling, Sustained Pressure,Other Intensity/Depth Moderate Body Position Sidelying Comments Moderate mobilization to cervical paraspinals, increased restrictions at trapezius and levator scapula R shoulder Body Location Pec more distal, rhomboid, post cuff, subscapularis, lat, ant shldr Mobilization Type Rolling Intensity/Depth Superficial Body Position L Sidelying Comments Global restrictions and tenderness along R shoulder and periscapulars. Pec, rhomboids, post cuff, lat restricted. Palpable relaxation with mobilization but still limited Joint Mobilizations ribs Joint 1st rib Direction caudal Grade III Body Position Sidelying Reps/Duration 10x1 Comments In sidelying, monitored for pain, with breathwork and post soft tissue mobilization scapulothoracic Direction elev/dep, prot/retract, rotation Grade III Body Position Sidelying Reps/Duration 3x10 Comments Scapula still elevated. Improved mobility to adduction /depression but still limited R shoulder Joint GHJ Direction post, inf, ant Grade III Reps/Duration 6x30 ea Comments Less discomfort with mobilizations. Monitored for pain 1. seated inf glide with arm supported on elevated plinth, supine inf glide mobilization w/ movement into abd 2. supine post glide with slight bias into abd (45 deg) and ER 3. prone ant glide with ER, towel roll under humerus Manual Techniques ADD/IR stretch Type under table Body Location R shoulder Body Position Hooklying Reps/Duration 3x10 Comments Monitored for pain, performed to pt comfort. Limited mobility into ADD/IR PT-OP-T Assessment and Plan Start: 08/01/24 16:06 Freq: Status: Active Protocol: Document 09/19/24 08:16 NM (Rec: 09/19/24 09:01 NM [id number]) Physical Therapy Assessment Goals Five Impairment strength impaired R shoulder globally Emergency Response Technician Goal (LTG) Pt will improve R shoulder strength to at least 4+/5 globally in order to demonstrate improvements needed for lifting and carrying 09/05/24: 3/5 w/ pain LTG Duration 12 weeks Four Impairment IR apley AROM limited Short Term Goal (STG) Pt will be able to reach L5 with her R hand in order to demonstrate improved AROM for dressing and to put her hand on her hip 09/05/24: back pocket of pants w/ pain STG Duration 8 weeks PROGRESSING 10/22/24 Emergency Response Technician Goal (LTG) Pt will be able to reach L1 with her R hand in order to demonstrate improved AROM for dressing and to put her hand on her hip LTG Duration 12 weeks Three Impairment ER apley AROM limited Short Term Goal (STG) Pt will be able to reach her R ear to demonstrate improved ER AROM for grooming 09/05/24: R ear lobe w/ pain STG Duration 8 weeks MET Emergency Response Technician Goal (LTG) Pt will be able to reach the base of her occiput using her R hand to demonstrate improved ER AROM for grooming 09/19/24: pt able to reach base of occiput with R hand w/ pain; put up hair over weekend LTG Duration 12 weeks MET Two Impairment flexion and abduction AROM limited Short Term Goal (STG) Pt will improve R shoulder flexion and abduction to at least 125 deg in order to demonstrate improvements in ability to reach overhead for dressing/grooming 09/05/24: 105 deg AROM flexion , 120 deg PROM flexion; 75 deg abd AROM and PROM 09/19/24: 110 deg flex AROM w/ slight shoulder elevation, abd to 85 deg w/ slight shoulder elevation STG Duration 8 weeks PROGRESSING 09/19/24 Senior Living Goal (LTG) Pt will improve R shoulder flexion and abduction to at least 150 deg in order to demonstrate improvements in ability to reach overhead and write on board at work LTG Duration 12 weeks One Impairment quickdash score 70% impairment Impairment decreased functional use of left UE Short Term Goal (STG) Pt will improve quickdash score by at least 10% in order to demonstrate improvements in QOL, symptom management, and activity tolerance 09/05/24: 63.6% impairment STG Duration 6 weeks PROGRESSING; NOT MET 09/05/24 Senior Living Goal (LTG) Pt will improve quickdash score <30% in order to demonstrate improvements in QOL, symptom management, and activity tolerance LTG Duration 12 weeks Assessment Summary Assessment Pt continues to demonstrate mild improvements in R shoulder AROM. Has 110 deg flex, 85 deg abd, and ER to occiput; all improvements from evaluation. Met ER goal today and continuing to slowly progress toward remaining goals. ROM and strength still limited by pain, especially with abduction, ER, and IR/ADD . Initiated R shoulder isometrics today for improved pain management and gentle muscle activation over banded eccentrics. Better posterior humeral positioning pre and post mobilization; R shoulder inferior glide and add/IR still limited at R GHJ. Trialed anterior glide with ER mobilization today and shoulder IR/ADD stretch to continue to promote AROM. Pt in discussion with orthopedic surgeons about possible RODNEY vs monitoring as shoulder takes it's course. Aleta would continue to benefit from skilled PT for progressive R shoulder mobility and strengthening in order to improve ability to perform lifting/reaching/self care ADLs and work-related tasks. Physical Therapy Plan Frequency and Duration Frequency of Treatment 1-2x/wk Duration of treatment (weeks) 12 Plan of Care Start Date 08/02/24 Plan of Care End Date 10/27/24 Therapeutic Interventions Therapeutic Interventions Balance Training,Gait Training ,Home Exercise Program,Joint Mobilizations,Manual Therapy, Neuromuscular Re-education, Orthotic/Prosthetic Management ,Patient/Caregiver Education, Self-Care/Home Management, Sensory Integration,Soft Tissue Mobilization,Taping, Therapeutic Activities, Therapeutic Exercises Modalities Cold Pack/Ice Massage,Electric Stimulation,Hot Packs, Ultrasound Other Therapeutic Interventions Trigger point therapy Next Visit Focus/Plan Next Note Type Treatment Note Next Visit Plan Ask about decide if RODNEY vs cont with PT. Cont with GHJ joint mob (focus on flex and abd; cont ant glide with ER and IR behind table mob). IR towel stretch. progress to banded nora reactives if nora ok. Add rows, low rows. STM to neck/shoulder as needed. Assess rachelle for eccentric flex/ abd on HEP- correct or d/c. Promote sidelying flex/abd ROM , and thoracic mobility
--- NOTE | 2024-09-26 09:03 | PT.OTN ---
Current Diagnoses Pain in right shoulder (09/26/24) Stiffness of right shoulder, not elsewhere classified (09/26/24) Weakness (09/26/24) Strain of unspecified muscle, fascia and tendon at shoulder and upper arm level, right arm, initial encounter (09/26/24) Physical Therapy Treatment Note PT-OP-A Visit Information Start: 08/01/24 16:06 Freq: Status: Active Protocol: Document 09/26/24 08:19 SP (Rec: 09/26/24 09:04 SP [id number]) Out-Patient Physical Therapy Visit Information Visit Information Visit Type Treatment Note Visit Start Time 08:19 Visit Stop Time 09:03 Visit Number 7/60 (01/22 with PN) Number of [employer] Visits 1 Evaluation Information Evaluation Date 08/02/24 PT-OP-B Current Condition Start: 08/01/24 16:06 Freq: Status: Active Protocol: Document 08/02/24 09:45 NM (Rec: 08/02/24 11:12 NM [id number]) Current Condition History of Current Condition Onset Date April 2024 Current Complaints weakness, pain, decreased mobility History of Current Condition Pt presents with R shoulder pain in April 2024. She was chopping firewood with a small axe, then slept in a tent. She reports that the next morning her shoulder started to bother her. She reports difficulty with raising her arm above her head, constant pain to arm, weakness/tingling in fingers 3-4-5 sometimes, waking/going to bed, sleeping . PMH of L shoulder surgery ( tear and arthritis) several years ago. She has a job that requires lifting. 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 She does not lift pt alone, transfers. Pt also reports neck pain on her R side; has a hx of neck pain but not on R side. Pt reports that she fell yesterday and caught herself with her R arm. Pt tends to sleep on her back or L side ( hugs a pillow). Unsure of what positions or tasks make pt's fingers feel worse, but states feels more when cutting, doing dishes; she shakes her hands in the hands to feel better, worse with sitting, feels more during day. Pt has had an injection in in last few months, but reports did not help Prior Treatments and Tests Pt has an upcoming MRI depending on insurance She had an x-ray PT-OP-C Subjective Start: 08/01/24 16:06 Freq: Status: Active Protocol: Document 09/26/24 08:19 SP (Rec: 09/26/24 09:04 SP [id number]) OP-PT Subjective Patient Comments Patient Comments Pt reports swinging arm out walking and doesn't feel as natural on R than L. She still having discomfort over R anterior shld with exercises and stretches, especially over R UT near clavicle PT-OP-E Functional Tests Start: 08/01/24 16:06 Freq: Status: Active Protocol: Document 08/02/24 09:45 NM (Rec: 08/02/24 11:12 NM [id number]) Functional Tests Apley's Scratch Test Action 1- Left post cuff Action 1- Right ACJ; painful Action 2- Left T6 Action 2- Right not to ear; painful Action 3- Left T6 Action 3- Right sacrum; painful PT-OP-F Manual Assessment Start: 08/01/24 16:06 Freq: Status: Active Protocol: Document 08/02/24 09:45 NM (Rec: 08/02/24 11:12 NM [id number]) Manual Assessments Soft Tissue Assessment Soft Tissue Mobility Assessment Increased restriction of cervical paraspinals; tightness and trigger points along levator scapulae, upper trapezius, rhomboids, posterior cuff. Increased lat tightnesss Joint Mobility Assessment Joint Mobility Assessment R scapula elevated and restricted. Limited R GHJ posterior and inferior glide. No restrictions of cervical spine mobility except soft tissue tightness. Empty end feels for all, more PROM than AROM PT-OP-G Mobility & Gait Start: 08/01/24 16:06 Freq: Status: Active Protocol: Document 08/02/24 09:45 NM (Rec: 08/02/24 11:12 NM [id number]) OP Gait Assessment Gait Gait Assistance Required: Independent Distance (Feet) 150 Comments Gait Comments Demos decreased trunk rotation , stiffness on RUE PT-OP-H Neuro Start: 08/01/24 16:06 Freq: Status: Active Protocol: Document 08/02/24 09:45 NM (Rec: 08/02/24 11:12 NM [id number]) Sensation Evaluation Comments Summary Comments Will assess next session PT-OP-J Posture/Palpation/Skin Start: 08/01/24 16:06 Freq: Status: Active Protocol: Document 08/02/24 09:45 NM (Rec: 08/02/24 11:12 NM [id number]) Posture Evaluation Position Standing Head/C-Spine Posture Forward Head Shoulder Posture (L) Forward,(R) Forward,(R) Elevated Scapula Posture (R) Elevated,(L) Winged,(R) Winged Arm Posture (L) Internally Rotated,(R) Internally Rotated Pelvis Posture Anteriorly Tilted Knee Posture (L) Genu Valgus,(R) Genu Valgus Palpation Assessment Location R shoulder Palpation Details Tenderness at long head biceps tendon, AC joint, GH joint Tightness along lat, posterior cuff, cervical paraspinals and periscapulars PT-OP-K Range of Motion Start: 08/01/24 16:06 Freq: Status: Active Protocol: Document 09/05/24 08:15 NM (Rec: 09/05/24 09:02 NM [id number]) Shoulder Goniometric Range of Motion Shoulder Right Flexion 105 Extension 40 Abduction 75 External Rotation at 0 degrees Abduction 10 Internal Rotation 70 Comments IE: 90 deg flex, 40 deg ext, 80 deg abd into scaption, 10 deg ER, 70 deg IR; PROM: 120 deg flex, 100 deg abd, 10 deg ER 09/05/24: 105 deg flex, 75 deg abd in scaption, 10 deg ER at 0 deg abd; PROM: 120 deg flex , 75 deg abd, 20 deg ER Left Flexion 170 Extension 65 Abduction 175 External Rotation at 45 degrees 90 Abduction External Rotation at 0 degrees Abduction 60 Internal Rotation 70 PT-OP-L Special Tests Start: 08/01/24 16:06 Freq: Status: Active Protocol: Document 08/02/24 09:45 NM (Rec: 08/02/24 11:12 NM [id number]) Special Tests Cervical Spine Special Tests Upper Limb Tension Test Test Results + Comments median n.; unable to test ulnar d/t shldr ROM/pain Spurling's Test Test Results - Shoulder Special Tests Empty Can Test Results + Comments limited ROM Belly Press Test Results + Yergason's Biceps Test Results - Elbow Special Tests Tinel Test Results + Comments cubital tunnel Wrist/Hand Special Tests Tinel Test Results + Comments over carpal tunnel PT-OP-M Strength Start: 08/01/24 16:06 Freq: Status: Active Protocol: Document 09/05/24 08:15 NM (Rec: 09/05/24 09:02 NM [id number]) Shoulder Strength Shoulder Manual Muscle Testing Right Flexion 3 Fair Extension 3 Fair External Rotation 3 Fair Internal Rotation 3 Fair Comments pain with flex, abd, IR at cuff and biceps 09/05/24: 3/5 for all; painful Left Flexion 4+ Good+ Extension 4+ Good+ Abduction (C5) 4+ Good+ Adduction 4+ Good+ External Rotation 4+ Good+ Internal Rotation 4+ Good+ Horizontal Abduction 4+ Good+ Horizontal Adduction 4+ Good+ Comments bicep PT-OP-Q Treatments Start: 08/01/24 16:06 Freq: Status: Active Protocol: Document 09/26/24 08:19 SP (Rec: 09/26/24 09:04 SP [id number]) Therapeutic Exercises Sitting Exercises neck stretches Sitting Exercise Name UT, LS HEP review Side right Resistance SB Left Equipment Used with gentle tension Reps/Minutes 30 SH x2 each, MWM Comments good tolerance cued can use gentle over pressure with LUE for light stretch Standing Exercises pendulum Standing Exercise Name reviewed a past PROM for comfort support Side right Reps/Minutes 5 reps each Comments F/B/L/CW/CCW Wall slides Standing Exercise Name B slides into flex (contact at ulnar surface hands) > lift off and lower Side bilateral Reps/Minutes 4 reps tolerated w/ increased time Comments ~90 deg, no inc pain but limited flexion isomertrics Standing Exercise Name 1. flex, 2. ext, 3. abd, 4. IR , 5. ER Side right Resistance into [employer] hand then pt into wall Equipment Used submaximal- issued as HEP: flex/ext/abd elbow straight Reps/Minutes 5 x 3-10 into doorframe - inc time for all exercises as rachelle (10 IR, ER) Comments Tiime spent: set up at doorframe w/ towel roll IR/ER, split stance F/ Ext Other Exercises self STMs Other Exercise Name theracane: R UT Side right Reps/Minutes hold /c breath, headh SB L & head turns x10 Self-Care/Home Management Treatment Education Patient Education Body Mechanics,Joint Protection,Pain Management, Posture Other Education Ed for arm swing BUE with opp LE not have to be to big but swing BUE to allow alignment and shld and trunk m obiltiy, improved with follow demonstration and return demonstration. PT-OP-T Assessment and Plan Start: 08/01/24 16:06 Freq: Status: Active Protocol: Document 09/26/24 08:19 SP (Rec: 09/26/24 09:04 SP [id number]) Physical Therapy Assessment Goals Five Impairment strength impaired R shoulder globally Nursing Home Goal (LTG) Pt will improve R shoulder strength to at least 4+/5 globally in order to demonstrate improvements needed for lifting and carrying 09/05/24: 3/5 w/ pain LTG Duration 12 weeks Four Impairment IR apley AROM limited Short Term Goal (STG) Pt will be able to reach L5 with her R hand in order to demonstrate improved AROM for dressing and to put her hand on her hip 09/05/24: back pocket of pants w/ pain STG Duration 8 weeks PROGRESSING 09/05/24 Nursing Home Goal (LTG) Pt will be able to reach L1 with her R hand in order to demonstrate improved AROM for dressing and to put her hand on her hip LTG Duration 12 weeks Three Impairment ER apley AROM limited Short Term Goal (STG) Pt will be able to reach her R ear to demonstrate improved ER AROM for grooming 09/05/24: R ear lobe w/ pain STG Duration 8 weeks MET Nursing Home Goal (LTG) Pt will be able to reach the base of her occiput using her R hand to demonstrate improved ER AROM for grooming 09/19/24: pt able to reach base of occiput with R hand w/ pain; put up hair over weekend LTG Duration 12 weeks MET Two Impairment flexion and abduction AROM limited Short Term Goal (STG) Pt will improve R shoulder flexion and abduction to at least 125 deg in order to demonstrate improvements in ability to reach overhead for dressing/grooming 09/05/24: 105 deg AROM flexion , 120 deg PROM flexion; 75 deg abd AROM and PROM 09/19/24: 110 deg flex AROM w/ slight shoulder elevation, abd to 85 deg w/ slight shoulder elevation STG Duration 8 weeks PROGRESSING 09/19/24 Acetaldehyde Converter Operator Goal (LTG) Pt will improve R shoulder flexion and abduction to at least 150 deg in order to demonstrate improvements in ability to reach overhead and write on board at work LTG Duration 12 weeks One Impairment quickdash score 70% impairment Impairment decreased functional use of left UE Short Term Goal (STG) Pt will improve quickdash score by at least 10% in order to demonstrate improvements in QOL, symptom management, and activity tolerance 09/05/24: 63.6% impairment STG Duration 6 weeks PROGRESSING; NOT MET 09/05/24 Nursing Home Goal (LTG) Pt will improve quickdash score <30% in order to demonstrate improvements in QOL, symptom management, and activity tolerance LTG Duration 12 weeks Assessment Summary Assessment Pt better response to muscle activation with elbow straight during isometric of shoulders today, tactile cues for scap retraction/depression positioning neutral during submaximal contraction. Improved less UT compensations lower off wall slides post manual and cues for parascapular activition support, more scap and distal RTC tiring. Reviewed neck stretches andMWM use theracane vs hand (doesn't have cane) and pendulum past HEP for decrease GH tightness. Physical Therapy Plan Frequency and Duration Frequency of Treatment 1-2x/wk Duration of treatment (weeks) 12 Plan of Care Start Date 08/02/24 Plan of Care End Date 10/27/24 Therapeutic Interventions Therapeutic Interventions Balance Training,Gait Training ,Home Exercise Program,Joint Mobilizations,Manual Therapy, Neuromuscular Re-education, Orthotic/Prosthetic Management ,Patient/Caregiver Education, Self-Care/Home Management, Sensory Integration,Soft Tissue Mobilization,Taping, Therapeutic Activities, Therapeutic Exercises Modalities Cold Pack/Ice Massage,Electric Stimulation,Hot Packs, Ultrasound Other Therapeutic Interventions Trigger point therapy Next Visit Focus/Plan Next Note Type Treatment Note Next Visit Plan Recheck wall slide and eccentric lowering, Rhomboid and LT activation. POC: Ask about decide if RODNEY vs cont with PT. Cont with GHJ joint mob (focus on flex and abd; cont ant glide with ER and IR behind table mob). IR towel stretch. progress to banded nora reactives if nora ok. Add rows, low rows. STM to neck/shoulder as needed. Assess rachelle for eccentric flex/ abd on HEP- correct or d/c. Promote sidelying flex/abd ROM , and thoracic mobility
--- NOTE | 2024-10-03 09:03 | PT.OTN ---
Current Diagnoses Pain in right shoulder (10/03/24) Stiffness of right shoulder, not elsewhere classified (10/03/24) Weakness (10/03/24) Strain of unspecified muscle, fascia and tendon at shoulder and upper arm level, right arm, initial encounter (10/03/24) Physical Therapy Treatment Note PT-OP-A Visit Information Start: 08/01/24 16:06 Freq: Status: Active Protocol: Document 10/03/24 08:20 SP (Rec: 10/03/24 09:05 SP [id number]) Out-Patient Physical Therapy Visit Information Visit Information Visit Type Treatment Note Visit Start Time 08:20 Visit Stop Time 09:03 Visit Number 8/60 (02/22 with PN) Number of CABLE REPAIRER Visits 2 Evaluation Information Evaluation Date 08/02/24 PT-OP-B Current Condition Start: 08/01/24 16:06 Freq: Status: Active Protocol: Document 08/02/24 09:45 NM (Rec: 08/02/24 11:12 NM [id number]) Current Condition History of Current Condition Onset Date April 2024 Current Complaints weakness, pain, decreased mobility History of Current Condition Pt presents with R shoulder pain in April 2024. She was chopping firewood with a small axe, then slept in a tent. She reports that the next morning her shoulder started to bother her. She reports difficulty with raising her arm above her head, constant pain to arm, weakness/tingling in fingers 3-4-5 sometimes, waking/going to bed, sleeping . PMH of L shoulder surgery ( tear and arthritis) several years ago. She has a job that requires lifting. 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 She does not lift pt alone, transfers. Pt also reports neck pain on her R side; has a hx of neck pain but not on R side. Pt reports that she fell yesterday and caught herself with her R arm. Pt tends to sleep on her back or L side ( hugs a pillow). Unsure of what positions or tasks make pt's fingers feel worse, but states feels more when cutting, doing dishes; she shakes her hands in the hands to feel better, worse with sitting, feels more during day. Pt has had an injection in in last few months, but reports did not help Prior Treatments and Tests Pt has an upcoming MRI depending on insurance She had an x-ray PT-OP-C Subjective Start: 08/01/24 16:06 Freq: Status: Active Protocol: Document 10/03/24 08:20 SP (Rec: 10/03/24 09:05 SP [id number]) OP-PT Subjective Patient Comments Patient Comments Pt reports hasn't felt well past few days so hasn't done some of the exercises. R lateral Neck is still sore at arrival. 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 Saw Dr Wadsworth and is electing to not have surgery with long recovery needed and hoping PT can help her get her range back. Doing neck stretches throughout day for decrease UT tension. PT-OP-E Functional Tests Start: 08/01/24 16:06 Freq: Status: Active Protocol: Document 08/02/24 09:45 NM (Rec: 08/02/24 11:12 NM [id number]) Functional Tests Apley's Scratch Test Action 1- Left post cuff Action 1- Right ACJ; painful Action 2- Left T6 Action 2- Right not to ear; painful Action 3- Left T6 Action 3- Right sacrum; painful PT-OP-F Manual Assessment Start: 08/01/24 16:06 Freq: Status: Active Protocol: Document 08/02/24 09:45 NM (Rec: 08/02/24 11:12 NM [id number]) Manual Assessments Soft Tissue Assessment Soft Tissue Mobility Assessment Increased restriction of cervical paraspinals; tightness and trigger points along levator scapulae, upper trapezius, rhomboids, posterior cuff. Increased lat tightnesss Joint Mobility Assessment Joint Mobility Assessment R scapula elevated and restricted. Limited R GHJ posterior and inferior glide. No restrictions of cervical spine mobility except soft tissue tightness. Empty end feels for all, more PROM than AROM PT-OP-G Mobility & Gait Start: 08/01/24 16:06 Freq: Status: Active Protocol: Document 08/02/24 09:45 NM (Rec: 08/02/24 11:12 NM [id number]) OP Gait Assessment Gait Gait Assistance Required: Independent Distance (Feet) 150 Comments Gait Comments Demos decreased trunk rotation , stiffness on RUE PT-OP-H Neuro Start: 08/01/24 16:06 Freq: Status: Active Protocol: Document 08/02/24 09:45 NM (Rec: 08/02/24 11:12 NM [id number]) Sensation Evaluation Comments Summary Comments Will assess next session PT-OP-J Posture/Palpation/Skin Start: 08/01/24 16:06 Freq: Status: Active Protocol: Document 08/02/24 09:45 NM (Rec: 08/02/24 11:12 NM [id number]) Posture Evaluation Position Standing Head/C-Spine Posture Forward Head Shoulder Posture (L) Forward,(R) Forward,(R) Elevated Scapula Posture (R) Elevated,(L) Winged,(R) Winged Arm Posture (L) Internally Rotated,(R) Internally Rotated Pelvis Posture Anteriorly Tilted Knee Posture (L) Genu Valgus,(R) Genu Valgus Palpation Assessment Location R shoulder Palpation Details Tenderness at long head biceps tendon, AC joint, GH joint Tightness along lat, posterior cuff, cervical paraspinals and periscapulars PT-OP-K Range of Motion Start: 08/01/24 16:06 Freq: Status: Active Protocol: Document 09/05/24 08:15 NM (Rec: 09/05/24 09:02 NM [id number]) Shoulder Goniometric Range of Motion Shoulder Right Flexion 105 Extension 40 Abduction 75 External Rotation at 0 degrees Abduction 10 Internal Rotation 70 Comments IE: 90 deg flex, 40 deg ext, 80 deg abd into scaption, 10 deg ER, 70 deg IR; PROM: 120 deg flex, 100 deg abd, 10 deg ER 09/05/24: 105 deg flex, 75 deg abd in scaption, 10 deg ER at 0 deg abd; PROM: 120 deg flex , 75 deg abd, 20 deg ER Left Flexion 170 Extension 65 Abduction 175 External Rotation at 45 degrees 90 Abduction External Rotation at 0 degrees Abduction 60 Internal Rotation 70 PT-OP-L Special Tests Start: 08/01/24 16:06 Freq: Status: Active Protocol: Document 08/02/24 09:45 NM (Rec: 08/02/24 11:12 NM [id number]) Special Tests Cervical Spine Special Tests Upper Limb Tension Test Test Results + Comments median n.; unable to test ulnar d/t shldr ROM/pain Spurling's Test Test Results - Shoulder Special Tests Empty Can Test Results + Comments limited ROM Belly Press Test Results + Yergason's Biceps Test Results - Elbow Special Tests Tinel Test Results + Comments cubital tunnel Wrist/Hand Special Tests Tinel Test Results + Comments over carpal tunnel PT-OP-M Strength Start: 08/01/24 16:06 Freq: Status: Active Protocol: Document 09/05/24 08:15 NM (Rec: 09/05/24 09:02 NM [id number]) Shoulder Strength Shoulder Manual Muscle Testing Right Flexion 3 Fair Extension 3 Fair External Rotation 3 Fair Internal Rotation 3 Fair Comments pain with flex, abd, IR at cuff and biceps 09/05/24: 3/5 for all; painful Left Flexion 4+ Good+ Extension 4+ Good+ Abduction (C5) 4+ Good+ Adduction 4+ Good+ External Rotation 4+ Good+ Internal Rotation 4+ Good+ Horizontal Abduction 4+ Good+ Horizontal Adduction 4+ Good+ Comments bicep PT-OP-Q Treatments Start: 08/01/24 16:06 Freq: Status: Active Protocol: Document 10/03/24 08:20 SP (Rec: 10/03/24 09:05 SP [id number]) Therapeutic Exercises Supine Exercises serratus punch Supine Exercise Name in PT (add to HEP next tx) Side right Resistance AROM Equipment Used punch to therapist hand Reps/Minutes x8 reps Comments pnfree AAROM Supine Exercise Name flexion w/ dowel- 122 deg Side right Equipment Used dowel in BUE Reps/Minutes 10 SH x10 Comments slight pain top of R GH jt end feel- no improvement with inf glide support Standing Exercises isometric walk outs Standing Exercise Name IR and ER- trialed in PT Side right Resistance Tb #2 orange Reps/Minutes 3 step Comments no pain but tiring Wall slides Standing Exercise Name B slides into flex (contact at ulnar surface hands) > lift off and lower Side bilateral Reps/Minutes 4 reps tolerated w/ increased time Comments ~95 deg, no inc pain but limited flexion Manual Therapy Treatment Consent Patient gave verbal consent for manual Yes treatment Soft Tissue Mobilization neck Body Location R UT, LS, CS paraspinals, SOR, SCM Mobilization Type Rolling,Sustained Pressure, Other Intensity/Depth Moderate Body Position Sidelying R shoulder Body Location rhomboid, post cuff, lat, ant shldr pec & bicep Mobilization Type Rolling Intensity/Depth Moderate Body Position L Sidelying Comments Global restrictions and tenderness along R shoulder prox bicep. Joint Mobilizations ribs Joint 1st rib Direction caudal Grade III Body Position Sidelying Reps/Duration 10x1 Comments In sidelying, monitored for pain, with breathwork and post soft tissue mobilization scapulothoracic Direction elev/dep, prot/retract, rotation Grade II Body Position Sidelying Reps/Duration 3x10 Comments Scapula still elevated. Improved mobility to adduction /depression but still limited R shoulder Joint GHJ Direction post, inf Grade III Reps/Duration 6x30 ea Comments Less discomfort with mobilizations. Monitored for pain 1. seated inf glide with arm supported on elevated plinth, supine inf glide mobilization w/ movement into abd 2. supine post glide with slight bias into abd (45 deg) and ER PT-OP-T Assessment and Plan Start: 08/01/24 16:06 Freq: Status: Active Protocol: Document 10/03/24 08:20 SP (Rec: 10/03/24 09:05 SP [id number]) Physical Therapy Assessment Goals Five Impairment strength impaired R shoulder globally Mcfp Goal (LTG) Pt will improve R shoulder strength to at least 4+/5 globally in order to demonstrate improvements needed for lifting and carrying 09/05/24: 3/5 w/ pain LTG Duration 12 weeks Four Impairment IR apley AROM limited Short Term Goal (STG) Pt will be able to reach L5 with her R hand in order to demonstrate improved AROM for dressing and to put her hand on her hip 09/05/24: back pocket of pants w/ pain STG Duration 8 weeks PROGRESSING 09/05/24 Rn Training Goal (LTG) Pt will be able to reach L1 with her R hand in order to demonstrate improved AROM for dressing and to put her hand on her hip LTG Duration 12 weeks Three Impairment ER apley AROM limited Short Term Goal (STG) Pt will be able to reach her R ear to demonstrate improved ER AROM for grooming 09/05/24: R ear lobe w/ pain STG Duration 8 weeks MET Rn Training Goal (LTG) Pt will be able to reach the base of her occiput using her R hand to demonstrate improved ER AROM for grooming 09/19/24: pt able to reach base of occiput with R hand w/ pain; put up hair over weekend LTG Duration 12 weeks MET Two Impairment flexion and abduction AROM limited Short Term Goal (STG) Pt will improve R shoulder flexion and abduction to at least 125 deg in order to demonstrate improvements in ability to reach overhead for dressing/grooming 09/05/24: 105 deg AROM flexion , 120 deg PROM flexion; 75 deg abd AROM and PROM 09/19/24: 110 deg flex AROM w/ slight shoulder elevation, abd to 85 deg w/ slight shoulder elevation STG Duration 8 weeks PROGRESSING 09/19/24 Rn Training Goal (LTG) Pt will improve R shoulder flexion and abduction to at least 150 deg in order to demonstrate improvements in ability to reach overhead and write on board at work LTG Duration 12 weeks One Impairment quickdash score 70% impairment Impairment decreased functional use of left UE Short Term Goal (STG) Pt will improve quickdash score by at least 10% in order to demonstrate improvements in QOL, symptom management, and activity tolerance 09/05/24: 63.6% impairment STG Duration 6 weeks PROGRESSING; NOT MET 09/05/24 Rn Training Goal (LTG) Pt will improve quickdash score <30% in order to demonstrate improvements in QOL, symptom management, and activity tolerance LTG Duration 12 weeks Assessment Summary Assessment Pt continues to work on progression AAROM use dowel FF 122 deg and scapular mobility during serratus puch motion today post manual, cues for target range. Pt tires quickly during trial isometric IR/ER walk outs pnfree, cues for maintain elbow flexion 90 deg hand front. Gained little more range forearm/ulnar hand wall slides 95 deg flexion before UT recruitment. Physical Therapy Plan Frequency and Duration Frequency of Treatment 1-2x/wk Duration of treatment (weeks) 12 Plan of Care Start Date 08/02/24 Plan of Care End Date 10/27/24 Therapeutic Interventions Therapeutic Interventions Balance Training,Gait Training ,Home Exercise Program,Joint Mobilizations,Manual Therapy, Neuromuscular Re-education, Orthotic/Prosthetic Management ,Patient/Caregiver Education, Self-Care/Home Management, Sensory Integration,Soft Tissue Mobilization,Taping, Therapeutic Activities, Therapeutic Exercises Modalities Cold Pack/Ice Massage,Electric Stimulation,Hot Packs, Ultrasound Other Therapeutic Interventions Trigger point therapy Next Visit Focus/Plan Next Note Type Treatment Note Next Visit Plan Recheck wall slide and incorporation eccentric lowering, Rhomboid and LT activation. POC: Ask about decide if RODNEY vs cont with PT. Cont with GHJ joint mob (focus on flex and abd; cont ant glide with ER and IR behind table mob). IR towel stretch. progress to banded nora reactives if nora ok. Add rows, low rows. STM to neck/shoulder as needed. Assess rachelle for eccentric flex/ abd on HEP- correct or d/c. Promote sidelying flex/abd ROM , and thoracic mobility
--- NOTE | 2024-10-10 10:01 | PT.OTN ---
Current Diagnoses Pain in right shoulder (10/10/24) Stiffness of right shoulder, not elsewhere classified (10/10/24) Weakness (10/10/24) Strain of unspecified muscle, fascia and tendon at shoulder and upper arm level, right arm, initial encounter (10/10/24) Physical Therapy Treatment Note PT-OP-A Visit Information Start: 08/01/24 16:06 Freq: Status: Active Protocol: Document 10/10/24 08:23 NM (Rec: 10/10/24 08:38 NM [id number]) Out-Patient Physical Therapy Visit Information Visit Information Visit Type Treatment Note Visit Start Time 08:18 Visit Stop Time 09:00 Visit Number [id number] (5 with PN) Evaluation Information Evaluation Date 08/02/24 PT-OP-B Current Condition Start: 08/01/24 16:06 Freq: Status: Active Protocol: Document 08/02/24 09:45 NM (Rec: 08/02/24 11:12 NM [id number]) Current Condition History of Current Condition Onset Date April 2024 Current Complaints weakness, pain, decreased mobility History of Current Condition Pt presents with R shoulder pain in April 2024. She was chopping firewood with a small axe, then slept in a tent. She reports that the next morning her shoulder started to bother her. She reports difficulty with raising her arm above her head, constant pain to arm, weakness/tingling in fingers 3-4-5 sometimes, waking/going to bed, sleeping . PMH of L shoulder surgery ( tear and arthritis) several years ago. She has a job that requires lifting. 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 She does not lift pt alone, transfers. Pt also reports neck pain on her R side; has a hx of neck pain but not on R side. Pt reports that she fell yesterday and caught herself with her R arm. Pt tends to sleep on her back or L side ( hugs a pillow). Unsure of what positions or tasks make pt's fingers feel worse, but states feels more when cutting, doing dishes; she shakes her hands in the hands to feel better, worse with sitting, feels more during day. Pt has had an injection in in last few months, but reports did not help Prior Treatments and Tests Pt has an upcoming MRI depending on insurance She had an x-ray PT-OP-C Subjective Start: 08/01/24 16:06 Freq: Status: Active Protocol: Document 10/10/24 08:23 NM (Rec: 10/10/24 08:38 NM [id number]) OP-PT Subjective Patient Comments Patient Comments Pt reports 4/10 pain. States overall pain is less in shoulder. States has been able to drive better and with less pain, can hold steering wheel in correct position. Pt reports she can also don her hat, reach higher with less pain, although still very limited. PT-OP-E Functional Tests Start: 08/01/24 16:06 Freq: Status: Active Protocol: Document 08/02/24 09:45 NM (Rec: 08/02/24 11:12 NM [id number]) Functional Tests Apley's Scratch Test Action 1- Left post cuff Action 1- Right ACJ; painful Action 2- Left T6 Action 2- Right not to ear; painful Action 3- Left T6 Action 3- Right sacrum; painful PT-OP-F Manual Assessment Start: 08/01/24 16:06 Freq: Status: Active Protocol: Document 08/02/24 09:45 NM (Rec: 08/02/24 11:12 NM [id number]) Manual Assessments Soft Tissue Assessment Soft Tissue Mobility Assessment Increased restriction of cervical paraspinals; tightness and trigger points along levator scapulae, upper trapezius, rhomboids, posterior cuff. Increased lat tightnesss Joint Mobility Assessment Joint Mobility Assessment R scapula elevated and restricted. Limited R GHJ posterior and inferior glide. No restrictions of cervical spine mobility except soft tissue tightness. Empty end feels for all, more PROM than AROM PT-OP-G Mobility & Gait Start: 08/01/24 16:06 Freq: Status: Active Protocol: Document 08/02/24 09:45 NM (Rec: 08/02/24 11:12 NM [id number]) OP Gait Assessment Gait Gait Assistance Required: Independent Distance (Feet) 150 Comments Gait Comments Demos decreased trunk rotation , stiffness on RUE PT-OP-H Neuro Start: 08/01/24 16:06 Freq: Status: Active Protocol: Document 08/02/24 09:45 NM (Rec: 08/02/24 11:12 NM [id number]) Sensation Evaluation Comments Summary Comments Will assess next session PT-OP-J Posture/Palpation/Skin Start: 08/01/24 16:06 Freq: Status: Active Protocol: Document 08/02/24 09:45 NM (Rec: 08/02/24 11:12 NM [id number]) Posture Evaluation Position Standing Head/C-Spine Posture Forward Head Shoulder Posture (L) Forward,(R) Forward,(R) Elevated Scapula Posture (R) Elevated,(L) Winged,(R) Winged Arm Posture (L) Internally Rotated,(R) Internally Rotated Pelvis Posture Anteriorly Tilted Knee Posture (L) Genu Valgus,(R) Genu Valgus Palpation Assessment Location R shoulder Palpation Details Tenderness at long head biceps tendon, AC joint, GH joint Tightness along lat, posterior cuff, cervical paraspinals and periscapulars PT-OP-K Range of Motion Start: 08/01/24 16:06 Freq: Status: Active Protocol: Document 09/05/24 08:15 NM (Rec: 09/05/24 09:02 NM [id number]) Shoulder Goniometric Range of Motion Shoulder Right Flexion 105 Extension 40 Abduction 75 External Rotation at 0 degrees Abduction 10 Internal Rotation 70 Comments IE: 90 deg flex, 40 deg ext, 80 deg abd into scaption, 10 deg ER, 70 deg IR; PROM: 120 deg flex, 100 deg abd, 10 deg ER 09/05/24: 105 deg flex, 75 deg abd in scaption, 10 deg ER at 0 deg abd; PROM: 120 deg flex , 75 deg abd, 20 deg ER Left Flexion 170 Extension 65 Abduction 175 External Rotation at 45 degrees 90 Abduction External Rotation at 0 degrees Abduction 60 Internal Rotation 70 PT-OP-L Special Tests Start: 08/01/24 16:06 Freq: Status: Active Protocol: Document 08/02/24 09:45 NM (Rec: 08/02/24 11:12 NM [id number]) Special Tests Cervical Spine Special Tests Upper Limb Tension Test Test Results + Comments median n.; unable to test ulnar d/t shldr ROM/pain Spurling's Test Test Results - Shoulder Special Tests Empty Can Test Results + Comments limited ROM Belly Press Test Results + Yergason's Biceps Test Results - Elbow Special Tests Tinel Test Results + Comments cubital tunnel Wrist/Hand Special Tests Tinel Test Results + Comments over carpal tunnel PT-OP-M Strength Start: 08/01/24 16:06 Freq: Status: Active Protocol: Document 09/05/24 08:15 NM (Rec: 09/05/24 09:02 NM [id number]) Shoulder Strength Shoulder Manual Muscle Testing Right Flexion 3 Fair Extension 3 Fair External Rotation 3 Fair Internal Rotation 3 Fair Comments pain with flex, abd, IR at cuff and biceps 09/05/24: 3/5 for all; painful Left Flexion 4+ Good+ Extension 4+ Good+ Abduction (C5) 4+ Good+ Adduction 4+ Good+ External Rotation 4+ Good+ Internal Rotation 4+ Good+ Horizontal Abduction 4+ Good+ Horizontal Adduction 4+ Good+ Comments bicep PT-OP-Q Treatments Start: 08/01/24 16:06 Freq: Status: Active Protocol: Document 10/10/24 08:23 NM (Rec: 10/10/24 09:02 NM [id number]) Therapeutic Exercises Supine Exercises serratus punch Supine Exercise Name in PT HEP Side right Resistance AROM > lvl 1 band Equipment Used punch to therapist hand Reps/Minutes 10 ea Comments pnfree Standing Exercises isometric walk outs Standing Exercise Name IR and ER- HEP Side right Resistance Tb #2 orange Equipment Used towel roll Reps/Minutes 3 step- 10 ea direction Comments no pain but tiring Wall slides Standing Exercise Name B slides into flex (contact at ulnar surface hands) > lift off and lower Side bilateral Reps/Minutes 5 reps tolerated w/ increased time Comments no inc pain but limited flexion Manual Therapy Treatment Soft Tissue Mobilization neck Body Location R UT, LS, CS paraspinals, SOR, SCM Mobilization Type Rolling,Sustained Pressure, Other Intensity/Depth Moderate Body Position Sidelying R shoulder Body Location rhomboid, post cuff, lat, ant shldr pec & bicep Mobilization Type Rolling Intensity/Depth Moderate Body Position L Sidelying Comments Global restrictions and tenderness along R shoulder prox bicep. Joint Mobilizations R shoulder Joint GHJ Direction post, inf Grade III Reps/Duration 6x30 ea Comments Less discomfort with mobilizations. Monitored for pain. Use of belt for scapular stabilization to prevent compensations PT-OP-T Assessment and Plan Start: 08/01/24 16:06 Freq: Status: Active Protocol: Document 10/10/24 08:23 NM (Rec: 10/10/24 09:02 NM [id number]) Physical Therapy Assessment Goals Five Impairment strength impaired R shoulder globally Jail Goal (LTG) Pt will improve R shoulder strength to at least 4+/5 globally in order to demonstrate improvements needed for lifting and carrying 09/05/24: 3/5 w/ pain LTG Duration 12 weeks Four Impairment IR apley AROM limited Short Term Goal (STG) Pt will be able to reach L5 with her R hand in order to demonstrate improved AROM for dressing and to put her hand on her hip 09/05/24: back pocket of pants w/ pain STG Duration 8 weeks PROGRESSING 09/05/24 Jail Goal (LTG) Pt will be able to reach L1 with her R hand in order to demonstrate improved AROM for dressing and to put her hand on her hip LTG Duration 12 weeks Three Impairment ER apley AROM limited Short Term Goal (STG) Pt will be able to reach her R ear to demonstrate improved ER AROM for grooming 09/05/24: R ear lobe w/ pain STG Duration 8 weeks MET [place] Rider Goal (LTG) Pt will be able to reach the base of her occiput using her R hand to demonstrate improved ER AROM for grooming 09/19/24: pt able to reach base of occiput with R hand w/ pain; put up hair over weekend LTG Duration 12 weeks MET Two Impairment flexion and abduction AROM limited Short Term Goal (STG) Pt will improve R shoulder flexion and abduction to at least 125 deg in order to demonstrate improvements in ability to reach overhead for dressing/grooming 09/05/24: 105 deg AROM flexion , 120 deg PROM flexion; 75 deg abd AROM and PROM 09/19/24: 110 deg flex AROM w/ slight shoulder elevation, abd to 85 deg w/ slight shoulder elevation STG Duration 8 weeks PROGRESSING 09/19/24 [place]ider Goal (LTG) Pt will improve R shoulder flexion and abduction to at least 150 deg in order to demonstrate improvements in ability to reach overhead and write on board at work LTG Duration 12 weeks One Impairment quickdash score 70% impairment Impairment decreased functional use of left UE Short Term Goal (STG) Pt will improve quickdash score by at least 10% in order to demonstrate improvements in QOL, symptom management, and activity tolerance 09/05/24: 63.6% impairment STG Duration 6 weeks PROGRESSING; NOT MET 09/05/24 [place] Rider Goal (LTG) Pt will improve quickdash score <30% in order to demonstrate improvements in QOL, symptom management, and activity tolerance LTG Duration 12 weeks Assessment Summary Assessment Pt responded well but continues to have limitations in R shoulder ROM along with shoulder compensation. Gained R shoulder to 115 deg R shoulder flex (starting 105 deg) and 105 deg abd (starting 90 deg). Good response to manual therapy with scapula stabilized; however, still very limited with R GHJ inferior glide. Therapeutic exercise challenging for pt and quickly fatigues due to weakness and poor activity tolerance. Able to tolerate rotator cuff isometrics with minimal pain and cueing to minimize compensation. Still demonstrates strong upper trap compensation with shoulder elevation into flexion and abduction. Physical Therapy Plan Frequency and Duration Frequency of Treatment 1-2x/wk Duration of treatment (weeks) 12 Plan of Care Start Date 08/02/24 Plan of Care End Date 10/27/24 Next Visit Focus/Plan Next Note Type Treatment Note Next Visit Plan PN 2 visits. cont w/ incorporation eccentric lowering, Rhomboid and LT activation (maybe trial nora walkouts for rows/LT vs isot). Cont with jt mobilizations, yang into Ir/ADD POC: Cont with GHJ joint mob (focus on flex and abd; cont ant glide with ER and IR behind table mob). IR towel stretch. progress to banded nora reactives if nora ok. Add rows, low rows. STM to neck/ shoulder as needed. Assess rachelle for eccentric flex/abd on HEP - correct or d/c. Promote sidelying flex/abd ROM, and thoracic mobility
--- NOTE | 2024-10-24 13:00 | PT.OTN ---
Current Diagnoses Pain in right shoulder (10/24/24) Stiffness of right shoulder, not elsewhere classified (10/24/24) Weakness (10/24/24) Strain of unspecified muscle, fascia and tendon at shoulder and upper arm level, right arm, initial encounter (10/24/24) Physical Therapy Treatment Note PT-OP-A Visit Information Start: 08/01/24 16:06 Freq: Status: Active Protocol: Document 10/24/24 08:17 NM (Rec: 10/24/24 09:02 NM [id number]) Out-Patient Physical Therapy Visit Information Visit Information Visit Type Progress Note Visit Start Time 08:19 Visit Stop Time 09:00 Visit Number [id number] Evaluation Information Evaluation Date 08/02/24 PT-OP-B Current Condition Start: 08/01/24 16:06 Freq: Status: Active Protocol: Document 08/02/24 09:45 NM (Rec: 08/02/24 11:12 NM [id number]) Current Condition History of Current Condition Onset Date April 2024 Current Complaints weakness, pain, decreased mobility History of Current Condition Pt presents with R shoulder pain in April 2024. She was chopping firewood with a small axe, then slept in a tent. She reports that the next morning her shoulder started to bother her. She reports difficulty with raising her arm above her head, constant pain to arm, weakness/tingling in fingers 3-4-5 sometimes, waking/going to bed, sleeping . PMH of L shoulder surgery ( tear and arthritis) several years ago. She has a job that requires lifting. 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 She does not lift pt alone, transfers. Pt also reports neck pain on her R side; has a hx of neck pain but not on R side. Pt reports that she fell yesterday and caught herself with her R arm. Pt tends to sleep on her back or L side ( hugs a pillow). Unsure of what positions or tasks make pt's fingers feel worse, but states feels more when cutting, doing dishes; she shakes her hands in the hands to feel better, worse with sitting, feels more during day. Pt has had an injection in in last few months, but reports did not help Prior Treatments and Tests Pt has an upcoming MRI depending on insurance She had an x-ray PT-OP-C Subjective Start: 08/01/24 16:06 Freq: Status: Active Protocol: Document 10/24/24 08:17 NM (Rec: 10/24/24 09:02 NM [id number]) OP-PT Subjective Patient Comments Patient Comments Pt reports that she will be switching insurance to [employer] on 11/15. Overall, shoulder has been hurting less, feels like she can move her arm more. She can now wash her hair and tie her hair up with her clip. She reports she can also put her phone in her back pocket. No longer has a constant ache. She spoke with Dr. Wadsworth, still in stage. She is able to write on the board but still needs to support her arm; still has pain with lifting. PT-OP-E Functional Tests Start: 08/01/24 16:06 Freq: Status: Active Protocol: Document 08/02/24 09:45 NM (Rec: 08/02/24 11:12 NM [id number]) Functional Tests Apley's Scratch Test Action 1- Left post cuff Action 1- Right ACJ; painful Action 2- Left T6 Action 2- Right not to ear; painful Action 3- Left T6 Action 3- Right sacrum; painful PT-OP-F Manual Assessment Start: 08/01/24 16:06 Freq: Status: Active Protocol: Document 08/02/24 09:45 NM (Rec: 08/02/24 11:12 NM [id number]) Manual Assessments Soft Tissue Assessment Soft Tissue Mobility Assessment Increased restriction of cervical paraspinals; tightness and trigger points along levator scapulae, upper trapezius, rhomboids, posterior cuff. Increased lat tightnesss Joint Mobility Assessment Joint Mobility Assessment R scapula elevated and restricted. Limited R GHJ posterior and inferior glide. No restrictions of cervical spine mobility except soft tissue tightness. Empty end feels for all, more PROM than AROM PT-OP-G Mobility & Gait Start: 08/01/24 16:06 Freq: Status: Active Protocol: Document 08/02/24 09:45 NM (Rec: 08/02/24 11:12 NM [id number]) OP Gait Assessment Gait Gait Assistance Required: Independent Distance (Feet) 150 Comments Gait Comments Demos decreased trunk rotation , stiffness on RUE PT-OP-H Neuro Start: 08/01/24 16:06 Freq: Status: Active Protocol: Document 08/02/24 09:45 NM (Rec: 08/02/24 11:12 NM [id number]) Sensation Evaluation Comments Summary Comments Will assess next session PT-OP-J Posture/Palpation/Skin Start: 08/01/24 16:06 Freq: Status: Active Protocol: Document 08/02/24 09:45 NM (Rec: 08/02/24 11:12 NM [id number]) Posture Evaluation Position Standing Head/C-Spine Posture Forward Head Shoulder Posture (L) Forward,(R) Forward,(R) Elevated Scapula Posture (R) Elevated,(L) Winged,(R) Winged Arm Posture (L) Internally Rotated,(R) Internally Rotated Pelvis Posture Anteriorly Tilted Knee Posture (L) Genu Valgus,(R) Genu Valgus Palpation Assessment Location R shoulder Palpation Details Tenderness at long head biceps tendon, AC joint, GH joint Tightness along lat, posterior cuff, cervical paraspinals and periscapulars PT-OP-K Range of Motion Start: 08/01/24 16:06 Freq: Status: Active Protocol: Document 10/24/24 08:17 NM (Rec: 10/24/24 09:02 NM [id number]) Shoulder Goniometric Range of Motion Shoulder Right Flexion 120 Extension 40 Abduction 110 External Rotation at 0 degrees Abduction 10 Internal Rotation 70 Comments IE: 90 deg flex, 40 deg ext, 80 deg abd into scaption, 10 deg ER, 70 deg IR; PROM: 120 deg flex, 100 deg abd, 10 deg ER 09/05/24: 105 deg flex, 75 deg abd in scaption, 10 deg ER at 0 deg abd; PROM: 120 deg flex , 75 deg abd, 20 deg ER 10/24/24: Left Flexion 170 Extension 65 Abduction 175 External Rotation at 45 degrees 90 Abduction External Rotation at 0 degrees Abduction 60 Internal Rotation 70 PT-OP-L Special Tests Start: 08/01/24 16:06 Freq: Status: Active Protocol: Document 08/02/24 09:45 NM (Rec: 08/02/24 11:12 NM [id number]) Special Tests Cervical Spine Special Tests Upper Limb Tension Test Test Results + Comments median n.; unable to test ulnar d/t shldr ROM/pain Spurling's Test Test Results - Shoulder Special Tests Empty Can Test Results + Comments limited ROM Belly Press Test Results + Yergason's Biceps Test Results - Elbow Special Tests Tinel Test Results + Comments cubital tunnel Wrist/Hand Special Tests Tinel Test Results + Comments over carpal tunnel PT-OP-M Strength Start: 08/01/24 16:06 Freq: Status: Active Protocol: Document 10/24/24 08:17 NM (Rec: 10/24/24 09:02 NM [id number]) Shoulder Strength Shoulder Manual Muscle Testing Right Flexion 4- Good- Extension 4- Good- External Rotation 3+ Fair+ Internal Rotation 4- Good- Comments pain with flex, abd, IR at cuff and biceps 09/05/24: 3/5 for all; painful 10/24/24: 3+/ER, 4-/5 Left Flexion 4+ Good+ Extension 4+ Good+ Abduction (C5) 4+ Good+ Adduction 4+ Good+ External Rotation 4+ Good+ Internal Rotation 4+ Good+ Horizontal Abduction 4+ Good+ Horizontal Adduction 4+ Good+ Comments bicep PT-OP-Q Treatments Start: 08/01/24 16:06 Freq: Status: Active Protocol: Document 10/24/24 08:17 NM (Rec: 10/24/24 09:02 NM [id number]) Therapeutic Exercises Sidelying Exercises r shld Sidelying Exercise Name 1. flex, 1. abd Side right Equipment Used PT facil at scap; inf glide and distract at wrist Reps/Minutes 10 ea w/ PT, 10 w/o Comments verbal and tactile cues, improve scap w/ reps Standing Exercises Wall slides Standing Exercise Name w/ ER (ulnar contact) Side bilateral Reps/Minutes 5 Comments better scap activation Other Exercises self STMs Other Exercise Name 1. pec, 2. subscapularis/lat Side right Equipment Used L assist right, MWM at wall and sitting Reps/Minutes 2x60 ea Manual Therapy Treatment Consent Patient gave verbal consent for manual Yes treatment Soft Tissue Mobilization R shoulder Body Location rhomboid, post cuff, lat, ant shldr pec & bicep Mobilization Type Rolling Intensity/Depth Moderate Body Position L Sidelying Comments Tenderness only at lat/ subscapularis complex. Still restricted especially at periscapulars. Less post manual. Monitored for pain Joint Mobilizations R shoulder Joint GHJ Direction post, inf Grade III Reps/Duration 6x30 ea Comments Less discomfort with mobilizations. Monitored for pain. Biased into abd during inf glide and post glide PT-OP-T Assessment and Plan Start: 08/01/24 16:06 Freq: Status: Active Protocol: Document 10/24/24 08:17 NM (Rec: 10/24/24 09:02 NM [id number]) Physical Therapy Assessment Goals Five Impairment strength impaired R shoulder globally Applications Support Specialist Goal (LTG) Pt will improve R shoulder strength to at least 4+/5 globally in order to demonstrate improvements needed for lifting and carrying 09/05/24: 3/5 w/ pain 10/24/24: 4-/5 for all except for ER 3+/5 LTG Duration PROGRESSING 10/24; 10 weeks Four Impairment IR apley AROM limited Short Term Goal (STG) Pt will be able to reach L5 with her R hand in order to demonstrate improved AROM for dressing and to put her hand on her hip 09/05/24: back pocket of pants w/ pain 10/24/24: L3 STG Duration 8 weeks PROGRESSING 09/05/24 Applications Support Specialist Goal (LTG) Pt will be able to reach L1 with her R hand in order to demonstrate improved AROM for dressing and to put her hand on her hip 10/24/24: L3, can put phone in back pocket LTG Duration PROGRESSING 10/24; weeks Three Impairment ER apley AROM limited Short Term Goal (STG) Pt will be able to reach her R ear to demonstrate improved ER AROM for grooming 09/05/24: R ear lobe w/ pain STG Duration 8 weeks MET Applications Support Specialist Goal (LTG) Pt will be able to reach the base of her occiput using her R hand to demonstrate improved ER AROM for grooming 09/19/24: pt able to reach base of occiput with R hand w/ pain; put up hair over weekend 10/24/24: base of occiput, C2 LTG Duration 12 weeks MET Two Impairment flexion and abduction AROM limited Short Term Goal (STG) Pt will improve R shoulder flexion and abduction to at least 125 deg in order to demonstrate improvements in ability to reach overhead for dressing/grooming 09/05/24: 105 deg AROM flexion , 120 deg PROM flexion; 75 deg abd AROM and PROM 09/19/24: 110 deg flex AROM w/ slight shoulder elevation, abd to 85 deg w/ slight shoulder elevation 10/24/24: 120 deg flex, 110 deg abd STG Duration 8 weeks PROGRESSING 10/24/24 Assisted Goal (LTG) Pt will improve R shoulder flexion and abduction to at least 140 deg in order to demonstrate improvements in ability to reach overhead and write on board at work LTG Duration 10 weels- GOAL UPDATED One Impairment quickdash score 70% impairment Impairment decreased functional use of left UE Short Term Goal (STG) Pt will improve quickdash score by at least 10% in order to demonstrate improvements in QOL, symptom management, and activity tolerance 09/05/24: 63.6% impairment 10/24/24: 40% impairment STG Duration 6 weeks MET 10/24 Assisted Goal (LTG) Pt will improve quickdash score <30% in order to demonstrate improvements in QOL, symptom management, and activity tolerance 10/24/24: 40% impairment LTG Duration 10 weeks PROGRESSING 11/07 Assessment Summary Assessment Pt responds well to manual tx, less pain. Needs verabl and tactile cuing for scapular activation and control. Better scapular elevation and rotation with cueing to allow scapular mobility. Pt demos improvement to 125 deg R shoulder flexion at end of session. R shoulder abduction still limited especially with inferior glide. Improved motion into flexion and abduction with sidelying shoulder elevation, PT facilitating at scapula and wrist for more efficient activation and control. Physical Therapy Plan Frequency and Duration Frequency of Treatment 1-2x/wk Duration of treatment (weeks) 10 Plan of Care Start Date 10/24/24 Plan of Care End Date 01/05/25 Therapeutic Interventions Therapeutic Interventions Balance Training,Gait Training ,Home Exercise Program,Joint Mobilizations,Manual Therapy, Neuromuscular Re-education, Orthotic/Prosthetic Management ,Patient/Caregiver Education, Self-Care/Home Management, Sensory Integration,Soft Tissue Mobilization,Taping, Therapeutic Activities, Therapeutic Exercises Modalities Cold Pack/Ice Massage,Electric Stimulation,Hot Packs, Ultrasound Other Therapeutic Interventions Trigger point therapy Next Visit Focus/Plan Next Note Type Treatment Note Next Visit Plan sidelying flex and ER. ER wall stretch. seated inf glide mob and self mob. cont w/ incorporation eccentric lowering, Rhomboid and LT activation (maybe trial nora walkouts for rows/LT vs isot). Cont with jt mobilizations, yang into Ir/ADD POC: Cont with GHJ joint mob (focus on flex and abd; cont ant glide with ER and IR behind table mob). IR towel stretch. progress to banded nora reactives if nora ok. Add rows, low rows. STM to neck/ shoulder as needed. Assess rachelle for eccentric flex/abd on HEP - correct or d/c. Promote sidelying flex/abd ROM, and thoracic mobility
--- NOTE | 2024-10-24 13:01 | PT.OPPOC ---
Physical, Occupational & Speech Therapy At [facility] Current Diagnoses Pain in right shoulder (10/24/24) Stiffness of right shoulder, not elsewhere classified (10/24/24) Weakness (10/24/24) Strain of unspecified muscle, fascia and tendon at shoulder and upper arm level, right arm, initial encounter (10/24/24) Visit Care Team Role Provider Type Leatha Pierre MD Family Provider Physician Primary Care Provider Specialty: [facility] Address: [address] [place] [address], [facility] [place], [address] Email: [email or web address] VIC Bustillo Attending Provider [employer] Paralegal Referring Provider Specialty: [facility] Address: [address] [place] [address] B, [place], [address] Phone: Fax: Email: [email or web address] Plan Of Care PT-OP-B Current Condition Start: 08/01/24 16:06 Freq: Status: Active Protocol: Document 08/02/24 09:45 NM (Rec: 08/02/24 11:12 NM [id number]) Current Condition History of Current Condition Onset Date April 2024 Current Complaints weakness, pain, decreased mobility History of Current Condition Pt presents with R shoulder pain in April 2024. She was chopping firewood with a small axe, then slept in a tent. She reports that the next morning her shoulder started to bother her. She reports difficulty with raising her arm above her head, constant pain to arm, weakness/tingling in fingers 3-4-5 sometimes, waking/going to bed, sleeping . PMH of L shoulder surgery ( tear and arthritis) several years ago. She has a job that requires lifting. 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 She does not lift pt alone, transfers. Pt also reports neck pain on her R side; has a hx of neck pain but not on R side. Pt reports that she fell yesterday and caught herself with her R arm. Pt tends to sleep on her back or L side ( hugs a pillow). Unsure of what positions or tasks make pt's fingers feel worse, but states feels more when cutting, doing dishes; she shakes her hands in the hands to feel better, worse with sitting, feels more during day. Pt has had an injection in in last few months, but reports did not help Prior Treatments and Tests Pt has an upcoming MRI depending on insurance She had an x-ray PT-OP-T Assessment and Plan Start: 08/01/24 16:06 Freq: Status: Active Protocol: Document 10/24/24 08:17 NM (Rec: 10/24/24 09:02 NM [id number]) Physical Therapy Assessment Goals Five Impairment strength impaired R shoulder globally Residential Goal (LTG) Pt will improve R shoulder strength to at least 4+/5 globally in order to demonstrate improvements needed for lifting and carrying 09/05/24: 3/5 w/ pain 10/24/24: 4-/5 for all except for ER 3+/5 LTG Duration PROGRESSING 10/24; 10 weeks Four Impairment IR apley AROM limited Short Term Goal (STG) Pt will be able to reach L5 with her R hand in order to demonstrate improved AROM for dressing and to put her hand on her hip 09/05/24: back pocket of pants w/ pain 10/24/24: L3 STG Duration 8 weeks PROGRESSING 09/05/24 Residential Goal (LTG) Pt will be able to reach L1 with her R hand in order to demonstrate improved AROM for dressing and to put her hand on her hip 10/24/24: L3, can put phone in back pocket LTG Duration PROGRESSING 10/24; 10 weeks Three Impairment ER apley AROM limited Short Term Goal (STG) Pt will be able to reach her R ear to demonstrate improved ER AROM for grooming 09/05/24: R ear lobe w/ pain STG Duration 8 weeks MET Residential Goal (LTG) Pt will be able to reach the base of her occiput using her R hand to demonstrate improved ER AROM for grooming 09/19/24: pt able to reach base of occiput with R hand w/ pain; put up hair over weekend 10/24/24: base of occiput, C2 LTG Duration 12 weeks MET Two Impairment flexion and abduction AROM limited Short Term Goal (STG) Pt will improve R shoulder flexion and abduction to at least 125 deg in order to demonstrate improvements in ability to reach overhead for dressing/grooming 09/05/24: 105 deg AROM flexion , 120 deg PROM flexion; 75 deg abd AROM and PROM 09/19/24: 110 deg flex AROM w/ slight shoulder elevation, abd to 85 deg w/ slight shoulder elevation 10/24/24: 120 deg flex, 110 deg abd STG Duration 8 weeks PROGRESSING 10/24/24 Residential Goal (LTG) Pt will improve R shoulder flexion and abduction to at least 140 deg in order to demonstrate improvements in ability to reach overhead and write on board at work LTG Duration 10 weels- GOAL UPDATED One Impairment quickdash score 70% impairment Impairment decreased functional use of left UE Short Term Goal (STG) Pt will improve quickdash score by at least 10% in order to demonstrate improvements in QOL, symptom management, and activity tolerance 09/05/24: 63.6% impairment 10/24/24: 40% impairment STG Duration 6 weeks MET 10/24 Team Physician Goal (LTG) Pt will improve quickdash score <30% in order to demonstrate improvements in QOL, symptom management, and activity tolerance 10/24/24: 40% impairment LTG Duration 10 weeks PROGRESSING 11/07 Assessment Summary Assessment Pt has been seen x9 sessions following evaluation in July 2024 for adhesive capsulitis in R shoulder. She demos improvements in R shoulder ROM and strength globally, but continues to be limited overall which affects ability to perform ADLs/IADLs and work-related tasks. Pt demos functional improvements with dressing, grooming, and reaching. Quickdash improved to 40% impairment (from 70% impairment at evaluation). Pt is compliant with HEP. She has had limited sessions due to work schedule and sickness. Pt has been assessed by an orthopedic surgeon, not planning on receiving a RODNEY at this time. Pt would benefit from further skilled PT for progressive R shoulder mobility and strengthening in order for pt to improve lifting and reaching ADLs. Physical Therapy Plan Frequency and Duration Frequency of Treatment 1-2x/wk Duration of treatment (weeks) 10 Plan of Care Start Date 10/24/24 Plan of Care End Date 01/05/25 Therapeutic Interventions Therapeutic Interventions Balance Training,Gait Training ,Home Exercise Program,Joint Mobilizations,Manual Therapy, Neuromuscular Re-education, Orthotic/Prosthetic Management ,Patient/Caregiver Education, Self-Care/Home Management, Sensory Integration,Soft Tissue Mobilization,Taping, Therapeutic Activities, Therapeutic Exercises Modalities Cold Pack/Ice Massage,Electric Stimulation,Hot Packs, Ultrasound Other Therapeutic Interventions Trigger point therapy Next Visit Focus/Plan Next Note Type Treatment Note Next Visit Plan sidelying flex and ER. ER wall stretch. seated inf glide mob and self mob. cont w/ incorporation eccentric lowering, Rhomboid and LT activation (maybe trial nora walkouts for rows/LT vs isot). Cont with jt mobilizations, yang into Ir/ADD POC: Cont with GHJ joint mob (focus on flex and abd; cont ant glide with ER and IR behind table mob). IR towel stretch. progress to banded nora reactives if nora ok. Add rows, low rows. STM to neck/ shoulder as needed. Assess rachelle for eccentric flex/abd on HEP - correct or d/c. Promote sidelying flex/abd ROM, and thoracic mobility Plan of Care Dates Plan of Care Start Date 10/24/24 Plan of Care End Date 01/05/25 Electronically Signed by: Eneida Bennett, PT 10/24/24 1302 If you are in agreement with this Plan of Care, please return a signed and dated copy. I have reviewed this Plan of Care and certify that the skilled therapy services above are required to meet the patient?s needs. Physician Signature Date Printed Name and Credentials Clinical Instructor Signature Printed Name and Credentials
--- NOTE | 2025-01-10 14:21 | PT.OPDS ---
Current Diagnoses Pain in right shoulder (10/24/24) Stiffness of right shoulder, not elsewhere classified (10/24/24) Weakness (10/24/24) Strain of unspecified muscle, fascia and tendon at shoulder and upper arm level, right arm, initial encounter (10/24/24) Visit Care Team Role Provider Type Leatha Pierre MD Family Provider Physician Primary Care Provider Specialty: [facility] Practice Address: [address] [place] [address], [facility] [place], [address] Email: [email or web address] Attending Provider Advanced Straw Hat Brusher Referring Provider Specialty: [facility] Address: [address] [place] [address], [facility], [place], [address] Phone: Fax: Email: [email or web address] Visit Number Visit Number Discharge Summary PT-OP-B Current Condition Start: 08/01/24 16:06 Freq: Status: Active Protocol: Document 08/02/24 09:45 NM (Rec: 08/02/24 11:12 NM [id number]) Current Condition History of Current Condition Onset Date April 2024 Current Complaints weakness, pain, decreased mobility History of Current Condition Pt presents with R shoulder pain in April 2024. She was chopping firewood with a small axe, then slept in a tent. She reports that the next morning her shoulder started to bother her. She reports difficulty with raising her arm above her head, constant pain to arm, weakness/tingling in fingers 3-4-5 sometimes, waking/going to bed, sleeping . PMH of L shoulder surgery ( tear and arthritis) several years ago. She has a job that requires lifting. 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 She does not lift pt alone, transfers. Pt also reports neck pain on her R side; has a hx of neck pain but not on R side. Pt reports that she fell yesterday and caught herself with her R arm. Pt tends to sleep on her back or L side ( hugs a pillow). Unsure of what positions or tasks make pt's fingers feel worse, but states feels more when cutting, doing dishes; she shakes her hands in the hands to feel better, worse with sitting, feels more during day. Pt has had an injection in in last few months, but reports did not help Prior Treatments and Tests Pt has an upcoming MRI depending on insurance She had an x-ray PT-OP-C Subjective Start: 08/01/24 16:06 Freq: Status: Active Protocol: Document 10/24/24 08:17 NM (Rec: 10/24/24 09:02 NM [id number]) OP-PT Subjective Patient Comments Patient Comments Pt reports that she will be switching insurance to [employer] on 11/15. Overall, shoulder has been hurting less, feels like she can move her arm more. She can now wash her hair and tie her hair up with her clip. She reports she can also put her phone in her back pocket. No longer has a constant ache. She spoke with Dr. Wadsworth, still in stage. She is able to write on the board but still needs to support her arm; still has pain with lifting. PT-OP-E Functional Tests Start: 08/01/24 16:06 Freq: Status: Active Protocol: Document 08/02/24 09:45 NM (Rec: 08/02/24 11:12 NM [id number]) Functional Tests Apley's Scratch Test Action 1- Left post cuff Action 1- Right ACJ; painful Action 2- Left T6 Action 2- Right not to ear; painful Action 3- Left T6 Action 3- Right sacrum; painful PT-OP-F Manual Assessment Start: 08/01/24 16:06 Freq: Status: Active Protocol: Document 08/02/24 09:45 NM (Rec: 08/02/24 11:12 NM [id number]) Manual Assessments Soft Tissue Assessment Soft Tissue Mobility Assessment Increased restriction of cervical paraspinals; tightness and trigger points along levator scapulae, upper trapezius, rhomboids, posterior cuff. Increased lat tightnesss Joint Mobility Assessment Joint Mobility Assessment R scapula elevated and restricted. Limited R GHJ posterior and inferior glide. No restrictions of cervical spine mobility except soft tissue tightness. Empty end feels for all, more PROM than AROM PT-OP-G Mobility & Gait Start: 08/01/24 16:06 Freq: Status: Active Protocol: Document 08/02/24 09:45 NM (Rec: 08/02/24 11:12 NM [id number]) OP Gait Assessment Gait Gait Assistance Required: Independent Distance (Feet) 150 Comments Gait Comments Demos decreased trunk rotation , stiffness on RUE PT-OP-H Neuro Start: 08/01/24 16:06 Freq: Status: Active Protocol: Document 08/02/24 09:45 NM (Rec: 08/02/24 11:12 NM [id number]) Sensation Evaluation Comments Summary Comments Will assess next session PT-OP-J Posture/Palpation/Skin Start: 08/01/24 16:06 Freq: Status: Active Protocol: Document 08/02/24 09:45 NM (Rec: 08/02/24 11:12 NM [id number]) Posture Evaluation Position Standing Head/C-Spine Posture Forward Head Shoulder Posture (L) Forward,(R) Forward,(R) Elevated Scapula Posture (R) Elevated,(L) Winged,(R) Winged Arm Posture (L) Internally Rotated,(R) Internally Rotated Pelvis Posture Anteriorly Tilted Knee Posture (L) Genu Valgus,(R) Genu Valgus Palpation Assessment Location R shoulder Palpation Details Tenderness at long head biceps tendon, AC joint, GH joint Tightness along lat, posterior cuff, cervical paraspinals and periscapulars PT-OP-K Range of Motion Start: 08/01/24 16:06 Freq: Status: Active Protocol: Document 10/24/24 08:17 NM (Rec: 10/24/24 09:02 NM [id number]) Shoulder Goniometric Range of Motion Shoulder Right Flexion 120 Extension 40 Abduction 110 External Rotation at 0 degrees Abduction 10 Internal Rotation 70 Comments IE: 90 deg flex, 40 deg ext, 80 deg abd into scaption, 10 deg ER, 70 deg IR; PROM: 120 deg flex, 100 deg abd, 10 deg ER 09/05/24: 105 deg flex, 75 deg abd in scaption, 10 deg ER at 0 deg abd; PROM: 120 deg flex , 75 deg abd, 20 deg ER 10/24/24: Left Flexion 170 Extension 65 Abduction 175 External Rotation at 45 degrees 90 Abduction External Rotation at 0 degrees Abduction 60 Internal Rotation 70 PT-OP-L Special Tests Start: 08/01/24 16:06 Freq: Status: Active Protocol: Document 08/02/24 09:45 NM (Rec: 08/02/24 11:12 NM [id number]) Special Tests Cervical Spine Special Tests Upper Limb Tension Test Test Results + Comments median n.; unable to test ulnar d/t shldr ROM/pain Spurling's Test Test Results - Shoulder Special Tests Empty Can Test Results + Comments limited ROM Belly Press Test Results + Yergason's Biceps Test Results - Elbow Special Tests Tinel Test Results + Comments cubital tunnel Wrist/Hand Special Tests Tinel Test Results + Comments over carpal tunnel PT-OP-M Strength Start: 08/01/24 16:06 Freq: Status: Active Protocol: Document 10/24/24 08:17 NM (Rec: 10/24/24 09:02 NM [id number]) Shoulder Strength Shoulder Manual Muscle Testing Right Flexion 4- Good- Extension 4- Good- External Rotation 3+ Fair+ Internal Rotation 4- Good- Comments pain with flex, abd, IR at cuff and biceps 09/05/24: 3/5 for all; painful 10/24/24: 3+/ER, 4-/5 Left Flexion 4+ Good+ Extension 4+ Good+ Abduction (C5) 4+ Good+ Adduction 4+ Good+ External Rotation 4+ Good+ Internal Rotation 4+ Good+ Horizontal Abduction 4+ Good+ Horizontal Adduction 4+ Good+ Comments bicep PT-OP-T Assessment and Plan Start: 08/01/24 16:06 Freq: Status: Active Protocol: Document 01/03/25 12:09 NM (Rec: 01/03/25 12:15 NM [id number]) Physical Therapy Assessment Goals Five Impairment strength impaired R shoulder globally Nursing Home Goal (LTG) Pt will improve R shoulder strength to at least 4+/5 globally in order to demonstrate improvements needed for lifting and carrying 09/05/24: 3/5 w/ pain 10/24/24: 4-/5 for all except for ER 3+/5 LTG Duration PROGRESSING 10/24; 10 weeks Four Impairment IR apley AROM limited Short Term Goal (STG) Pt will be able to reach L5 with her R hand in order to demonstrate improved AROM for dressing and to put her hand on her hip 09/05/24: back pocket of pants w/ pain 10/24/24: L3 STG Duration 8 weeks PROGRESSING 09/05/24 Nursing Home Goal (LTG) Pt will be able to reach L1 with her R hand in order to demonstrate improved AROM for dressing and to put her hand on her hip 10/24/24: L3, can put phone in back pocket LTG Duration PROGRESSING 10/24; 10 weeks Three Impairment ER apley AROM limited Short Term Goal (STG) Pt will be able to reach her R ear to demonstrate improved ER AROM for grooming 09/05/24: R ear lobe w/ pain STG Duration 8 weeks MET Manager [employer] Goal (LTG) Pt will be able to reach the base of her occiput using her R hand to demonstrate improved ER AROM for grooming 09/19/24: pt able to reach base of occiput with R hand w/ pain; put up hair over weekend 10/24/24: base of occiput, C2 LTG Duration 12 weeks MET Two Impairment flexion and abduction AROM limited Short Term Goal (STG) Pt will improve R shoulder flexion and abduction to at least 125 deg in order to demonstrate improvements in ability to reach overhead for dressing/grooming 09/05/24: 105 deg AROM flexion , 120 deg PROM flexion; 75 deg abd AROM and PROM 09/19/24: 110 deg flex AROM w/ slight shoulder elevation, abd to 85 deg w/ slight shoulder elevation 10/24/24: 120 deg flex, 110 deg abd STG Duration 8 weeks PROGRESSING 10/24/24 Manager [employer] Goal (LTG) Pt will improve R shoulder flexion and abduction to at least 140 deg in order to demonstrate improvements in ability to reach overhead and write on board at work LTG Duration 10 weels- GOAL UPDATED One Impairment quickdash score 70% impairment Impairment decreased functional use of left UE Short Term Goal (STG) Pt will improve quickdash score by at least 10% in order to demonstrate improvements in QOL, symptom management, and activity tolerance 09/05/24: 63.6% impairment 10/24/24: 40% impairment STG Duration 6 weeks MET 10/24 Nursing Home Goal (LTG) Pt will improve quickdash score <30% in order to demonstrate improvements in QOL, symptom management, and activity tolerance 10/24/24: 40% impairment LTG Duration 10 weeks PROGRESSING 11/07 Assessment Summary Assessment Pt was evaluated for R shoulder pain in July 2024 related to adhesive capsulitis. Pt attended 10 sessions, limited due to insurance. Pt demonstrated improvements in R shoulder ROM , but still had significant limitations that limited ability to perform ADLs for reaching and lifting. Pt also still limited in ability to lift especially for work related tasks due to R shoulder pain and weakness. Pt has been assessed by an mapping specialist but declined further intervention at that time. At time of last progress note in 11/02/24, pt and PT planned to continue with PT to maximize available ROM and to initiate strengthening. Physical Therapy Plan Frequency and Duration Frequency of Treatment 1-2x/wk Duration of treatment (weeks) 10 Plan of Care Start Date 10/24/24 Plan of Care End Date 01/05/25 Therapeutic Interventions Therapeutic Interventions Balance Training,Gait Training ,Home Exercise Program,Joint Mobilizations,Manual Therapy, Neuromuscular Re-education, Orthotic/Prosthetic Management ,Patient/Caregiver Education, Self-Care/Home Management, Sensory Integration,Soft Tissue Mobilization,Taping, Therapeutic Activities, Therapeutic Exercises Modalities Cold Pack/Ice Massage,Electric Stimulation,Hot Packs, Ultrasound Other Therapeutic Interventions Trigger point therapy Discharge Physical Therapy Discharge Reasons No Longer Attending PT Discharge Comments Pt has not been seen in clinic since 10/24/24. Plan of care will on 11/04/25. Pt has canceled all scheduled appt in November 2024 and has not scheduled into December 2024. Pt will need new PT referral return to PT. However , pt would likely benefit from further assessment from mapping specialist if pain and ROM symptoms continue to not improve. Next Visit Focus/Plan Next Note Type Discharge Summary Next Visit Plan discharge from PT
== END 2025-01-11 11:45 | disposition home or self-care (01) ==
LOC: PHYS 08:15
PROVIDERS: Family Provider Family Medicine; PCP Family Medicine; Referring Provider Nurse Practitioner Family; Visit Provider Nurse Practitioner Family
DX: S46.911A Strain of unspecified muscle, fascia and tendon at shoulder and upper arm level, right arm, initial encounter (principal); M25.611 Stiffness of right shoulder, not elsewhere classified; M25.511 Pain in right shoulder; R53.1 Weakness
CPT/HCPCS: 97110; 97140; 97161

== ENCOUNTER → 2025-02-14 16:20 | Outpatient (CLI) | payer OTHER, SELFPAY | PROVIDERS: Family Provider Family Medicine; PCP Family Medicine; Visit Provider Nurse Practitioner Family | DX: M54.50 Low back pain, unspecified (principal) | CPT/HCPCS: 87086 ==

== ENCOUNTER → 2025-06-07 11:31 | Outpatient (CLI) | payer OTHER, SELFPAY ==
--- NOTE | 2025-06-07 11:32 | DI.MG.S_ITS ---
MM screening mammo BI: 06/07/2025. BI-RADS: 2 CLINICAL: 54-year old female for bilateral screening mammogram. Tyrer-Cuzick lifetime risk of 17.9%. No personal or first-degree family history of breast cancer. Current reported family history of breast cancer: paternal aunt. The patient had a prior left breast biopsy. PRIOR EXAMS 03/08/2024, 02/09/2023, 12/22/2021, 01/27/2021. MAMMOGRAPHY TECHNIQUE: 2D and 3D (tomosynthesis) digital mammographic views obtained, with additional images as needed for full coverage. Current study was also evaluated with a Computer Aided Detection (CAD) system. DENSITY C. The breasts are heterogeneously dense, which may obscure small masses. MAMMOGRAPHY FINDINGS Right: No suspicious mass, asymmetry, microcalcification, or other abnormality seen. No significant change from comparison. Left: Biopsy markers present on the left. There are no suspicious masses, calcifications, or other findings in the breast. No significant change from comparison. IMPRESSION: Right * No evidence of malignancy. Left * No evidence of malignancy with benign findings. RECOMMENDATIONS Bilateral * Annual screening mammography. OVERALL ASSESSMENT CATEGORY BI-RADS-2: Benign. The [employer] recommends annual screening mammography beginning at age 40 for women with average risk of breast cancer. ELECTRONICALLY SIGNED: Rae Clinton M.D. on 06/07/2025 at 05:48:21 PM PT Interpreting Station ID: [id number]
== END ==
PROVIDERS: Family Provider Family Medicine; PCP Family Medicine; Referring Provider Family Medicine; Visit Provider Family Medicine
DX: Z12.31 Encounter for screening mammogram for malignant neoplasm of breast (principal); Z80.3 Family history of malignant neoplasm of breast; R92.333 Mammographic heterogeneous density, bilateral breasts
CPT/HCPCS: 77063; 77067

== ENCOUNTER → 2025-08-08 16:22 | Outpatient (CLI) | payer OTHER, SELFPAY ==
[2025-08-08 17:14] LABS: Appearance Urine UA CLEAR; Bilirubin Urine UA NEGATIVE (NEGATIVE); Color Urine UA YELLOW; Glucose Urine UA NEGATIVE (Negative); Ketones Urine UA NEGATIVE (NEGATIVE); Leukocyte Esterase Urine UA TRACE (NEGATIVE); Nitrite Urine UA NEGATIVE (Negative); Occult Blood Urine UA NEGATIVE (Negative); Protein Urine UA NEGATIVE (Negative); Specific Gravity Urine UA <=1.005 (1.000-1.035); Urobilinogen Urine UA 0.2 E.U./dL (0.2)
[2025-08-08 17:15] LABS: pH Urine UA 5.5 (4.5-8.0)
[2025-08-08 17:25] LABS: Culture Indicated Urine Cult Not Indicated
[2025-08-08 17:42] LABS: Cholesterol 210 mg/dL (140-199); HDL Cholesterol 70 mg/dL (40-60); Triglycerides 180 mg/dL (35-150)
[2025-08-08 17:42] LABS: Estimated Glomerular Filt Rate > 60 mL/min (>60)
== END ==
PROVIDERS: PCP Family Medicine; Referring Provider Student in an Organized Health Care Education/Training Program; Visit Provider Student in an Organized Health Care Education/Training Program
DX: Z00.00 Encounter for general adult medical examination without abnormal findings (principal); Z52.4 Kidney donor; Z90.5 Acquired absence of kidney; R68.82 Decreased libido; Z13.220 Encounter for screening for lipoid disorders
CPT/HCPCS: 36415; 80061; 81001; 82565; 84402; 84403

== ENCOUNTER → 2025-08-09 | Outpatient (CLI) | payer OTHER, SELFPAY ==
--- NOTE | 2025-08-09 16:20 | DI.MRI.S_ITS ---
PROCEDURE: MR SHOULDER RT WO CON INDICATIONS: right shoulder pain and weakness TECHNIQUE: Noncontrast oblique coronal T2 fast spin echo with fat saturation, oblique sagittal T1 spin echo and T2 fast spin echo with fat saturation, axial T1 spin echo and T2 fast spin echo with fat saturation through the shoulder. COMPARISON: [facility], MR, MR SHOULDER RT WO CON, 09/06/2024, 13:03. FINDINGS: Image quality: Excellent. Some images are limited by patient motion, pulsation or other artifacts. Rotator cuff: Tendinopathy versus partial tear of the articular surface of the distal supraspinatus similar to the prior exam edema is decreased. The infraspinatus and subscapularis demonstrate mild tendinopathy without tear or retraction. No significant muscular fatty atrophy. Teres minor is normal. Bones and bursae: [id number] degenerative changes of the acromioclavicular joint with subchondral edema, small osteophytes, mild capsular hypertrophy similar to the prior exam. Type 2 laterally downsloping acromion with associated decreased subacromial space measuring approximately 6 mm at its narrowest. No MR evidence of fracture or dislocation Capsule and soft tissues: Increased T2 weighted signal and diffuse thinning of the cortical humeral ligament progressed. Degenerative changes of the glenohumeral joint with diffuse cartilaginous thinning of the humeral head and glenoid. Moderate heterogeneous signal and fraying of the superior labrum from approximately 11 o'clock to 1 o'clock position related to degenerative changes or chronic superior labral tear mildly progressed. No significant glenohumeral joint effusion. IMPRESSION: Tendinopathy/partial tear distal supraspinatus similar to the prior exam with mildly decreased edema. Mild tendinopathy distal infraspinatus, subscapularis unchanged. [id number] degenerative changes labrum, acromioclavicular and glenohumeral joints. Dictated by: Grant Hernandez M.D. on 08/11/2025 at 23:22 Approved by: Grant Hernandez M.D. on 08/11/2025 at 23:30
== END ==
LOC: MRI 16:18
PROVIDERS: PCP Family Medicine; Referring Provider Physician Assistant Surgical; Visit Provider Physician Assistant Surgical
DX: M75.111 Incomplete rotator cuff tear or rupture of right shoulder, not specified as traumatic (principal); M25.511 Pain in right shoulder
CPT/HCPCS: 73221

== ENCOUNTER → 2025-08-27 15:56 | Outpatient (CLI) | payer OTHER, SELFPAY ==
--- NOTE | 2025-08-27 15:57 | DI.RAD.S_ITS ---
PROCEDURE: FL JOINT INJECTION LARGE RT INDICATIONS: Frozen Shoulder-Right COMPARISON: None. TECHNIQUE: The indications, alternatives, benefits, risks, and complications of the procedure were explained to the patient. Written informed consent was obtained and placed in the chart. The patient was placed in an appropriate position on the fluoroscopy table, and a site was chosen for percutaneous access under fluoroscopic guidance. The site was prepped and draped in a sterile fashion. Local anesthetic was administered using a 1% lidocaine solution. A hypodermic or spinal needle was then used to access the symptomatic joint. Intra-articular location of the needle tip was confirmed by injecting a small amount of contrast, followed by steroid administration. The needle was then withdrawn, and a bandage applied to the puncture site. FINDINGS: Joint injected: Right shoulder Medications injected: 4 mL of 40 mg/mL Kenalog and 0.5% Ropivacaine mixture. Patient's pain before injection: 7 out of 10. Patient's pain after injection: 0 out of 10. Complications: None. IMPRESSION: Successful fluoroscopically guided administration of steroid and anaesthetic solution into the right shoulder joint. Dictated by: Sandhya Yeager M.D. on 08/27/2025 at 17:21 Approved by: Sandhya Yeager M.D. on 08/27/2025 at 17:22
[2025-08-27] MEDS: TRIAMCINOLONE 40 MG/ML VIAL INTRA-ARTI (16:58)
[2025-08-27] MEDS: LIDOCAINE 1% 20 ML INJ (16:58)
== END ==
LOC: RAD 15:57
PROVIDERS: PCP Family Medicine; Referring Provider Physician Assistant Surgical; Visit Provider Physician Assistant Surgical
DX: M75.00 Adhesive capsulitis of unspecified shoulder (principal)
CPT/HCPCS: 20610; 77002